=== PATIENT | female | born 1980 | race Caucasian/White ===

== ENCOUNTER → 2017-09-30 | Outpatient (CLI) | payer BC, OTHER, MEDICAID ==
[2017-09-30 13:12] LABS: BASO % 0.3 % (0.0-1.0); EOS # 0.2 10^3/uL (0.0-0.50); EOS % 2.2 % (0.0-3.0); HEMATOCRIT 43.7 % (36.0-47.0); HEMOGLOBIN 14.2 g/dl (12.0-15.5); IMMATURE GRANULOCYTE % 0.4 % (0-3.0); LYMPH # 2.5 10^3/uL (1.5-4.5); LYMPH % 23.9 % (24.0-44.0); MEAN CORPUSCULAR HGB CONC 32.5 g/dl (32.0-36.5); MEAN CORPUSCULAR VOLUME 98.4 fl (80.0-96.0); MONO # 0.7 10^3/uL (0.0-0.8); MONO % 6.6 % (0.0-5.0); NEUTROPHILS # 6.9 10^3/uL (1.8-7.7); NEUTROPHILS % 66.6 % (36.0-66.0); PLATELET COUNT, AUTOMATED 238 10^3/uL (150-450); RED BLOOD COUNT 4.44 10^6/uL (4.00-5.40); WHITE BLOOD COUNT 10.4 10^3/uL (4.0-10.0)
[2017-09-30 13:30] LABS: ALBUMIN 3.6 GM/DL (3.2-5.2); ALBUMIN/GLOBULIN RATIO 1.06 (1.00-1.93); ALKALINE PHOSPHATASE 60 U/L (45-117); ALT/SGPT 26 U/L (12-78); ANION GAP 6 MEQ/L (8-16); AST/SGOT 14 U/L (7-37); BILIRUBIN,TOTAL 0.4 MG/DL (0.2-1.0); BLOOD UREA NITROGEN 11 MG/DL (7-18); CALCIUM LEVEL 8.6 MG/DL (8.5-10.1); CARBON DIOXIDE LEVEL 30 MEQ/L (21-32); CHLORIDE LEVEL 105 MEQ/L (98-107); FREE T4 0.74 NG/DL (0.76-1.46); GLOMERULAR FILTRATION RATE > 60.0 (>60); GLUCOSE, FASTING 97 MG/DL (70-100); POTASSIUM SERUM 4.8 MEQ/L (3.5-5.1); SODIUM LEVEL 141 MEQ/L (136-145)
[2017-09-30 13:44] LABS: ESTIMATED AVERAGE GLUCOSE 114 MG/DL (60-110); HEMOGLOBIN A1c 5.6 %
== END ==
LOC: M WUC 09:00
DX: R55 Syncope and collapse (principal); R73.03 Prediabetes
CPT/HCPCS: 84443

== ENCOUNTER 2017-12-31 15:28 | Emergency (ER) | payer OTHER, MEDICAID ==
[2017-12-31 15:43] LABS: BEDSIDE GLUCOSE 102 MG/DL (70-105)
[2017-12-31 15:59] LABS: BASO % 0.2 % (0.0-1.0); EOS % 0.1 % (0.0-3.0); HEMATOCRIT 43.6 % (36.0-47.0); HEMOGLOBIN 14.7 g/dl (12.0-15.5); IMMATURE GRANULOCYTE % 1.1 % (0-3.0); LYMPH # 2.5 10^3/uL (1.5-4.5); LYMPH % 14.7 % (24.0-44.0); MEAN CORPUSCULAR HEMOGLOBIN 32.3 pg (27.0-33.0); MEAN CORPUSCULAR HGB CONC 33.7 g/dl (32.0-36.5); MEAN CORPUSCULAR VOLUME 95.8 fl (80.0-96.0); MONO # 0.7 10^3/uL (0.0-0.8); NEUTROPHILS # 13.3 10^3/uL (1.8-7.7); NEUTROPHILS % 79.9 % (36.0-66.0); PLATELET COUNT, AUTOMATED 285 10^3/uL (150-450); RED BLOOD COUNT 4.55 10^6/uL (4.00-5.40); RED CELL DISTRIBUTION WIDTH 13.2 % (11.5-14.5); WHITE BLOOD COUNT 16.7 10^3/uL (4.0-10.0)
[2017-12-31] MEDS: NS 1,000 ML IV ×2 (16:01)
[2017-12-31 16:05] LABS: CONTROL LINE HCG INT CTR LINE PRESENT; HCG, SERUM QUALITATIVE NEGATIVE (NEGATIVE)
[2017-12-31 16:06] LABS: INR 0.91; PROTHROMBIN TIME 12.4 SECONDS (12.1-14.4)
[2017-12-31 16:15] LABS: ALBUMIN 3.6 GM/DL (3.2-5.2); ALBUMIN/GLOBULIN RATIO 0.86 (1.00-1.93); ALKALINE PHOSPHATASE 68 U/L (45-117); ALT/SGPT 28 U/L (12-78); ANION GAP 14 MEQ/L (8-16); AST/SGOT 17 U/L (7-37); BILIRUBIN,DIRECT < 0.1 MG/DL (0.0-0.2); BILIRUBIN,TOTAL 0.3 MG/DL (0.2-1.0); BLOOD UREA NITROGEN 10 MG/DL (7-18); C REACTIVE PROTEIN QUANTITATIV 1.25 MG/DL (0.00-0.30); CARBON DIOXIDE LEVEL 19 MEQ/L (21-32); CHLORIDE LEVEL 105 MEQ/L (98-107); CPK CREATINE PHOSPHOKINASE 129 U/L (26-192); CREATININE FOR GFR 1.08 MG/DL (0.55-1.30); GLOMERULAR FILTRATION RATE > 60.0 (>60); GLUCOSE, FASTING 103 MG/DL (70-100); SODIUM LEVEL 138 MEQ/L (136-145); TOTAL PROTEIN 7.8 GM/DL (6.4-8.2); TROPONIN I < 0.02 NG/ML (< 0.10)
[2017-12-31 16:22] LABS: CK-MB VALUE MASS 1.9 NG/ML (<3.6); MB/CK RELATIVE INDEX 1.47 (< OR =4)
[2017-12-31 16:36] LABS: KETONE, URINE AUTO RFX TRACE mg/dL (NEGATIVE); LEUKOCYTE ESTERASE UR AUTO RFX NEGATIVE (NEGATIVE); MUCUS, URINE RFX SMALL (NEGATIVE); NITRITE, URINE AUTO RFX NEGATIVE (NEGATIVE); RBC, URINE AUTO RFX 1 /HPF (0-3); SPECIFIC GRAVITY UR AUTO RFX 1.014 (1.002-1.035); SQUAM EPITHELIAL CELL UR AURFX 0 /HPF (0-6); WBC, URINE AUTO RFX 1 /HPF (0-3)
[2017-12-31 17:01] LABS: AMPHETAMINES LEVEL URINE NEGATIVE (NEGATIVE); BARBITURATES URINE NEGATIVE (NEGATIVE); BENZODIAZEPINES URINE NEGATIVE (NEGATIVE); CANNABINOIDS URINE POSITIVE (NEGATIVE); COCAINE METABOLITE URINE NEGATIVE (NEGATIVE); METHADONE URINE NEGATIVE (NEGATIVE); OPIATES URINE NEGATIVE (NEGATIVE); PHENCYCLIDINE URINE NEGATIVE (NEGATIVE)
[2017-12-31] MEDS: TOPIRAMATE (TopAMAX) 25 MG TAB PO ×2 (18:05)
[2017-12-31] MEDS: KETOROLAC 30 MG/ML VIAL (J1885) IV ×2 (18:05)
== END 2017-12-31 19:39 | disposition home or self-care (01) ==
LOC: M ED 15:28
DX: R56.9 Unspecified convulsions (principal); Z88.0 Allergy status to penicillin
CPT/HCPCS: J1885

== ENCOUNTER → 2018-12-29 | Outpatient (CLI) | payer OTHER ==
[~2018-12-29] MED LIST: CLEO300C; CLIN300C; HYDROCODONE; IBUP400T; IBUP80TA PO; KEPP10002 PO; NORT25CA2 PO; PROV90AE; TOPA1TAB PO; XULA1DIS TD
[2018-12-29 09:56] LABS: BASO % 0.4 % (0.0-1.0); EOS # 0.2 10^3/uL (0.0-0.50); HEMATOCRIT 44.6 % (36.0-47.0); HEMOGLOBIN 14.6 g/dl (12.0-15.5); LYMPH # 2.6 10^3/uL (1.5-4.5); LYMPH % 22.6 % (24.0-44.0); MEAN CORPUSCULAR HEMOGLOBIN 32.9 pg (27.0-33.0); MEAN CORPUSCULAR HGB CONC 32.7 g/dl (32.0-36.5); MEAN CORPUSCULAR VOLUME 100.5 fl (80.0-96.0); MONO # 0.8 10^3/uL (0.0-0.8); MONO % 6.7 % (0.0-5.0); NEUTROPHILS # 7.7 10^3/uL (1.8-7.7); NEUTROPHILS % 67.6 % (36.0-66.0); PLATELET COUNT, AUTOMATED 226 10^3/uL (150-450); RED BLOOD COUNT 4.44 10^6/uL (4.00-5.40); WHITE BLOOD COUNT 11.3 10^3/uL (4.0-10.0)
[2018-12-29 10:28] LABS: ALBUMIN 3.7 GM/DL (3.2-5.2); ALT/SGPT 32 U/L (12-78); BILIRUBIN,TOTAL 0.4 MG/DL (0.2-1.0); BLOOD UREA NITROGEN 10 MG/DL (7-18); CARBON DIOXIDE LEVEL 28 MEQ/L (21-32); CHLORIDE LEVEL 107 MEQ/L (98-107); CREATININE FOR GFR 0.85 MG/DL (0.55-1.30); GLOMERULAR FILTRATION RATE > 60.0 (>60); GLUCOSE, FASTING 94 MG/DL (70-100); POTASSIUM SERUM 4.8 MEQ/L (3.5-5.1); SODIUM LEVEL 139 MEQ/L (136-145)
== END ==
LOC: M LAB 08:54
PROVIDERS: ATTEND Nurse Practitioner Family
DX: G40.89 Other seizures (principal)

== ENCOUNTER 2019-09-20 13:09 | Emergency (ER) | payer MEDICAID, OTHER ==
[~2019-09-20] VITALS: Ht 160 cm; Wt 92.1 kg
[2019-09-20] MEDS ORDERED: TRAZ-252 PO (13:37)
[2019-09-20] MEDS ORDERED: VENL75CA47 PO (13:37)
[2019-09-20] MEDS ORDERED: predniSONE 20 MG TAB PO ONE (14:00)
[2019-09-20 14:02] LABS: BASO # 0.1 10^3/uL (0.0-0.2); BASO % 0.4 % (0.0-1.0); EOS # 0.2 10^3/uL (0.0-0.5); EOS % 1.7 % (0.0-3.0); HEMATOCRIT 42.9 % (36.0-47.0); HEMOGLOBIN 14.3 g/dl (12.0-15.5); LYMPH # 2.7 10^3/uL (1.5-5.0); MEAN CORPUSCULAR HEMOGLOBIN 32.9 pg (27.0-33.0); MEAN CORPUSCULAR HGB CONC 33.3 g/dl (32.0-36.5); MEAN CORPUSCULAR VOLUME 98.6 fl (80.0-96.0); MONO # 0.8 10^3/uL (0.0-0.8); NEUTROPHILS % 71.5 % (36.0-66.0); PLATELET COUNT, AUTOMATED 241 10^3/uL (150-450); RED BLOOD COUNT 4.35 10^6/uL (4.00-5.40); WHITE BLOOD COUNT 13.9 10^3/uL (4.0-10.0)
[2019-09-20] MEDS: ALBUTEROL 90 MCG/ACT 8GM HFA INHALER INH SCH ×2 (14:20→14:28)
[2019-09-20 14:35] LABS: ALBUMIN 3.7 GM/DL (3.2-5.2); ALT/SGPT 32 U/L (12-78); BILIRUBIN,DIRECT < 0.1 MG/DL (0.0-0.2); BILIRUBIN,TOTAL 0.2 MG/DL (0.2-1.0); BLOOD UREA NITROGEN 11 MG/DL (7-18); CALCIUM LEVEL 9.1 MG/DL (8.5-10.1); CARBON DIOXIDE LEVEL 25 MEQ/L (21-32); CHLORIDE LEVEL 105 MEQ/L (98-107); CK-MB VALUE MASS < 1.0 NG/ML (<3.6); CPK CREATINE PHOSPHOKINASE 138 U/L (26-192); CREATININE FOR GFR 0.82 MG/DL (0.55-1.30); FREE T4 0.84 NG/DL (0.76-1.46); GLOMERULAR FILTRATION RATE > 60.0 (>60); GLUCOSE, FASTING 87 MG/DL (70-100); LIPASE 66 U/L (73-393); MB/CK RELATIVE INDEX 0.72 (< OR =4); POTASSIUM SERUM 4.3 MEQ/L (3.5-5.1); SODIUM LEVEL 138 MEQ/L (136-145); TOTAL PROTEIN 7.3 GM/DL (6.4-8.2); TROPONIN I < 0.02 NG/ML (< 0.10)
--- NOTE | 2019-09-20 14:50 | REP ---
REASON FOR EXAM: Chest pain. COMPARISON: 12/31/2017 FINDINGS: The technique utilized in obtaining the radiograph has magnified the cardiac silhouette and accentuated the interstitial markings. The superior mediastinal structures are midline. The cardiac silhouette is unremarkable in size, shape, and position. The diaphragmatic surfaces of the lungs are regular, and the costophrenic angles are clear. The pulmonary miranda are clear. The imaged osseous structures are intact. IMPRESSION: There is no acute cardiopulmonary disease. Electronically Signed by Pranav Orozco DO 09/20/2019 04:11 P
[2019-09-20] MEDS ORDERED: PRED20TA PO (15:03)
[2019-09-20 15:26] VITALS: BP 143/101
--- NOTE | 2019-09-20 22:53 | ECGEPIP ---
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
== END 2019-09-20 15:28 | disposition home or self-care (01) ==
LOC: M ED 13:09
DX: J45.901 Unspecified asthma with (acute) exacerbation (principal); R05 Cough; F17.218 Nicotine dependence, cigarettes, with other nicotine-induced disorders; Z88.0 Allergy status to penicillin; Z88.1 Allergy status to other antibiotic agents; Z11.59 Encounter for screening for other viral diseases
CPT/HCPCS: 71045; 80048; 80076; 82550; 82553; 83690; 84439; 84443; 85025; 85379; 87486; 87581; 87633; 87798; 93005; 93041; 94640; 94760; 99284; U0002

== ENCOUNTER → 2019-11-04 | Outpatient (CLI) | payer OTHER ==
[~2019-11-04] MED LIST changes: +PRED20TA PO; +TRAZ-252 PO; +VENL75CA47 PO
[2019-11-04 13:19] LABS: BASO # 0.1 10^3/uL (0.0-0.2); BASO % 0.3 % (0.0-1.0); EOS # 0.1 10^3/uL (0.0-0.5); EOS % 0.7 % (0.0-3.0); HEMATOCRIT 42.1 % (36.0-47.0); HEMOGLOBIN 13.5 g/dl (12.0-15.5); LYMPH # 3.9 10^3/uL (1.5-5.0); LYMPH % 23.7 % (24.0-44.0); MEAN CORPUSCULAR HEMOGLOBIN 32.1 pg (27.0-33.0); MEAN CORPUSCULAR HGB CONC 32.1 g/dl (32.0-36.5); MONO # 0.9 10^3/uL (0.0-0.8); MONO % 5.6 % (0.0-5.0); NEUTROPHILS # 11.3 10^3/uL (1.5-8.5); NEUTROPHILS % 67.9 % (36.0-66.0); PLATELET COUNT, AUTOMATED 217 10^3/uL (150-450); RED BLOOD COUNT 4.21 10^6/uL (4.00-5.40); WHITE BLOOD COUNT 16.6 10^3/uL (4.0-10.0)
[2019-11-04 14:18] LABS: ALBUMIN 3.5 GM/DL (3.2-5.2); ALT/SGPT 49 U/L (12-78); BILIRUBIN,TOTAL 0.3 MG/DL (0.2-1.0); BLOOD UREA NITROGEN 11 MG/DL (7-18); CALCIUM LEVEL 8.7 MG/DL (8.5-10.1); CARBON DIOXIDE LEVEL 29 MEQ/L (21-32); CHLORIDE LEVEL 102 MEQ/L (98-107); CHOLESTEROL LEVEL 190 MG/DL (<200); CHOLESTEROL RISK RATIO 5.428 (<5); CREATININE FOR GFR 0.93 MG/DL (0.55-1.30); GLOMERULAR FILTRATION RATE > 60.0 (>60); GLUCOSE, FASTING 114 MG/DL (70-100); HDL CHOLESTEROL 35 MG/DL (>40); LDL CHOLESTEROL 76 MG/DL (<100); NON-HDL-C 155 MG/DL; SODIUM LEVEL 138 MEQ/L (136-145); TOTAL PROTEIN 6.7 GM/DL (6.4-8.2); TRIGLYCERIDES LEVEL 395 MG/DL (<150)
[2019-11-04 16:08] LABS: HEMOGLOBIN A1c 6.5 %
== END ==
LOC: M LAB 12:21
PROVIDERS: ATTEND Family Medicine
DX: R73.03 Prediabetes (principal); R53.83 Other fatigue

== ENCOUNTER → 2020-01-16 | Outpatient (CLI) | payer OTHER ==
[2020-01-16 11:37] LABS: BASO # 0.1 10^3/uL (0.0-0.2); BASO % 0.5 % (0.0-1.0); EOS # 0.2 10^3/uL (0.0-0.5); EOS % 1.6 % (0.0-3.0); HEMOGLOBIN 15.4 g/dl (12.0-15.5); LYMPH # 3.3 10^3/uL (1.5-5.0); LYMPH % 22.2 % (24.0-44.0); MEAN CORPUSCULAR HEMOGLOBIN 33.7 pg (27.0-33.0); MEAN CORPUSCULAR HGB CONC 33.5 g/dl (32.0-36.5); MEAN CORPUSCULAR VOLUME 100.7 fl (80.0-96.0); MONO # 0.9 10^3/uL (0.0-0.8); MONO % 6.2 % (0.0-5.0); NEUTROPHILS # 10.1 10^3/uL (1.5-8.5); NEUTROPHILS % 68.7 % (36.0-66.0); PLATELET COUNT, AUTOMATED 277 10^3/uL (150-450); RED BLOOD COUNT 4.57 10^6/uL (4.00-5.40); WHITE BLOOD COUNT 14.8 10^3/uL (4.0-10.0)
[2020-01-16 12:08] LABS: HEMOGLOBIN A1c 6.4 %
[2020-01-16 12:18] LABS: ALBUMIN 4.1 GM/DL (3.2-5.2); ALT/SGPT 60 U/L (12-78); BILIRUBIN,TOTAL 0.3 MG/DL (0.2-1.0); BLOOD UREA NITROGEN 6 MG/DL (7-18); CALCIUM LEVEL 9.7 MG/DL (8.5-10.1); CARBON DIOXIDE LEVEL 27 MEQ/L (21-32); CHLORIDE LEVEL 106 MEQ/L (98-107); CREATININE FOR GFR 0.91 MG/DL (0.55-1.30); FREE T4 0.79 NG/DL (0.76-1.46); GLOMERULAR FILTRATION RATE > 60.0 (>60); GLUCOSE, FASTING 100 MG/DL (70-100); HCG, SERUM QUANTITATIVE < 1.0 MIU/ML; SODIUM LEVEL 141 MEQ/L (136-145); TOTAL PROTEIN 8.1 GM/DL (6.4-8.2)
[2020-01-16 12:45] LABS: H PYLORI QUALITATIVE IgG NEGATIVE (NEGATIVE)
== END ==
LOC: M LAB 10:55
PROVIDERS: ATTEND Physician Assistant Medical
DX: R11.10 Vomiting, unspecified (principal)

== ENCOUNTER → 2020-02-06 | Outpatient (CLI) | payer OTHER ==
[2020-02-06 11:33] LABS: BASO # 0.1 10^3/uL (0.0-0.2); BASO % 0.5 % (0.0-1.0); EOS # 0.3 10^3/uL (0.0-0.5); EOS % 2.6 % (0.0-3.0); HEMATOCRIT 43.5 % (36.0-47.0); HEMOGLOBIN 14.3 g/dl (12.0-15.5); MEAN CORPUSCULAR HEMOGLOBIN 32.6 pg (27.0-33.0); MEAN CORPUSCULAR HGB CONC 32.9 g/dl (32.0-36.5); MEAN CORPUSCULAR VOLUME 99.3 fl (80.0-96.0); MONO # 0.9 10^3/uL (0.0-0.8); MONO % 6.8 % (0.0-5.0); NEUTROPHILS # 8.5 10^3/uL (1.5-8.5); NEUTROPHILS % 65.7 % (36.0-66.0); PLATELET COUNT, AUTOMATED 266 10^3/uL (150-450); RED BLOOD COUNT 4.38 10^6/uL (4.00-5.40); WHITE BLOOD COUNT 12.9 10^3/uL (4.0-10.0)
[2020-02-06 12:20] LABS: ALBUMIN 3.9 GM/DL (3.2-5.2); ALT/SGPT 77 U/L (12-78); BILIRUBIN,TOTAL 0.4 MG/DL (0.2-1.0); BLOOD UREA NITROGEN 11 MG/DL (7-18); CALCIUM LEVEL 8.9 MG/DL (8.5-10.1); CARBON DIOXIDE LEVEL 27 MEQ/L (21-32); CHLORIDE LEVEL 106 MEQ/L (98-107); GLOMERULAR FILTRATION RATE > 60.0 (>60); GLUCOSE, FASTING 92 MG/DL (70-100); LIPASE 78 U/L (73-393); POTASSIUM SERUM 4.2 MEQ/L (3.5-5.1); SODIUM LEVEL 139 MEQ/L (136-145); TOTAL PROTEIN 7.4 GM/DL (6.4-8.2)
[2020-02-06 16:06] LABS: HEPATITIS B SURFACE ANTIBODY POSITIVE (POSITIVE)
[2020-02-06 16:17] LABS: HEPATITIS B SURFACE ANTIGEN NEGATIVE (NEGATIVE)
[2020-02-06 16:45] LABS: HEPATITIS C VIRUS ABY INDEX 0.1 INDEX (<0.8)
[2020-02-07 21:07] LABS: ANTINUCLEAR ANTIBODIES DIRECT Negative (Negative); HBVCOREDIFF1 Negative (Negative); HBVCOREDIFF2 Negative (Negative); TISSUE TRANSGLUTAMINASE IgA <2 U/mL (0-3)
== END ==
LOC: M LAB 10:26
PROVIDERS: ATTEND Nurse Practitioner Family
DX: K59.00 Constipation, unspecified (principal); R74.0 Nonspecific elevation of levels of transaminase and lactic acid dehydrogenase [LDH]

== ENCOUNTER 2020-05-30 08:53 | Inpatient (IN) | payer OTHER ==
[~2020-05-30] VITALS: Ht 162.6 cm; Wt 101.2 kg
[2020-05-30] MEDS ORDERED: NS 1,000 ML IV ONE ×3 (09:00→12:45)
[2020-05-30] MEDS ORDERED: LIDOCAINE 2% 5ML JELLY UROJET TOP ONE (09:00)
--- NOTE | 2020-05-30 09:26 | REP ---
INDICATION: Altered Mental Status COMPARISON: 12/31/2017 TECHNIQUE: Axial noncontrast images from the skull base to the vertex with coronal reformations. This CT examination was performed using the following dose reduction techniques: Automated exposure control, adjustment of mA and/or kv according to the patient's size, and use of iterative reconstruction technique. FINDINGS: The ventricles, sulci, and cisterns are normal in position and appearance. Morris-white differentiation is maintained. No acute intracranial hemorrhage, mass/mass effect, pathology or trauma/injury. No evidence for acute infarction. No extra-axial fluid collection. Calvarium is intact. Paranasal sinuses and mastoid air cells are clear. IMPRESSION: Normal noncontrast head CT. No evidence for acute intracranial pathology or trauma/injury. <Electronically signed by Bruno Cooper > 05/30/20 [id number]
[2020-05-30] MEDS ORDERED: HumaLOG INSULIN (NovoLOG) PER UNIT SC STA (09:35)
--- NOTE | 2020-05-30 09:46 | REP ---
INDICATION: Altered Mental Status COMPARISON: 09/20/2019 TECHNIQUE: Portable AP view of the chest FINDINGS: The mediastinum and cardiac silhouette are stable and within normal limits for portable technique. The lung miranda are clear without acute consolidation, effusion, or pneumothorax. Skeletal structures are intact. IMPRESSION: No acute cardiopulmonary process appreciated. <Electronically signed by Bruno Cooper > 05/30/20 [id number]
[2020-05-30 09:49] LABS: BASO # 0.1 10^3/uL (0.0-0.2); BASO % 0.5 % (0.0-1.0); EOS % 0.1 % (0.0-3.0); HEMATOCRIT 62.5 % (36.0-47.0); HEMOGLOBIN 18.6 g/dl (12.0-15.5); LYMPH % 10.4 % (24.0-44.0); MEAN CORPUSCULAR HEMOGLOBIN 32.9 pg (27.0-33.0); MEAN CORPUSCULAR HGB CONC 29.8 g/dl (32.0-36.5); MEAN CORPUSCULAR VOLUME 110.4 fl (80.0-96.0); MONO # 1.5 10^3/uL (0.0-0.8); MONO % 7.7 % (0.0-5.0); NEUTROPHILS # 15.6 10^3/uL (1.5-8.5); NEUTROPHILS % 79.9 % (36.0-66.0); PLATELET COUNT, AUTOMATED 294 10^3/uL (150-450); RED BLOOD COUNT 5.66 10^6/uL (4.00-5.40); WHITE BLOOD COUNT 19.5 10^3/uL (4.0-10.0)
[2020-05-30 09:53] LABS: ABG BASE EXCESS -2.2 (-2.0-2.0); ABG HCO3 22.8 MEQ/L (22.0-26.0); ABG O2 SATURATION 94.1 % (95.0-99.0); ABG PARTIAL PRESSURE CO2 40.4 mmHg (35.0-45.0); ABG PARTIAL PRESSURE O2 74.1 mmHg (75.0-100.0); ABG STANDARD HCO3 22.6 MEQ/L (22.0-26.0); ABG TOTAL CO2 24.1 MEQ/L (22.0-29.0)
[2020-05-30] MEDS ORDERED: LevoFLOXacin IV 750 MG in IV 1 EA IV ONE (10:15)
[2020-05-30 10:36] LABS: AMPHETAMINES LEVEL URINE NEGATIVE (NEGATIVE); BARBITURATES URINE NEGATIVE (NEGATIVE); BENZODIAZEPINES URINE NEGATIVE (NEGATIVE); CANNABINOIDS URINE POSITIVE (NEGATIVE); COCAINE METABOLITE URINE NEGATIVE (NEGATIVE); METHADONE URINE NEGATIVE (NEGATIVE); OPIATES URINE NEGATIVE (NEGATIVE); PHENCYCLIDINE URINE NEGATIVE (NEGATIVE)
[2020-05-30] MEDS ORDERED: NS 1,000 ML IV SCH (10:36)
[2020-05-30] MEDS ORDERED: INSULIN REGULAR IN 0.9 % NACL 100 UNIT in IV 1 EA IV SCH ×2 (10:36)
[2020-05-30 10:38] LABS: ACETAMINOPHEN LEVEL < 2.0 UG/ML (10.0-30.0); ALBUMIN 4.3 GM/DL (3.2-5.2); ALT/SGPT 115 U/L (12-78); BILIRUBIN,DIRECT 0.3 MG/DL (0.0-0.2); BILIRUBIN,TOTAL 0.8 MG/DL (0.2-1.0); BLOOD UREA NITROGEN 50 MG/DL (7-18); CALCIUM LEVEL 13.3 MG/DL (8.5-10.1); CARBON DIOXIDE LEVEL 25 MEQ/L (21-32); CHLORIDE LEVEL 106 MEQ/L (98-107); CK-MB VALUE MASS 2.3 NG/ML (<3.6); CPK CREATINE PHOSPHOKINASE 486 U/L (26-192); CREATININE FOR GFR 3.01 MG/DL (0.55-1.30); ETHYL ALCOHOL (ETHANOL) 0.003 % (0.000-0.010); GLOMERULAR FILTRATION RATE 18.4 (>60); MB/CK RELATIVE INDEX 0.47 (< OR =4); POTASSIUM SERUM 4.4 MEQ/L (3.5-5.1); SALICYLATE LEVEL 1.8 MG/DL (5.0-30.0); SODIUM LEVEL 145 MEQ/L (136-145); TOTAL PROTEIN 9.1 GM/DL (6.4-8.2); TROPONIN I < 0.02 NG/ML (< 0.10)
[2020-05-30 11:16] LABS: GLUCOSE, FASTING 1355 MG/DL (70-100); LIPASE 18582 U/L (73-393)
[2020-05-30] MEDS ORDERED: PROAAER10 INH (11:44)
[2020-05-30] MEDS ORDERED: DEBL1TAB PO (11:44)
[2020-05-30] MEDS ORDERED: PEGPOW PO (11:44)
[2020-05-30] MEDS ORDERED: PT COMMENT (11:46)
[2020-05-30] MEDS ORDERED: HumuLIN R (REGULAR) INSULIN (NovoLIN R) **100U/ML** PER UNIT IV ONE (13:00)
[2020-05-30] MEDS ORDERED: KCL 20MEQ in NS 1000ML 1,000 ML IV SCH (13:30)
[2020-05-30 13:58] LABS: CREATININE,RANDOM URINE 33.2 MG/DL; SODIUM,RANDOM URINE < 10 MEQ/L
[2020-05-30 15:00] LABS: BASO # 0.1 10^3/uL (0.0-0.2); BASO % 0.3 % (0.0-1.0); HEMATOCRIT 53.8 % (36.0-47.0); LYMPH # 2.6 10^3/uL (1.5-5.0); LYMPH % 13.8 % (24.0-44.0); MEAN CORPUSCULAR HGB CONC 31.6 g/dl (32.0-36.5); MEAN CORPUSCULAR VOLUME 101.1 fl (80.0-96.0); MONO # 1.4 10^3/uL (0.0-0.8); MONO % 7.2 % (0.0-5.0); NEUTROPHILS # 14.6 10^3/uL (1.5-8.5); NEUTROPHILS % 76.9 % (36.0-66.0); PLATELET COUNT, AUTOMATED 264 10^3/uL (150-450); RED BLOOD COUNT 5.32 10^6/uL (4.00-5.40)
[2020-05-30] MEDS ORDERED: INSULIN IV RATE CHANGE DOCUMENTATION ML/HR XX SCH (15:00)
[2020-05-30 15:16] LABS: ALBUMIN 3.4 GM/DL (3.2-5.2); BILIRUBIN,TOTAL 0.5 MG/DL (0.2-1.0); CALCIUM LEVEL 10.4 MG/DL (8.5-10.1); CREATININE FOR GFR 2.53 MG/DL (0.55-1.30); GLOMERULAR FILTRATION RATE 22.5 (>60); POTASSIUM SERUM 3.3 MEQ/L (3.5-5.1); TOTAL PROTEIN 7.4 GM/DL (6.4-8.2)
--- NOTE | 2020-05-30 15:30 | REP ---
INDICATION: Elevated lipase COMPARISON: 02/18/2011 TECHNIQUE: Axial noncontrast images from the lung bases to the pubic symphysis with coronal and sagittal reformations. This CT examination was performed using the following dose reduction techniques: Automated exposure control, adjustment of mA and/or kv according to the patient's size, and use of iterative reconstruction technique. FINDINGS: Moderate peripancreatic inflammatory stranding and small amounts of mesenteric edema and minimal ascites extending into the left pericolic gutter consistent with acute pancreatitis. No definite drainable collection/abscess. Hepatomegaly and diffuse significant hepatosteatosis noted along with suggestions for cholelithiasis without evidence for acute cholecystitis. Spleen, bilateral adrenal glands and kidneys are normal. There is no evidence for bowel obstruction or acute enteric process. Pelvis demonstrates Karimi catheter in normal bladder and age-appropriate uterus/adnexa. No significant pelvic fluid or ascites. No free air. No adenopathy. Abdominal aorta without aneurysm. Musculoskeletal structures are intact. IMPRESSION: 1. Acute pancreatitis. No obvious drainable collection or abscess. 2. Hepatomegaly and marked hepatosteatosis. 3. Suggestions for cholelithiasis without acute cholecystitis. <Electronically signed by Bruno Cooper > 05/30/20 [id number]
[2020-05-30] MEDS ORDERED: ALBUTEROL 90 MCG/ACT 8GM HFA INHALER INH PRN (15:45)
[2020-05-30] MEDS ORDERED: KCL 20MEQ IN 0.45NS 1000ML 1,000 ML IV SCH (16:00)
[2020-05-30] MEDS: INSULIN REGULAR IN 0.9 % NACL 100 UNIT in IV 1 EA IV SCH ×8 (16:21→21:16)
[2020-05-30] MEDS ORDERED: POTASSIUM CHLORIDE 10 MEQ SR TABLET PO ONE (17:00)
[2020-05-30] MEDS: INSULIN IV RATE CHANGE DOCUMENTATION ML/HR XX SCH ×2 (17:11→22:50)
[2020-05-30 17:41] LABS: BASO # 0.1 10^3/uL (0.0-0.2); BASO % 0.5 % (0.0-1.0); HEMATOCRIT 58.6 % (36.0-47.0); HEMOGLOBIN 17.8 g/dl (12.0-15.5); LYMPH # 3.1 10^3/uL (1.5-5.0); LYMPH % 15.3 % (24.0-44.0); MEAN CORPUSCULAR HEMOGLOBIN 31.4 pg (27.0-33.0); MEAN CORPUSCULAR HGB CONC 30.4 g/dl (32.0-36.5); MEAN CORPUSCULAR VOLUME 103.4 fl (80.0-96.0); MONO # 1.7 10^3/uL (0.0-0.8); MONO % 8.5 % (0.0-5.0); NEUTROPHILS # 15.1 10^3/uL (1.5-8.5); PLATELET COUNT, AUTOMATED 238 10^3/uL (150-450); RED BLOOD COUNT 5.67 10^6/uL (4.00-5.40); WHITE BLOOD COUNT 20.4 10^3/uL (4.0-10.0)
[2020-05-30] MEDS: NS 0.45% 1,000 ML IV SCH ×2 (17:47→21:30)
[2020-05-30] MEDS ORDERED: KCL 10MEQ/100ML SWI (KRUN) 10 MEQ in IV 1 EA IV SCH (18:00)
--- NOTE | 2020-05-30 18:01 | ECGEPIP ---
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
--- NOTE | 2020-05-30 18:14 | ECGEPIP ---
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
[2020-05-30 18:26] LABS: CALCIUM LEVEL 10.7 MG/DL (8.5-10.1); CREATININE FOR GFR 2.26 MG/DL (0.55-1.30); GLOMERULAR FILTRATION RATE 25.6 (>60); POTASSIUM SERUM 5.8 MEQ/L (3.5-5.1)
[2020-05-30] MEDS ORDERED: LORazepam 2 MG/ML VIAL IV STA (18:48)
[2020-05-30] MEDS ORDERED: METOPROLOL 5 MG/5 ML VIAL IV STA ×3 (20:01→20:30)
--- NOTE | 2020-05-30 20:32 | REP ---
INDICATION: internal jug line COMPARISON: 09/20/2019 TECHNIQUE: Portable AP view of the chest FINDINGS: Right IJ line with tip in the SVC. The mediastinum and cardiac silhouette are stable and within normal limits for portable technique. The lung miranda are clear without acute consolidation, effusion, or pneumothorax. Skeletal structures are intact. IMPRESSION: No acute cardiopulmonary process appreciated. <Electronically signed by Bruno Cooper > 05/30/202028
[2020-05-30] MEDS: PANTOPRAZOLE 40MG VIAL (C9113 PER 1) IV SCH (20:42)
--- NOTE | 2020-05-30 20:43 | ROOPDOC ---
[facility] Report Of Operation Report of Operation DATE OF OPERATION: 05/30/2020 INDICATION: Vascular access PREPROCEDURE DIAGNOSIS: DKA/HHS with loss of vascular access POSTPROCEDURE DIAGNOSIS: DKA/HHS PROCEDURE: Right Internal Jugular central line placement PROCEDURE END FINDER TWISTING DEPARTMENT: Dr. Jose Francisco Barrera, Resident Physician ATTENDING PHYSICIAN: Dr. Magaña, attending Physician in attendance and assisted with huertas portions of the procedure CONSENT: Mom at bedside gave consent due to patient being AAOx0 DESCRIPTION OF PROCEDURE: My hands were washed immediately prior to the procedure. Full sterile technique was maintained throughout the procedure, including surgical cap, mask, protective eyewear, full gown, and sterile gloves, and N95 mask. A time-out was performed. 2mg of IV ativan was administered as patient was very agitated and moving her neck from side to side. The patient was then placed in Trendelenburg position. The right neck region was prepped using chlorhexidine scrub and draped in sterile fashion using a fenestrated drape and a sterile probe cover employed. The right internal jugular vein was identified using ultrasound. Anesthesia was achieved over the vein using 1% Lidocaine. Using real-time [id number] guidance, the introducer needle was inserted into the internal jugular vein under direct ultrasound visualization. Venous blood was withdrawn. The syringe was removed and a guidewire was advanced into the introducer needle. The introducer needle was removed over the guidewire. A small incision was made at the skin surface with a scalpel, and a dilator was exchanged over the guidewire. After appropriate dilation was obtained, the dilator was exchanged over the wire for a triple lumen central venous catheter. The wire was removed and a catheter was sutured in place at 15 cm. A sterile chlorhexidine-impregnated dressing was placed over the catheter at the insertion site. The patient tolerated the procedure without any hemodynamic compromise. At the time of procedure complet ion, all ports were aspirated and flushed properly. Postprocedure chest x-ray is pending. Estimated blood loss was less than 3 mL. Attending Attestation: I was present and supervised Dr. Barrera during the entire duration of this procedure. I agree with the documentation above. GME ATTESTATION GME ATTESTATION My faculty preceptor for this patient encounter was physically present during the encounter and was fully available. All aspects of the patient interview, examination, medical decision making process, and medical care plan development were reviewed and approved by the faculty preceptor. The faculty preceptor is aware and concurs with the plan as stated in the body of this note and will attest to such by his/her cosignature. Jose Francisco Barrera DO May 30, 2020 20:39 LO MAGAÑA MD Jun 24, 2020 22:09
[2020-05-30] MEDS ORDERED: LEVEMIR (INSULIN DETEMIR) 1 UNITS/0.01ML SC SCH (21:00)
[2020-05-30] MEDS ORDERED: METOPROLOL SUCC (TopROL XL) 50MG **XL** TAB PO ONE (21:00)
[2020-05-30] MEDS ORDERED: traZODone 50 MG TAB PO SCH (21:00)
--- NOTE | 2020-05-30 21:12 | HPEPDOC ---
General Date of Admission Date of Service: May 30, 2020 Attending Physician: LO MAGAÑA MD Chief Complaint The patient is a 40-year-old female admitted with a reason for visit of Unresponsive. History of Present Illness SUBJECTIVE: This is a 40 y/o obese female with PMHx significant for Asthma, allergic rhinitis, who presents to [facility] ER with cc of altered mental status. Pt is AAOx0 but patient's mother is at beside and this history of present illness is mostly provided by her mother. She states that the patient has had about 6 months hx of polyuria and increased thirst to the point where she drinks about a gallon of milk/day. She had an appt setup with a doctor in [place] to get her sugars checked and worked up for diabetes today. However, when she went to get her daughter, she was acting very confused and speaking incoherently. Of note, she stated that when she called her daugther yesterday, she reported headaches. In the ER, pt's blood sugar is 1355 and her Na+ corrected for hyperglycemia is 165. She also has lactic acidosis and lipase of 18,582 and meets sepsis criteria. Her initial ABG did not show acidosis and PH 7.37. She's on telemetry and is tachycardic and EKG is ordered in the ER. She was given 2 L Ns 0.9% fluid boluses in the ER and started on insulin gtt. ROS: All 10 points uable to be reviewed 2/2 to altered mentation PAST MEDICAL HX: Asthma Allergic rhinitis Ureteral stone Obesity ALLERGIES: see below PAST SURGICAL Hx: laparascopy in 1999 tooth abcess removal c/s PAST FAMILY HX: Siblings alive Mom and father in their 50s - both healthy OBJECTIVE: PHYSICAL EXAM: VS: see below General: AAOx0, responsive to her name being called, mildly agitated HEENT: PERRLA, EOMI, sclerae clear Neck: supple, normal ROM, no JVD Respiratory: No wheezing, rales, ronchi appreciated Cardiovascular: tachycardic in 150s, normal S1, S2, no m/g/r Abdomen: obese, soft, no masses, no hepatosplenomegaly, BS+, no rebound tenderness Extremities: Trace lower extr edema bilaterally, pulses 2+ MSK: no joint deformities, normal ROM, no calf pain or tenderness Neuro: unable to obtain 2/2 to altered mentation LABS: REVIEWED. SEE BELOW IMAGING: REVIEWED. SEE BELOW ASSESSMENT AND PLAN: This is a 40 y/o obese female with PMHx significant for Asthma, allergic rhinitis, who presents to [facility] ER with cc of altered mental status. Pt is AAOx0 but patient's mother is at beside and this history of present illness is mostly provided by her mother. She states that the patient has had about 6 months hx of polyuria and increased thirst to the point where she drinks about a gallon of milk/day. She had an appt setup with a doctor in [place] to get her sugars checked and worked up for diabetes today. However, when she went to get her daughter, she was acting very confused and speaking incoherently. Of note, she stated that when she called her daugther yesterday, shereported headaches. In the ER, pt's blood sugar is 1355 and with Na+ corrected for hyperglycemia is 165. She also has lactic acidosis and lipase of 18,582. Her AST and ALT and alkp phosp were also elevated. Her initial ABG did not show acidosis and PH 7.37. She's on telemetry and is tachycardic and EKG is ordered in the ER. She was given 2 L Ns 0.9% fluid boluses in the ER and started on insulin gtt. I have called nephrology for consultation (Dr. Bass) and spoken with him about the patient. We will start patient on 1/2 NS @250cc/h and give patient kruns to replete K+. We will continue to monitor electrolytes closely q4h. With her significantly elevated lipase, we will order for a CT abd/pelvis w/o ctx. With sugars at 1355 without significant acidosis, we suspect she's in HHS and will continue with insulin gtt with protocols to titrate. #DKA/Hyperosmolar hyperglycemic state - likely a complication 2/2 to undiagnosed diabetes - Bs on admission 1355; no significant acidosis on ABG - Sodium corrected 165 - Will order 1/2 NS @250cc/h - Will give 7 K runs and closely monitor lytes q4h - Given 10 units of regular insulin bolus - Q1h blood sugar checks - Will c/w with insulin gtt with protocols to titrate #HyperNa+ - Hyperglycemia corrected sodium is 165 - Will order for urine osml, urine sodium, urine cr, urine osml and calculate FENA - patient has a free water deficit of 10.7L - We will order for 1/2 NS @250cc/h - Nephrology consulted (Dr. Russell) -greatly appreciate further recommendations #Acute pancreatitis - Elevated 18,000 - CT abd/pelvis ordered - c/w fluid for hydration - will order empiric abx for her cipro flagyl - NPO #Severe Sepsis - Blood cx and urine cx pending - Continue fluids 250cc/h - Will cover with empiric abx - CVP monitor with goal CVP >8 - Hold antihypertensives - Pending repeat EKG #Type A lactic acidosis - likely 2/2 to dehydration - c/w fluid resuscitation - will continue to monitor #reported hx of seizure of unknown type - c/w home med Keppra #Altered mental status - likely 2/2 to [facility] - AAOx0 #Tachycardia - Repeat EKG shows SVT; HR in 160s - Bedside rec from Dr. Banda Cardiology - give 3 total doses of IV 5mg metoprol 5 mins apart - give 50mg PO metoprolol succinate - Will let night team know to call him back for bp and HR report #MERRICK - Likely prerenal - pending urine sodium - Patient is severely fluid depleted 10.7L free water deficit - Will continue fluids #Anemia - Will order for B12, folate levels #Transaminitis - Pt's mom denies hx of ETOH use - Urine tox -neg for ETOH - WIll order hep panel DVT ppx: TEDs/SCDs GI ppx: none Fluids: 1/2 NS @250cc/h Diet: NPO Code status: Full Disposition: Patient will be admitted to ICU and continue insulin gtt with protocol with sugar checks q1h and bmp q4h. Nephrology consulted- appreciate recs. Home Medications Scheduled Blood Sugar Diagnostic (Advanced Glucose Test Strips) 1 Each Strip, 1 STRIP XX ASDIRECTED Desmopressin (Nonrefrigerated) (Desmopressin 10 Mcg/0.1 ml Spr) 10 Mcg/0.1 Ml [place].pump, 1 SPRAY NA DAILY Insulin Detemir (Levemir) 100 Unit/1 Ml Vial, 15 UNITS SC BID Levetiracetam (Keppra) 1,000 Mg Tab, 1,000 MG PO BID, (Reported) Norethindrone (Deblitane) 0.35 Mg Tablet, 0.35 MG PO DAILY, (Reported) Trazodone HCl (Trazodone HCl) 50 Mg Tablet, 50 MG PO QHS, (Reported) Scheduled PRN Albuterol Sulfate (Proair Hfa) 8.5 Gm Hfa.aer.ad, 2 PUFF INH Q4H PRN for SHORTNESS OF BREATH, (Reported) Miscellaneous Medications Polyethylene Glycol 3350 (Polyethylene Glycol 3350) 510 Gm Powder, 1 SCOOP PO, (Reported) Allergies Coded Allergies: amoxicillin (Verified Allergy, Intermediate, rash, 09/20/19) cephalexin (Verified Allergy, Intermediate, rash, 09/20/19) erythromycin base (Verified Allergy, Intermediate, rash, 09/20/19) A-FIB/CHADSVASC A-FIB History Current/History of A-Fib/PAF?: No Current PO Anticoag Therapy: Yes Vital Signs Vital Signs Date Time Temp Pulse Resp B/P (MAP) Pulse Ox O2 Delivery O2 Flow Rate FiO2 05/30/20 11:30 164 24 165/108 (127) 92 Room Air 05/30/20 09:02 97.3 Laboratory Data Labs 24H Laboratory Tests 2 05/30/20 09:34: POC Glucose (Misc Panel) > 700*H, POC Sodium (Misc Panel) 151H, POC Potassium (Misc Panel) 4.5, POC Chloride (Misc Panel) 113H, POC Total CO2 (Misc Panel) 27.0, POC Blood Urea Nitrogen (Misc Panel 50H, POC Ionized Calcium (Misc Panel) 6.2H, POC Creatinine (Misc Panel) 2.3H, POC Hematocrit (Misc Panel) 58.0H 05/30/20 09:37: Osmolality 425H, B-Hydroxybutyrate 17.91H 05/30/20 09:40: Immature Granulocyte % (Auto) 1.4, Neutrophils (%) (Auto) 79.9H, Lymphocytes (%) (Auto) 10.4L, Monocytes (%) (Auto) 7.7H, Eosinophils (%) (Auto) 0.1, Basophils (%) (Auto) 0.5, Neutrophils # (Auto) 15.6H, Lymphocytes # (Auto) 2.0, Monocytes # (Auto) 1.5H, Eosinophils # (Auto) 0.0, Basophils # (Auto) 0.1, Nucleated Red Blood Cells % (auto) 0.0, Blood Gas Bicarbonate Standard 22.6, Arterial Blood pH 7.370, Arterial Blood Partial Pressure CO2 40.4, Arterial Blood Partial Pressure O2 74.1L, Arterial Blood Total CO2 24.1, Arterial Blood HCO3 22.8, Arterial Blood Base Excess -2.2L, Arterial Blood Oxygen Saturation 94.1L, Anion Gap 14, Glomerular Filtration Rate 18.4L, Calcium Level 13.3H, Total Bilirubin 0.8, Direct Bilirubin 0.3H, Aspartate Amino Transf (AST/SGOT) 79H, Alanine Aminotransferase (ALT/SGPT) 115H, Alkaline Phosphatase 272H, Total Creatine Kinase 486H, Creatine Kinase MB 2.3, Creatine Kinase MB Relative Index 0.47, Troponin I < 0.02, Total Protein 9.1H, Albumin 4.3, Albumin/Globulin Ratio 0.9L, Lipase 38565H, Thyroid Stimulating Hormone (TSH) 1.410, Salicylates Level 1.8L, Acetaminophen Level < 2.0L, Ethyl Alcohol Level 0.003, Coronavirus (COVID- 19)(PCR) NEGATIVE 05/30/20 09:41: Urine Color YELLOW, Urine Appearance CLOUDYH, Urine pH 6.0, Urine Specific [place] 1.024, Urine Protein 2+H, Urine Glucose (UA) 3+H, Urine Ketones TRACEH, Urine Blood 2+H, Urine Nitrite NEGATIVE, Urine Bilirubin NEGATIVE, Urine Urobilinogen 0.2, Urine Leukocyte Esterase 3+H, Urine WBC (Auto) 99H, Urine RBC (Auto) 165H, Urine Hyaline Casts (Auto) 0, Urine Bacteria (Auto) 2+H, Urine Squamous Epithelial Cells 7, Urine Yeast-Like Cells (Auto) SMALLH, Urine Sperm (Auto) , Lactic Acid Level 4.4*H, Ammonia 63H, Urine Opiates Screen NEGATIVE, Urine Methadone Screen NEGATIVE, Urine Barbiturates Screen NEGATIVE, Urine Ph encyclidine Screen NEGATIVE, Urine Amphetamines Screen NEGATIVE, Urine Benzodiazepines Screen NEGATIVE, Urine Cocaine Metabolite Screen NEGATIVE, Urine Cannabinoids Screen POSITIVEH CBC/BMP Laboratory Tests 05/30/20 09:40 Microbiology Microbiology 05/30/20 Blood Culture, Received Pending 05/30/20 Urine Culture, Received Pending 05/30/20 Blood Culture, Received Pending Plan / VTE VTE Prophylaxis Ordered?: Yes GME ATTESTATION GME ATTESTATION My faculty preceptor for this patient encounter was physically present during the encounter and was fully available. All aspects of the patient interview, examination, medical decision making process, and medical care plan development were reviewed and approved by the faculty preceptor. The faculty preceptor is aware and concurs with the plan as stated in the body of this note and will attest to such by his/her cosignature. ATTENDING NOTE I saw and evaluated the patient. I discussed the management of this patient in detail with the resident and agree with the plan of care as documented in the residents note. Jose Francisco Barrera DO May 30, 2020 11:54 LO MAGAÑA MD Jun 24, 2020 22:09
[2020-05-30] MEDS: metroNIDAZOLE 500 MG in IV 1 EA IV SCH (21:15)
[2020-05-30] MEDS ORDERED: levETIRAcetam INJection 1,000 MG in D5W 100 ML IV ONE (21:45)
[2020-05-30] MEDS: SODIUM CHLORIDE 23.4% INJ 40.8 MEQ in STERILE WATER LITER BAG 1,050 ML IV SCH (22:14)
[2020-05-30] MEDS: levETIRAcetam INJection 500 MG in D5W MINI-BAG PLUS 100 ML IV SCH (22:25)
[2020-05-30] MEDS ORDERED: METOPROLOL 5 MG/5 ML VIAL IV PRN (23:45)
[2020-05-30 23:53] LABS: CALCIUM LEVEL 9.7 MG/DL (8.5-10.1); CREATININE FOR GFR 2.58 MG/DL (0.55-1.30); POTASSIUM SERUM 3.9 MEQ/L (3.5-5.1)
[2020-05-31] VITALS (53 sets, daily range): BP systolic 87–156; BP diastolic 42–94; PULSE 134
[2020-05-31] MEDS ORDERED: METOPROLOL TART 50 MG TAB PO SCH
[2020-05-31] MEDS: INSULIN REGULAR IN 0.9 % NACL 100 UNIT in IV 1 EA IV SCH ×4 (00:34→16:13)
[2020-05-31] MEDS: SODIUM CHLORIDE 23.4% INJ 40.8 MEQ in STERILE WATER LITER BAG 1,050 ML IV SCH ×3 (02:22→10:58)
[2020-05-31] MEDS: metroNIDAZOLE 500 MG in IV 1 EA IV SCH ×3 (06:01→15:46)
[2020-05-31 06:19] LABS: ABG BASE EXCESS -6.5 (-2.0-2.0); ABG HCO3 16.6 MEQ/L (22.0-26.0); ABG O2 SATURATION 96.9 % (95.0-99.0); ABG PARTIAL PRESSURE CO2 28.2 mmHg (35.0-45.0); ABG STANDARD HCO3 19.3 MEQ/L (22.0-26.0); ABG TOTAL CO2 17.5 MEQ/L (22.0-29.0); ABG pH (ARTERIAL) 7.388 UNITS (7.350-7.450)
[2020-05-31 07:31] LABS: MAGNESIUM LEVEL 2.4 MG/DL (1.8-2.4); PHOSPHORUS LEVEL 3.7 MG/DL (2.5-4.9)
[2020-05-31 08:01] LABS: CALCIUM LEVEL 9.1 MG/DL (8.5-10.1); CREATININE FOR GFR 2.61 MG/DL (0.55-1.30); GLOMERULAR FILTRATION RATE 21.7 (>60); POTASSIUM SERUM 4.3 MEQ/L (3.5-5.1)
--- NOTE | 2020-05-31 08:54 | CR ---
CONSULTATION DATE: 05/30/2020 REQUESTING PHYSICIAN: Juan King MD CONSULTING PHYSICIAN: Christen Bass MD REASON FOR CONSULTATION: Management of metabolic acidosis, hypernatremia and acute renal failure. CHIEF COMPLAINT: The patient was brought to the emergency room via emergency medical service (EMS) and they were called by family members because of the patient's altered mental status and drowsiness. HISTORY OF PRESENT ILLNESS: Note, history was obtained from the patient's mother at the bedside and from the medical team. The patient herself is unable to provide a reliable history. Grace Murry is a 40-year-old female with past medical history seizure disorder. She has not recently seen a physician in the last few months and the patient's mother reported that she was having a lot of thirst and high urine output and she suspected that the patient was developing diabetes. However, her sugar has not been checked recently. She actually had an appointment to see a doctor and get her sugar level checked tomorrow morning. However, today, the patient was found unconscious at her home. She was not responding to painful stimuli, so emergency medical service (EMS) was called and she was brought to the emergency room. In the emergency room, the patient was taken to the Operating Room as found to be hyperglycemic with blood glucose levels more than 1300. She was in acute renal failure. She had high anion gap metabolic acidosis including lactic acidosis and ketoacidosis. The patient has elevated lipase levels and a CAT scan was done, which showed acute pancreatitis. The patient was started on IV insulin drip; and after initiation of insulin drip and IV fluids, the patient developed hypernatremia. Nephrology service was called to further help in the management of this patient. The patient needed my immediate attention. I saw and evaluated the patient in the emergency room. Her mother was present at the bedside. The patient wakes up to loud commands. She is unable to provide any history. PAST MEDICAL HISTORY: Past medical history of seizure disorder. No known history of diabetes mellitus type 2 in the past. The patient's mother is not aware if she has any baseline chronic kidney disease, history of obesity. PAST SURGICAL HISTORY: No known past surgical history. At this point, the patient is unable to provide any history. ALLERGIES: There is a history of allergy to AMOXICILLIN, CEPHALEXIN AND ERYTHROMYCIN base. FAMILY HISTORY: No significant family history of end-stage renal disease requiring hemodialysis. SOCIAL HISTORY: The patient lives at home with her . Mother is not aware if she uses alcohol. Urine toxicology was positive for marijuana. REVIEW OF SYSTEMS: The patient was unable to provide any review of systems. She was very obtunded and drowsy at this time. PHYSICAL EXAMINATION: General: The patient is lying in bed. Eyes are closed. Opens eyes to loud commands. Does not communicate. She follows very few commands. Head and neck examination: Pupils are equally around and reactive to light. Mucous membranes are very dry. She had a dry cracked tongue. Neck is supple. No jugular venous distention (JVD). Cardiovascular: S1, S2, tachycardia. Vital signs: Temperature is 99.8 degrees Fahrenheit. Blood pressure was 138/98, pulse was 158, respiratory rate of 52, saturating 96% on nasal canula at 2 liters. Respiratory: Chest is clear to auscultation bilaterally. She is tachypneic. No active rales or rhonchi were noted. Abdomen is obese, soft, tender to deep palpation in the epigastrium. I could not appreciate any organomegaly. Genitourinary (): She has an indwelling Karimi catheter, very dark colored urine was found in the bag. Musculoskeletal: No clubbing or cyanosis. No edema of the bilateral lower extremities. Skin is very dry. There is poor skin turgor. OVERCOILER: The patient is very obtunded and drowsy. Follows very few commands. Lymph nodes: No significant cervical, axillary, inguinal lymphadenopathy. LABORATORY REVIEW: Complete blood count (CBC) showed a WBC of 20.4, hemoglobin 17.8, platelets are 238. Urine showed it was cloudy with 2+ protein, 3+ glucose, 2+ blood, 2+ bacteria. Urine random sodium was less than 10. Arterial blood gas done in the morning showed pH of 7.37, pCO2 of 40, pO2 of 74, O2 saturation was 94%. Basic metabolic panel (BMP) showed sodium 167, potassium 3.3, chloride 137, bicarbonate 19, BUN 45, creatinine is 2.5. Glucose 682. Initially glucose was 13,035. Lactic acid was 4.4. Osmolality on arrival was 425. Calcium was 10.4. AST 88, ALT is 99, alkaline phosphatase is 203. Albumin 3.4. Urine toxicology was positive for cannabinoids, beta hydroxybutyrate on arrival was 17.9 MICROBIOLOGY: Urine and blood cultures are pending. IMAGING DATA: A CAT scan of the abdomen and pelvis was done which showed acute pancreatitis. There was no drainable collectin or abscess. There was hepatomegaly and marked hepatosteatosis. There was cholelithiasis without cholecystitis. CURRENT INPATIENT MEDICATIONS: The patient's medications were all reviewed by myself. She is currently on insulin drip. She was initially getting normal saline with 20 mEq of KCl. However, fluids were changed to 0.5 normal saline at 500 cc an hour. She has been started on Flagyl 500 mg IV q 8 hours. She was given Keppra 500 mg q 8 hours. The patient has been given normal saline boluses almost 4 liters so far. She was given a dose of diltiazem 20 mg IV times one dose. Electrocardiogram (EKG) was done in the emergency room, which showed supraventricular tachycardia. ASSESSMENT AND PLAN: 40-year-old female with acute pancreatitis, acute renal failure, high anion gap metabolic acidosis including lactic acidosis and diabetic ketoacidosis and newly diagnosed diabetes with history of seizure disorder. PLAN: 1. Acute renal failure. It is secondary to dehydration and volume depletion induced by diabetic ketoacidosis and acute pancreatitis. The patient needs aggressive IV fluid hydration. She is clinically very dry. She has been given 4 liters of fluid because of hypernatremia with initiation of treatment of diabetic ketoacidosis. IV fluids were initially changed to half normal saline. I have talked to pharmacy and changed IV fluids as mentioned below. Continue to monitor intake and output. I am hopeful with the improvement of the volume status. Her renal function should start improving. 2. Diabetic ketoacidosis. The patient is a newly diagnosed diabetic. Not sure if she was diabetic before pancreatitis or if she has developed diabetes associated with acute pancreatitis along with ketoacidosis. However, treatment at this time is aggressive IV fluid hydration and continuation of IV insulin drip. Given that her sodium jumped up from 145 go 167 and up to 170 now, despite half normal saline, the rate of half normal saline has been increased to 500 cc an hour. I have talked to the pharmacy and asked them to prepare a quarter normal saline and she will get this at 250 mg an hour. 3. Hypokalemia. It is associated with treatment of diabetic ketoacidosis. The patient actually developed hyperkalemia with potassium repletion. Potassium was 5.8. I would stop further addition of potassium in the IV fluids. Potassium should improve with improvement in the volume status and diabetic ketoacidosis. 4. Lactic acidosis. It is most likely associated with acute pancreatitis and hypotension. Lactic acidosis should improve with improvement in volume status. She is being empirically covered with IV ciprofloxacin and Flagyl. 5. Acute pancreatitis Pain optimization will be up to medical team. Continue fluid management as mentioned above. Although, fluid of choice for acute pancreatitis is normal saline or Ringer's lactate in this special situation because of diabetic ketoacidosis, fluid management is with hypotonic fluids. 6. Seizure disorder. The patient is currently on Keppra. I strongly believe that the seizures were likely associated with electrolyte abnormalities, severe metabolic acidosis and hyperglycemia. 7. Severe sepsis. The patient has leukocytosis, lactic acidosis and tachycardia. She meets sepsis criteria. Empirically, she is being covered with IV antibiotics. Management of acute pancreatitis as mentioned above. 8. Supraventricular tachycardia. The patient's blood pressure is acceptable. She has been started IV as needed metoprolol and Cardizem. Management is as per the medical team. Thank you for involving me in the care of this patient. I shall be happy to follow the patient along with you tomorrow morning. Plan of care was discussed with the hospitalist team and with the medical laboratory assistant environmental science program director. Total critical care time spent in the management of this patient in the evening in the emergency room, excluding all the procedures, was 1 hour and 40 minutes.
[2020-05-31] MEDS: levETIRAcetam INJection 500 MG in D5W MINI-BAG PLUS 100 ML IV SCH ×2 (08:59→20:36)
[2020-05-31] MEDS ORDERED: CIPROFLOXACIN 400 MG in IV 1 EA IV SCH (09:00)
[2020-05-31] MEDS: levETIRAcetam 250MG TABLET (KEPPRA) PO SCH ×2 (09:00→16:06)
[2020-05-31] MEDS: PANTOPRAZOLE 40MG VIAL (C9113 PER 1) IV SCH (09:21)
--- NOTE | 2020-05-31 09:37 | REP ---
INDICATION: cough COMPARISON: 05/30/2020 TECHNIQUE: Portable AP view of the chest FINDINGS: Right IJ line with tip in the SVC. The mediastinum and cardiac silhouette are stable and within normal limits for portable technique. The lung miranda are relatively clear although very subtle linear atelectasis in the left base cannot be excluded. No focal consolidation, effusion, or pneumothorax. Skeletal structures are intact. IMPRESSION: Right IJ line in satisfactory stable position. No pneumothorax. Cannot exclude very minimal linear atelectasis at the left base. <Electronically signed by Bruno Cooper > 05/31/20 [id number]
--- NOTE | 2020-05-31 09:49 | IPNPDOC ---
Date Seen The patient was seen on 05/31/20. Progress Note SUBJECTIVE: Patient remains confused but is more awake and responsive today, able to tell me that she is in [place]. PHYSICAL EXAMINATION: VITAL SIGNS: Please see below. GENERAL: Agitated HEENT: , Dry mucous membranes NECK: Central line in place CARDIOVASCULAR EXAMINATION: Tachycardic RESPIRATORY EXAMINATION: Tachypneic, diminished in the bases, no wheezing ABDOMINAL EXAMINATION: Soft, nontender, nondistended, positive bowel sounds EXTREMITIES: Range of motion intact SKIN: , Dry NEUROLOGICAL EXAMINATION: Disoriented, unable to follow commands LABORATORY DATA, IMAGING STUDIES, MICROBIOLOGY: Please see below. ASSESSMENT AND PLAN: 40-year-old female with no significant past medical history is admitted for newly diagnosed diabetes mellitus with hyperosmolar hyperglycemic state, acute kidney injury, hypernatremia and severe dehydration. PROBLEMS: 1. Hyperosmolar hyperglycemic state No prior history of diabetes mellitus, possibly exacerbated by acute pancreatitis, improving with medical therapies listed below. Remains on insulin drip, aggressive IV hydration with quarter normal saline, electrolyte supplementation. Levemir 30 units now, we'll continue insulin drip for another 2 hours, after which we will start sliding scale insulin coverage. 2. Acute kidney injury: Likely prerenal secondary to severe dehydration from polyuria, improving with IV resuscitation. Hypernatremia secondary to severe water loss from glycosuria, slowly improving with quarter normal saline. Nephrology following 3. SVT: Likely related to ongoing problems listed above with significant electrolyte abnormalities, case discussed with cardiology (Dr. Banda), recommended IV metoprolol and IV fluids. TTE pending 4. Acute pancreatitis. Etiology unclear, CT scan showing gallstones but no obvious signs of choledocholithiasis, no alcohol use as per patient's mother. Aggressive IV hydration, nothing by mouth, will trend labs. 5. Seizure disorder. Continue Keppra, his mentation does not improve with improvement in glucose and electrolyte abnormalities, then we'll consider additional neurological workup. The most likely etiology for current mentation or the ongoing metabolic issues. DVT prophylaxis: Heparin subcutaneous GI prophylaxis: Protonix VS, I&O, 24H, Fishbone Vital Signs/I&O Vital Signs Date Time Temp Pulse Resp B/P (MAP) Pulse Ox O2 Delivery O2 Flow Rate FiO2 05/31/20 02:38 132 40 94 Nasal Cannula 2.0 05/31/20 02:35 119/83 (95) 05/30/20 15:40 99.8 I&O- Last 24 Hours up to 6 AM 05/31/20 06:00 Intake Total 6463.2 ml Output Total 925 ml Balance 5538.2 ml Laboratory Data 24H LABS Laboratory Tests 2 05/30/20 09:41: Urine Color YELLOW, Urine Appearance CLOUDYH, Urine pH 6.0, Urine Specific [place] 1.024, Urine Protein 2+H, Urine Glucose (UA) 3+H, Urine Ketones TRACEH, Urine Blood 2+H, Urine Nitrite NEGATIVE, Urine Bilirubin NEGATIVE, Urine Urobilinogen 0.2, Urine Leukocyte Esterase 3+H, Urine WBC (Auto) 99H, Urine RBC (Auto) 165H, Urine Hyaline Casts (Auto) 0, Urine Bacteria (Auto) 2+H, Urine Squamous Epithelial Cells 7, Urine Yeast-Like Cells (Auto) SMALLH, Urine Sperm (Auto) , Lactic Acid Level 4.4*H, Ammonia 63H, Urine Opiates Screen NEGATIVE, Urine Methadone Screen NEGATIVE, Urine Barbiturates Screen NEGATIVE, Urine Phencyclidine Screen NEGATIVE, Urine Amphetamines Screen NEGATIVE, Urine Benzodiazepines Screen NEGATIVE, Urine Cocaine Metabolite Screen NEGATIVE, Urine Cannabinoids Screen POSITIVEH 05/30/20 14:33: Bedside Glucose (Misc Panel) 570*H 05/30/20 14:41: Immature Granulocyte % (Auto) 1.8, Neutrophils (%) (Auto) 76.9H, Lymphocytes (%) (Auto) 13.8L, Monocytes (%) (Auto) 7.2H, Eosinophils (%) (Auto) 0.0, Basophils ( %) (Auto) 0.3, Neutrophils # (Auto) 14.6H, Lymphocytes # (Auto) 2.6, Monocytes # (Auto) 1.4H, Eosinophils # (Auto) 0.0, Basophils # (Auto) 0.1, Nucleated Red Blood Cells % (auto) 0.0, Anion Gap 11, Glomerular Filtration Rate 22.5L, Calcium Level 10.4#H, Total Bilirubin 0.5, Aspartate Amino Transf (AST/SGOT) 88H, Alanine Aminotransferase (ALT/SGPT) 99H, Alkaline Phosphatase 203H, Total Protein 7.4, Albumin 3.4#, Albumin/Globulin Ratio 0.9L 05/30/20 14:51: Lactic Acid Followup at 4 Hours 4.6*H 05/30/20 15:35: Bedside Glucose (Misc Panel) 519*H 05/30/20 17:06: Bedside Glucose (Misc Panel) 381H 05/30/20 17:31: Immature Granulocyte % (Auto) 1.7, Neutrophils (%) (Auto) 74.0H, Lymphocytes (%) (Auto) 15.3L, Monocytes (%) (Auto) 8.5H, Eosinophils (%) (Auto) 0.0, Basophils (%) (Auto) 0.5, Neutrophils # (Auto) 15.1H, Lymphocytes # (Auto) 3.1, Monocytes # (Auto) 1.7H, Eosinophils # (Auto) 0.0, Basophils # (Auto) 0.1, Nucleated Red Blood Cells % (auto) 0.0, Anion Gap 7L, Glomerular Filtration Rate 25.6L, Calcium Level 10.7H 05/30/20 17:58: Bedside Glucose (Misc Panel) 375H 05/30/20 20:56: Bedside Glucose (Misc Panel) 453H 05/30/20 21:59: Bedside Glucose (Misc Panel) 400H 05/30/20 22:49: Bedside Glucose (Misc Panel) 355H 05/30/20 23:13: Anion Gap 8, Glomerular Filtration Rate 22.0L, Calcium Level 9.7 05/31/20 00:06: Bedside Glucose (Misc Panel) 301H 05/31/20 00:47: Bedside Glucose (Misc Panel) 253H 05/31/20 03:36: Bedside Glucose (Misc Panel) 200H 05/31/20 05:18: Bedside Glucose (Misc Panel) 280H 05/31/20 06:03: Blood Gas Bicarbonate Standard 19.3L, Arterial Blood pH 7.388, Arterial Blood Partial Pressure CO2 28.2L, Arterial Blood Partial Pressure O2 87.0, Arterial Blood Total CO2 17.5L, Arterial Blood HCO3 16.6L, Arterial Blood Base Excess - 6.5L, Arterial Blood Oxygen Saturation 96.9, Anion Gap 12, Glomerular Filtration Rate 21.7L, Calcium Level 9.1 05/31/20 06:26: Bedside Glucose (Misc Panel) 329H 05/31/20 06:53: Osmolality 382H, Phosphorus Level 3.7, Magnesium Level 2.4 05/31/20 07:34: Bedside Glucose (Misc Panel) 353H 05/31/20 08:52: Bedside Glucose (Misc Panel) 348H CBC/BMP Laboratory Tests 05/30/20 14:41 05/30/20 17:31 05/30/20 23:13 05/31/20 06:03 Microbiology Microbiology 05/30/20 Blood Culture, Received Pending 05/30/20 Urine Culture, Received Pending 05/30/20 Blood Culture, Received Pending LO MAGAÑA MD May 31, 2020 09:49
[2020-05-31] MEDS ORDERED: LEVEMIR (INSULIN DETEMIR) 1 UNITS/0.01ML SC ONE (10:00)
[2020-05-31 10:28] LABS: HEMATOCRIT 49.4 % (36.0-47.0); MEAN CORPUSCULAR HGB CONC 30.4 g/dl (32.0-36.5); MEAN CORPUSCULAR VOLUME 105.3 fl (80.0-96.0); PLATELET COUNT, AUTOMATED 139 10^3/uL (150-450); RED BLOOD COUNT 4.69 10^6/uL (4.00-5.40); WHITE BLOOD COUNT 14.6 10^3/uL (4.0-10.0)
[2020-05-31 11:22] LABS: ACETONE/KETONE 18.17 MG/DL (<2.81); ALBUMIN 2.6 GM/DL (3.2-5.2); BILIRUBIN,DIRECT 0.2 MG/DL (0.0-0.2); BILIRUBIN,TOTAL 0.5 MG/DL (0.2-1.0); CALCIUM LEVEL 8.3 MG/DL (8.5-10.1); CREATININE FOR GFR 2.68 MG/DL (0.55-1.30); GLOMERULAR FILTRATION RATE 21.1 (>60); MAGNESIUM LEVEL 1.9 MG/DL (1.8-2.4); PHOSPHORUS LEVEL 2.7 MG/DL (2.5-4.9); POTASSIUM SERUM 3.5 MEQ/L (3.5-5.1); TOTAL PROTEIN 5.9 GM/DL (6.4-8.2)
[2020-05-31] MEDS ORDERED: MEROPENEM INJ 500 MG in IV 1 EA IV SCH (13:00)
[2020-05-31] MEDS: INSULIN IV RATE CHANGE DOCUMENTATION ML/HR XX SCH ×3 (13:00→16:13)
[2020-05-31] MEDS ORDERED: LORazepam 2 MG/ML VIAL As Ordered ONE (13:05)
[2020-05-31 13:09] LABS: CALCIUM LEVEL 8.7 MG/DL (8.5-10.1); CREATININE FOR GFR 2.84 MG/DL (0.55-1.30); GLOMERULAR FILTRATION RATE 19.7 (>60)
[2020-05-31] MEDS ORDERED: PROPOFOL 1,000 MG/100 ML VIAL As Ordered ONE (13:21)
[2020-05-31] MEDS ORDERED: MIDAZOLAM INJ 2MG/2ML VIAL (J2250 PER 1MG) As Ordered ONE ×4 (13:22→13:45)
[2020-05-31] MEDS ORDERED: LORazepam 2 MG/ML VIAL IV STA (13:30)
[2020-05-31] MEDS ORDERED: MIDAZOLAM INJ 2MG/2ML VIAL (J2250 PER 1MG) IV ONE (13:50)
[2020-05-31] MEDS ORDERED: propofoL 1,000 MG in IV 1 EA IV SCH (14:00)
--- NOTE | 2020-05-31 14:39 | REP ---
INDICATION: post intubation COMPARISON: 05/31/2020 at 9:11 a.m. TECHNIQUE: Portable AP view of the chest FINDINGS: Endotracheal tube 1.9 cm from the karen. Nasogastric tube courses below left hemidiaphragm. Right IJ line with tip in the SVC. The mediastinum and cardiac silhouette are stable and within normal limits for portable technique. The lung miranda demonstrate linear atelectasis at the left base. No further focal consolidation, effusion, or pneumothorax.. IMPRESSION: Lines and tubes as described above. Minimal stable left basilar atelectasis. <Electronically signed by Bruno Cooper > 05/31/20 [id number]
[2020-05-31 15:11] LABS: ABG BASE EXCESS -4.8 (-2.0-2.0); ABG HCO3 15.1 MEQ/L (22.0-26.0); ABG STANDARD HCO3 20.6 MEQ/L (22.0-26.0); ABG TOTAL CO2 15.7 MEQ/L (22.0-29.0); ABG pH (ARTERIAL) 7.518 UNITS (7.350-7.450)
--- NOTE | 2020-05-31 15:17 | IPNPDOC ---
Date Seen The patient was seen on 05/31/20. Progress Note Temporary dialysis catheter procedure note. INDICATION: CRRT PROCEDURE CERTIFIED NURSING ASSISTANT: Lo Magaña CONSENT: Procedure was done emergently, patient unable to consent and I was unable to get in contact with her mother. PROCEDURE SUMMARY: A time out was performed. My hands were washed immediately prior to the procedure. I wore a surgical cap, mask with protective eyewear, sterile gown and sterile gloves throughout the procedure. The left inguinal region was prepped using chlorhexidine scrub and draped in sterile fashion using a full drape and sterile probe cover employed. The femoral pulse was identified. Anesthesia was achieved using 1% lidocaine. Under ultrasound guidance, the introducer needle was inserted into the femoral vein. The syringe was removed and a guidewire was advanced into the introducer needle. Placement of guidewire into the femoral vein was confirmed via ultrasound. A small incision was made at the skin surface with a scalpel and the introducer needle was exchanged for a dilator over the guidewire. After appropriate dilation was obtained, the dilator was exchanged over the wire for a 15 cm temporary dialysis catheter. The wire was removed and the catheter was sutured in place at 15 cm. A sterile sorbaview shield was placed over the catheter at the insertion site. The patient tolerated the procedure without any hemodynamic compromise. At time of procedure completion, all ports aspirated and flushed properly. Estimated blood loss is <10 ml. VS, I&O, 24H, [facility] Vital Signs/I&O Vital Signs Date Time Temp Pulse Resp B/P (MAP) Pulse Ox O2 Delivery O2 Flow Rate FiO2 05/31/20 12:23 98.8 148 30 92 Nasal Cannula 2.0 05/31/20 12:16 114/36 (62) I&O- Last 24 Hours up to 6 AM 05/31/20 06:00 Intake Total 6463.2 ml Output Total 925 ml Balance 5538.2 ml Laboratory Data 24H LABS Laboratory Tests 2 05/30/20 15:35: Bedside Glucose (Misc Panel) 519*H 05/30/20 17:06: Bedside Glucose (Misc Panel) 381H 05/30/20 17:31: Immature Granulocyte % (Auto) 1.7, Neutrophils (%) (Auto) 74.0H, Lymphocytes (%) (Auto) 15.3L, Monocytes (%) (Auto) 8.5H, Eosinophils (%) (Auto) 0.0, Basophils (%) (Auto) 0.5, Neutrophils # (Auto) 15.1H, Lymphocytes # (Auto) 3.1, Monocytes # (Auto) 1.7H, Eosinophils # (Auto) 0.0, Basophils # (Auto) 0.1, Nucleated Red Blood Cells % (auto) 0.0, Anion Gap 7L, Glomerular Filtration Rate 25.6L, Calcium Level 10.7H 05/30/20 17:58: Bedside Glucose (Misc Panel) 375H 05/30/20 20:56: Bedside Glucose (Misc Panel) 453H 05/30/20 21:59: Bedside Glucose (Misc Panel) 400H 05/30/20 22:49: Bedside Glucose (Misc Panel) 355H 05/30/20 23:13: Anion Gap 8, Glomerular Filtration Rate 22.0L, Calcium Level 9.7 05/31/20 00:06: Bedside Glucose (Misc Panel) 301H 05/31/20 00:47: Bedside Glucose (Misc Panel) 253H 05/31/20 02:00: Bedside Glucose (Misc Panel) 182H 05/31/20 03:36: Bedside Glucose (Misc Panel) 200H 05/31/20 05:18: Bedside Glucose (Misc Panel) 280H 05/31/20 06:03: Blood Gas Bicarbonate Standard 19.3L, Arterial Blood pH 7.388, Arterial Blood Partial Pressure CO2 28.2L, Arterial Blood Partial Pressure O2 87.0, Arterial Blood Total CO2 17.5L, Arterial Blood HCO3 16.6L, Arterial Blood Base Excess - 6.5L, Arterial Blood Oxygen Saturation 96.9, Anion Gap 12, Glomerular Filtration Rate 21.7L, Calcium Level 9.1 05/31/20 06:26: Bedside Glucose (Misc Panel) 329H 05/31/20 06:53: Osmolality 382H, Phosphorus Level 3.7, Magnesium Level 2.4 05/31/20 07:34: Bedside Glucose (Misc Panel) 353H 05/31/20 08:52: Bedside Glucose (Misc Panel) 348H 05/31/20 09:53: Bedside Glucose (Misc Panel) 362H 05/31/20 10:02: Nucleated Red Blood Cells % (auto) 0.1H, Anion Gap 11, Glomerular Filtration Rate 21.1L, Calcium Level 8.3L, Phosphorus Level 2.7#, Magnesium Level 1.9, Total Bilirubin 0.5, Direct Bilirubin 0.2, Aspartate Amino Transf (AST/SGOT) 430H, Alanine Aminotransferase (ALT/SGPT) 147H, Alkaline Phosphatase 135H, Total Protein 5.9#L, Albumin 2.6#L, Albumin/Globulin Ratio 0.8L, Amylase Level 678H, Lipase 6333H, B-Hydroxybutyrate 18.17H 05/31/20 10:57: Bedside Glucose (Misc Panel) 316H 05/31/20 11:58: Bedside Glucose (Misc Panel) 277H 05/31/20 12:00: Anion Gap 7L, Glomerular Filtration Rate 19.7L, Lactic Acid Level 3.3*H, Calcium Level 8.7 05/31/20 13:00: Bedside Glucose (Misc Panel) 238H 05/31/20 14:00: Bedside Glucose (Misc Panel) 191H 05/31/20 14:35: CBC/BMP Laboratory Tests 05/30/20 17:31 05/30/20 23:13 05/31/20 06:03 05/31/20 10:02 05/31/20 12:00 Microbiology Microbiology 05/30/20 Blood Culture - Preliminary, Resulted No growth after 24 hours . All specim... 05/30/20 Urine Culture - Preliminary, Resulted Strep Agalactiae Group B 05/30/20 Blood Culture - Preliminary, Resulted No growth after 24 hours . All specim... LO MAGAÑA MD May 31, 2020 15:17
[2020-05-31] MEDS ORDERED: SODIUM CHLORIDE 0.9% INJ 10 ML SYR IV PRN (15:45)
[2020-05-31] MEDS: HEPARIN SOD (PORCINE) 5000UNITS/ML 1ML VIAL/SYRINGE SQ SCH ×2 (16:07→22:28)
[2020-05-31] MEDS: IPRATROPIUM 0.5MG/ALBUTEROL 2.5MG INH SOL UD 3ML (DUONEB) NEB SCH ×2 (16:36→19:53)
[2020-05-31] MEDS: propofoL 1,000 MG in IV 1 EA IV SCH ×2 (17:43→22:28)
[2020-05-31 18:13] LABS: HEMATOCRIT 48.9 % (36.0-47.0); HEMOGLOBIN 15.1 g/dl (12.0-15.5); MEAN CORPUSCULAR HGB CONC 30.9 g/dl (32.0-36.5); MEAN CORPUSCULAR VOLUME 103.6 fl (80.0-96.0); PLATELET COUNT, AUTOMATED 141 10^3/uL (150-450); RED BLOOD COUNT 4.72 10^6/uL (4.00-5.40); WHITE BLOOD COUNT 15.1 10^3/uL (4.0-10.0)
[2020-05-31 18:37] LABS: CALCIUM LEVEL 8.6 MG/DL (8.5-10.1); CREATININE FOR GFR 3.25 MG/DL (0.55-1.30); GLOMERULAR FILTRATION RATE 16.9 (>60); INR 1.52; MAGNESIUM LEVEL 1.7 MG/DL (1.8-2.4); PHOSPHORUS LEVEL 2.1 MG/DL (2.5-4.9); POTASSIUM SERUM 3.8 MEQ/L (3.5-5.1); PROTHROMBIN TIME 18.7 SECONDS (12.5-14.3)
[2020-05-31 18:40] LABS: PARTIAL THROMBOPLASTIN TIME 112.9 SECONDS (24.2-38.5)
[2020-05-31] MEDS ORDERED: GLUCAGON INJ 1MG VIAL SC PRN (19:30)
[2020-05-31] MEDS ORDERED: DEXTROSE 50% 50 ML SYRINGE IV PRN (19:30)
[2020-05-31] MEDS ORDERED: GLUCOSE 4GM CHEW TABLET PO PRN (19:30)
[2020-05-31] MEDS: D5W 1,000 ML IV SCH (19:43)
[2020-05-31] MEDS: HumaLOG INSULIN (NovoLOG) PER UNIT SC SCH (19:45)
[2020-05-31] MEDS: CHLORHEXIDINE GLUCONATE 0.12 % 15ML UDC (PERIDEX ORAL RINSE) MT SCH (20:36)
[2020-05-31] MEDS ORDERED: MAG SULF 1GM/100ML (MAG RUN) 1 GM in IV 1 EA IV ONE (21:00)
[2020-05-31 22:24] LABS: CALCIUM LEVEL 8.5 MG/DL (8.5-10.1); CREATININE FOR GFR 3.27 MG/DL (0.55-1.30); GLOMERULAR FILTRATION RATE 16.7 (>60); MAGNESIUM LEVEL 2.1 MG/DL (1.8-2.4); PHOSPHORUS LEVEL 4.1 MG/DL (2.5-4.9); POTASSIUM SERUM 4.7 MEQ/L (3.5-5.1)
[2020-05-31] MEDS: CALCIUM GLUCONATE 1,000 MG, VIAL MATE ADAPTER 1 EACH in NS 100 ML IV SCH (23:04)
--- NOTE | 2020-05-31 23:18 | ECGEPIP ---
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
--- NOTE | 2020-05-31 23:53 | IPN ---
NEPHROLOGY PROGRESS NOTE DATE: 05/31/2020 SUBJECTIVE: Patient was seen and examined at the bedside today morning in the Emergency Room, she is awaiting a bed in the ICU. She continues to be on I.V. quarter normal saline and I.V. insulin drip. Patient was very tachypneic and restless when I saw her in the morning. I was told by the nursing staff that she has become oliguric today morning. She still has metabolic acidosis including diabetic ketoacidosis and lactic acidosis. Patient is still hypernatremic, but sodium is slowly trending down with quarter normal saline fluids. REVIEW OF SYSTEMS: She is unable to provide any review of systems. She was very restless and tossing and turning in the bed. OBJECTIVE: VITAL SIGNS: Temperature 98.8 degrees Fahrenheit, blood pressure 114/36, pulse 148, respiratory rate 30, saturating 92% on nasal cannula at 2 liters. INTAKE AND OUTPUT: Urine output recorded as only 800 mL since overnight. She became oliguric early in the morning and there was only 35 cc of urine in the bag. PHYSICAL EXAMINATION: GENERAL: Patient is awake, oriented x1 only, tossing and turning, restless. HEAD/NECK: Pupils equally round and reactive to light. Mucous membranes are still dry. Neck is supple. There is no JVD. CARDIOVASCULAR: S1, S2, tachycardia, irregular rate. No edema of the bilateral lower extremities. RESPIRATORY: Chest is clear to auscultation bilaterally. Bilateral equal air entry. No rales or rhonchi. ABDOMEN: Soft, tender to deep palpation especially in the epigastric region. GENITOURINARY: She has an indwelling Karimi catheter. Urine is found in the bag. MUSCULOSKELETAL: No clubbing or cyanosis. No edema of the bilateral lower extremities. [employer]: Patient is restless and agitated. Follows few commands, but otherwise she is moving in the bed. LABORATORY REVIEW: CBC showed WBC 14.6, hemoglobin 15, platelets 139,000. BMP showed sodium 162, potassium 4, chloride 130, bicarb 25, BUN 54, creatinine 2.8, sugar 318. Lactic acid 3.3, calcium 8.7. Beta hydroxybutyrate 18.1. IMAGING STUDIES: A chest x-ray was done today morning, it showed a right IJ line. No pneumothorax. Very minimal atelectasis. CURRENT INPATIENT MEDICATIONS: Patient's medications were all reviewed by myself. She was getting D5 quarter normal saline at 250 cc an hour; rate was decreased by myself to 150 cc an hour. She is on Cipro and Flagyl. I have stopped Cipro and Flagyl, and started the patient on Meropenem. She continues to be on insulin drip. No other significant change in the medications today as compared with yesterday. ASSESSMENT AND PLAN: 1. Diabetic ketoacidosis: Patient continues to be on insulin drip. Glucose levels are slowly coming down, however, patient is severely hypernatremic. She continues to be on quarter normal saline. Once her glucose levels are less than 250, I would change the fluid to D5W. 2. Acute oliguric renal failure: It is multifactorial and might be associated with DKA, acute pancreatitis or maybe associated with the antibiotics that were given to her. At this point because of diabetic ketoacidosis and lactic acidosis with respiratory alkalosis, I am going to start the patient CVVHDF. 3. Hypernatremia: Patient is currently on quarter normal saline. Fluid will be changed to D5W once the glucose levels get better. Dialysis would also help improve the sodium levels. 4. Lactic acidosis: It is secondary to volume depletion associated with acute pancreatitis and diabetic ketoacidosis. Follow-up the lactate levels. Continue aggressive I.V. fluid hydration. CVP will be checked once patient gets to the ICU. 5. Acute pancreatitis: Pain optimization with opioids as needed. Continue fluid hydration as mentioned above. Continue empiric antibiotics, however, antibiotic is being changed because of acute renal failure and I am starting her on Meropenem. Once she is started on CVVHDF, then Meropenem dose will be increased. 6. Seizure disorder: Continue the Keppra dose at this time. 7. Severe sepsis: Leukocytosis is getting better. Continue the antibiotics and fluids. Lactic acid level is slowly improving. 8. Supraventricular tachycardia: Cardiology is on board, she is getting I.V. Metoprolol. Total critical care time spent in the management of this patient today morning in the Emergency Room excluding all the procedures was 45 minutes. MTDD
[2020-06-01] VITALS (83 sets, daily range): BP systolic 73–174; BP diastolic 50–106
[2020-06-01] MEDS: CALCIUM GLUCONATE 1,000 MG, VIAL MATE ADAPTER 1 EACH in NS 100 ML IV SCH ×3 (00:27→10:01)
[2020-06-01] MEDS: HumaLOG INSULIN (NovoLOG) PER UNIT SC SCH ×4 (00:28→17:55)
[2020-06-01] MEDS: MEROPENEM INJ 500 MG in IV 1 EA IV SCH ×4 (00:31→23:57)
[2020-06-01] MEDS: D5W 1,000 ML IV SCH (02:01)
[2020-06-01 02:49] LABS: CALCIUM LEVEL 8.6 MG/DL (8.5-10.1); CREATININE FOR GFR 3.48 MG/DL (0.55-1.30); GLOMERULAR FILTRATION RATE 15.6 (>60); MAGNESIUM LEVEL 2.2 MG/DL (1.8-2.4); PHOSPHORUS LEVEL 5.1 MG/DL (2.5-4.9); POTASSIUM SERUM 4.6 MEQ/L (3.5-5.1)
[2020-06-01] MEDS ORDERED: NS 0.45% 1,000 ML IV SCH (03:00)
[2020-06-01] MEDS ORDERED: HumuLIN R (REGULAR) INSULIN (NovoLIN R) **100U/ML** PER UNIT IV STA (03:00)
[2020-06-01] MEDS ORDERED: CALCIUM GLUCONATE 1,000 MG, VIAL MATE ADAPTER 1 EACH in NS 100 ML IV ONE (03:00)
[2020-06-01] MEDS: SODIUM CHLORIDE 23.4% INJ 40.8 MEQ in STERILE WATER LITER BAG 1,050 ML IV SCH ×2 (03:54→10:26)
[2020-06-01] MEDS: propofoL 1,000 MG in IV 1 EA IV SCH ×5 (04:08→18:57)
[2020-06-01] MEDS ORDERED: LR 1,000 ML IV ONE (04:15)
[2020-06-01] MEDS: HEPARIN SOD (PORCINE) 5000UNITS/ML 1ML VIAL/SYRINGE SQ SCH ×3 (05:59→21:13)
[2020-06-01 06:04] LABS: BASO # 0.1 10^3/uL (0.0-0.2); BASO % 0.4 % (0.0-1.0); EOS # 0.1 10^3/uL (0.0-0.5); EOS % 0.5 % (0.0-3.0); HEMATOCRIT 52.6 % (36.0-47.0); HEMOGLOBIN 15.8 g/dl (12.0-15.5); LYMPH # 3.2 10^3/uL (1.5-5.0); LYMPH % 21.2 % (24.0-44.0); MEAN CORPUSCULAR HEMOGLOBIN 31.9 pg (27.0-33.0); MEAN CORPUSCULAR VOLUME 106.3 fl (80.0-96.0); MONO # 1.3 10^3/uL (0.0-0.8); MONO % 8.5 % (0.0-5.0); NEUTROPHILS # 10.4 10^3/uL (1.5-8.5); NEUTROPHILS % 68.2 % (36.0-66.0); RED BLOOD COUNT 4.95 10^6/uL (4.00-5.40); WHITE BLOOD COUNT 15.3 10^3/uL (4.0-10.0)
[2020-06-01 06:15] LABS: ABG BASE EXCESS -10.1 (-2.0-2.0); ABG HCO3 10.9 MEQ/L (22.0-26.0); ABG O2 SATURATION 99.1 % (95.0-99.0); ABG PARTIAL PRESSURE O2 143.9 mmHg (75.0-100.0); ABG STANDARD HCO3 16.7 MEQ/L (22.0-26.0); ABG TOTAL CO2 11.5 MEQ/L (22.0-29.0); ABG pH (ARTERIAL) 7.421 UNITS (7.350-7.450)
[2020-06-01 06:19] LABS: ABG PARTIAL PRESSURE CO2 17.2 mmHg (35.0-45.0)
[2020-06-01 06:35] LABS: PLATELET COUNT, AUTOMATED 98 10^3/uL (150-450)
[2020-06-01 06:41] LABS: INR 1.42; PROTHROMBIN TIME 17.7 SECONDS (12.5-14.3)
[2020-06-01 06:42] LABS: PARTIAL THROMBOPLASTIN TIME 33.9 SECONDS (24.2-38.5)
[2020-06-01] MEDS ORDERED: PHENYLEPHRINE HCL INJ 50 MG in D5W 495 ML IV SCH (07:00)
[2020-06-01] MEDS: IPRATROPIUM 0.5MG/ALBUTEROL 2.5MG INH SOL UD 3ML (DUONEB) NEB SCH ×4 (07:23→20:10)
--- NOTE | 2020-06-01 07:54 | REP ---
INDICATION: ETT COMPARISON: 05/31/2020 TECHNIQUE: Portable AP view of the chest FINDINGS: Endotracheal tube 4 cm above the karen. Nasogastric tube courses below left hemidiaphragm. Previous right IJ line has been removed. Mediastinum and cardiac silhouette are normal. Trace left basilar atelectasis again noted. No further consolidation, effusion, or pneumothorax. Skeletal structures intact. IMPRESSION: Endotracheal tube and nasogastric tube in satisfactory position. Minimal left basilar atelectasis similar to prior examination. <Electronically signed by Bruno Cooper > 06/01/20 [id number]
[2020-06-01 08:11] LABS: CREATININE FOR GFR 3.45 MG/DL (0.55-1.30); GLOMERULAR FILTRATION RATE 15.7 (>60); POTASSIUM SERUM 5.4 MEQ/L (3.5-5.1)
[2020-06-01] MEDS: CHLORHEXIDINE GLUCONATE 0.12 % 15ML UDC (PERIDEX ORAL RINSE) MT SCH ×2 (08:11→20:30)
[2020-06-01] MEDS: PANTOPRAZOLE 40MG VIAL (C9113 PER 1) IV SCH (08:11)
[2020-06-01 08:12] LABS: ALBUMIN 2.9 GM/DL (3.2-5.2); BILIRUBIN,TOTAL 1.5 MG/DL (0.2-1.0); CALCIUM LEVEL 8.3 MG/DL (8.5-10.1); MAGNESIUM LEVEL 2.2 MG/DL (1.8-2.4); PHOSPHORUS LEVEL 5.6 MG/DL (2.5-4.9); TOTAL PROTEIN 6.5 GM/DL (6.4-8.2)
--- NOTE | 2020-06-01 08:28 | RO ---
OPERATIVE NOTE DATE OF OPERATION: 05/31/2020 PREOPERATIVE DIAGNOSIS: Unstable airway, hypoxemia. POSTOPERATIVE DIAGNOSIS: Unstable airway, hypoxemia, copious dry secretions in the pharynx. PROCEDURE: Direct laryngoscopy and endotracheal tube intubation. SURGEON: Deshawn Marx DO, [facility] PROCEDURE NOTE: The patient was seen in the intensive care unit unstable with stridorous respirations and ineffective respiratory efforts with unstable airway. IV benzodiazepines were administered and direct laryngoscopy performed. There were copious very dry secretions nearly covering the glottis. Aggressive suctioning was performed and the glottic opening was barely able to be visualized. #8 endotracheal tube was placed through the vocal cords to distance of 24 cm, the balloon was inflated and good bilateral breath sounds were appreciated. CO2 was noted on the monitor. Postprocedure chest x-ray confirmed adequate placement. There were no complications.
[2020-06-01] MEDS: levETIRAcetam INJection 500 MG in D5W MINI-BAG PLUS 100 ML IV SCH ×2 (08:55→20:30)
--- NOTE | 2020-06-01 09:15 | CCN ---
CRITICAL CARE NOTE DATE: 05/31/2020 SUBJECTIVE: I was called to the intensive care unit to evaluate this 40-year-old female for worsening altered level of consciousness. On review of her record, she has a history of seizure disorder. Family had reported polyuria and altered level of consciousness at home. She was brought to the emergency department and found to have a marked elevation in glucose, metabolic acidosis, and pancreatitis on CT abdomen imaging. In the emergency department, she was started on fluid therapy insulin and transferred to the ICU. OBJECTIVE: GENERAL APPEARANCE: On my arrival, the patient is in severe distress, tachypneic, combative, not following commands. VITAL SIGNS: Temperature 98.8, pulse rate 156, respirations 40, blood pressure 114/36. HEENT: Her pupils are 5 mm and react to light. Mucosa is very dry. There is a question of stridor as respiratory efforts. HEART: Sounds are regular, rapid. LUNGS: Breath sounds coarse, diminished. Air exchange is appreciated bilaterally. There is accessory muscle engagement. ABDOMEN: Soft and obese. EXTREMITIES: Show dryness of the skin. DIAGNOSTIC STUDIES: Her white cell count is 14.6, hemoglobin 15, hematocrit 49.4, platelet count 139,000. The electrolytes are sodium 162, potassium 4, chloride 130, CO2 of 25, BUN 54, creatinine 2.8, glucose 318. Lactic acid level is 3.3. Calcium is 8.7. An arterial blood gas done early this morning showed a pH of 7.3, pCO2 of 28, pO2 of 87. Chest imaging shows a right internal jugular catheter in place. Lungs miranda are essentially clear. ASSESSMENT AND PLAN: The primary problem requiring critical attention is acute respiratory failure secondary to unstable airway. The patient will require emergent endotracheal intubation and we will initiate mechanical ventilatory support. Pancreatitis An orogastric tube will be placed and the patient is already receiving intravenous (IV) hydration. Acute kidney injury with oliguria The patient has been assessed by nephrology and there are plans for emergent dialysis. Seizure disorder by history Though the patient is encephalopathic, she is not displaying focal seizure activity and IV Keppra has been initiated. Deep vein thrombosis (DVT) prophylaxis is being addressed with heparin 5000 units subcutaneously q. 8. Ulcer prophylaxis will be addressed with Protonix. The patient's condition is critical. Prognosis is guarded. CRITICAL CARE TIME: 97 minutes was spent in the provision of bedside critical care and coordination with other providers and the ICU team, exclusive of any procedure times.
[2020-06-01] MEDS: VANCOMYCIN HCL 1,000 MG, VIAL MATE ADAPTER 1 EACH in D5W 250 ML IV SCH (10:02)
[2020-06-01] MEDS ORDERED: VANCOMYCIN HCL 750 MG, VIAL MATE ADAPTER 1 EACH in D5W 250 ML IV ONE (11:00)
[2020-06-01] MEDS ORDERED: SODIUM CHLORIDE 0.9% 1000ML IV ONE (11:00)
[2020-06-01] MEDS ORDERED: SODIUM CHLORIDE 0.9% INJ 10 ML SYR IV PRN (11:15)
--- NOTE | 2020-06-01 11:19 | IPN ---
PROGRESS NOTE DATE: 06/01/2020 Grace is stable from yesterday. She is very ill, complicated case with acute renal failure, acute pancreatitis, hyperosmolar hyperglycemic state, and severe hypernatremia, had a high sodium level as seen in clinical history. She is on renal replacement therapy for nonoliguric renal failure, is intubated, has weaned off pressors today with blood pressure hanging around 100 systolic. She is unresponsive. PHYSICAL EXAMINATION: Blood pressure 117/79, pulse 100, respiratory rate 18, 99% oxygen saturation on ventilator. General appearance: She is non-responsive. Lungs: Decreased breath sounds. Heart: Regular rhythm. Abdomen: Soft, nontender. No peripheral edema. LABORATORY DATA: White count 15.3, hemoglobin 15.8, platelets 98, sodium 144, potassium 5.4, BUN 50, creatinine 3.5, glucose 300. IMPRESSION: 1. Diabetic ketoacidosis. On insulin drip. Blood sugars are improving with the basal insulin with sliding scale. 2. Acute oliguric renal failure. On hemodialysis with nephrology managing. 3. Severe hypernatremia. This is being corrected on a gradual basis with fluids by nephrology. 4. Acute pancreatitis. She seems adequately controlled. She is on empiric antibiotics with meropenem. 5. Severe sepsis. Following white count which is stable on antibiotics. 6. Supraventricular tachycardia. No recurrence of this has been reported to me. Current antibiotics are vancomycin and meropenem.
[2020-06-01 12:25] LABS: CALCIUM LEVEL 7.8 MG/DL (8.5-10.1); CREATININE FOR GFR 3.2 MG/DL (0.55-1.30); GLOMERULAR FILTRATION RATE 17.2 (>60); POTASSIUM SERUM 4.8 MEQ/L (3.5-5.1)
[2020-06-01] MEDS: CALCIUM GLUCONATE 1,000 MG in NS 100 ML IV SCH ×2 (12:48→14:15)
[2020-06-01] MEDS: MIDAZOLAM INJ 2MG/2ML VIAL (J2250 PER 1MG) IV PRN ×4 (12:52→13:49)
[2020-06-01] MEDS: NS 0.45% 1,000 ML IV SCH ×2 (12:56→19:27)
[2020-06-01 13:39] LABS: MAGNESIUM LEVEL 2.1 MG/DL (1.8-2.4)
[2020-06-01 13:52] LABS: ESTIMATED AVERAGE GLUCOSE 355 MG/DL (60-110)
--- NOTE | 2020-06-01 14:13 | REP ---
INDICATION: TLC PLACEMENT. COMPARISON: 06/01/2020 as well as other prior exams. TECHNIQUE: Single frontal portable view of the chest is performed. FINDINGS: Endotracheal tube appears unchanged in position. Nasogastric tube traverses into the stomach. Right central venous catheter has been placed. The tip is at the junction of the superior vena cava and right atrium. There is no pneumothorax. The heart is normal in size. The mediastinal silhouette is unchanged. Mild parenchymal opacity left base is unchanged. IMPRESSION: Placement of right subclavian central venous catheter with the tip at the junction of the superior vena cava and right atrium. No pneumothorax. <Electronically signed by Tavares Morris > 06/01/20 [id number]
--- NOTE | 2020-06-01 15:10 | CCN ---
CRITICAL CARE NOTE DATE: 06/01/2020 SUBJECTIVE: Ms. Murry was seen and examined this morning. She does remain critically ill. She is currently intubated with mechanical ventilation. There have been reports she had developed some hypotension last night. She was given a bolus of lactated ringers and she was also started on phenylephrine. The patient's blood pressure has remained stable since. She is currently being followed by nephrology who is managing her fluids. The patient had also lost her right internal jugular vein central venous catheter and is in need of vascular access. Otherwise, there have been no further adverse events reported. OBJECTIVE: VITAL SIGNS: Temperature 98.3, pulse 100, respiratory rate 20, blood pressure 109/62, pulse oximetry 100% on mechanical ventilation with pressure control with respiratory rate of 20, FiO2 of 40, PEEP of 5. GENERAL: The patient is currently sedated with propofol. She does respond to pain and she does interact on sedation vacation. She does remain critically ill. HEENT/NECK: Atraumatic, normocephalic. Her eyes are nonicteric. Trachea is midline. There is an endotracheal tube in place, as well as an OG tube. Additionally, the patient has an area of ecchymosis on the right neck where she had pulled out her right internal jugular venous catheter. There was a right-sided subclavian central venous catheter placed today. CARDIOVASCULAR: The patient has normal S1, S2. There is a slightly tachycardic rate, but otherwise regular rhythm. No clicks, rubs, or murmurs auscultated. RESPIRATORY: The patient has clear vesicular breath sounds bilaterally somewhat decreased, although obscured by the ventilator. There are no wheezes, rhonchi, or rales auscultated. ABDOMEN: The patient's abdomen is soft, it is nondistended. She is morbidly obese. There is no bruising or masses present. EXTREMITIES: The patient has trace bilateral lower extremity edema. There are full and equal pulses bilateral upper and lower extremities. VASCULAR ACCESS: The patient has a left-sided femoral dialysis catheter in place. She has a right-sided subclavian central venous catheter in place as well. LABORATORY STUDIES: Hematology: White blood cell 15.3, hemoglobin 15.8, hematocrit 52.6, platelet count 98,000. Chemistries: Sodium 140, potassium 4.8, chloride 107, CO2 of 14, BUN 47, creatinine 3.2, fasting glucose 402. Calcium 7.8, phosphorus 5.0, magnesium 2.1. Beta-hydroxybutyrate 45. Arterial blood gases (ABGs) pH 7.4, pCO2 of 17.2, pO2 of 143. IMAGING STUDIES: Chest x-ray demonstrated endotracheal and nasogastric tubes in satisfactory position. There was a right subclavian line placed in satisfactory position as well. INPATIENT MEDICATIONS: - Levemir insulin 10 units q. h.s. - calcium gluconate 1000 mg every one hour IV - sodium chloride 120 mL/hour - vancomycin 1 gram every 24 hours - meropenem 500 mg every eight hours - Propofol drip - Versed 2 mg every 15 minutes p.r.n. - Metoprolol tartrate 5 mg every six hours p.r.n. for heart rate greater than 120 - Lamictal 500 mg every 12 hours - Albuterol two puffs every four hours p.r.n. - Protonix 40 mg daily IV ASSESSMENT AND PLAN: Ms. Murry is a 40-year-old female with a history of seizure disorder and questionable diagnosis of diabetes, who presented to [facility] Emergency Department with an altered mental status. She was found to be profoundly hyperglycemic and suspected to be in hyperosmolar hyperglycemic state (HHS). Labs demonstrated diabetic ketoacidosis with elevated beta-hydroxybutyrate and additionally, the patient's lipase was significantly elevated with imaging findings consistent with pancreatitis. The patient was admitted to the ICU for further management. During the course of her hospitalization, she developed acute hypoxic respiratory failure due to inability to protect her airway and was subsequently intubated and placed on mechanical ventilation. At this point in time, she developed some transient hypotension. She has received IV fluids. She has developed acute oliguric renal failure and has been started on CRRT 1. Acute respiratory failure The patient developed acute respiratory failure due to inability to protect her airway. She was subsequently intubated and placed on mechanical ventilation. Currently, her arterial blood gases (ABGs) demonstrate a pH of 7.4, pCO2 of 17.2, and a pO2 of 143. Her respiratory alkalosis is intentional due to her severe profound lactic acidosis and diabetic ketoacidosis. Plan to keep the patient with hyperventilation to offset her metabolic derangement. 2. Diabetic ketoacidosis - The patient presented with elevated anion gap only slightly elevated at 14, but with elevated beta-hydroxybutyrate. Additionally, her blood sugar on presentation to [facility] was 1355, suspected hyperosmolar hyperglycemic state (HHS); however, with beta-hydroxybutyrate the patient has ketosis. She is currently receiving fluids and continued on IV insulin drip for management, which will continue. The patient is being followed by nephrology as well who is helping manage fluids. She does have acute pancreatitis. Her DKA may be secondary to a pancreatogenic diabetes from severe pancreatitis. 3. Acute pancreatitis As stated previously, the patient has developed acute pancreatitis. Lipase on presentation was 18,582. She had imaging findings consistent with this as well. Lipase on 05/31/2020, had decreased to 6333. The patient is still without nutrition. The etiology of her pancreatitis is unclear at this moment. She did have some imaging, which did demonstrate gallstones, although there is no dilation of the hepatobiliary tree to suggest gallstone pancreatitis. 4. Lactic acidosis The patient also has a concomitant lactic acidosis currently receiving IV fluids and likely secondary to her diabetic ketoacidosis and sepsis from acute pancreatitis. Patient is on continuous renal replacement therapy which should help with her lactic acidosis. 5. Hypernatremia The patient on presentation was profoundly hypernatremic with a sodium of 167. She had received fluids. She is currently on 0.25 normal saline. The patient is receiving continuous renal replacement therapy per nephrology, which will help her hypernatremia, as well as her lactic acidosis. 6. Transaminitis On presentation, the patient had elevated transaminases. They are continuing to elevate likely secondary to her sepsis and we will continue to trend. 7. Acute oliguric renal failure The patient has developed acute oliguric renal failure. This is likely multifactorial. She is in diabetic ketoacidosis (DKA) and profoundly dehydrated, as well as she has developed pancreatitis and has received several antibiotics since that time. Likely, it is possible that her acute oliguric renal failure is prerenal; although, it could also be a component of acute tubular necrosis (ATN). Either way, the patient is on continuous renal replacement therapy and being followed by nephrology. 8. Unspecified seizure disorder The patient reportedly has a history of seizures and was started on Keppra as an outpatient and we will continue as inpatient. 9. Supraventricular tachycardia The patient was noted to have developed supraventricular tachycardia while in the ER. She was stable. The case was discussed with per the primary team with Dr. Banda of cardiology with recommendations to start metoprolol. Metoprolol tartrate 5 mg is being continued on currently. The patient currently remains in sinus rhythm. She is slightly tachycardic with a rate of 100, however, normal sinus. 10. Deep vein thrombosis (DVT) prophylaxis The patient is on heparin 5000 units q. eight hours. 11. Gastrointestinal (GI) prophylaxis - Protonix 40 mg daily IV. 12. Nutrition The patient is currently n.p.o. She is not receiving any tube feedings or total parenteral nutrition (TPN). Depending on the patient's clinical improvement, we will need to address nutrition in the subsequent days. DISPOSITION: The patient has a guarded prognosis. She does remain critically ill. Her most pressing concern right now is her metabolic acidosis and acute pancreatitis with DKA; but overall, the patient's prognosis is very poor. Dictated by Renzo Ramírez, DO in conjunction with Deshawn Marx M.D. Dr. Marx: I participated in the evaluation and care of the patient as outlined above. She remains very critically ill. I appreciate nephrologies continued participation in her care. Eighty seven minutes was spent in the provision of critical care and care coordination exclusive of any procedure time. CYNDI
[2020-06-01 15:12] LABS: HEPATITIS A ANTIBODY IGM NEGATIVE (NEGATIVE); HEPATITIS B CORE ANTIBODY IGM NEGATIVE (NEGATIVE); HEPATITIS B SURFACE ANTIGEN NEGATIVE (NEGATIVE); HEPATITIS C VIRUS ABY INDEX < 0.0 INDEX (<0.8)
[2020-06-01 15:12] LABS: FOLATE 14.5 NG/ML (>5.4); HEPATITIS A ANTIBODY IGM NEGATIVE (NEGATIVE); HEPATITIS B CORE ANTIBODY IGM NEGATIVE (NEGATIVE); HEPATITIS B SURFACE ANTIGEN NEGATIVE (NEGATIVE); HEPATITIS C VIRUS ABY INDEX < 0.0 INDEX (<0.8); VITAMIN B12 LEVEL > 2000 PG/ML (247-911)
--- NOTE | 2020-06-01 15:44 | RO ---
OPERATIVE NOTE DATE OF OPERATION: 06/01/2020 PREOPERATIVE DIAGNOSIS: Hypotension. POSTOPERATIVE DIAGNOSIS: Hypotension. PROCEDURE PERFORMED: Right subclavian central venous pressure placement. SURGEON: Deshawn Marx MD TANDEM MILL ROLLER: FABI AVALOS DO PROCEDURE NOTE: The patient was seen and the procedure was explained to the patient, hypotensive in intensive care unit. The procedure was felt to be emergent. The skin overlying the right subclavian vein was prepped with ChloraPrep and draped in a sterile fashion. A 25-gauge needle was used to raise a skin wheal with 1% Lidocaine. Thereafter, a 17-gauge introducer needle was placed in through the skin and in to the right subclavian vein. Free return of venous blood was obtained. A vascular tipped guidewire was advanced. A small incision was made adjacent to the guidewire and a triple-lumen catheter placed over the guidewire to a distance of 18 cm. The catheter was sewn in place. A sterile dressing was applied. Postprocedural chest x-ray confirmed adequate placement of the catheter. There were no complications.
[2020-06-01 17:56] LABS: MEAN CORPUSCULAR HEMOGLOBIN 31.5 pg (27.0-33.0); MEAN CORPUSCULAR HGB CONC 30.9 g/dl (32.0-36.5); MEAN CORPUSCULAR VOLUME 101.9 fl (80.0-96.0); RED BLOOD COUNT 4.32 10^6/uL (4.00-5.40); WHITE BLOOD COUNT 15.3 10^3/uL (4.0-10.0)
[2020-06-01 17:58] LABS: HEMOGLOBIN 13.6 g/dl (12.0-15.5); PLATELET COUNT, AUTOMATED 71 10^3/uL (150-450)
[2020-06-01 18:21] LABS: CALCIUM LEVEL 8.8 MG/DL (8.5-10.1); CREATININE FOR GFR 2.67 MG/DL (0.55-1.30); GLOMERULAR FILTRATION RATE 21.2 (>60); MAGNESIUM LEVEL 2.1 MG/DL (1.8-2.4); PHOSPHORUS LEVEL 5.9 MG/DL (2.5-4.9); POTASSIUM SERUM 4.7 MEQ/L (3.5-5.1)
[2020-06-01] MEDS ORDERED: CALCIUM GLUCONATE 1,000 MG in NS 100 ML IV ONE (19:00)
[2020-06-01 20:05] LABS: HEMOGLOBIN A1c > 14.0 %
[2020-06-01] MEDS ORDERED: LEVEMIR (INSULIN DETEMIR) 1 UNITS/0.01ML SC SCH (21:00)
[2020-06-01] MEDS: INSULIN REGULAR IN 0.9 % NACL 100 UNIT in IV 1 EA IV SCH ×2 (22:10)
[2020-06-01] MEDS: INSULIN IV RATE CHANGE DOCUMENTATION ML/HR XX SCH (23:02)
--- NOTE | 2020-06-01 23:17 | IPN ---
NEPHROLOGY PROGRESS NOTE DATE: 06/01/2020 SUBJECTIVE: Patient was seen and examined at the bedside today morning in the ICU. Patient continues to be intubated, sedated. Last 24 hour events were noted. Patient was on CVVHDF. We were having issues with the machine. Blood flow rate had to be decreased to 150. After that, CVVHDF started running well, however when we tried to remove fluid, patient's blood pressure dropped. She had to get bolus of Ringer's Lactate overnight. Fluid removal was stopped. She continues to be on I.V. fluid hydration. She still is oliguric. After remaining dependent on Phenylephrine peripherally, it was slowly weaned off today morning. When I saw her in the morning, she was not on any pressors. Patient remains acidotic despite being on CVVHDF. Glucose levels are still high in more than 300's. Repeat acetone and ketone level was pending. Lab was trying to draw blood, but because of patient's body habitus, they were not able to draw any blood. OBJECTIVE: VITAL SIGNS: Temperature 98.9 degrees Fahrenheit, blood pressure 125/67, pulse 100, respiratory rate 20, saturating 98% on the vent with 35% FIO2. INTAKE AND OUTPUT: Urine output recorded yesterday as 927 mL. Urine output recorded so far today since overnight is 155 mL. Gastric drainage is 359 mL. CRRT ultrafiltration so far since last night at midnight is 3 liters. Weight in the bed scale is 102.6 kg. PHYSICAL EXAMINATION: GENERAL: Patient is intubated, sedated. Eyes are closed. HEAD/NECK: Pupils equally round and reactive to light. She has an endotracheal tube and orogastric tube. Neck is supple. There is no central line at this time. I could not appreciate any JVD. CARDIOVASCULAR: S1, S2, tachycardia. No edema of the bilateral lower extremities. RESPIRATORY: Chest is clear to auscultation bilaterally. No active rales or rhonchi. ABDOMEN: Soft, diminished bowel sounds. I could not appreciate any tenderness because patient is sedated. GENITOURINARY: She has an indwelling Karimi catheter; very dark urine was seen in the bag. MUSCULOSKELETAL: No clubbing or cyanosis. SCREWDOWN OPERATOR: Patient is intubated and sedated. She moves on painful stimuli. SKIN: No rashes or ulcers. LABORATORY REVIEW: CBC showed WBC 15.3, hemoglobin 13.6, platelets 71,000. INR done today morning 1.42. ABG: pH done today morning 7.42, pCO2 17, pO2 143, bicarb 10.9, O2 sat 99%. BMP showed sodium 135, potassium 4.7, chloride 105, bicarb 17, BUN 47, creatinine 2.6, sugar 360. Phosphorus 5.9, magnesium 2.1. Beta-hydroxybutyrate 45.7 today morning. MICROBIOLOGY: Blood cultures are negative. Urine culture is growing 100,000 colonies of Strep Agalactiae Group B. IMAGING STUDIES: A chest x-ray was done today morning, which showed placement of right subclavian central venous catheter. No pneumothorax. CURRENT INPATIENT MEDICATIONS: Patient's medications were all reviewed by myself. She is getting I.V. Meropenem. She has been started on Vancomycin as well. Her I.V. fluid at this time is half normal saline at 150 cc an hour, which was decreased to 125 mL per hour in the afternoon. She is getting electrolyte replacements according to CVVHDF protocol. She continues to be on Metoprolol p.r.n. and she is on Versed p.r.n. for agitation. ASSESSMENT AND PLAN: 1. Acute oliguric renal failure: Patient continues to be dependent on CVVHDF. Minimal fluid removal because she became hypotensive overnight. Renal failure is multifactorial, secondary to DKA, acute pancreatitis, volume depletion and severe sepsis. 2. Severe sepsis: Patient required Phenylephrine for a few hours overnight. She is off the pressors at this time. Continue broad spectrum antibiotic including Vancomycin and Meropenem. Continue aggressive fluid hydration. 3. Diabetic ketoacidosis: Patient was getting insulin sliding scale only. Her sugars are running in 300's. Beta-hydroxybutyrate is very high. I am stopping the insulin sliding scale coverage and starting the patient back on insulin drip. 4. Hypernatremia: It has improved with administration of hypotonic fluids and initiation of hemodialysis. 5. Lactic acidosis: It is persistent, associated with acute pancreatitis, volume depletion and sepsis. Continue the fluid hydration, minimal fluid removal to maintain the patient for MAP above 80 only. 6. Acute pancreatitis: Patient is sedated, pain optimization with opioids as needed. Continue empiric antibiotics. She has OGT attached to suctioning at this time. 7. Supraventricular tachycardia: Patient is getting I.V. Metoprolol p.r.n. Her tachycardia is getting better with improvement in the volume status and administration of I.V. fluids. 8. Strep Agalactiae Group B urinary tract infection: Patient is already on vancomycin and Meropenem, which should adequately cover the infection. 9. Hyperphosphatemia: It is secondary to renal failure, phosphorus level should improve with improvement in the renal function and with dialysis. Total critical care time spent in the management of this patient today morning in the ICU excluding all the procedures was 45 minutes. MTDD
[2020-06-02] VITALS (48 sets, daily range): BP systolic 98–140; BP diastolic 55–82
[2020-06-02] MEDS: MIDAZOLAM INJ 2MG/2ML VIAL (J2250 PER 1MG) IV PRN ×3 (00:20→18:33)
[2020-06-02] MEDS: propofoL 1,000 MG in IV 1 EA IV SCH ×5 (01:04→23:17)
[2020-06-02] MEDS: INSULIN IV RATE CHANGE DOCUMENTATION ML/HR XX SCH ×9 (01:06→17:53)
[2020-06-02 01:30] LABS: CALCIUM LEVEL 8.4 MG/DL (8.5-10.1); CREATININE FOR GFR 2.4 MG/DL (0.55-1.30); GLOMERULAR FILTRATION RATE 23.9 (>60); MAGNESIUM LEVEL 2.3 MG/DL (1.8-2.4); PHOSPHORUS LEVEL 5.4 MG/DL (2.5-4.9); POTASSIUM SERUM 4.9 MEQ/L (3.5-5.1)
[2020-06-02] MEDS: NS 0.45% 1,000 ML IV SCH (03:10)
[2020-06-02 03:24] LABS: ABG BASE EXCESS -8.2 (-2.0-2.0); ABG HCO3 13.4 MEQ/L (22.0-26.0); ABG O2 SATURATION 98.5 % (95.0-99.0); ABG PARTIAL PRESSURE O2 108.8 mmHg (75.0-100.0); ABG pH (ARTERIAL) 7.445 UNITS (7.350-7.450)
[2020-06-02] MEDS: HEPARIN SOD (PORCINE) 5000UNITS/ML 1ML VIAL/SYRINGE SQ SCH (06:15)
[2020-06-02 06:24] LABS: BASO % 0.3 % (0.0-1.0); EOS # 0.1 10^3/uL (0.0-0.5); EOS % 0.6 % (0.0-3.0); HEMATOCRIT 39.4 % (36.0-47.0); HEMOGLOBIN 12.7 g/dl (12.0-15.5); LYMPH # 1.3 10^3/uL (1.5-5.0); LYMPH % 8.4 % (24.0-44.0); MEAN CORPUSCULAR HEMOGLOBIN 31.9 pg (27.0-33.0); MEAN CORPUSCULAR HGB CONC 32.2 g/dl (32.0-36.5); MONO % 6.5 % (0.0-5.0); NEUTROPHILS # 12.7 10^3/uL (1.5-8.5); NEUTROPHILS % 82.3 % (36.0-66.0); PLATELET COUNT, AUTOMATED 66 10^3/uL (150-450); RED BLOOD COUNT 3.98 10^6/uL (4.00-5.40); WHITE BLOOD COUNT 15.4 10^3/uL (4.0-10.0)
[2020-06-02 06:33] LABS: INR 1.15
[2020-06-02 06:34] LABS: PARTIAL THROMBOPLASTIN TIME 29.4 SECONDS (24.2-38.5)
[2020-06-02] MEDS: IPRATROPIUM 0.5MG/ALBUTEROL 2.5MG INH SOL UD 3ML (DUONEB) NEB SCH ×4 (07:16→19:28)
[2020-06-02] MEDS: MEROPENEM INJ 500 MG in IV 1 EA IV SCH (07:34)
[2020-06-02] MEDS: D5W/0.9% SODIUM CHLORIDE 1,000 ML IV SCH ×3 (07:34→23:17)
[2020-06-02 07:35] LABS: ALBUMIN 2.7 GM/DL (3.2-5.2); CALCIUM LEVEL 8.3 MG/DL (8.5-10.1); CREATININE FOR GFR 2.35 MG/DL (0.55-1.30); GLOMERULAR FILTRATION RATE 24.5 (>60); MAGNESIUM LEVEL 2.3 MG/DL (1.8-2.4); PHOSPHORUS LEVEL 4.4 MG/DL (2.5-4.9); POTASSIUM SERUM 4.2 MEQ/L (3.5-5.1); TOTAL PROTEIN 5.5 GM/DL (6.4-8.2)
--- NOTE | 2020-06-02 07:43 | REP ---
INDICATION: ETT COMPARISON: 06/01/2020 TECHNIQUE: Portable AP view of the chest FINDINGS: Examination is limited by underpenetration and poor inspiratory effort. Endotracheal tube 4 cm above the karen. Nasogastric tube courses below left hemidiaphragm. Right subclavian catheter with tip in the SVC. Mediastinum and cardiac silhouette normal. Left basilar opacity suggesting elements of consolidation and possible small effusion similar to prior examination when allowing for variation in technique. IMPRESSION: Left basilar opacity similar to prior examination. <Electronically signed by Bruno Cooper > 06/02/20 0739
[2020-06-02] MEDS ORDERED: CALCIUM GLUCONATE 1,000 MG, VIAL MATE ADAPTER 1 EACH in NS 100 ML IV ONE ×2 (07:45→12:30)
[2020-06-02] MEDS: levETIRAcetam INJection 500 MG in D5W MINI-BAG PLUS 100 ML IV SCH ×2 (08:13→21:00)
[2020-06-02] MEDS: CHLORHEXIDINE GLUCONATE 0.12 % 15ML UDC (PERIDEX ORAL RINSE) MT SCH ×2 (08:13→20:59)
[2020-06-02] MEDS: PANTOPRAZOLE 40MG VIAL (C9113 PER 1) IV SCH (08:13)
[2020-06-02] MEDS: INSULIN REGULAR IN 0.9 % NACL 100 UNIT in IV 1 EA IV SCH ×8 (08:29→22:47)
[2020-06-02] MEDS: VANCOMYCIN HCL 1,000 MG, VIAL MATE ADAPTER 1 EACH in D5W 250 ML IV SCH (09:31)
[2020-06-02] MEDS ORDERED: MORPHINE 2 MG/ML 1ML VIAL (J2270) IV PRN (11:45)
[2020-06-02 14:12] LABS: CALCIUM LEVEL 8.8 MG/DL (8.5-10.1); CREATININE FOR GFR 2.51 MG/DL (0.55-1.30); GLOMERULAR FILTRATION RATE 22.7 (>60); MAGNESIUM LEVEL 2.3 MG/DL (1.8-2.4); PHOSPHORUS LEVEL 4.4 MG/DL (2.5-4.9); POTASSIUM SERUM 3.9 MEQ/L (3.5-5.1)
[2020-06-02] MEDS ORDERED: KCL 20MEQ IN 100ML SWI (KRUN) 20 MEQ in IV 1 EA IV ONE ×2 (14:30)
--- NOTE | 2020-06-02 14:50 | CCN ---
CRITICAL CARE NOTE DATE: 06/02/2020 SUBJECTIVE: Ms. Murry was seen and examined this morning. She is remaining critically ill. She does remain intubated with mechanical ventilation, and additionally she does remain on CVVHD. The patient has not had any further episodes of hypotension last night and has not required any pressor support. However, she does continue to have DKA and was restarted on insulin drip yesterday. She is being followed by Nephrology who is helping with management of her fluids. Otherwise the patient has had no further adverse events reported. OBJECTIVE: Vital signs: Temperature 99, pulse 109, respiratory rate 25, blood pressure 134/63, pulse oximetry 97% on the ventilator with a FiO2 of 35. Ventilator settings of pressure control with respiratory rate of 18, FiO2 of 40, PEEP of 5. HEENT: Atraumatic, normocephalic. Eyes anicteric. Trachea is midline. Endotracheal tube is in place as well as OG tube. She has a right-sided subclavian central venous catheter in place. General: The patient is sedated. She appears critically ill. She does respond to pain. Cardiovascular: Normal S1 and S2. There is a tachycardic rate with a regular rhythm. No clicks, rubs, or murmurs are auscultated. Pulmonary: There are clear vesicular breath sounds bilaterally, somewhat diminished at the bases. There are no wheezes, rhonchi, or rales. Abdominal: Soft. It is nondistended. There are somewhat hypoactive bowel sounds. No masses or organomegaly. There is no abdominal bruising. Extremities: Patient's extremities are void of any edema. There are full and equal pulses bilaterally. Neurologic: There are no focal neurological deficits. LABORATORY DATA: Hematology: White blood cell 15.4, hemoglobin 12.7, hematocrit 39.4, platelet count 66. Chemistries: Sodium 135, potassium 4.2, chloride 102, carbon dioxide 18, BUN 44, creatinine 2.35, fasting glucose 203, calcium 8.3, phosphorus 4.4, magnesium 2.3, total bilirubin 1.0, AST 233, ALT 138, alkaline phosphatase 137, LDH 960, total CK 8,481, total protein 5.5, albumin 2.7, amylase 163. Fibrinogen 652. Beta-hydroxybutyrate 28.36. INPATIENT MEDICATIONS: 1. Morphine 2 mg every six hours p.r.n. 2. D5/normal running at 125 mL per hour. 3. Insulin drip. 4. Propofol. 5. DuoNebs q.i.d. 6. Versed 10 mg every 15 minutes p.r.n. 7. Lopressor 5 mg every six hours p.r.n. for heart rate greater than 120. 8. Keppra every 12 hours. 9. Albuterol two puffs every four hours. 10. Protonix 40 mg IV daily. ASSESSMENT AND PLAN: Ms. Murry is a 40-year-old female with a history of seizure disorder and questionable diagnosis of diabetes who presented to [facility] Emergency Department with altered mental status. On presentation, the patient was found to be profoundly hyperglycemic and said to be in hyperosmolar and hyperglycemic state. However, her labs demonstrated ketosis and likely diabetic ketoacidosis with elevated beta-hydroxybutyrate. Additionally, the patient's lipase was significantly elevated with imaging findings consistent with pancreatitis. She had been admitted to the ICU for further management. She had severe hyponatremia. During her hospitalization, she developed acute hypoxic respiratory failure, due to the inability to protect her airway, she was subsequently intubated and placed on mechanical ventilation. Additionally, the patient had developed acute oliguric renal failure with a severe metabolic acidosis and required continuous renal replacement therapy. 1. Acute respiratory failure: The patient had developed acute respiratory failure. Due to inability to protect her airway, she is currently intubated and placed on mechanical ventilation. Her ABG today demonstrates a pH of 7.45, a pCO2 of 20, and PaO2 of 108.8. Her current ventilator settings are pressure control with a respiratory rate of 18, FiO2 of 40, and a PEEP of 5. The patient is currently breathing over the vent, likely hyperventilating to set of her metabolic acidosis. At this time, the patient will remain on the ventilator. Once her metabolic acidosis is corrected, we will consider extubation. However, currently the patient still remains critically ill at this time. 2. Diabetic ketoacidosis: Patient presented with elevated anion gap and elevated beta-hydroxybutyrate. Her blood sugar at presentation was 1,355 with suspected hyperosmolar and hyperglycemic state. Additionally, the patient was severely dehydrated likely secondary to this. Currently the patient is receiving IV fluids and remains on an IV insulin drip at this time. She is being followed by Nephrology, and their recommendations are appreciated. Nephrology is managing the patient's fluid balance as well. She remains on CVVHD secondary to her metabolic acidosis and acute oliguric renal failure. The etiology of her diabetic ketoacidosis is unclear. However, she did present with severe pancreatitis, and that could be the etiology of it. Additionally, her diabetes may be pancreatogenic in origin due to her pancreatitis. At this current time, we will continue her IV insulin drip and continue IV fluids. Will continue to hold off on nutrition until her DKA resolves. 3. Acute pancreatitis: As stated previously, the patient has developed acute pancreatitis. Her lipase on presentation was elevated at 18,582, and she had imaging consistent with this as well. Her lipase had decreased to 6,333 on the . The patient is still without nutrition which is appropriate due to her DKA. At this current time, we will repeat her lipase tomorrow, and if her DKA resolves, we will address either TPN versus tube feedings. Have additionally added on morphine for pain. Nursing staff had reported the patient became somewhat agitated and seemed to respond to morphine likely due to her abdominal pain from pancreatitis. Would recommend using sparingly, however. 4. Lactic acidosis: Patient had lactic acidosis likely secondary to DKA and acute pancreatitis. She is on continuous renal replacement therapy which should help correct her lactic acidosis. 5. Hypernatremia: On presentation patient was profoundly hypernatremic likely secondary to severe dehydration. She has received fluids, and her last CVP was 9. She is being followed by Nephrology, their recommendations appreciated. Additionally, the patient is on CVVHD which should help improve her hypernatremia. 6. Transaminitis: Patient had elevated transaminases on presentation. They appear to be trending down, and we will continue to monitor. 7. Acute oliguric renal failure: Patient had developed acute oliguric renal failure as previously stated. It is likely multifactorial. She is in DKA and profoundly dehydrated as well. She has severe pancreatitis, either of which can cause acute oliguric renal failure. Currently the patient is being followed by Nephrology. She is on continuous renal replacement therapy. Will continue to follow and monitor. The patient has made some more urine today, however. 8. Unspecified seizure disorder: Patient has a history of seizures and was started on Keppra as an outpatient. Will continue inpatient. 9. Thrombocytopenia: Patient was noted to develop thrombocytopenia. Today platelet count is 66, a significant drop from previously. She is receiving heparin. At this point, we will stop the heparin. I will order heparin-induced antibodies to rule out HIT syndrome. Additionally, we will order fibrinogen to rule out possible DIC, although this is unlikely. Will add on EDTA free platelets tomorrow to make sure that it is not just from clumping. If heparin antibodies return negative, can restart heparin. If not, we will have to place a different form of pharmacologic prophylaxis. In the meantime, the patient will be placed on TEDS and sequentials for DVT prophylaxis. 10. Urinary tract infection: On presentation patient's urine appeared dirty. It was with Strep B. She was started on cefepime and vancomycin. The etiology of her current condition appears to be her pancreatitis. Imaging on presentation did not demonstrate necrotizing pancreatitis or any signs of abscess. Will discontinue her antibiotics today. She does not have an elevated white count. No fevers. If she does develop a white count, we will restart antibiotics. 11. Supraventricular tachycardia: Patient had developed supraventricular tachycardia in the emergency room. She was stable throughout. However, Cardiology had been contacted by the primary team with recommendations for metoprolol 5 mg for a heart rate greater than 120. The patient has remained in sinus rhythm since that time. She does become intermittently tachycardic. However, this is a sinus tachycardia. Will continue to monitor. 12. DVT prophylaxis: As stated previously, heparin has been discontinued due to suspicion of HIT syndrome. Will order TEDS and sequentials. 13. GI prophylaxis: Protonix 40 mg daily. 14. Nutrition: Patient continues to remain n.p.o. She is currently in DKA as well as acute pancreatitis. If patient's DKA resolves, we can consider starting TPN tomorrow. If her lipase is trending down and the patient does not appear to be in pain, we can also potentially start tube feedings, although patient has somewhat hypoactive bowel sounds today so we will lean towards starting TPN tomorrow if the patient is not in DKA. DISPOSITION: Patient overall has a very guarded prognosis. She remains critically ill. She is currently intubated with mechanical ventilation and on renal replacement therapy. Her most pressing concern right now is her metabolic acidosis with acute pancreatitis and DKA. Eighty eight minutes was spent in critical care and coordination exclusive of procedure time.Overall very poor prognosis. Dr. Marx; I participated in the above documented provision of critical care and have coordinated with the nursing team and Nephrology. If she responds to fluids and reestablishes urine output with a reasonable blood pressure we may be able to wean mechanical ventilation tomorrow. CYNDI
[2020-06-02 18:02] LABS: HEMATOCRIT 33.9 % (36.0-47.0); HEMOGLOBIN 11.1 g/dl (12.0-15.5); MEAN CORPUSCULAR HEMOGLOBIN 31.9 pg (27.0-33.0); MEAN CORPUSCULAR HGB CONC 32.7 g/dl (32.0-36.5); MEAN CORPUSCULAR VOLUME 97.4 fl (80.0-96.0); RED BLOOD COUNT 3.48 10^6/uL (4.00-5.40); WHITE BLOOD COUNT 12.8 10^3/uL (4.0-10.0)
[2020-06-02 18:03] LABS: PLATELET COUNT, AUTOMATED 50 10^3/uL (150-450)
[2020-06-02 18:21] LABS: CALCIUM LEVEL 8.5 MG/DL (8.5-10.1); CREATININE FOR GFR 2.69 MG/DL (0.55-1.30); MAGNESIUM LEVEL 2.4 MG/DL (1.8-2.4); PHOSPHORUS LEVEL 3.4 MG/DL (2.5-4.9); POTASSIUM SERUM 4.1 MEQ/L (3.5-5.1)
[2020-06-03] VITALS (83 sets, daily range): BP systolic 74–129; BP diastolic 41–95
[2020-06-03] MEDS ORDERED: CALCIUM GLUCONATE 1,000 MG in NS 100 ML IV ONE ×2
[2020-06-03 00:05] LABS: CALCIUM LEVEL 8.3 MG/DL (8.5-10.1); CREATININE FOR GFR 2.43 MG/DL (0.55-1.30); GLOMERULAR FILTRATION RATE 23.6 (>60); POTASSIUM SERUM 3.8 MEQ/L (3.5-5.1)
[2020-06-03 00:07] LABS: MAGNESIUM LEVEL 2.3 MG/DL (1.8-2.4); PHOSPHORUS LEVEL 2.5 MG/DL (2.5-4.9)
[2020-06-03] MEDS ORDERED: KCL 20MEQ IN 100ML SWI (KRUN) 20 MEQ in IV 1 EA IV ONE ×2 (00:30)
[2020-06-03] MEDS: INSULIN REGULAR IN 0.9 % NACL 100 UNIT in IV 1 EA IV SCH ×4 (03:10→10:01)
[2020-06-03] MEDS: propofoL 1,000 MG in IV 1 EA IV SCH ×2 (03:11→08:13)
[2020-06-03] MEDS: MIDAZOLAM INJ 2MG/2ML VIAL (J2250 PER 1MG) IV PRN ×7 (05:23→21:41)
[2020-06-03 05:49] LABS: ABG HCO3 18.7 MEQ/L (22.0-26.0); ABG O2 SATURATION 97.2 % (95.0-99.0); ABG PARTIAL PRESSURE CO2 24.8 mmHg (35.0-45.0); ABG PARTIAL PRESSURE O2 86.4 mmHg (75.0-100.0); ABG STANDARD HCO3 21.9 MEQ/L (22.0-26.0); ABG TOTAL CO2 19.5 MEQ/L (22.0-29.0); ABG pH (ARTERIAL) 7.496 UNITS (7.350-7.450)
[2020-06-03 06:04] LABS: BASO % 0.2 % (0.0-1.0); EOS # 0.2 10^3/uL (0.0-0.5); EOS % 1.1 % (0.0-3.0); HEMATOCRIT 34.6 % (36.0-47.0); HEMOGLOBIN 11.2 g/dl (12.0-15.5); LYMPH % 7.2 % (24.0-44.0); MEAN CORPUSCULAR HEMOGLOBIN 31.9 pg (27.0-33.0); MEAN CORPUSCULAR HGB CONC 32.4 g/dl (32.0-36.5); MEAN CORPUSCULAR VOLUME 98.6 fl (80.0-96.0); MONO # 1.2 10^3/uL (0.0-0.8); MONO % 8.8 % (0.0-5.0); NEUTROPHILS # 11.3 10^3/uL (1.5-8.5); NEUTROPHILS % 80.4 % (36.0-66.0); RED BLOOD COUNT 3.51 10^6/uL (4.00-5.40); WHITE BLOOD COUNT 14.1 10^3/uL (4.0-10.0)
[2020-06-03 06:11] LABS: PLATELET COUNT, AUTOMATED 46 10^3/uL (150-450)
[2020-06-03 06:17] LABS: PARTIAL THROMBOPLASTIN TIME 25.7 SECONDS (24.2-38.5)
[2020-06-03 06:20] LABS: INR 0.98; PROTHROMBIN TIME 13.2 SECONDS (12.5-14.3)
[2020-06-03 06:44] LABS: ACETONE/KETONE 2.19 MG/DL (<2.81); ALBUMIN 2.2 GM/DL (3.2-5.2); BILIRUBIN,TOTAL 0.8 MG/DL (0.2-1.0); CALCIUM LEVEL 8.2 MG/DL (8.5-10.1); CREATININE FOR GFR 2.33 MG/DL (0.55-1.30); GLOMERULAR FILTRATION RATE 24.8 (>60); MAGNESIUM LEVEL 2.3 MG/DL (1.8-2.4); PHOSPHORUS LEVEL 2.5 MG/DL (2.5-4.9); TOTAL PROTEIN 5.2 GM/DL (6.4-8.2)
[2020-06-03] MEDS: IPRATROPIUM 0.5MG/ALBUTEROL 2.5MG INH SOL UD 3ML (DUONEB) NEB SCH ×4 (07:21→20:02)
--- NOTE | 2020-06-03 07:53 | REP ---
INDICATION: ETT COMPARISON: 06/02/2020 TECHNIQUE: Portable AP view of the chest FINDINGS: Endotracheal tube 3.5 cm above the karen. Nasogastric tube courses below left hemidiaphragm. Right subclavian catheter with tip in the SVC/right atrium. Mediastinum and cardiac silhouette are normal. Lung miranda demonstrate improved aeration with decreased left basilar opacity. No new consolidation, effusion, or pneumothorax. IMPRESSION: Findings suggest improved aeration to the left lower lobe. <Electronically signed by Bruno Cooper > 06/03/20 0749
[2020-06-03] MEDS: INSULIN IV RATE CHANGE DOCUMENTATION ML/HR XX SCH ×3 (08:10→12:58)
[2020-06-03] MEDS: D5W/0.9% SODIUM CHLORIDE 1,000 ML IV SCH (08:13)
[2020-06-03 08:25] LABS: PLTBLUE- EDTA FREE CALC 46 K/mm3 (172-450)
--- NOTE | 2020-06-03 09:01 | IPN ---
PROGRESS NOTE DATE: 06/02/2020 SUBJECTIVE: Patient was seen and examined at the bedside today morning. She remains intubated, sedated, she is dependent on continuous venovenous hemodiafiltration (CVVADF). Patient is anuric. She continues to be in diabetic ketoacidosis (DKA). She was started on IV insulin drip yesterday. IV fluids have been changed to dextrose 5% (D5) normal saline. FiO2 requirement on the vent is 35%. No problem with oxygenation at this time. OBJECTIVE: Vital signs: Temperature is 99 degrees Fahrenheit, blood pressure 134/63, pulse is 109, respiratory rate of 25, saturating 97% on the vent with 35% FiO2. Intake and output: Urine output recorded is 165 mL since overnight. Fluid removal with continuous renal replacement therapy (CRRT) is 1.6 liters so far. Weight in the bed scale is 106.6 kg. PHYSICAL EXAMINATION: General: Patient is intubated, sedated, eyes are closed but pupils are equally round and reactive to light. Mucous membranes are moist. She has an endotracheal tube and orogastric tube. Orogastric tube (OGT) is attached to suctioning at this time. Neck is supple, there is no jugular venous distension (JVD). Cardiovascular: S1, S2, slight tachycardia. No edema of the bilateral lower extremities. She has a right subclavian triple-lumen catheter now. Abdomen: Soft, very diminished bowel sounds, I could not appreciate any tenderness because patient is sedated. Genitourinary: She has an indwelling Karimi catheter, very small amount of dark urine was noted. Musculoskeletal: No clubbing or cyanosis. Pulses are 2+. Central nervous system (DATA SERVICES DEVELOPER): Patient is intubated, sedated, moves extremities to painful stimuli. LABORATORY REVIEW: CBC showed WBC of 12.8, hemoglobin is 11.1, platelets are 50. ABG done today morning showed a pH of 7.44, pCO2 of 20, pO2 of 108, bicarbonate is 13.4, oxygen saturation is 98%. BMP showed sodium 133, potassium 3.9, chloride 103, bicarbonate 21, BUN 43, creatinine is 2.5, glucose is 235. Beta hydroxybutyrate today morning was 28.3. Microbiology: Urine culture is growing two organisms, Strep agalactiae group B and Lactobacillus species. IMAGING: A chest x-ray was done today morning which showed left basilar opacity. CURRENT INPATIENT MEDICATIONS: Patient's medications were all reviewed by myself. She continues to be on IV vancomycin and meropenem. She is not requiring any pressors at this time. She continues to be on insulin drip. IV fluid D5 normal saline is running at 125 mL/hour. No other significant change in the medication. ASSESSMENT AND PLAN: 1. Acute oliguric renal failure. Continue continuous venovenous hemodiafiltration (CVVADF) at this time given that patient has severe acute pancreatitis, acute renal failure, combined lactic acidosis and diabetic ketoacidosis. New orders were written. I would only try to maintain the fluid balance for a mean arterial pressure (MAP) above 80. Continue to monitor for renal recovery. 2. Diabetic ketoacidosis. Patient is still in diabetic ketoacidosis (DKA). Beta-hydroxybutyrate is still high. Continue the insulin drip. Continue dextrose 5% (D5) normal saline IV fluids at this time. 3. Vent dependent respiratory failure. Patient still has metabolic acidosis with respiratory alkalosis. Vent management and sedation is as per pulmonary team. 4. Severe sepsis. Patient is empirically on vancomycin and meropenem. Blood cultures are negative. Urine culture is growing two organisms. 5. Nutrition. Patient is recovering from acute pancreatitis and orogastric tube (OGT) is attached to suctioning and she is in diabetic ketoacidosis (DKA) at this time so we cannot give total parenteral nutrition (TPN) or tube feeds at this time. 6. Supraventricular tachycardia. Patient is getting as needed metoprolol. Tachycardia resolved after improvement of the volume status. 7. Strep agalactiae group B and Lactobacillus urinary tract infection. Patient was getting IV vancomycin and meropenem. That should adequately cover this infection. Total critical care time spent in the management of this patient today morning in the intensive care unit (ICU) excluding all the procedures was 40 minutes.
[2020-06-03 09:12] LABS: PLTBLUE- EDTA FREE MACHINE 42 10^3/uL (172-450)
[2020-06-03] MEDS: levETIRAcetam INJection 500 MG in D5W MINI-BAG PLUS 100 ML IV SCH ×2 (09:22→21:14)
[2020-06-03] MEDS: CHLORHEXIDINE GLUCONATE 0.12 % 15ML UDC (PERIDEX ORAL RINSE) MT SCH ×2 (09:23→21:15)
[2020-06-03] MEDS: PANTOPRAZOLE 40MG VIAL (C9113 PER 1) IV SCH (09:23)
[2020-06-03] MEDS ORDERED: REFRIGERATOR IV KEYS XX PRN (09:30)
[2020-06-03 10:08] LABS: HEPATITIS C QUANTITATION HCV Not Detected IU/mL (.)
[2020-06-03] MEDS: MIDAZOLAM HCL 100 MG in D5W 80 ML IV SCH (11:02)
[2020-06-03] MEDS ORDERED: LIDOCAINE 1% MDV 20ML VIAL As Ordered ONE (12:15)
[2020-06-03] MEDS ORDERED: SODIUM CHLORIDE 0.9% 1000ML IV ONE ×3 (13:00→16:15)
[2020-06-03] MEDS ORDERED: LIDOCAINE 1% MDV 20ML VIAL SC ONE (13:15)
--- NOTE | 2020-06-03 16:39 | CCN ---
CRITICAL CARE NOTE DATE: 06/03/2020 SUBJECTIVE: Ms. Murry was seen and examined this morning. It appears overnight the patient had lost her left femoral dialysis catheter access due to clotting. She has been off CVVHDT since last night. She remains stable although there have been some reports of hypotension transiently. Additionally the patient has been somewhat more agitated and required more Propofol for sedation. She has been out of diabetic ketoacidosis. Currently she is continued on insulin drip. Her lipase has normalized today. She does still remain thrombocytopenic. Otherwise there have been no further adverse events reported. OBJECTIVE: VITAL SIGNS: Temperature 96.9, pulse 108, respiratory rate 18, blood pressure 129/79, pulse oximetry 99% on the ventilator with pressure control with a respiratory rate of 18 and a PEEP of 5 and FiO2 of 40%. GENERAL: The patient is currently sedated. She appears critically ill. She does respond to pain. HEENT: Atraumatic, normocephalic. There is an endotracheal tube in place. There is also a nasogastric tube in place as well. The patient has a right-sided subclavian intravenous catheter currently in place. CARDIOVASCULAR: The patient has a normal S1, S2. She has a tachycardic rate with a regular rhythm. There are no clicks, rubs, or murmurs auscultated. PULMONARY: She has somewhat bronchial breath sounds anteriorly. She is over-breathing the ventilator with a rate of around 20. There are no wheezes or rales auscultated. ABDOMEN: Soft, nondistended, and nontender. No rebound tenderness. There are somewhat hypoactive bowel sounds. No abdominal bruising. EXTREMITIES: The patient's extremities are void of edema. She has PATRICIA sequentials in place. There are full and equal pulses bilateral upper and lower extremities. NEUROLOGIC: There are no focal neurological deficits. VASCULAR ACCESS: The patient has a right-sided subclavian central venous catheter in place. She also has a now right-sided femoral dialysis catheter in place. Her left femoral dialysis catheter has been pulled due to line clotting. LABORATORY DATA: Hematology: White blood cell 14.1, hemoglobin 11.2, hematocrit 34.6, platelet count 46. Chemistries: Sodium 137, potassium 4.0, chloride 106, BUN 30, creatinine 2.33. Fasting glucose 141. Calcium 8.2. Phosphorus 2.5. Magnesium 2.3. Total bilirubin 0.8, AST 182, ALT 109. Alkaline phosphatase 140. LDH 742. Total CK 3,118. Total protein 5.2, albumin 2.2. triglycerides 758, cholesterol 165. Vitamin B12 197. Beta-hydroxybutyric 2.19. INPATIENT MEDICATIONS: - TPN - Versed drip - Morphine 2 mg every 6 hours as needed - Insulin drip - DuoNeb 3 mL four times daily - Versed 2 mg every 15 minutes as needed for agitation - Lopressor 5 mg every 6 hours as needed for heart rate greater than 120 - Keppra 500 mg every 12 hours - Albuterol 2 puffs every four hours as needed - Protonix 40 mg daily IV ASSESSMENT AND PLAN: Ms. Murry is a 40-year-old female with a history of seizure disorder, questionable diagnosis of diabetes who presented to [facility] Emergency Department originally with an altered mental status. On presentation the patient was profoundly hyperglycemic and said to be in hyperosmolar and hyperglycemic state. However, she also had ketosis and likely diabetic ketoacidosis with elevated beta-hydroxybutyrate. Additionally the patient's lipase was significantly elevated with imaging consistent with pancreatitis. The patient was admitted to the ICU for further management. She had severe hyponatremia. She has been followed by Nephrology and placed on CVVHD. During her hospitalization, she did develop acute hypoxic respiratory failure. Due to the inability to protect her airway she was subsequently intubated and placed on mechanical ventilation. Additionally, the patient continues to be in acute oliguric renal failure with severe metabolic acidosis and has continued to require renal replacement therapy. Today the patient seems to be improved as she is no longer in DKA. She is off CVVHD as her dialysis catheter had clotted. 1. Acute respiratory failure: The patient developed acute respiratory failure. Due to inability to protect her airway, she is currently intubated and placed on mechanical ventilation. Her arterial blood gas today demonstrates a pH of 7.49, a pCO2 of 24.8 and PaO2 of 86.4. She is continued on pressure control with a rate of 18, FiO2 of 40, and a PEEP of 5. The patient was also noted to have significant mucus plugging during intubation. A bedside bronchoscopy was performed today with suctioning of her airways. Additionally a laryngoscope was placed to remove further areas of mucus. The patient currently is doing well. We will consider possibly a weaning trial tomorrow. 2. Diabetic ketoacidosis: Patient had presented with elevated anion gap and elevated beta-hydroxybutyrate, elevated blood glucose of 1,355. The patient was originally suspected to a hyperosmolar and hyperglycemic state. However, she had elevated beta-hydroxybutyrate suggesting diabetic ketoacidosis. She was also severely dehydrated. She has received IV fluids. She was placed on an IV insulin drip. She has been in and out of DKA. Currently, the patient's DKA has resolved. She is being followed by Nephrology, and their recommendations are appreciated. Her IV insulin drip continues. She is being started on TPN today. She will be transitioned off her IV insulin drip likely today as well. The patient had been receiving CVVHD in the setting of acute oliguric renal failure which could be secondary to her diabetic ketoacidosis as well as her severe pancreatitis and dehydration. Currently, last night her femoral dialysis catheter had clotted and she was taken off CVVHD. A right-sided femoral dialysis catheter was placed. However, currently the patient is off CVVHD as she did make some urine. 3. Acute pancreatitis: The patient has developed acute pancreatitis. Lipase on presentation was elevated at 18,582. It has normalized today. The patient is without nutrition. However the plan is to start the patient on TPN. This is going to be managed through Nephrology. Their assistance is appreciated. We will off on tube feedings for now as the patient does have hypoactive bowel sounds in the setting of her acute pancreatitis. She does have Morphine as needed for pain. However, we will use sparingly. 4. Lactic acidosis: Patient had lactic acidosis likely secondary to DKA and acute pancreatitis. She is on continuous renal replacement therapy which should help correct her lactic acidosis. 5. Acute oliguric renal failure: Patient had developed acute oliguric renal failure likely multifactorial in the setting of both DKA with profound dehydration as well as severe pancreatitis. She has been on CVVHD. She is being followed by Nephrology with their recommendations appreciated. The patient has made some more urine today. We will continue to monitor. Optimistically, if her urine output increases then we will likely be able to discontinue her CVVHD. 6. Thrombocytopenia: The patient has developed thrombocytopenia. Platelet counts are 46 today which is a significant drop. She was previously on Heparin. This has been discontinued and heparin-induced antibodies to rule out HIT syndrome have been ordered. A fibrinogen was elevated which does rule out DIC making it unlikely. Her EDTA free platelets as well had demonstrated a low platelet count. If her heparin antibodies return negative, we will restart heparin. However in the meantime, the patient remains off pharmacologic prophylaxis. She is currently on TEDS and sequentials for DVT prophylaxis. 7. Lactic acidosis: The patient presented with lactic acidosis likely in the setting of DKA and acute pancreatitis. She has received fluid replacement. Her lactic acidosis has improved. 8. Hypernatremia: On presentation patient was profoundly hypernatremic likely secondary to severe dehydration. Her last CVP this morning was 9. She is being followed by Nephrology, their recommendations are appreciated. She has received CVVHD which did help correct her hyponatremia. 9. Transaminitis: Patient had elevated transaminases on presentation. They appear to be trending down, and we will continue to monitor. 10. Unspecified seizure disorder: Patient has a history of a seizure disorder, unclear of the exact history. However, she is continued on Keppra currently. 11. Supraventricular tachycardia: Patient had developed supraventricular tachycardia in the emergency room. She has been stable throughout. Cardiology has been contacted by the primary team with recommendations for 5 mg of metoprolol for heart rates greater than 120. Currently she does remain in sinus rhythm. She has not been in supraventricular tachycardia since her presentation to the ER. Additionally the patient was noted to be somewhat hypotensive today and her metoprolol was held. Her hypotension was likely secondary to propofol. 12. Hypotension: The patient developed an episode of hypotension. MAP approximately 56. It seems to be secondary to propofol as her propofol was increased due to agitation. At this point in time we will discontinue her propofol and switch her over to a Versed drip. We will continue to monitor. 13. DVT prophylaxis: As stated previously, the patient is currently only on TEDS and sequentials. Pharmacologic prophylaxis is discontinued. We will hold Heparin until her HIT antibodies are resolved. 14. GI prophylaxis: We will continue Protonix 40 mg IV daily. 15. Nutrition: The patient does remain nothing by mouth due to her recent DKA and pancreatitis. Her DKA has resolved. Her lipase has normalized. We will not use tube feedings as she has somewhat hypoactive bowel sounds. We will plan to start TPN today. Nephrology is going to manage the patient's TPN. Their assistance is appreciated. DISPOSITION: Patient overall has a guarded prognosis and remains critically ill although she has made some significant clinical improvements. Currently, we are planning for a possible weaning trial and possible extubation tomorrow if her urine output improves and she can be off CVVHD. Currently the patient is pending clinical improvement if her urine output increases and she is able to be transitioned off her CVVHD. Dr. Marx; I participated in the above outlined provision of critical care and coordination prasanna occupied ninty seven minutes exclusive of procedure time. She remains very critically ill with multisystem disease as is outlined. We will continue maximal supportive care and close monitoring. MTDD
[2020-06-03] MEDS: HumaLOG INSULIN (NovoLOG) PER UNIT SC SCH (17:19)
[2020-06-03] MEDS ORDERED: [UNRECOGNIZED DRUG - MIXTURE] IV SCH ×4 (18:00)
[2020-06-03] MEDS ORDERED: FAT EMULSION IV 20% 500 ML IV SCH (18:00)
[2020-06-03] MEDS ORDERED: SODIUM CHLORIDE 23.4% INJ 16.2 MEQ, SODIUM ACETATE INJ 16.2 MEQ, SODIUM PHOSPHATE INJ 2... IV SCH ×10 (18:00)
[2020-06-03 18:09] LABS: CALCIUM LEVEL 7.9 MG/DL (8.5-10.1); CREATININE FOR GFR 3.36 MG/DL (0.55-1.30); GLOMERULAR FILTRATION RATE 16.2 (>60); PHOSPHORUS LEVEL 1.5 MG/DL (2.5-4.9); POTASSIUM SERUM 3.9 MEQ/L (3.5-5.1)
[2020-06-03] MEDS ORDERED: NS 500 ML IV ONE (22:15)
[2020-06-04] VITALS (68 sets, daily range): BP systolic 71–136; BP diastolic 26–72; O2SAT 100
[2020-06-04] MEDS: HumaLOG INSULIN (NovoLOG) PER UNIT SC SCH ×3 (00:07→12:00)
[2020-06-04] MEDS: MIDAZOLAM INJ 2MG/2ML VIAL (J2250 PER 1MG) IV PRN ×3 (00:16→21:08)
[2020-06-04] MEDS ORDERED: MORPHINE 4 MG/ML 1ML VIAL/SYRINGE (J2270) As Ordered ONE (02:00)
[2020-06-04] MEDS ORDERED: NOREPINEPHRINE 4 MG/4 ML AMP As Ordered ONE (02:13)
[2020-06-04] MEDS ORDERED: MORPHINE 4 MG/ML 1ML VIAL/SYRINGE (J2270) IV ONE (02:15)
[2020-06-04] MEDS: NOREPINEPHRINE BITARTRATE 8 MG in D5W 492 ML IV SCH ×2 (02:34→14:30)
[2020-06-04] MEDS: ACETAMINOPHEN 650 MG SUPP PR PRN (03:56)
[2020-06-04] MEDS: INSULIN REGULAR IN 0.9 % NACL 100 UNIT in IV 1 EA IV SCH ×6 (04:08→20:28)
[2020-06-04] MEDS: INSULIN IV RATE CHANGE DOCUMENTATION ML/HR XX SCH ×8 (05:08→22:29)
[2020-06-04 06:11] LABS: BASO # 0.1 10^3/uL (0.0-0.2); BASO % 0.4 % (0.0-1.0); EOS # 0.2 10^3/uL (0.0-0.5); EOS % 1.1 % (0.0-3.0); HEMATOCRIT 29.9 % (36.0-47.0); HEMOGLOBIN 9.5 g/dl (12.0-15.5); LYMPH # 1.7 10^3/uL (1.5-5.0); LYMPH % 7.9 % (24.0-44.0); MEAN CORPUSCULAR HEMOGLOBIN 32.9 pg (27.0-33.0); MEAN CORPUSCULAR HGB CONC 31.8 g/dl (32.0-36.5); MEAN CORPUSCULAR VOLUME 103.5 fl (80.0-96.0); MONO % 9.3 % (0.0-5.0); NEUTROPHILS # 16.5 10^3/uL (1.5-8.5); NEUTROPHILS % 76.4 % (36.0-66.0); RED BLOOD COUNT 2.89 10^6/uL (4.00-5.40); WHITE BLOOD COUNT 21.6 10^3/uL (4.0-10.0)
[2020-06-04 06:12] LABS: ABG BASE EXCESS -8.2 (-2.0-2.0); ABG HCO3 15.3 MEQ/L (22.0-26.0); ABG O2 SATURATION 96.4 % (95.0-99.0); ABG PARTIAL PRESSURE CO2 25.5 mmHg (35.0-45.0); ABG PARTIAL PRESSURE O2 84.4 mmHg (75.0-100.0); ABG STANDARD HCO3 17.8 MEQ/L (22.0-26.0); ABG TOTAL CO2 16.1 MEQ/L (22.0-29.0); ABG pH (ARTERIAL) 7.397 UNITS (7.350-7.450)
[2020-06-04 06:19] LABS: PLATELET COUNT, AUTOMATED 71 10^3/uL (150-450)
[2020-06-04 06:26] LABS: INR 1.08; PROTHROMBIN TIME 14.2 SECONDS (12.5-14.3)
[2020-06-04 06:27] LABS: PARTIAL THROMBOPLASTIN TIME 27.4 SECONDS (24.2-38.5)
[2020-06-04 06:59] LABS: BILIRUBIN,TOTAL 0.6 MG/DL (0.2-1.0); CALCIUM LEVEL 7.2 MG/DL (8.5-10.1); CREATININE FOR GFR 4.73 MG/DL (0.55-1.30); GLOMERULAR FILTRATION RATE 10.9 (>60); PHOSPHORUS LEVEL 1.5 MG/DL (2.5-4.9); POTASSIUM SERUM 4.3 MEQ/L (3.5-5.1); TOTAL PROTEIN 4.9 GM/DL (6.4-8.2)
[2020-06-04] MEDS: IPRATROPIUM 0.5MG/ALBUTEROL 2.5MG INH SOL UD 3ML (DUONEB) NEB SCH ×4 (07:12→20:47)
[2020-06-04] MEDS ORDERED: VANCOMYCIN HCL 1,000 MG in IV FLUID PLACE HOLDER 1 EA IV SCH (08:15)
[2020-06-04] MEDS: MEROPENEM INJ 500 MG in IV 1 EA IV SCH ×2 (09:00→17:21)
[2020-06-04 09:39] LABS: MAGNESIUM LEVEL 2.7 MG/DL (1.8-2.4); VANCOMYCIN RANDOM 9.1 UG/ML
[2020-06-04] MEDS ORDERED: VANCOMYCIN INTERMITTENT/PULSE DOSING BY CLINICAL PHARMACIST PER DOSING PROTOCOL XX SCH (09:45)
[2020-06-04] MEDS: levETIRAcetam INJection 500 MG in D5W MINI-BAG PLUS 100 ML IV SCH ×2 (09:48→19:55)
[2020-06-04] MEDS: PANTOPRAZOLE 40MG VIAL (C9113 PER 1) IV SCH (09:48)
[2020-06-04] MEDS: CHLORHEXIDINE GLUCONATE 0.12 % 15ML UDC (PERIDEX ORAL RINSE) MT SCH ×2 (09:49→19:54)
[2020-06-04] MEDS: MORPHINE 2 MG/ML 1ML VIAL (J2270) IV PRN ×4 (09:55→21:40)
[2020-06-04] MEDS ORDERED: VANCOMYCIN HCL 1,000 MG, VIAL MATE ADAPTER 1 EACH in D5W 250 ML IV ONE (10:00)
--- NOTE | 2020-06-04 10:13 | REP ---
INDICATION: ETT. COMPARISON: 06/03/2020. TECHNIQUE: SINGLE PORTABLE AP VIEW OF THE CHEST WAS PERFORMED. FINDINGS: Endotracheal tube, nasogastric tube and right central venous catheter are not definitely changed. Heart mediastinum are unchanged. There are low lung volumes. There is mild patchy parenchymal opacity in the left lung base which is stable. There are no new lung findings. IMPRESSION: Stable exam. <Electronically signed by Tavares Morris > 06/04/20 1005
[2020-06-04] MEDS ORDERED: NS 1,000 ML IV SCH (13:00)
--- NOTE | 2020-06-04 14:42 | IPN ---
NEPHROLOGY PROGRESS NOTE DATE: 06/03/2020 SUBJECTIVE: The patient was seen and examined at the bedside today morning in the ICU. She remains intubated and sedated. She is still oliguric. 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 The patient's DKA has resolved, however she was still on IV insulin drip when I saw her. FiO2 requirement on the vent at this time is 25%. REVIEW OF SYSTEMS: The patient is unable to provide any review of systems. She is intubated and sedated. OBJECTIVE: VITAL SIGNS: Temperature is 98.5 degrees Fahrenheit, blood pressure is 107/52, pulse is 129, respiratory rate of 19, saturating 96% on the vent with 25% FiO2. INTAKE AND OUTPUT: Urine output recorded as 231 mL yesterday and so far today since overnight her urine output is 280 mL. CRRT ultrafiltration overnight was 470 mL. Weight in the bed scale is not available. PHYSICAL EXAMINATION: GENERAL APPEARANCE: The patient is intubated, sedated. HEAD AND NECK: Pupils are equally round and reactive to light. Mucous membranes are moist. She has an endotracheal tube and orogastric tube. Neck is supple. She has a right subclavian triple lumen catheter. I could not appreciate any jugular venous distention. CARDIOVASCULAR: S1, S2, tachycardia. EXTREMITIES: Trace edema of the bilateral lower extremities. RESPIRATORY: Mildly decreased breath sounds at the bases. Otherwise no active rales or rhonchi. ABDOMEN: Obese, distended, decreased bowel sounds. OGT is attached to intermittent suctioning. GENITOURINARY: She has an indwelling Karimi catheter. A small amount of dark colored urine is seen in the bag. MUSCULOSKELETAL: No clubbing, no cyanosis. Pulses are 2+. MONITORING MANAGER: The patient moves extremities to painful stimuli. LAB REVIEW: CBC showed a WBC of 14.1, hemoglobin is 11.2, platelet count 46. INR today morning was 0.98. ABG done today morning showed a pH of 7.49, pco2 of 24, pO2 of 86, bicarbonate is 18.7, O2 sat is 97.2%. BMP done today showed sodium of 137, potassium is 4, chloride 106, bicarbonate is 24, BUN 30, creatinine is 2.3, calcium 8.2. AST is 182, ALT is 109, alkaline phosphatase is 140. Albumin is 2.2. Betide oxybutyrate is 2.19 now. IMAGING: A chest x-ray was done today morning which showed improved aeration in the left lower lobe. CURRENT INPATIENT MEDICATIONS: The patient's medications were all reviewed by myself. She is not requiring any pressors. Her Propofol was stopped. Sedation has been changed to Versed. Antibiotics are also stopped now. She continues to be on Keppra. She was given a normal saline 500 mL IV bolus today morning. ASSESSMENT AND PLAN: 1. Acute oliguric renal failure the patient's CVVHDF was stopped. Left groin catheter is not working. I placed a new right femoral double lumen catheter for dialysis access today. However I would given the fluid boluses and monitor the patient for improvement of the renal function and if needed, we can either restart CVVHDF or do intermittent hemodialysis at bedside, if her blood pressures stay stable. Electrolytes and acid base status at this point is within the acceptable range. 2. Diabetic ketoacidosis it has resolved. Beta hydroxybutyrate is within the normal range. Insulin drip will be stopped once the sugar levels stabilize and the patient will be started on IV TPN. 3. Nutrition total parenteral nutrition with low potassium has been ordered now. I have also added IV insulin in the total parenteral nutrition because the patient recently had diabetic ketoacidosis. 4. Vent dependent respiratory failure - The patient is clinically stable. She is only requiring 25% FiO2. Pulmonary Team is planning to wean the patient off the vent slowly. 5. Supraventricular tachycardia - The patient is getting Metoprolol p.r.n. Volume status is optimal. Normal saline bolus will be given for CVVP less than 9. 6. Acute pancreatitis The patient is sedated with Versed. P.r.n. Morphine is given for pain. NG tube is attached to suctioning. Antibiotics were stopped since the patient is afebrile. All the cultures are negative so far. 7. Acute hepatitis liver enzymes are slowly improving. She is currently not on any hepatotoxic medications. Total critical care time spent in the management of this patient today morning in the ICU excluding all the procedures was 50 minutes.
--- NOTE | 2020-06-04 14:43 | RO ---
OPERATIVE NOTE DATE OF OPERATION: 06/03/2020 PREOPERATIVE DIAGNOSIS: Mucous plugging. POSTOPERATIVE DIAGNOSIS: Mucous plugging. PROCEDURE: Fiberoptic bronchoscopy with transbronchoscopic washing and removal of foreign body plugs. DESCRIPTION OF PROCEDURE: The patient was seen and the procedure explained to the patient's mother and next of kin. The risks and complications were reviewed including, but not limited to bleeding, infection, medication reaction, and lung collapse. An informed consent was obtained. A bronchoscope was prepared and placed in through the endotracheal tube to the level of the karen. The karen was sharp. There were large mucous plugs appreciated at the distal portion of the endotracheal tube and at the level of the karen. These were suctioned free. Saline was used to lavage the airways and the right and left lung were examined in the subsegmental fashion for any evidence of tumor, ulcer, necrosis, vessel engorgement, or mucosal irregularity. There was mild hyperemia of the mucosa and scattered mucous plugs. These were suctioned free after sufficient lavage had loosened the plugs and removed most of the large plugs available for suctioning. The airways were once again visualized and noted to be fairly normal with hyperemic mucosa. The bronchoscope was then retracted out through the endotracheal tube. The patient tolerated the procedure well and suffered no apparent complications and respiratory status improved as a result of the procedure.
--- NOTE | 2020-06-04 14:43 | RO ---
OPERATIVE NOTE DATE OF OPERATION: 06/03/2020 INDICATION FOR PROCEDURE: Loss of dialysis access in the setting of acute renal failure. PREOPERATIVE DIAGNOSES: Acute oliguric renal failure, diabetic ketoacidosis, and acute pancreatitis. POST-PROCEDURE DIAGNOSIS: Acute oliguric renal failure. PROCEDURE: Right common femoral vein double lumen dialysis catheter placement. ORTHOPHOTOGRAPHY TECHNICIAN: Christen Bass MD CONSENT: The patient was unable to provide any consent. She is intubated and sedated because of the emergent nature of renal failure and failure of the left femoral dialysis catheter. Right-sided procedure was planned. DESCRIPTION OF THE PROCEDURE: A time-out was performed confirming the patient and location of the procedure. The patient was prepped and draped in the usual sterile fashion. Right common femoral vein was identified. Using the ultrasound, a 14-Lithuanian double lumen catheter was placed in the right common femoral vein via Seldinger technique. Venous blood was aspirated from each port and the line was flushed initially with saline and locked with Heparin according to the port volumes. The patient tolerated the procedure well and catheter was sutured in place. COMPLICATIONS: None. ESTIMATED BLOOD LOSS: Less than 5 mL. DISPOSITION: The patient tolerated the procedure well. Hemodialysis versus CVVHDF will be done through the catheter depending upon the patient's blood pressure.
--- NOTE | 2020-06-04 14:43 | CCN ---
CRITICAL CARE NOTE DATE: 06/04/2020 TIME: 0246 a.m. SUBJECTIVE: I was called back to the hospital to reevaluate this patient regarding increasing respiratory rate, despite escalating doses of Versed, and dyssynchrony with mechanical ventilation. Over the past several hours, the patient's urine output has been responding to volume loading as has blood pressure. However, her respiratory rate has climbed precipitously over the last 30 minutes. OBJECTIVE: VITAL SIGNS: On my arrival, her temperature is 101, pulse rate 130, respirations 50, blood pressure 117/54. Her Versed rate currently is 10 mg/hour. HEENT: Skin is flushed. Endotracheal tube is in good position. NG tube is in good position. NECK: Supple. HEART: Sounds are regular, rapid. LUNGS: Breath sounds are now coarse with scattered rales. ABDOMEN: Soft, but more boggy than earlier. I am unable to appreciate bowel sounds. EXTREMITIES: Show edema. We administered a stat dose of morphine under the assumption she was experiencing pain from pancreatitis. Her respiratory rate did respond to this. Blood pressure, however, fell. Synchrony with mechanical ventilation also improved. Levophed was instituted to maintain an arterial blood pressure at 65 and fingerstick blood sugar was repeated and found to be 500 plus. ASSESSMENT AND PLAN: The primary problem requiring critical attention is acute respiratory failure. The tachypneic may well be related to pain. I will change her morphine dose and frequency to address this with a lesser dose of morphine. Hypotension; the patient's blood pressure had been being supported with volume resuscitation; however, after narcotics, her blood pressure is low. We will bridge her with Levophed and asked the central venous pressure (CVP) be updated to guide fluid volume resuscitation. Fever; the patient is already on broad-spectrum antibiotics, but we will check two sets of blood cultures. Elevated blood sugar. It is possible the patient may be becoming ketotic once again, which could also be driving her respiratory rate. Her blood sugar is quite high. I will restart an insulin drip to target sugars in the 150 to 80 range. The patient's condition remains critical. Prognosis is guarded. CRITICAL CARE TIME: 79 minutes was spent in the provision of bedside critical care and coordination exclusive of procedure time. [facility]
--- NOTE | 2020-06-04 14:45 | CCN ---
CRITICAL CARE NOTE DATE: 06/02/2020 SUBJECTIVE: Mrs. Murry was seen and examined this morning. It appears overnight the patient had become hypotensive as well as tachypneic. She was noted to have respirations upwards in the 50s. She did have a fever of 101.3. Additionally, due to her hypertension, she was started on Levophed. Per nursing staff when they were rolling her, there was noted to be an abscess that had popped around her gluteal region and had some purulent drainage. Since last night, the patient has been stable, although requiring Levophed, currently on 2 mcg. OBJECTIVE: Vital signs: Temperature 99.7, pulse 112, respiratory rate 27, blood pressure 135/71, pulse oximetry 97% on the ventilator with settings of pressure control with a respiratory rate of 16, FiO2 28, and a PEEP of 5. General: Patient currently appears critically ill. She is lying in bed. She is sedated with a Versed drip. HEENT: Atraumatic, normocephalic. Her eyes are nonicteric. Her trachea is midline. She has endotracheal tube in place. There is a right-sided subclavian central venous catheter in place. Cardiovascular: Patient has a normal S1 and S2. She is once again in a tachycardic rate but with a regular rhythm. There are no clicks, rubs, or murmurs auscultated. Pulmonary: Patient has continued bronchial breath sounds anteriorly although appears more clear than yesterday. She continues to be somewhat tachypneic on the ventilator with breathing at a rate of approximately 20-24. There are no wheezes or rales auscultated. Abdominal: Patient's abdomen is soft. It is nondistended. She is obese. She continues to have hypoactive bowel sounds. There is no abdominal bruising or masses noted. Extremities: Patient's upper extremities are somewhat edematous today. Her lower extremities have trace bilateral edema. She does have TEDS and sequentials in place currently. There are full and equal pulses bilateral upper and lower extremities. Neurologic: Patient has no focal neurological deficits. Vascular access: Patient has continued right-sided subclavian central venous catheter in place. She has a right-sided femoral dialysis catheter in place as well. LABORATORY DATA: Hematology: White blood cells 21.6, hemoglobin 9.5, hematocrit 29.9, platelet count 71. Chemistries: Sodium 132, potassium 4.3, chloride 104, CO2 16, BUN 54, creatinine 4.73, fasting glucose 714, calcium 7.2, phosphorus 1.5, magnesium 2.7, AST 101, ALT 84, alkaline phosphatase 147, lactate dehydrogenase 581, total CK 1,657, total protein 4.9, albumin 2.0, triglycerides 610, cholesterol 153, whole blood ionized calcium 4.4, beta hydroxybutyrate today 4.22. MRSA screen negative. Arterial blood gas: pH 7.397, pCO2 25.5, and a pO2 of 84.4. CURRENT INPATIENT MEDICATIONS: 1. Sodium chloride running at 75 ml/hr. 2. Insulin drip. 3. Morphine 2 mg every 30 minutes p.r.n. 4. Norepinephrine running at 2 mcg. 5. Acetaminophen 650 mg every six hours p.r.n. 6. TPN. 7. Versed drip. 8. DuoNebs 3 mL required every hour. 9. Versed 2 mg q.15 minutes p.r.n. for agitation. 10. Keppra 500 mg every 12 hours. 11. Proventil two puffs every four hours p.r.n. 12. Protonix 40 mg IV daily. IMAGING: Chest x-ray demonstrated some patchy opacities in the left lung base, although no new or changes from previous x-ray. Her endotracheal tube is in position appropriately. ASSESSMENT/PLAN: Ms. Murry is a 40-year-old female with a history of seizure disorder and questionable diagnosis of diabetes who presented to [facility] Emergency Department originally with an altered mental status. On presentation, the patient was profoundly hyperglycemic and was felt to be in hyperosmolar state. However, she had ketosis with elevated beta-hydroxybutyrate and was soon to be in diabetic ketoacidosis. Additionally, patient's lipase was significantly elevated with imaging consistent with pancreatitis. She was admitted to the ICU for further management. She also had severe hypernatremia and was seen by Nephrology and placed on CVVHD. During her hospitalization, she had developed hypoxic respiratory failure. Due to inability to protect her airway, she was subsequently intubated and placed on mechanical ventilation. She then had developed acute oliguric renal failure with severe metabolic acidosis and was continued on renal replacement therapy. Today, the patient seems to be back in DKA. She had been off CVVHD yesterday. However, will be resumed today. 1. Acute respiratory failure: The patient had developed acute respiratory failure. Due to inability to protect her airway, she is currently intubated and placed on mechanical ventilation with pressure control, FiO2 of 28 and a respiratory rate of 16 and a PEEP of 5. Her arterial blood gas from today demonstrated a pH of 7.39, pCO2 25.5, and a pO2 of 84.4. Yesterday the patient had done well, and there were plans for a weaning trial today. However, the patient had developed a fever and then subsequently tachypnea. At this time, the patient will remain intubated. Will reassess tomorrow for improvement. 2. Diabetic ketoacidosis: As stated previously, patient had presented with elevated anion gap metabolic acidosis, elevated beta-hydroxybutyrate, and a blood glucose level of 1,355. She has received aggressive fluid hydration. The patient was previously on CVVHD. This was stopped yesterday as she had clotted her left femoral dialysis catheter. A right side was placed. However, she was making some urine. Last night she was started on TPN, and she was bridged off her insulin drip. However, her blood sugar this morning has approached 714, and she has ketones elevated with a beta-hydroxybutyrate of 4.22. Her insulin drip has been resumed at this time. Will continue. The cause of her hyperglycemia is likely secondary to the amount of dextrose she is receiving as this is in multiple medications. The etiology of her diabetes may be pancreatogenic in origin due to her severe pancreatitis. 3. Sepsis/septic shock: Patient had developed a fever yesterday, elevated white count this morning, and hypotension. She is currently on Levophed. The etiology of this is unclear. She did have severe pancreatitis. She may have developed necrotizing pancreatitis and possible abscess formation. Additionally, nursing was turning the patient, and they noted that an abscess may have popped around her gluteal region which was purulent drainage. Have added on cultures of the gluteal abscess. Additionally, will start empiric vancomycin and meropenem. Will obtain a MRSA screen as well. If negative, we can deescalate vancomycin. Additionally, blood cultures have been drawn. Patient has remained afebrile since last night. Will continue to trend her temperatures. Additionally, will consider obtaining CT imaging of the abdomen and pelvis to look for possible necrotizing pancreatitis or walled off abscesses. 4. Acute pancreatitis: Patient had presented with acute pancreatitis. Lipase on presentation was 18,582. Her lipase has normalized. Patient was started on TPN yesterday. However, she developed DKA subsequently. Her TPN is being managed by Nephrology. Their assistance is appreciated. At this point, we will attempt tube feeds. Will start Nepro at a very slow rate of 15 ccs/hr and hold residuals for greater than 200. She does have hypoactive bowel sounds. If she tolerates tube feedings, we will increase rate. Additionally, we will continue morphine for pain, however, use sparingly. 5. Acute oliguric renal failure: Patient had developed acute oliguric renal failure. This is likely multifactorial in the setting of both DKA with profound dehydration and severe pancreatitis. She has been on CVVHD. She has been followed by Nephrology, and their recommendations are appreciated. Yesterday the patient was noted to make increasing urine. However, this has dropped off likely due to her sepsis that she has developed. At this point in time, the patient has been started back on CVVHD per Nephrology. Will continue to monitor urine output. 6. Lactic acidosis: Patient had presented with a lactic acidosis likely secondary to DKA and pancreatitis. This has all resolved. Additionally, CVVHD will help keep this corrected. 7. Thrombocytopenia: Patient has a thrombocytopenia. Platelet counts today have actually improved to 71 from 46. She was on heparin. This had been discontinued, and heparin-induced antibodies have been ordered. They are currently pending. At this point in time, she remains on TEDS and sequentials. She is not on any pharmacological prophylaxis. If her heparin-induced antibiotics are negative, we will restart heparin. 8. Anemia: Patient's hemoglobin this morning was 9.5. She has been trending down from 18.6 at presentation. Her initial hemoglobin on presentation was likely due to severe dehydration. I believe that her anemia now at 9.5 is likely secondary to dilution. She has received large amount of fluids since her admission. Will continue to trend her hemoglobin. If it continues to drop, will discuss with Nephrology about considering possible transfusions. 9. Hypernatremia: On presentation, the patient was severely hypernatremic with sodiums as high as 170. This has corrected. She is being followed by Nephrology. Recommendations are appreciated. She is on CVVHD which would correct any further hypernatremia. Patient's CVP this morning was 12. 10. Transaminitis: Patient had transaminitis on presentation. They are currently trending down, and we will continue to monitor. 11. Unspecified seizure disorder: Patient has a history of seizure disorder, although it is unclear the exact history. She is continued on Keppra currently. 12. Supraventricular tachycardia: Patient had developed supraventricular tachycardia in the emergency room. She has been stable throughout. Cardiology was consulted by the primary team, and they have recommended 5 mg of metoprolol for heart rates greater than 120. She has remained in sinus rhythm since her presentation to the ICU. At this point in time, we will discontinue the Lopressor as she appears to be more in sepsis, and likely her heart rate is compensatory to this. 13. Hypotension: As stated previously, patient had developed hypotension in the setting of a fever and sepsis. She has had blood cultures drawn and started on empiric antibiotics. Will continue to monitor. She does remain on Levophed currently. 14. DVT prophylaxis: Patient is currently on TEDS and sequentials. Her pharmacologic prophylaxis was discontinued due to thrombocytopenia. 15. GI prophylaxis: Patient is to continue on Protonix 40 mg IV. 16. Nutrition: Patient had been started on TPN yesterday. She became hyperglycemia and entered DKA again. She is on insulin drip. Will attempt to start tube feedings at a very slow rate of 15 ccs/hr with Nepro. DISPOSITION: Patient overall remains to have a guarded prognosis. She remains critically ill. There were some clinical improvements previously. However, the patient has had a significant setback with developing hypotension, fever, and elevated white count. She is currently requiring Levophed for blood pressure support. Additionally, the patient's urine output has once again dropped off, and she was started back on CVVHD. Overall poor prognosis. Dr. Marx; I have actively participated in the critical care and coordination outlined in the above note. The patient had made progress last evening but turned for the worse in the night. She is very complex with many active medical issues as outlined. Continued aggressive therapy and monitoring will be provided. Ninety seven minutes was spent in the provision of critical care and coordination exclusive of procedure time. CYNDI
[2020-06-04] MEDS ORDERED: ALTEPLASE 2MG/2ML VIAL XX ONE (17:00)
[2020-06-04] MEDS: MIDAZOLAM HCL 100 MG in D5W 80 ML IV SCH (17:50)
[2020-06-04 18:48] LABS: HEMATOCRIT 27.9 % (36.0-47.0); HEMOGLOBIN 8.8 g/dl (12.0-15.5); MEAN CORPUSCULAR HEMOGLOBIN 32.1 pg (27.0-33.0); MEAN CORPUSCULAR HGB CONC 31.5 g/dl (32.0-36.5); MEAN CORPUSCULAR VOLUME 101.8 fl (80.0-96.0); RED BLOOD COUNT 2.74 10^6/uL (4.00-5.40); WHITE BLOOD COUNT 19.5 10^3/uL (4.0-10.0)
[2020-06-04 18:53] LABS: PLATELET COUNT, AUTOMATED 71 10^3/uL (150-450)
[2020-06-04 19:34] LABS: CALCIUM LEVEL 7.7 MG/DL (8.5-10.1); CREATININE FOR GFR 4.58 MG/DL (0.55-1.30); GLOMERULAR FILTRATION RATE 11.4 (>60); MAGNESIUM LEVEL 2.8 MG/DL (1.8-2.4); PHOSPHORUS LEVEL 2.8 MG/DL (2.5-4.9); POTASSIUM SERUM 3.7 MEQ/L (3.5-5.1)
[2020-06-04] MEDS: CALCIUM GLUCONATE 1,000 MG in NS 100 ML IV SCH ×2 (20:30→21:40)
[2020-06-04] MEDS: D5W/0.9% SODIUM CHLORIDE 1,000 ML IV SCH (21:50)
--- NOTE | 2020-06-04 22:26 | IPN ---
NEPHROLOGY PROGRESS NOTE DATE: 06/04/2020 SUBJECTIVE: The patient was seen and examined at the bedside today morning in the ICU. Last 24 hour events were noted. The patient got the right femoral double lumen catheter placed yesterday, however CVVHDF was held because the patient was making urine. She was given IV normal saline boluses. With that her urine output slightly improved. However later on at nighttime her blood pressures dropped. She had to be started on Levophed infusions. She had to be restarted on IV antibiotics. Blood cultures were sent. She was started on TPN yesterday, however because of that she is very hyperglycemic today. Blood sugars were more than 700. Betide oxybutyrate is slightly higher today. TPN had to be stopped because of hyperglycemia. The patient had to be restarted on CVVDDF via the right femoral double lumen catheter. The patient is still intubated and sedated at this time. OBJECTIVE: VITAL SIGNS: Temperature is 98.4 degrees Fahrenheit, blood pressure 118/64, pulse is 101, respiratory rate of 26, saturating 100% on the vent with 30% FiO2. INTAKE AND OUTPUT: Urine output recorded since midnight is around 1.4 liters now which is improving. Gastric drainage is 150 mL. Weight is 109.5 kg which is higher than yesterday. PHYSICAL EXAMINATION: GENERAL APPEARANCE: The patient is intubated, sedated, laying in bed. HEAD AND NECK: Pupils are equally round and reactive to light. Mucous membranes are moist. She has an endotracheal tube and orogastric tube. Orogastric tube is attached to intermittent suctioning. Neck is supple. I could not appreciate any jugular venous distention. CARDIOVASCULAR: S1, S2, tachycardia. EXTREMITIES: No edema of the bilateral lower extremities. RESPIRATORY: Chest is clear to auscultation bilaterally. Decreased breath sounds at the bases. She is vent dependent. FiO2 requirement at this time is 30%. ABDOMEN: Soft, obese, decreased bowel sounds, and tenderness to deep palpation in the epigastric region. GENITOURINARY: She has an indwelling Karimi catheter. MUSCULOSKELETAL: No clubbing, no cyanosis. Pulses are 2+. PRINT BU[employer]ER: She is intubated and sedated, moves extremities on painful stimuli. LAB REVIEW: CBC showed a WBC of 21.6, hemoglobin 9.5, platelet count 71. INR is 1.08. ABG done today morning showed a pH of 7.39, pco2 of 25, pO2 84, bicarbonate of 15, O2 sat 96.4%. BMP done today morning showed sodium of 132, potassium 4.3, chloride 104, bicarbonate 16, BUN 54, creatinine of 4.7, glucose was 714. Betide oxybutyrate was 4.22. Microbiology: Repeat cultures were drawn yesterday and they are still pending. IMAGING: A CAT scan of the abdomen and pelvis was done in the afternoon. Official report is still pending. A chest x-ray was done in the morning which showed a stable exam. CURRENT INPATIENT MEDICATIONS: The patient's medications were all reviewed by myself. She has been restarted on Vancomycin and Meropenem at this time. She was on 2 mcg of Levophed when I saw her. She has been started on normal saline at 75 mL an hour. No other significant in the medications today as compared with yesterday. ASSESSMENT AND PLAN: 1. Acute renal failure - The patient is non-oliguric since yesterday, however because of septic shock requiring Levophed overnight, and a worsening metabolic acidosis and rising creatinine despite improving urine output, she has been restarted on CVVHDF. She will only be maintained for intake and output for a MAP above 90. For a MAP below 90, no fluid will be removed. 2. Septic shock - The patient became hypotensive again yesterday despite multiple fluid boluses. She required Levophed overnight which is being weaned off now. Antibiotics have been restarted. Coleman cultures were drawn. I have ordered a CAT scan of the abdomen and pelvis to rule out any abscesses. Official report is pending at this time. 3. Diabetic ketoacidosis - The patient's glucose level bumped up again with IV TPN. TPN has been stopped now. Insulin drip has been restarted. Glucose level is getting better. 4. Nutrition Tube feed is not possible at this time because of sluggish bowel sounds and acute pancreatitis and TPN has been stopped as mentioned above because of DKA. Currently she is on normal saline only. 5. Vent dependent respiratory failure FiO2 requirement is only 30%. Vent management is as per Pulmonary Team. 6. Acute pancreatitis - continue empiric antibiotics. Rule out pancreatic abscess with a CAT scan today. Continue NG tube with suctioning. Morphine p.r.n. for pain. 7. Thrombocytopenia platelet levels are stable. Heparin induced antibody is pending. 8. History of seizure disorder - continue current dose of Keppra. No breakthrough seizures were noted since the time she was admitted. Total critical care time spent in the management of this patient today morning in the ICU excluding all the procedures was 35 minutes.
[2020-06-04] MEDS ORDERED: KCL 20MEQ IN 100ML SWI (KRUN) 20 MEQ in IV 1 EA IV ONE ×2 (23:00)
[2020-06-05] VITALS (51 sets, daily range): BP systolic 84–111; BP diastolic 47–69
[2020-06-05 00:29] LABS: CALCIUM LEVEL 8.1 MG/DL (8.5-10.1); CREATININE FOR GFR 3.66 MG/DL (0.55-1.30); GLOMERULAR FILTRATION RATE 14.7 (>60); MAGNESIUM LEVEL 2.7 MG/DL (1.8-2.4); PHOSPHORUS LEVEL 2.9 MG/DL (2.5-4.9); POTASSIUM SERUM 3.7 MEQ/L (3.5-5.1)
[2020-06-05] MEDS: MORPHINE 2 MG/ML 1ML VIAL (J2270) IV PRN ×4 (00:48→04:18)
[2020-06-05] MEDS: MIDAZOLAM INJ 2MG/2ML VIAL (J2250 PER 1MG) IV PRN ×5 (00:49→13:41)
[2020-06-05] MEDS: NOREPINEPHRINE BITARTRATE 8 MG in D5W 492 ML IV SCH ×3 (00:49→23:30)
[2020-06-05] MEDS ORDERED: KCL 20MEQ IN 100ML SWI (KRUN) 20 MEQ in IV 1 EA IV ONE ×2 (01:15)
[2020-06-05] MEDS: INSULIN REGULAR IN 0.9 % NACL 100 UNIT in IV 1 EA IV SCH ×2 (01:28)
[2020-06-05] MEDS: INSULIN IV RATE CHANGE DOCUMENTATION ML/HR XX SCH ×3 (01:41→03:32)
[2020-06-05] MEDS ORDERED: CALCIUM GLUCONATE 1,000 MG in NS 100 ML IV ONE (02:00)
[2020-06-05 06:03] LABS: ABG BASE EXCESS -4.1 (-2.0-2.0); ABG HCO3 19.5 MEQ/L (22.0-26.0); ABG O2 SATURATION 98.8 % (95.0-99.0); ABG PARTIAL PRESSURE CO2 30.4 mmHg (35.0-45.0); ABG PARTIAL PRESSURE O2 123.9 mmHg (75.0-100.0); ABG STANDARD HCO3 21.1 MEQ/L (22.0-26.0); ABG TOTAL CO2 20.4 MEQ/L (22.0-29.0); ABG pH (ARTERIAL) 7.425 UNITS (7.350-7.450)
--- NOTE | 2020-06-05 06:03 | REP ---
INDICATION: Septic shock, acute pancreatitis, rectal Abscess/Fistula? COMPARISON: 02/18/2011 TECHNIQUE: Axial noncontrast images from the lung bases to the pubic symphysis with coronal and sagittal reformations. This CT examination was performed using the following dose reduction techniques: Automated exposure control, adjustment of mA and/or kv according to the patient's size, and use of iterative reconstruction technique. FINDINGS: Lung bases demonstrate left lower lobe consolidation with air bronchograms along with bibasilar atelectasis. Peripancreatic inflammatory stranding consistent with pancreatitis. No obvious drainable collection or pseudocyst identified. Hepatomegaly and diffuse hepatosteatosis noted. The gallbladder is distended but without obvious acute cholecystitis by CT. Spleen, bilateral adrenal glands and kidneys are relatively normal for noncontrast evaluation. The enteric system is without obstruction or acute inflammatory process. Pelvis demonstrates Karimi catheter in collapsed bladder and age-appropriate uterus/adnexa. No ascites. No free air. No adenopathy. Abdominal aorta without aneurysm. Musculoskeletal structures demonstrate age-related changes without acute osseous abnormality. IMPRESSION: 1. Peripancreatic inflammatory stranding consistent with acute pancreatitis. No drainable collection or pseudocyst/abscess. 2. Hepatomegaly and hepatosteatosis. 3. Suspected cholelithiasis without acute cholecystitis by CT. 4. No ascites. 5. Left lower lobe consolidation and bibasilar atelectasis <Electronically signed by Bruno Cooper > 06/05/20 [id number]
[2020-06-05 06:36] LABS: HEMATOCRIT 27.7 % (36.0-47.0); HEMOGLOBIN 8.7 g/dl (12.0-15.5); MEAN CORPUSCULAR HEMOGLOBIN 31.8 pg (27.0-33.0); MEAN CORPUSCULAR HGB CONC 31.4 g/dl (32.0-36.5); MEAN CORPUSCULAR VOLUME 101.1 fl (80.0-96.0); RED BLOOD COUNT 2.74 10^6/uL (4.00-5.40); WHITE BLOOD COUNT 16.6 10^3/uL (4.0-10.0)
[2020-06-05 06:37] LABS: PLATELET COUNT, AUTOMATED 74 10^3/uL (150-450)
[2020-06-05 06:45] LABS: INR 1.09; PROTHROMBIN TIME 14.3 SECONDS (12.5-14.3)
[2020-06-05 06:46] LABS: PARTIAL THROMBOPLASTIN TIME 31.3 SECONDS (24.2-38.5)
[2020-06-05 07:04] LABS: EOSINOPHILS 2 % (0-3); LYMPHOCYTES 13 % (16-44); METAMYELOCYTES 2 % (0-0); MONOCYTES 3 % (0-5); NEUTROPHILS 77 % (28-66); PLATELET ESTIMATE DECREASED (NORMAL)
[2020-06-05 07:17] LABS: ALBUMIN 1.9 GM/DL (3.2-5.2); BILIRUBIN,TOTAL 0.6 MG/DL (0.2-1.0); CALCIUM LEVEL 7.6 MG/DL (8.5-10.1); CREATININE FOR GFR 3.33 MG/DL (0.55-1.30); GLOMERULAR FILTRATION RATE 16.4 (>60); MAGNESIUM LEVEL 2.6 MG/DL (1.8-2.4); PHOSPHORUS LEVEL 2.5 MG/DL (2.5-4.9); TOTAL PROTEIN 5.1 GM/DL (6.4-8.2); VANCOMYCIN RANDOM 12.7 UG/ML
[2020-06-05] MEDS: IPRATROPIUM 0.5MG/ALBUTEROL 2.5MG INH SOL UD 3ML (DUONEB) NEB SCH ×4 (07:44→20:23)
[2020-06-05] MEDS ORDERED: CALCIUM GLUCONATE 1,000 MG in D5W MINI-BAG PLUS 100 ML IV ONE (08:00)
--- NOTE | 2020-06-05 08:31 | REP ---
INDICATION: ETT COMPARISON: 06/04/2020 TECHNIQUE: Portable AP view of the chest FINDINGS: Endotracheal tube 2.7 cm above the karen. Nasogastric tube courses below left hemidiaphragm. Right subclavian catheter with tip in the right atrium. The mediastinum and cardiac silhouette are stable and within normal limits for portable technique. The lung miranda demonstrate left lower lobe/retrocardiac consolidation. No effusion. No pneumothorax. IMPRESSION: 1. Endotracheal tube and nasogastric tube in satisfactory position. 2. Left lower lobe/retrocardiac consolidation. <Electronically signed by Bruno Cooper > 06/05/20 0801
[2020-06-05] MEDS: CHLORHEXIDINE GLUCONATE 0.12 % 15ML UDC (PERIDEX ORAL RINSE) MT SCH ×2 (08:58→21:12)
[2020-06-05] MEDS: PANTOPRAZOLE 40MG VIAL (C9113 PER 1) IV SCH (08:58)
[2020-06-05] MEDS: ANEXSIA, NORCO 7.5MG/325MG TABLET(HYDROCODONE/APAP) PO SCH ×3 (09:16→21:13)
[2020-06-05] MEDS: levETIRAcetam INJection 500 MG in D5W MINI-BAG PLUS 100 ML IV SCH ×2 (09:17→21:12)
[2020-06-05] MEDS ORDERED: LEVEMIR (INSULIN DETEMIR) 1 UNITS/0.01ML SC ONE (09:45)
[2020-06-05] MEDS: MEROPENEM INJ 500 MG in IV 1 EA IV SCH ×4 (09:48→17:03)
[2020-06-05] MEDS: METOCLOPRAMIDE 5 MG TAB NG SCH ×2 (09:49→16:00)
[2020-06-05] MEDS ORDERED: VANCOMYCIN HCL 1,000 MG, VIAL MATE ADAPTER 1 EACH in D5W 250 ML IV SCH (10:00)
[2020-06-05] MEDS: MIDAZOLAM HCL 100 MG in D5W 80 ML IV SCH (10:46)
[2020-06-05] MEDS ORDERED: SODIUM CHLORIDE 0.9% INJ 10 ML SYR IV PRN (11:15)
--- NOTE | 2020-06-05 11:56 | CCN ---
CRITICAL CARE NOTE DATE: 06/05/2020 SUBJECTIVE: Mrs. Murry was seen and examined this morning. There have been no adverse events reported overnight. She does remain hypotensive. She was started on tube feeding yesterday. She remains on CVVHD. Additionally, she has remained on Levophed. OBJECTIVE: Vital signs: Temperature 98.6 with a T-max 100.4, pulse 112, respiratory rate 21, blood pressure 107/61, pulse oximetry 95% on the ventilator with pressure control, respiratory rate of 16, PEEP of 5, and an FiO2 of 21. General: Patient is currently sedated. She does appear critically ill. She is intubated with mechanical ventilation. HEENT: Atraumatic, normocephalic. Eyes not icteric. Her trachea is midline. Mucous membranes are pink and moist. She has a nasogastric tube in place. She has a right-sided subclavian central venous catheter in place as well. Cardiovascular: Patient has normal S1 and S2. She is tachycardic with a regular rhythm. There are no clicks, rubs, or murmurs. Pulmonary: Patient has somewhat improved aeration from previous examination. She does have some scattered rhonchi although improvement. There are no wheezes or rales noted. Abdominal: Patient's abdomen is soft, nondistended. She is obese. She has somewhat hypoactive bowel sounds. There are no abdominal bruises or masses. Extremities: The patient's extremities are edematous, particularly the upper extremities. Lower extremities: There is some trace bilateral edema. She has TEDS and sequentials in place, and there are full and equal pulses bilateral upper and lower extremities. Neurologic: There is no focal neurological deficits. Vascular access: Patient has a right-sided subclavian central venous catheter in place. She has a right-sided femoral dialysis catheter in place as well. LABORATORY DATA: Hematology: White blood cells 16.6, hemoglobin 8.7, hematocrit 27.7, platelet count 74. Chemistries: Sodium 142, potassium 4.0, chloride 111, CO2 23, BUN 34, creatinine 3.33, fasting glucose 93, calcium 7.6, phosphorus 2.5, magnesium 2.6, total bilirubin 0.6, AST 83, ALT 69, alkaline phosphatase 144, LDH 598, total CK 1,369, total protein 5.1, albumin 1.9. Arterial blood gas: pH 7.425, pCO2 30, pO2 123.9. Microbiology: Pulmonary blood culture positive for gram-positive cocci x1. IMAGING: Abdominal and pelvis imaging from yesterday demonstrating acute pancreatitis with no pseudocyst or abscess. Chest x-ray demonstrating endotracheal tube and nasogastric tube in appropriate position. She has some cardiomegaly as well as improvement in her left lower lobe consolidation. INPATIENT MEDICATIONS: 1. Vancomycin 1 gram every 24 hours. 2. Hydrocodone two tabs every eight hours p.o. 3. D5 half 75 ml/hr. 4. Meropenem 100 mg IV every eight hours. 5. Morphine 2 mg every 30 minutes p.r.n. for pain. 6. Levophed. 7. Tylenol 650 mg every six hours p.r.n. 8. Versed drip. 9. DuoNebs required q.i.d. 10. Versed 2 mg every 15 minutes p.r.n. 11. Keppra 500 mg every 12 hours. 12. Protonix 40 mg daily. ASSESSMENT AND PLAN: Ms. Murry is a 40-year-old female with a history of seizure disorder and questionable diagnosis of diabetes who presented to [facility] originally with altered mental status. She was profoundly hyperglycemic and found to be in diabetic ketoacidosis with elevated beta-hydroxybutyrate. Additionally, patient was found to have acute pancreatitis. She had been admitted to the ICU. She had severe hypernatremia at the time secondary to her dehydration. She did develop acute oliguric renal failure and was started on CVVHD. Additionally, the patient developed hypoxic respiratory failure and had been intubated with mechanical ventilation. Patient did show improvement. However, once again developed DKA and spiked a fever. She was noted to have a draining abscess in her gluteal fold. She has been started on antibiotics. She has been restarted on CVVHD as of yesterday. 1. Acute respiratory failure: Patient has developed acute respiratory failure. Due to her inability to protect her airway, she is currently intubated and placed on mechanical ventilation with pressure control with FiO2 of 21, respiratory rate of 16, and PEEP of 5. Her arterial blood gas today demonstrated a pH of 7.425, pCO2 of 30, pO2 of 123.9. Currently she remains intubated, and she remains critically ill at this time. 2. Diabetic ketoacidosis: Patient had presented with diabetic ketoacidosis, elevated anion gap, elevated beta-hydroxybutyrate, and hyperglycemia. She has received aggressive fluid hydration. She is continued on CVVHD. At this time, she appears to be out of DKA. Will transition her off the insulin drip and onto sliding scale insulin with long acting coverage. Additionally, the patient has been started on tube feedings as of yesterday. I will continue this. Will monitor glucose every six hours. If she goes back into DKA, we will reinitiate insulin drip. 3. Sepsis/septic shock: Patient developed a fever previously with elevated white count and hypotension. She remains on Levophed currently. The etiology of her infection remains unclear. She did have severe pancreatitis. Re-imaging did not demonstrate any necrotizing pancreatitis or abscess formation. However, she was noted to have an abscess in her gluteal region with purulent drainage. Cultures are currently pending for this. She has been started empirically on vancomycin and meropenem. One of her blood cultures is demonstrating gram-positive cocci. The other one has demonstrated no growth. Will likely have to repeat cultures. We are currently waiting on the wound culture from her gluteal abscess. 4. Acute pancreatitis: Patient had presented with acute pancreatitis. Lipase was significantly elevated on presentation with imaging findings consistent with this. Re-imaging as of yesterday did not demonstrate any pseudocyst or necrotizing pancreatitis. At this time, her lipase level had normalized. Will attempt to continue tube feedings. She is currently on Nepro at 15 ccs/hr. Will add on free water flushes. 5. Acute oliguric renal failure: Patient has acute oliguric renal failure. She is being followed by Nephrology. She is currently on CVVHD. Nephrology is currently managing her fluids. She is making some urine, although none in appreciable amount. 6. Lactic acidosis: Patient had presented with lactic acidosis. This has resolved. Additionally, she is continued on CVVHD. 7. Thrombocytopenia: Patient's platelet counts look like they have stabilized around 70. Currently waiting on heparin-induced antibodies to return. She remains on TEDS and sequentials for pharmacological prophylaxis. 8. Anemia: Patient's hemoglobin is currently trending down at 8.7 today. She has received a large amount of fluids, possible dilutional. Will continue to trend. 9. Hypernatremia: Patient's hypernatremia has resolved. She has continued on CVVHD. Will continue to monitor. 10. Transaminitis: Patient's transaminitis is normalizing. Will continue to monitor. 11. Unspecified seizure disorder: Patient is to continue on Keppra. 12. Supraventricular tachycardia: Patient currently in sinus rhythm. She is tachycardic. However, this appears to be compensatory to her current sepsis. Will continue to monitor. 13. Hypotension: Likely secondary to her critical illness. Will continue the patient on Levophed. 14. DVT prophylaxis: TEDS and sequentials. 15. GI prophylaxis: Protonix 40 mg IV. 16. Nutrition: Patient was previously on TPN. This has been discontinued. Tube feeds started yesterday. Will continue. Have added on Reglan due to high residuals. DISPOSITION: Patient overall remains with a very guarded prognosis. She remains critically ill. There has been minimal clinical improvements. CRITICAL CARE TIME: Forty-five minutes. I was physically present for the entire encounter described above. I agree with the above assessment and plan. CYNDI
[2020-06-05] MEDS: HumaLOG INSULIN (NovoLOG) PER UNIT SC SCH ×2 (12:11→18:15)
[2020-06-05] MEDS: D5W/0.9% SODIUM CHLORIDE 1,000 ML IV SCH (12:11)
[2020-06-05 12:48] LABS: CALCIUM LEVEL 7.3 MG/DL (8.5-10.1); CREATININE FOR GFR 3.01 MG/DL (0.55-1.30); GLOMERULAR FILTRATION RATE 18.4 (>60); MAGNESIUM LEVEL 2.5 MG/DL (1.8-2.4); PHOSPHORUS LEVEL 2.5 MG/DL (2.5-4.9); POTASSIUM SERUM 4.2 MEQ/L (3.5-5.1)
[2020-06-05] MEDS: CALCIUM GLUCONATE 1,000 MG in D5W MINI-BAG PLUS 100 ML IV SCH ×2 (12:59→13:55)
[2020-06-05] MEDS: METOCLOPRAMIDE HCL LIQUID 10 MG/10 ML UDC NG SCH ×2 (16:19→21:12)
[2020-06-05 18:09] LABS: HEMATOCRIT 26.6 % (36.0-47.0); HEMOGLOBIN 8.3 g/dl (12.0-15.5); MEAN CORPUSCULAR HEMOGLOBIN 32.2 pg (27.0-33.0); MEAN CORPUSCULAR HGB CONC 31.2 g/dl (32.0-36.5); MEAN CORPUSCULAR VOLUME 103.1 fl (80.0-96.0); RED BLOOD COUNT 2.58 10^6/uL (4.00-5.40); WHITE BLOOD COUNT 7.9 10^3/uL (4.0-10.0)
[2020-06-05 18:14] LABS: PLATELET COUNT, AUTOMATED 63 10^3/uL (150-450)
[2020-06-05 18:31] LABS: CALCIUM LEVEL 7.9 MG/DL (8.5-10.1); CREATININE FOR GFR 2.98 MG/DL (0.55-1.30); GLOMERULAR FILTRATION RATE 18.6 (>60); MAGNESIUM LEVEL 2.5 MG/DL (1.8-2.4); POTASSIUM SERUM 4.1 MEQ/L (3.5-5.1)
[2020-06-05] MEDS ORDERED: CALCIUM GLUCONATE 1,000 MG in D5W MINI-BAG PLUS 100 ML IV SCH (20:00)
[2020-06-05] MEDS: LEVEMIR (INSULIN DETEMIR) 1 UNITS/0.01ML SC SCH (21:12)
--- NOTE | 2020-06-05 23:03 | IPN ---
NEPHROLOGY PROGRESS NOTE DATE: 06/05/2020 SUBJECTIVE: The patient was seen and examined at the bedside today morning. Last 24 hour events were noted. She has been started on trickle tube feeds at 15 mL an hour. She continues to be on IV d5w. Insulin drip has been stopped. She is currently on insulin sliding scale coverage. She is requiring Levophed at 5 mcg. Dialysis catheter in the right groin is very positional, however she is tolerating the CVVHDF with a blood flow rate of 150 mL. Urine output is around 20-30 mL an hour now. She got a CAT scan of the abdomen and pelvis done which showed left lower lobe consolidation. Otherwise there was no abscess formation. The patient remains intubated and sedated. OBJECTIVE: VITAL SIGNS: Temperature is 97.9 degrees Fahrenheit, blood pressure 99/57, pulse is 121, respiratory rate of 23, saturating 96% on the vent at 21% FiO2. INTAKE AND OUTPUT: Urine output recorded is 1,720 mL yesterday, 648 mL so far today since overnight. Weight in the bed scale is 101.2 kg. PHYSICAL EXAMINATION: GENERAL APPEARANCE: The patient is intubated, sedated, but opens eyes. HEAD AND NECK: Pupils are equally round and reactive to light. Mucous membranes are moist. She has an endotracheal tube and orogastric tube. Neck is supple. There is no jugular venous distention. CARDIOVASCULAR: S1, S2, tachycardia. EXTREMITIES: Trace to 1+ edema of the bilateral lower extremities, and 1+ edema of the bilateral upper extremities. RESPIRATORY: Chest is clear to auscultation bilaterally in the upper lung zones. Decreased breath sounds at the bases. ABDOMEN: Soft, obese, decreased bowel sounds. Mildly tender to deep palpation in the epigastrium. GENITOURINARY: She has an indwelling Karimi catheter. MUSCULOSKELETAL: No clubbing or cyanosis. 1+ edema of the lower extremities. She has a right groin dialysis catheter being used for CVVHDF. 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 Moves extremities to painful stimuli. LAB REVIEW: CBC showed a WBC of 7.9, hemoglobin 8.3, platelet count 63. BMP showed sodium 136, potassium 4.1, chloride 104, bicarbonate 26, BUN 31, creatinine is 2.9. Calcium is 7.9. Phosphorous is 3, magnesium 2.5. IMAGING: A chest x-ray was done which showed endotracheal tube and nasogastric tube in satisfactory position. Left lower lobe retrocardiac consolidation. A CAT scan of the abdomen and pelvis was done yesterday which showed peripancreatic inflammatory stranding, consistent with acute pancreatitis. No collection or pseudocyst. Hepatomegaly and hepatosteatosis. Suspected cholelithiasis without acute cholecystitis. No ascites. Left lower lobe consolidation. CURRENT INPATIENT MEDICATIONS: The patient continues to be on IV Meropenem and Vancomycin. She is requiring Levophed at 5 mcg. She continues to be on D5 normal saline at 75 mL an hour. She has been started on Insulin Levemir 10 units subcutaneously twice daily and insulin Lispro sliding scale. No other significant change in the medications. ASSESSMENT AND PLAN: 1. Acute renal failure - The patient is non-oliguric at this time. However for management of fluid status, acid base, she continues to be on CVVHDF. There is no significant improvement in the renal function. Her creatinine bumps up when CVVHDF is stopped. Continue the CVVHDF at this point since she is requiring pressors as well. If we are able to wean her off the pressors, I would try to stop CVVHD and start doing regular bedside hemodialysis. 2. Acute pancreatitis - The patient continues to be on IV fluid hydration. Pulmonary Team has slowly started the patient on tube feeds now. If she is able to tolerate the tube feeds, then IV fluids will be stopped. There is no pseudocyst on the repeat CAT scan. 3. Diabetic ketoacidosis - The patient had elevated beta hydroxybutyrate up until yesterday. Glucose levels are within the acceptable range now. Continue insulin Levemir and sliding scale. Insulin drip has been stopped. 4. Left lower lobe pneumonia the patient continues to be on Vancomycin and Meropenem. Leukocytosis is getting better. FiO2 requirement on the vent is 21% only. 5. Vent dependent respiratory failure vent management is as per the Pulmonary Team. ABG done today morning showed a pH of 7.42 which is within the acceptable range. 6. Nutrition she was unable to tolerate TPN. She went into DKA after starting TPN. Continue the nepro tube feeds for now. 7. Seizure disorder - continue Keppra at this time. Total critical care time spent in the management of this patient today morning in the ICU excluding all the procedures was 35 minutes. MTDD
[2020-06-06] VITALS (110 sets, daily range): BP systolic 84–116; BP diastolic 45–61
[2020-06-06] MEDS: HumaLOG INSULIN (NovoLOG) PER UNIT SC SCH ×4 (00:51→17:40)
[2020-06-06] MEDS: D5W/0.9% SODIUM CHLORIDE 1,000 ML IV SCH (00:52)
[2020-06-06] MEDS: NOREPINEPHRINE BITARTRATE 8 MG in D5W 492 ML IV SCH ×2 (00:52→15:35)
[2020-06-06] MEDS: MEROPENEM INJ 500 MG in IV 1 EA IV SCH ×3 (00:54→17:41)
[2020-06-06 01:32] LABS: CALCIUM LEVEL 7.3 MG/DL (8.5-10.1); CREATININE FOR GFR 2.67 MG/DL (0.55-1.30); GLOMERULAR FILTRATION RATE 21.2 (>60); MAGNESIUM LEVEL 2.4 MG/DL (1.8-2.4); PHOSPHORUS LEVEL 3.1 MG/DL (2.5-4.9); POTASSIUM SERUM 4.9 MEQ/L (3.5-5.1)
[2020-06-06] MEDS: CALCIUM GLUCONATE 1,000 MG in NS 100 ML IV SCH ×4 (02:20→14:29)
[2020-06-06] MEDS: MIDAZOLAM HCL 100 MG in D5W 80 ML IV SCH ×2 (02:21→19:13)
[2020-06-06] MEDS: MIDAZOLAM INJ 2MG/2ML VIAL (J2250 PER 1MG) IV PRN ×2 (04:33→18:03)
[2020-06-06] MEDS: MORPHINE 2 MG/ML 1ML VIAL (J2270) IV PRN ×4 (04:34→18:38)
[2020-06-06 05:59] LABS: ABG BASE EXCESS -1.9 (-2.0-2.0); ABG HCO3 22.4 MEQ/L (22.0-26.0); ABG O2 SATURATION 89.8 % (95.0-99.0); ABG PARTIAL PRESSURE CO2 35.5 mmHg (35.0-45.0); ABG STANDARD HCO3 22.8 MEQ/L (22.0-26.0); ABG TOTAL CO2 23.4 MEQ/L (22.0-29.0); ABG pH (ARTERIAL) 7.417 UNITS (7.350-7.450)
[2020-06-06] MEDS: ANEXSIA, NORCO 7.5MG/325MG TABLET(HYDROCODONE/APAP) PO SCH ×3 (06:07→21:05)
[2020-06-06 06:38] LABS: HEMATOCRIT 23.6 % (36.0-47.0); HEMOGLOBIN 7.1 g/dl (12.0-15.5); MEAN CORPUSCULAR HEMOGLOBIN 31.4 pg (27.0-33.0); MEAN CORPUSCULAR HGB CONC 30.1 g/dl (32.0-36.5); MEAN CORPUSCULAR VOLUME 104.4 fl (80.0-96.0); RED BLOOD COUNT 2.26 10^6/uL (4.00-5.40); WHITE BLOOD COUNT 9.2 10^3/uL (4.0-10.0)
[2020-06-06 06:39] LABS: PLATELET COUNT, AUTOMATED 81 10^3/uL (150-450)
[2020-06-06 07:03] LABS: CALCIUM LEVEL 7.4 MG/DL (8.5-10.1); CREATININE FOR GFR 2.62 MG/DL (0.55-1.30); GLOMERULAR FILTRATION RATE 21.6 (>60); MAGNESIUM LEVEL 2.4 MG/DL (1.8-2.4); PHOSPHORUS LEVEL 3.1 MG/DL (2.5-4.9); POTASSIUM SERUM 4.7 MEQ/L (3.5-5.1)
[2020-06-06] MEDS: IPRATROPIUM 0.5MG/ALBUTEROL 2.5MG INH SOL UD 3ML (DUONEB) NEB SCH ×4 (07:22→20:36)
[2020-06-06] MEDS ORDERED: CALCIUM GLUCONATE 1,000 MG in NS 100 ML IV ONE ×2 (08:00→19:00)
[2020-06-06] MEDS: METOCLOPRAMIDE HCL LIQUID 10 MG/10 ML UDC NG SCH ×2 (08:15→17:40)
[2020-06-06] MEDS: CHLORHEXIDINE GLUCONATE 0.12 % 15ML UDC (PERIDEX ORAL RINSE) MT SCH ×2 (08:15→21:04)
[2020-06-06] MEDS: levETIRAcetam INJection 500 MG in D5W MINI-BAG PLUS 100 ML IV SCH ×2 (08:15→21:04)
[2020-06-06] MEDS: LEVEMIR (INSULIN DETEMIR) 1 UNITS/0.01ML SC SCH ×2 (08:16→21:04)
[2020-06-06] MEDS: PANTOPRAZOLE 40MG VIAL (C9113 PER 1) IV SCH (08:16)
--- NOTE | 2020-06-06 09:27 | REP ---
INDICATION: ETT. COMPARISON: 06/05/2020. TECHNIQUE: SINGLE PORTABLE AP VIEW OF THE CHEST WAS PERFORMED. FINDINGS: Endotracheal tube appears unchanged in position. Nasogastric tube traverses into the stomach. Right central venous catheter is seen with the tip in the right atrium. Heart mediastinum are unchanged. There are low lung volumes. Left retrocardiac opacity is unchanged. IMPRESSION: Stable exam. <Electronically signed by Tavares Morris > 06/06/20 0923
[2020-06-06] MEDS: NS 1,000 ML IV SCH ×2 (10:27→22:06)
[2020-06-06] MEDS ORDERED: METOCLOPRAMIDE HCL LIQUID 10 MG/10 ML UDC NG ONE (11:00)
[2020-06-06] MEDS: VANCOMYCIN HCL 750 MG, VIAL MATE ADAPTER 1 EACH in D5W 250 ML IV SCH ×2 (12:11→22:05)
[2020-06-06 12:15] LABS: CALCIUM LEVEL 7.9 MG/DL (8.5-10.1); CREATININE FOR GFR 2.55 MG/DL (0.55-1.30); GLOMERULAR FILTRATION RATE 22.3 (>60); MAGNESIUM LEVEL 2.5 MG/DL (1.8-2.4); PHOSPHORUS LEVEL 3.2 MG/DL (2.5-4.9); POTASSIUM SERUM 4.3 MEQ/L (3.5-5.1)
--- NOTE | 2020-06-06 12:58 | CCN ---
CRITICAL CARE NOTE DATE: 06/06/2020 START TIME: 0950 STOP TIME: 1036 I again attended Grace Murry here in the intensive care unit. Patient has been examined, chart reviewed. I spoke at length with the nurse at the bedside. Maximum temperature overnight 99.4, heart rate generally 100-130 with a sinus mechanism, blood pressure 80s to 108, and she is on varying doses of Levophed. Respiratory rate remains generally in the 20s without obvious accessory muscle use. She remains on continuous renal replacement therapy (CRRT) but is starting to make some urine. Total intake and output from midnight to midnight 2527 mL in with 1070 mL out (includes CRRT fluid removal). She is beginning to make better urine. She has had some difficulties with clotting of her CRRT access with the inability to return blood to her. She is getting transfused this morning because of it. Most recent laboratories show a white blood cell count of 9.2, hemoglobin 7.1, and platelet count of 81,000. Sodium 137, potassium 4.7, chloride 106, CO2 of 24, BUN 26, creatinine 2.62. Amylase and lipase are pending. Blood gas done this morning on a pressure control mode: Pressure of 10, PEEP of 5, FiO2 of 21%. A pH of 7.417, pCO2 of 35.5, paO2 of 60, saturation 89.8%. Chest x-ray shows lines and tubes in good position with no acute abnormalities. She has had very high nasogastric (NG) residuals for tube feeds, and these were placed on hold On exam, she is sedate, agitated when her sedation is lightened. Pupils react. Sclerae clear. Trachea is in the midline. Chest shows diminished by symmetric expansion. Lung miranda are fairly clear except for some faint dependent crackles. No other focal adventitious breath sounds are identified. Tachycardic, regular. Peripheral pulses palpable. There is trace edema. Abdomen is distended. Somewhat soft, but bowel sounds are hypoactive. No obvious tenderness or guarding. Extremities without cyanosis or clubbing. Neurologically, she is sedate but does move all extremities when stimulated. Most pressing problem requiring my presence at the bedside: 1. Acute renal failure, multifactorial. 2. Hypoxemic respiratory failure. 3. Pancreatitis. 4. Renal failure/acute kidney injury. 5. Diabetes mellitus. 6. Seizure disorder. 7. Sepsis with shock. 8. Thrombocytopenia. 9. Supraventricular tachycardia. At this point, we will try her on the pressure-regulated volume control (PRVC) mode. I do not believe she is quite ready for weaning just yet. Hopefully she will tolerate a change in ventilator mode, as she does not seem to be significantly "stiff." She remains on CRRT for her electrolyte abnormalities and renal insufficiency. That is being managed by nephrology, and I greatly appreciate their input. She previously was on total parenteral nutrition (TPN). We may need to get back to that, as she has been intolerant of tube feeds, and I will speak with Dr. Bass more in that regard. She is getting transfused for her anemia, and I believe much of it on the basis of inability to return the blood from the CRRT. She remains on her current antimicrobials. She did have an abscess on the buttock that drained. We will keep track of that. Her thrombocytopenia is stable to mildly improved, probably multifactorial, and we will continue to monitor this. Her heparin-induced antibodies are still pending. She is tolerating sedation and quite agitated when it is lightened, and certainly until she is ready to be extubated we will use this as needed. She is on ulcer and deep venous thrombosis (DVT) prophylaxis. Given her difficulties with enteral feeds and gastroparesis, most likely secondary to her diabetes. We will recheck an amylase and lipase, however. At this point, she remains quite critically ill. We will proceed as outlined above. I left the bedside at 1036 hours. Forty-six minutes of critical care time provided at bedside, not including procedures.
[2020-06-06] MEDS: HEPARIN 100 UNIT/ML *20ML* SYRINGE CRRT INFUSION CRRT SCH ×3 (13:54→21:05)
[2020-06-06 17:28] LABS: HEMATOCRIT 23.3 % (36.0-47.0); HEMOGLOBIN 7.3 g/dl (12.0-15.5); MEAN CORPUSCULAR HEMOGLOBIN 31.3 pg (27.0-33.0); MEAN CORPUSCULAR HGB CONC 31.3 g/dl (32.0-36.5); RED BLOOD COUNT 2.33 10^6/uL (4.00-5.40); WHITE BLOOD COUNT 12.8 10^3/uL (4.0-10.0)
[2020-06-06 17:31] LABS: PLATELET COUNT, AUTOMATED 95 10^3/uL (150-450)
[2020-06-06 17:58] LABS: CALCIUM LEVEL 7.8 MG/DL (8.5-10.1); CREATININE FOR GFR 2.42 MG/DL (0.55-1.30); GLOMERULAR FILTRATION RATE 23.7 (>60); MAGNESIUM LEVEL 2.4 MG/DL (1.8-2.4); PHOSPHORUS LEVEL 3.5 MG/DL (2.5-4.9); POTASSIUM SERUM 4.1 MEQ/L (3.5-5.1)
[2020-06-06] MEDS ORDERED: D5W/0.9% SODIUM CHLORIDE 1,000 ML IV SCH (22:15)
--- NOTE | 2020-06-06 23:12 | IPN ---
NEPHROLOGY PROGRESS NOTE DATE: 06/06/2020 SUBJECTIVE: The patient was seen and examined at the bedside today morning in the ICU. She remains intubated, sedated. She is non-oliguric at this time, however she is still on CVVHDF because she is in shock, requiring Levophed and getting daily fluids, and she gets acidotic without dialysis. She is tolerating CVVHDF at this time. I was told by the nursing staff that it is frequently clotting and it has to be changed almost every 6-8 hours and she loses blood because of clotting. OBJECTIVE: VITAL SIGNS: Temperature is 98.2 degrees Fahrenheit, blood pressure is 96/51, pulse is 110, respiratory rate of 24, saturating 98% on the vent with 25% FiO2. INTAKE AND OUTPUT: Urine output recorded as 693 mL yesterday, 1.4 liters so far today since overnight. Weight in the bed scale is 114.2 kg. PHYSICAL EXAMINATION: GENERAL APPEARANCE: The patient is intubated, sedated, opens eyes. HEAD AND NECK: Pupils are equally round and reactive to light. She has an endotracheal tube and orogastric tube. Neck is supple. There is no significant jugular venous distention. CARDIOVASCULAR: S1, S2, tachycardia. EXTREMITIES: About 1+ edema of the bilateral lower extremities. RESPIRATORY: Decreased breath sounds bilaterally at the bases. She is vent dependent. No active rales or rhonchi. ABDOMEN: Soft, obese, very diminished bowel sounds. Mild tenderness to deep palpation in the epigastrium. GENITOURINARY: She has an indwelling Karimi catheter. MUSCULOSKELETAL: About 1+ edema of the bilateral lower extremities and 1+ edema of the upper extremities. She has a double lumen catheter in the right groin which is being used for dialysis. 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 LAB REVIEW: CBC showed WBC of 12.8, hemoglobin 7.3, platelets are 95. BMP showed sodium of 138, potassium 4.1, chloride 107, bicarbonate 26, BUN 24, creatinine is 2.4. Glucose 289, calcium is 7.8, phosphorous 3.5, magnesium is 2.4. Vancomycin trough is 10.7 today. Betide oxybutyrate was 5.56. IMAGING: A chest x-ray was today morning which showed a stable exam. CURRENT INPATIENT MEDICATIONS: The patient's medications were all reviewed by myself. She is currently on IV Levophed which is being weaned down. She continues to be on IV Keppra, IV Vancomycin and Meropenem. D5 normal saline was stopped and she has been started on just normal saline because betide oxybutyrate was high and glucose levels were running in the 300's. Insulin Levemir dose has been increased to 15 units twice daily. No other significant change in the medications today as compared with yesterday. ASSESSMENT AND PLAN: 1. Acute renal failure the is non oliguric but still dependent on pressors and getting daily fluid and gets acidotic without dialysis. Continue the CVVHDF at this time. Once the patient is off the pressors, I will try to wean her off CVVHDF and try doing regular dialysis or use diuretics for volume management. New CVVHDF orders were written. Minimal fluid removal. At this time CVP was around 10:00 to 12:00 in the morning. 2. Acute pancreatitis - The patient is still unable to tolerate any tube feeds. Repeat CAT scan done showed no pancreatic pseudocyst or abscess. Continue empiric antibiotics. 3. Diabetic ketoacidosis - The patient has recurrent diabetic ketoacidosis. Betide oxybutyrate was high again today in the morning. IV fluids have been changed to normal saline. Continue insulin sliding scale. Levemir dose has already been increased. 4. Left lower lobe pneumonia - continue Vancomycin and Meropenem. 5. Anemia secondary to blood loss the patient's gets frequent filter change because of clotting. I have ordered 2 units of PRBC transfusion today. 6. Frequent clotting during CVVHDF the patient has been started on Heparin 500 units per hour in the system in the CVVHDF machine. 7. Nutrition the patient was unable to tolerate TPN because of diabetic ketoacidosis. She is not tolerating the tube feeds. Currently she is given D5 normal saline whenever her sugar levels get better. 8. Seizure disorder - continue current dose of Keppra.
[2020-06-07] VITALS (82 sets, daily range): BP systolic 83–127; BP diastolic 49–70; O2SAT 96
[2020-06-07] MEDS: METOCLOPRAMIDE HCL LIQUID 10 MG/10 ML UDC NG SCH ×5 (00:36→23:57)
[2020-06-07] MEDS: HumaLOG INSULIN (NovoLOG) PER UNIT SC SCH ×5 (00:37→23:57)
[2020-06-07 00:44] LABS: CALCIUM LEVEL 7.5 MG/DL (8.5-10.1); CREATININE FOR GFR 2.28 MG/DL (0.55-1.30); GLOMERULAR FILTRATION RATE 25.4 (>60); MAGNESIUM LEVEL 2.4 MG/DL (1.8-2.4); PHOSPHORUS LEVEL 3.1 MG/DL (2.5-4.9); POTASSIUM SERUM 4.4 MEQ/L (3.5-5.1)
[2020-06-07] MEDS: MEROPENEM INJ 500 MG in IV 1 EA IV SCH ×3 (00:46→16:05)
[2020-06-07] MEDS ORDERED: CALCIUM GLUCONATE 1,000 MG in NS 100 ML IV ONE ×2 (01:15→06:45)
[2020-06-07] MEDS: HEPARIN 100 UNIT/ML *20ML* SYRINGE CRRT INFUSION CRRT SCH ×5 (01:15→16:05)
[2020-06-07] MEDS: MIDAZOLAM INJ 2MG/2ML VIAL (J2250 PER 1MG) IV PRN (01:41)
[2020-06-07] MEDS: MORPHINE 2 MG/ML 1ML VIAL (J2270) IV PRN ×5 (01:45→14:23)
[2020-06-07] MEDS: ANEXSIA, NORCO 7.5MG/325MG TABLET(HYDROCODONE/APAP) PO SCH ×3 (05:04→21:49)
[2020-06-07 05:49] LABS: ABG BASE EXCESS -1.6 (-2.0-2.0); ABG HCO3 23.2 MEQ/L (22.0-26.0); ABG PARTIAL PRESSURE CO2 39.7 mmHg (35.0-45.0); ABG PARTIAL PRESSURE O2 82.9 mmHg (75.0-100.0); ABG STANDARD HCO3 23.1 MEQ/L (22.0-26.0); ABG TOTAL CO2 24.4 MEQ/L (22.0-29.0); ABG pH (ARTERIAL) 7.385 UNITS (7.350-7.450)
[2020-06-07 06:14] LABS: HEMATOCRIT 26.8 % (36.0-47.0); HEMOGLOBIN 8.4 g/dl (12.0-15.5); MEAN CORPUSCULAR HEMOGLOBIN 31.1 pg (27.0-33.0); MEAN CORPUSCULAR HGB CONC 31.3 g/dl (32.0-36.5); MEAN CORPUSCULAR VOLUME 99.3 fl (80.0-96.0); WHITE BLOOD COUNT 15.1 10^3/uL (4.0-10.0)
[2020-06-07 06:24] LABS: PLATELET COUNT, AUTOMATED 88 10^3/uL (150-450)
[2020-06-07 06:36] LABS: ALBUMIN 1.6 GM/DL (3.2-5.2); BILIRUBIN,TOTAL 0.5 MG/DL (0.2-1.0); CALCIUM LEVEL 7.4 MG/DL (8.5-10.1); CREATININE FOR GFR 1.99 MG/DL (0.55-1.30); GLOMERULAR FILTRATION RATE 29.7 (>60); MAGNESIUM LEVEL 2.3 MG/DL (1.8-2.4); PHOSPHORUS LEVEL 2.8 MG/DL (2.5-4.9); POTASSIUM SERUM 4.1 MEQ/L (3.5-5.1); TOTAL PROTEIN 4.7 GM/DL (6.4-8.2)
[2020-06-07] MEDS: CHLORHEXIDINE GLUCONATE 0.12 % 15ML UDC (PERIDEX ORAL RINSE) MT SCH ×2 (08:39→20:35)
[2020-06-07] MEDS: levETIRAcetam INJection 500 MG in D5W MINI-BAG PLUS 100 ML IV SCH ×2 (08:39→20:34)
[2020-06-07] MEDS: LEVEMIR (INSULIN DETEMIR) 1 UNITS/0.01ML SC SCH ×2 (08:39→20:35)
[2020-06-07] MEDS: PANTOPRAZOLE 40MG VIAL (C9113 PER 1) IV SCH (08:39)
[2020-06-07] MEDS: IPRATROPIUM 0.5MG/ALBUTEROL 2.5MG INH SOL UD 3ML (DUONEB) NEB SCH ×4 (09:31→19:53)
--- NOTE | 2020-06-07 09:31 | REP ---
INDICATION: ETT. COMPARISON: 06/06/2020. TECHNIQUE: SINGLE PORTABLE AP VIEW OF THE CHEST WAS PERFORMED. FINDINGS: The endotracheal tube is unchanged in position. The right central venous catheter is unchanged in position. Nasogastric tube traverses into the stomach. Heart mediastinum are unchanged. Lungs are unchanged in appearance with stable left retrocardiac opacity. IMPRESSION: Stable exam. <Electronically signed by Tavares Morris > 06/07/20 0927
[2020-06-07] MEDS: NS 1,000 ML IV SCH (10:00)
[2020-06-07 10:04] LABS: VANCOMYCIN RANDOM 19.9 UG/ML
[2020-06-07] MEDS ORDERED: FLEET ENEMA PR PRN (10:15)
[2020-06-07] MEDS: VANCOMYCIN HCL 750 MG, VIAL MATE ADAPTER 1 EACH in D5W 250 ML IV SCH ×2 (10:32→21:48)
[2020-06-07] MEDS: BISACODYL 10 MG SUPP PR PRN (11:32)
[2020-06-07] MEDS: MIDODRINE 5 MG TAB PO SCH ×2 (11:49→16:05)
[2020-06-07] MEDS: MIDAZOLAM HCL 100 MG in D5W 80 ML IV SCH (11:50)
--- NOTE | 2020-06-07 16:09 | IPN ---
NEPHROLOGY PROGRESS NOTE DATE: 06/07/2020 SUBJECTIVE: The patient was seen and examined this morning at the bedside in the Intensive Care Unit. She remains intubated and sedated with low dose tube feeds running and on continuous CRRT. Nursing staff reports that filter clotted twice in the past 24 hours, though overall there has been significant improvement since Heparin was added to the dialysis orders. They have been able to return her blood prior to the filter clotting off. Her Levophed has also been weaned down to 3 and the patient continues to make urine anywhere from 50 to 120 mL per hour. REVIEW OF SYSTEMS: The patient's review of systems was unable to be obtained secondary to clinical condition. PHYSICAL EXAMINATION: VITAL SIGNS: Temperature 998.6, pulse 117, respiratory rate 24, blood pressure 93/54, saturating 97% on FiO2 25% on the ventilator. INTAKE AND OUTPUT: Review of 24-hour I.'s and O.'s shows that she is positive about 3 liters and has a urine output of 1.7 liters in the past 24 hours and today already has made an additional one liter. GENERAL APPEARANCE: The patient is intubated, sedated but opens eyes to tactile stimulus. HEENT: Pupils are round and reactive to light. She has an endotracheal tube and an orogastric tube. NECK: Supple. CVP is 14. Jugular veins were difficult to assess. CARDIAC: Heart sounds are quite tachycardic. S1, S2, I was unable to appreciate any murmur. There is at least 1+ if not 2+ edema of the lower extremities and also edema of the dependent area. RESPIRATORY: She is tachypneic. She is on the vent. There is bilateral air entry. ABDOMEN: Soft and obese, hypoactive bowel sounds. She is receiving tube feeds. GENITOURINARY: She has an indwelling Karimi catheter. MUSCULOSKELETAL: She is noted to spontaneously move the extremities. There is a dialysis catheter present in the right groin. NEUROLOGICAL: She is intubated and sedated. However she moves extremities to tactile stimulus. LABORATORY STUDIES: White count 15.1, hemoglobin 8.4, platelet count 88. Sodium 139, potassium 4.1, bicarbonate 25, BUN 20, creatinine 1.9. IMAGING: Chest x-ray done today shows left lower lobe consolidation. INPATIENT MEDICATIONS: The patient's Levophed is being weaned presently at 3 mcg. She received several runs of calcium gluconate. She is on a Versed drip. I started her on Midodrine 10 mg p.o. three times daily. I started her on albumin 25% 25 grams q. 8 hourly x3. I decreased her fluid to normal saline at 40 mL an hour. Her remainder medications are unchanged from prior. PROBLEMS: 1. Non oliguric acute renal failure - The patient has promising signs of renal recovery. Her urine output is increasing. She made about 1.7 liters in the past 24 hours and overnight has averaged anywhere from 50-110 mL per hour. The hourly urine output did decrease as her Levophed was being, hence I am starting her on Midodrine and nursing staff will continue to wean off Levophed. Given that she is non oliguric, if we can get her off of the pressor, I will discontinue CRRT and we will assess her daily for intermittent hemodialysis needs. And if she continues to require dialysis, we will discontinue the groin catheter and get a permacath early this week. 2. Sepsis with shock in the setting of pancreatitis blood cultures, urine culture and wound culture along with sputum culture are noted. She has been afebrile the past 24 hours but her white count has up trended. Antimicrobials are as per the Critical Care Team. She is presently on Meropenem and Vancomycin with therapeutic random Vancomycin levels. Her Levophed is being weaned down presently at 3 mcg. To augment hemodynamic support, I am starting her on Midodrine 10 mg three times daily and I am also putting her on albumin 25% 25 grams q. 8 hourly as that will also help with her intravascular volume. 3. Fluid overload we have not been removing fluid with CRRT. The patient has been receiving IV fluid and she is in daily net positive fluid balance and her daily weights are also significantly increasing. I cut the rate of her fluids down to 40 mL an hour and we will start removing fluid either with intermittent hemodialysis or with diuretics, depending on whether or not she recovers renal function. Her oxygen requirements are stable at this point and I would first like to get her off of the IV Levophed before we try to remove fluid. 4. Nutrition - TPN is not being ordered because the patient is already hypervolemic and has had very erratic blood sugars and was easily prone to DKA. She is currently on Nepro tube feeds although at a very low rate of 15 an hour. Her fingersticks are stable. 5. Anemia due to critical illness, renal failure, recurrent frequent clotting of the dialysis filter she is presently on Heparin 500 units with dialysis with much improvement in her overall dialysis treatment. Her hemoglobin levels are stable and she can be transfused as needed for hemoglobin less than 8. I am holding off on initiation of Aranesp for now. 6. Hypoalbuminemia serum albumin is only 1.6. She has significant third spacing of her fluid. She is hypotensive and in order to help her come off of the pressors, she is written for albumin q. 8 hourly x3 doses.
[2020-06-07] MEDS: NOREPINEPHRINE BITARTRATE 8 MG in D5W 492 ML IV SCH (19:31)
[2020-06-08] VITALS (24 sets, daily range): BP systolic 89–143; BP diastolic 44–79; O2SAT 92
[2020-06-08] MEDS: MEROPENEM INJ 500 MG in IV 1 EA IV SCH ×3 (01:06→17:43)
[2020-06-08] MEDS: MIDAZOLAM HCL 100 MG in D5W 80 ML IV SCH ×2 (04:44→19:00)
[2020-06-08] MEDS: METOCLOPRAMIDE HCL LIQUID 10 MG/10 ML UDC NG SCH ×3 (05:29→17:42)
[2020-06-08] MEDS: ANEXSIA, NORCO 7.5MG/325MG TABLET(HYDROCODONE/APAP) PO SCH ×3 (05:30→21:49)
[2020-06-08] MEDS: HumaLOG INSULIN (NovoLOG) PER UNIT SC SCH ×3 (05:30→17:43)
[2020-06-08 05:37] LABS: HEMATOCRIT 22.1 % (36.0-47.0); MEAN CORPUSCULAR HGB CONC 30.3 g/dl (32.0-36.5); MEAN CORPUSCULAR VOLUME 102.3 fl (80.0-96.0); RED BLOOD COUNT 2.16 10^6/uL (4.00-5.40); WHITE BLOOD COUNT 16.3 10^3/uL (4.0-10.0)
[2020-06-08 05:43] LABS: HEMOGLOBIN 6.7 g/dl (12.0-15.5); PLATELET COUNT, AUTOMATED 85 10^3/uL (150-450)
[2020-06-08 06:02] LABS: ABG BASE EXCESS -1.9 (-2.0-2.0); ABG HCO3 22.1 MEQ/L (22.0-26.0); ABG O2 SATURATION 95.5 % (95.0-99.0); ABG PARTIAL PRESSURE O2 80.1 mmHg (75.0-100.0); ABG STANDARD HCO3 22.8 MEQ/L (22.0-26.0); ABG TOTAL CO2 23.2 MEQ/L (22.0-29.0); ABG pH (ARTERIAL) 7.431 UNITS (7.350-7.450)
[2020-06-08 06:06] LABS: ALBUMIN 2.1 GM/DL (3.2-5.2); BILIRUBIN,TOTAL 0.4 MG/DL (0.2-1.0); CALCIUM LEVEL 7.4 MG/DL (8.5-10.1); CREATININE FOR GFR 2.77 MG/DL (0.55-1.30); GLOMERULAR FILTRATION RATE 20.3 (>60); MAGNESIUM LEVEL 2.5 MG/DL (1.8-2.4); PHOSPHORUS LEVEL 3.6 MG/DL (2.5-4.9); POTASSIUM SERUM 4.2 MEQ/L (3.5-5.1); VANCOMYCIN RANDOM 28.7 UG/ML
[2020-06-08] MEDS: IPRATROPIUM 0.5MG/ALBUTEROL 2.5MG INH SOL UD 3ML (DUONEB) NEB SCH ×4 (07:22→22:04)
--- NOTE | 2020-06-08 07:52 | REP ---
INDICATION: ETT COMPARISON: 06/07/2020 TECHNIQUE: Portable AP view of the chest FINDINGS: Endotracheal tube 2 cm above the karen. Nasogastric tube courses below left hemidiaphragm. Right subclavian catheter with tip in the SVC/right atrium. The mediastinum and cardiac silhouette are stable and within normal limits for portable technique. The lung miranda are essentially unchanged with suspected small basilar opacities (left greater than right) and retrocardiac left lower lobe consolidation. IMPRESSION: No significant change from prior examination. <Electronically signed by Bruno Cooper > 06/08/20 0736
--- NOTE | 2020-06-08 09:14 | CCN ---
CRITICAL CARE NOTE DATE: 06/07/2020 START TIME: 929 STOP TIME: 10:06 SUBJECTIVE: I again attended Grace Murry here in the Intensive Care Unit. This patient has been examined, chart reviewed and I had a long phone conversation with her mother. She remains on low dose Levophed at 3 mcg. T-max overnight 98, blood pressure 90 to the low 100s, heart rate 99 to 120 with a sinus mechanism, respiratory rate generally in the teens and low 20s without accessory muscle use. She remains on CRRT. Sodium 139, K 4.1, chloride 108, CO2 25, BUN 20, creatinine down to 1.99. Glucose 217. AST and ALT 59 and 54 respectively. LDH 444. Albumin remains depressed at 1.6. White blood cell count 15.1, hemoglobin 8.4, platelet count 88,000. Her heparin-induced antibodies are negative. Vancomycin trough yesterday 10.7. She remains on Vancomycin and Meropenem for her positive blood and urine cultures. Chest x-ray shows lines and tubes in good position. No new findings. OBJECTIVE: GENERAL: She is sedate but does open her eyes to stimuli. She is a little agitated when sedation vacation is done. Does not routinely follow commands but does open eyes to voice but does not nursing home manager. HEENT: Pupils react. Sclerae are clear. Trachea is in the midline. Endotracheal tube in good position. CHEST: Fairly clear to auscultation and percussion, maybe some mild dependent crackles. CARDIAC EXAM: Distant and irregular. Peripheral pulses are diminished. Edema is unchanged. ABDOMEN: Mildly distended. Borderline soft but no rebound. No obvious organomegaly or masses. EXTREMITIES: Extremities without cyanosis or clubbing. NEUROLOGIC: As outlined above. She has a faint rash on her buttocks but the previous area of abscess is no longer draining. MOST PRESSING PROBLEMS REQUIRING MY PRESENCE AT THE BEDSIDE: 1. Respiratory failure requiring mechanical ventilatory support. 2. Acute renal failure, multifactorial. 3. Pancreatitis. 4. Diabetes mellitus. 5. Seizure disorder. 6. Sepsis with shock. 7. Thrombocytopenia with negative heparin-induced antibodies. 8. Supraventricular tachycardia. PLAN: At this point she has not tolerated enteral feeds. She has also not had a bowel movement and hopefully we can facilitate that, it may help. I spoke yesterday with nephrology regarding TPN. Her sugars were markedly elevated on it but if she is not able to make goal on her feeds, especially with her albumin of 1.6, I believe we have no choice. For now we will continue her current antimicrobials. She continues on CRRT as guided by nephrology, and I appreciate their input. She has had less troubling clotting her lines as her heparin-induced antibodies are negative and we have restarted heparinizing her CRRT access. Ventilator changes have been made as I would like to begin active weaning if at all possible. She did tolerate a change from pressure control to PRVC and this morning appears at least for now to be doing well on an SIMV/pressure support mode. We will see how she does with that. As alluded to above, I had a long discussion with her mother this morning and gave her updates. Short weaning and if we reach the 10-14 day window without any glimmer of hope on the horizon regarding extubation, we may consider tracheostomy at that point. For now we will continue as outlined above. She has had no further seizures. Her amylase and lipase have normalized. However, she remains quite critically ill. I have been unable to wean her Levophed and I suspect that is on the basis of her CRRT. We will proceed as outlined. Prognosis remains guarded at best. I left the bedside at 10:06 hours. Thirty six minutes of critical care time at the bedside not including procedures. CYNDI
[2020-06-08] MEDS: LEVEMIR (INSULIN DETEMIR) 1 UNITS/0.01ML SC SCH ×2 (09:15→20:07)
[2020-06-08] MEDS: PANTOPRAZOLE 40MG VIAL (C9113 PER 1) IV SCH (09:16)
[2020-06-08] MEDS: CHLORHEXIDINE GLUCONATE 0.12 % 15ML UDC (PERIDEX ORAL RINSE) MT SCH ×2 (09:20→20:06)
[2020-06-08] MEDS: MIDODRINE 5 MG TAB PO SCH ×3 (09:20→16:31)
[2020-06-08] MEDS: levETIRAcetam INJection 500 MG in D5W MINI-BAG PLUS 100 ML IV SCH ×2 (09:21→20:06)
[2020-06-08] MEDS: HEPARIN SOD (PORCINE) 5000UNITS/ML 1ML VIAL/SYRINGE SQ SCH ×3 (09:22→21:49)
[2020-06-08] MEDS: BISACODYL 10 MG SUPP PR PRN (09:22)
[2020-06-08] MEDS: NS 1,000 ML IV SCH (09:58)
--- NOTE | 2020-06-08 10:14 | CCN ---
CRITICAL CARE NOTE DATE: 06/08/2020 SUBJECTIVE: Ms. Murry was seen and examined this morning. Currently, the patient has once again spiked a fever of 101.7 this morning. She does remain on vancomycin and meropenem. The patient has been transitioned off of CVVHD as of yesterday. Additionally, the patient is continued on tube feedings although she does continue to have high residuals of 200 mL to 300 mL. Additionally, the patient is noted not to have bowel movement and bowel regimen p.r.n. has been ordered. Otherwise, the patient has remained relatively stable. She has been transitioned to SIMV ventilator mode and appears to be doing well from a respiratory standpoint. OBJECTIVE: VITAL SIGNS: Temperature 101.5 rectally, pulse 119, respiratory rate 26, blood pressure 97/49, pulse oximetry 93% on the ventilator on SIMV mode with pressure support of 15, respiratory rate of 12, tidal volume 430, PEEP of 5 GENERAL: The patient is currently sedated. She is intubated on mechanical ventilation. She does appear critically ill. HEENT: Atraumatic/normocephalic. Eyes nonicteric. Trachea is midline. Mucous membranes are pink and moist. She has a nasogastric tube in place, as well as an endotracheal tube. She has a right-sided subclavian central venous catheter placed as well. CARDIOVASCULAR: Normal S1, S2. Tachycardic with a regular rhythm. No clicks, rubs, or murmurs auscultated. PULMONARY: Improved aeration. There are no wheezes, rhonchi, or rales noted. ABDOMEN: The patient's abdomen is soft and nontender. She is obese. She has continued hypoactive bowel sounds. No abdominal bruises or masses. She has a right femoral dialysis catheter in place. EXTREMITIES: The patient's extremities are with improvement in her edema. Lower extremities are without any edema. She has TEDs sequentials in place. Full and equal pulses bilateral upper and lower extremities. NEUROLOGIC: No focal neurological deficits. VASCULAR ACCESS: The patient has a right-sided subclavian central venous catheter in place (Placed 06/01/20). Previous right sided femoral dialysis catheter has been removed LABORATORY DATA: Hematology: White blood cell 16.3, hemoglobin 6.7, hematocrit 22.1, platelet count 85,000. Chemistries: Sodium 140, potassium 4.2, chloride 109, CO2 of 24, BUN 27, creatinine 2.77, fasting glucose 179, calcium 7.4, phosphorus 3.6, magnesium 2.5, AST 47, ALT 42, alkaline phosphatase 188, LDH 363, total CK 240, total protein 5.0, albumin 2.1. Microbiology: Sputum culture demonstrating yeast-like organisms. Gluteal fold abscess demonstrating yeast-like organism. Blood culture from 06/04, demonstrating Staph epidermidis x1. Blood culture and urine culture currently pending. Arterial blood gases (ABGs): pH 7.43, pCO2 of 34, pO2 of 80.1. IMAGING: Chest x-ray obtained today demonstrating endotracheal tube in good position. Once again, with no significant change from her previous chest x-rays. INPATIENT MEDICATIONS: - micafungin 100 mg every 24 hours - midodrine 10 mg at 0800, 1200 and 1600 p.o. - sodium chloride 40 mL/hour - Levemir 15 units b.i.d. - Reglan 2 mg every six hours - hydrocodone two tabs every eight hours - meropenem 500 mg every hour - morphine 2 mg every 30 minutes p.r.n. - Tylenol 650 mg every six hours p.r.n. - Versed drip - DuoNeb 3 mL required q.i.d. - Keppra 500 mg every 12 hours - Protonix 40 mg daily - Albuterol two puffs every four hours p.r.n. ASSESSMENT AND PLAN: Ms. Murry is a 40-year-old female with a history of seizure disorder and recently diagnosed with diabetes who presented initially with altered mental status and was found to be profoundly hyperglycemic with ketoacidosis. Initially, she was found to have acute pancreatitis, hypernatremia, and acute oliguric renal failure. She was transferred to the intensive care unit (ICU). The patient was started on continuous veno-venous hemodialysis (CVVHD). She subsequently developed hypoxic respiratory failure and was placed on mechanical ventilation. The patient has been discontinued on CVVHD. She had been transitioned off yesterday. She continues to spike fevers and she has been placed on vancomycin and meropenem and recently started on micafungin today. 1. Acute respiratory failure. The patient has developed acute respiratory failure likely secondary to mucous plug and inability to protect her airway. She is currently on SIMV mode with a respiratory rate of 12, tidal volume of 430, PEEP of 5, and pressure support of 15. PH today was 7.43 and a pCO2 of 34. 2. Sepsis with shock. The patient had previously developed a fever with elevated white count, hypotension, and tachycardia. She was previously on Levophed and this is currently on hold. Nephrology had started midodrine for added pressure support. She has had re-imaging of her abdomen and pelvis, which did not demonstrate any necrotizing pancreatitis or abscess formation. Her gluteal abscess has been cultured demonstrating yeast-like organism. Additionally, the patient had a repeat urine culture, which demonstrated once again yeast-like organisms. Today a repeat urine culture is currently pending; however, does appear dirty on urinalysis (UA). Other source of infection could include C. difficile, although the patient is currently not having any diarrhea. At this time, she is on vancomycin and meropenem. Will add micafungin as she has recurrent fevers and appears not to be responding to either vancomycin or meropenem. 3. Diabetic ketoacidosis. The patient originally presented with diabetic ketoacidosis with elevated anion gap, elevated beta-hydroxybutyrate, and hyperglycemia. She was on CVVHD. She is currently taken off this. She is currently back on to sliding scale insulin with long-acting coverage. We will continue to monitor. 4. Acute blood loss anemia. The patient currently has a hemoglobin of 6.7. She was noted to clot off her CVVHD machine, which is likely the source of her anemia. Currently, she is being transfused a unit per nephrology and we will continue to monitor. 5. Acute pancreatitis. The patient had developed acute pancreatitis. Lipase was elevated on presentation. Imaging was consistent with this as well. At this time, it appears that her acute pancreatitis has likely resolved. She has been started on tube feeds with Nepro at 15 mL/hour with three hour flushes. She does continue to have high residuals. We will continue with nutrition. 6. Acute oliguric renal failure. The patient has acute oliguric renal failure followed by nephrology. She was previously on CVVHD and this has been stopped as of yesterday. The patient is currently making urine. We will continue to monitor of her further increase in urine output and return of kidney function. 7. Thrombocytopenia. The patient had a low platelet count stabilized around 70s to 80s. Her heparin-induced antibodies did return negative. She is on PATRICIA sequentials. We will start up heparin 5000 units q. eight hours for her deep vein thrombosis (DVT) prophylaxis. 8. Hypernatremia. The patient's hypernatremia resolved likely secondary to her severe dehydration on presentation. We will continue to monitor. 9. Transaminitis. The patient's transaminases did normalize. We will continue to monitor. 10. Unspecified seizure disorder. The patient is continued on Keppra. 11. Supraventricular tachycardia. The patient is currently in sinus rhythm. She is sinus tachycardic; however, this is sinus tach likely secondary and compensatory to her sepsis. 12. Hypotension. Once again, likely secondary to her critical illness. She was previously on Levophed and she has been started on midodrine per nephrology. We will continue to monitor. 13. Deep vein thrombosis (DVT) prophylaxis. PATRICIA and sequentials, as well as heparin 5000 units q. eight hours started today. 14. Gastrointestinal (GI) prophylaxis 40 mg IV. 15. Nutrition. The patient is currently on tube feedings with Nepro at 15 mL/hour. Have added Reglan due to her residuals as she continues to have some high residuals. 16. Constipation. The patient has not had a bowel movement since presentation. She has a Fleet enema and Dulcolax order p.r.n. that will start today. DISPOSITION: The patient remains critically ill with a very guarded prognosis. There have been some clinical improvements regarding her respiratory status. Additionally, she has shown some improvement in her renal function. The most pressing issue is her sepsis. I was physically present for the entire interview and exam and gree with the above assessment and plan as outlined by Dr. Ramírez CRITICAL CARE TIME: 45 minutes. [facility]
[2020-06-08] MEDS: MICAFUNGIN SODIUM 100 MG in D5W MINI-BAG PLUS 100 ML IV SCH (10:59)
[2020-06-08] MEDS ORDERED: VANCOMYCIN INTERMITTENT/PULSE DOSING BY CLINICAL PHARMACIST PER DOSING PROTOCOL XX SCH (11:00)
[2020-06-08] MEDS: MORPHINE 2 MG/ML 1ML VIAL (J2270) IV PRN ×2 (12:07→16:30)
[2020-06-08 18:56] LABS: HEMATOCRIT 27.5 % (36.0-47.0); HEMOGLOBIN 8.5 g/dl (12.0-15.5)
[2020-06-09] VITALS (24 sets, daily range): BP systolic 90–138; BP diastolic 46–84
[2020-06-09] MEDS: HumaLOG INSULIN (NovoLOG) PER UNIT SC SCH ×4 (00:24→17:30)
[2020-06-09] MEDS: MEROPENEM INJ 500 MG in IV 1 EA IV SCH ×3 (00:24→17:57)
[2020-06-09] MEDS: METOCLOPRAMIDE HCL LIQUID 10 MG/10 ML UDC NG SCH ×5 (00:25→23:48)
[2020-06-09] MEDS: HEPARIN SOD (PORCINE) 5000UNITS/ML 1ML VIAL/SYRINGE SQ SCH ×3 (05:46→21:31)
[2020-06-09] MEDS: ANEXSIA, NORCO 7.5MG/325MG TABLET(HYDROCODONE/APAP) PO SCH (05:47)
[2020-06-09 06:07] LABS: HEMATOCRIT 27.6 % (36.0-47.0); HEMOGLOBIN 8.7 g/dl (12.0-15.5); MEAN CORPUSCULAR HEMOGLOBIN 30.7 pg (27.0-33.0); MEAN CORPUSCULAR HGB CONC 31.5 g/dl (32.0-36.5); MEAN CORPUSCULAR VOLUME 97.5 fl (80.0-96.0); RED BLOOD COUNT 2.83 10^6/uL (4.00-5.40); WHITE BLOOD COUNT 18.7 10^3/uL (4.0-10.0)
[2020-06-09 06:11] LABS: PLATELET COUNT, AUTOMATED 85 10^3/uL (150-450)
[2020-06-09 06:25] LABS: ALBUMIN 1.8 GM/DL (3.2-5.2); BILIRUBIN,TOTAL 0.3 MG/DL (0.2-1.0); CALCIUM LEVEL 7.7 MG/DL (8.5-10.1); CREATININE FOR GFR 3.45 MG/DL (0.55-1.30); GLOMERULAR FILTRATION RATE 15.7 (>60); PHOSPHORUS LEVEL 4.7 MG/DL (2.5-4.9); POTASSIUM SERUM 3.9 MEQ/L (3.5-5.1); TOTAL PROTEIN 5.7 GM/DL (6.4-8.2)
[2020-06-09] MEDS: IPRATROPIUM 0.5MG/ALBUTEROL 2.5MG INH SOL UD 3ML (DUONEB) NEB SCH ×4 (07:28→19:37)
[2020-06-09] MEDS: PANTOPRAZOLE 40MG VIAL (C9113 PER 1) IV SCH (08:45)
[2020-06-09] MEDS: MIDODRINE 5 MG TAB PO SCH ×3 (08:45→17:25)
[2020-06-09] MEDS: levETIRAcetam INJection 500 MG in D5W MINI-BAG PLUS 100 ML IV SCH ×2 (08:45→21:30)
[2020-06-09] MEDS: CHLORHEXIDINE GLUCONATE 0.12 % 15ML UDC (PERIDEX ORAL RINSE) MT SCH ×2 (08:49→21:31)
[2020-06-09] MEDS: LEVEMIR (INSULIN DETEMIR) 1 UNITS/0.01ML SC SCH ×2 (09:41→21:30)
[2020-06-09] MEDS: MICAFUNGIN SODIUM 100 MG in D5W MINI-BAG PLUS 100 ML IV SCH (09:45)
--- NOTE | 2020-06-09 10:14 | CCN ---
CRITICAL CARE NOTE DATE: 06/09/2020 SUBJECTIVE: Ms. Murry was seen and examined this morning. There have been no adverse events reported overnight. She has remained febrile with a T-max of 100.9 last night. The patient is arousable this morning. She has had bowel movements overnight. She still is having issues tolerating her tube feeding. OBJECTIVE: VITAL SIGNS: Temperature 99.2, pulse 104, respiratory rate 24, blood pressure 130/84, pulse oximetry 96% on the ventilator with SIMV mode with pressure support of 15, respiratory rate of 6, tidal volume 430, FiO2 of 28, and a PEEP of 5. GENERAL: The patient is sedated on Versed drip. She appears critically ill. She is in no acute distress. She is lying in bed. HEENT: Atraumatic/normocephalic. Eyes anicteric. Trachea is midline. Mucous membranes are pink and moist. She has an endotracheal tube in place. She has some bruising on the right neck from her previous internal jugular vein catheter. CARDIOVASCULAR: There is normal S1, S2. Tachycardic rate with regular rhythm. No clicks, rubs, or murmurs. PULMONARY: The patient has some bronchial breath sounds and otherwise clear breath sounds bilaterally somewhat decreased at the bases. There is no accessory muscle. There are no wheezes or rales noted. ABDOMEN: Patient's abdomen is soft and nontender. It is slightly distended. She is obese. There are continued hypoactive bowel sounds. No abdominal bruises or masses. EXTREMITIES: The patient's extremities are void of any edema. She has TEDs sequentials in place. Full and equal pulses bilateral upper and lower extremities. NEUROLOGIC: No focal neurological deficits. VASCULAR ACCESS: The patient has a right-sided subclavian central venous catheter that was placed on 06/01/2020. LABORATORY DATA: Hematology: White blood cell count 18.7, hemoglobin 8.7, hematocrit 27.6, platelet count 85,000. Chemistries: Sodium 144, potassium 3.9, chloride 113, CO2 of 23, BUN 37, creatinine 3.45, fasting glucose 203, calcium 7.7, phosphorus 4.7, bilirubin 0.3, AST 41, ALT 36, alkaline phosphatase 242, LDH 385, total CK 368, total protein 5.7, albumin 1.8. Microbiology: Sputum cultures, urine culture, and gluteal abscess culture all positive for yeast-like organism. INPATIENT MEDICATIONS: - micafungin 100 mg every 24 hours - heparin 5000 q. eight hours - midodrine 2 mg 0800, 1200 and 1600 p.o. - insulin Levemir 15 units b.i.d. - Reglan 10 mg every six hours - meropenem 500 mg every eight hours - morphine 2 mg every 30 minutes p.r.n. - Tylenol 650 mg every six hours p.r.n. - Versed drip - DuoNeb 3 mL required q.i.d. - Versed 2 mg every 15 minutes p.r.n. - Keppra 500 mg every 12 hours - Protonix 40 mg daily IV - Proventil two puffs every four hours p.r.n. ASSESSMENT AND PLAN: Ms. Murry is a 40-year-old female with a past medical history of seizure disorder and recently diagnosed diabetes who presented initially with altered mental status found to be profoundly hyperglycemic with ketoacidosis. Initially, she was found to have acute pancreatitis. She was severely hypernatremic and in acute oliguric renal failure. She was transferred to the intensive care unit. The patient was started CVVHD and had developed hypoxic respiratory failure and placed on mechanical ventilation. The patient has been transitioned off of CVVHD. She continues to spike fevers. She is currently on vancomycin, meropenem, and micafungin. 1. Acute respiratory failure. The patient had originally developed acute respiratory failure secondary to mucous plugging and inability to protect her airway. She is currently on SIMV with pressure support of 15, respiratory rate 6, tidal volume 430, FiO2 of 28, and a PEEP of 5. 2. Sepsis with septic shock. The patient had developed sepsis. She has had hypotension, tachycardia, and elevated white blood cell count. She was previously on Levophed. Currently she is on midodrine. She has had re-imaging of her abdomen and pelvis and there are no signs of necrotizing pancreatitis or abscess formation. She has had multiple cultures of both her sputum, her gluteal abscess, and her urine, which all have demonstrated yeast-like organism. Additionally, in the setting of acute severe pancreatitis, candidemia is possible. The patient was empirically started on micafungin yesterday. We will continue micafungin, meropenem, and vancomycin at this current time due to the unidentified source of infection. Additionally if it is fungemia, the patient will need her right-sided subclavian catheter removed. 3. Diabetic ketoacidosis. The patient presented with diabetic ketoacidosis with elevated anion gap and elevated beta-hydroxybutyrate. She has since been transitioned over to sliding scale insulin long-acting coverage. She has been on tube feeds and is not tolerating well. We will have to consider starting TPN. 4. Acute blood loss anemia. The patient previously with anemia yesterday likely secondary to clotting of her dialysis machine. She has been transfused two units and is currently stable. Continue to monitor. 5. Acute pancreatitis. The patient presented with acute pancreatitis. As this has likely resolved, she was started on tube feedings, and she is not tolerating her tube feeds with high residuals. 6. Acute oliguric renal failure. The patient had acute oliguric renal failure likely secondary to her acute pancreatitis and severe diabetic ketoacidosis with dehydration. She was previously on CVVHD. She has been transitioned off. She continues to have good urine output; however, her creatinine continues to bump up. She is being followed by nephrology and their recommendations are appreciated. 7. Thrombocytopenia. The patient's platelet count stabilized. She has been restarted on heparin. We will continue to monitor. 8. Unspecified seizure disorder. The patient is continued on Keppra. 9. Supraventricular tachycardia. The patient has remained in sinus rhythm since admission to the ICU. 10. Deep vein thrombosis prophylaxis. The patient is on TEDs sequentials, as well as heparin 5000 units q. eight hours. 11. Gastrointestinal (GI) prophylaxis with 40 mg Protonix IV. 12. Nutrition. The patient was previously on Nepro at 15 mL/hour for tube feedings; however, she is not tolerating this. She has continued 200 mL residual. Will contact nephrology about resuming TPN and discontinuing her tube feeds. 13. Intertrigo. The patient has a rash in her intertriginous areas. She is currently covered with antimicrobials. 14. Constipation and bowel care. The patient has p.r.n. Fleet enema and Dulcolax ordered. She had two bowel movements yesterday. DISPOSITION: The patient continues to remain critically ill. She has an overall guarded prognosis. There have been some minor improvements. CRITICAL CARE TIME: 45 minutes. I was physically present for the entire interview and exam. I agree with the above assessment and plan as described above. CYNDI
--- NOTE | 2020-06-09 10:43 | CCN ---
CRITICAL CARE NOTE DATE: 06/02/2020 SUBJECTIVE: Ms. Murry was seen and examined this morning. There have been no adverse events reported overnight. She admitted to spiking fevers with a T-max of 100.9. Additionally, she is not tolerating her tube feeds and continues to have about 200 mL residual. She has had two bowel movements yesterday. However, she still has some abdominal distention. OBJECTIVE: Vital signs: Temperature 99.2 with a T-max of 100.9, pulse 104, respiratory rate 24, blood pressure 138/84, pulse oximetry 96% on the ventilator with SIMV with pressure support of 15, respiratory rate of 6, tidal volume 430, FiO2 28, and a PEEP of 5. General: Patient is currently sedated. She does not appear in any acute distress. She is critically ill. HEENT: Atraumatic, normocephalic. Eyes anicteric. Trachea is midline. Mucous membranes are pink and moist. There is an endotracheal tube and orogastric tube in place. Cardiovascular: Normal S1 and S2. Tachycardic rate with a regular rhythm. No clicks, rubs, or murmurs. Pulmonary: Some bronchial breath sounds. No wheezes, rhonchi, or rales. Symmetric chest expansion. Abdominal: Patient's abdomen is soft. It is slightly distended. There are hypoactive bowel sounds. There are no palpable masses or organomegaly. Extremities: There is no edema in the lower extremities. There is slight edema in the upper extremities. There are full and equal pulses bilaterally upper and lower extremities. Neurologic: No focal neurological deficits. Vascular access: Patient has a right-sided subclavian central venous catheter that was placed on 06/01/2020. LABORATORY DATA: Hematology: White blood cells 18.7, hemoglobin 8.7, hematocrit 27.6, platelet count 85. Chemistries: Sodium 144, potassium 3.9, chloride 113, CO2 23, BUN 37, creatinine 3.45, glucose 203, calcium 7.7, phosphorus 4.7, total bilirubin 0.3, AST 41, ALT 36, alkaline phosphatase 242, LDH 385, total CK 368, total protein 5.7, albumin 1.8. Microbiology: Patient had cultures of her sputum, urine, and gluteal abscess all demonstrating a yeast-like organism. INPATIENT MEDICATIONS: 1. Micafungin 100 mg every 24 hours. 2. Heparin 5,000 units q.8h. 3. Midodrine 10 mg 0800, 1200, and 1600. 4. Levemir 15 units b.i.d. 5. Reglan 10 mg q.6h. 6. Meropenem 500 mg q.8h. 7. Morphine 2 mg every 30 minutes p.r.n. 8. Tylenol 650 mg every six hours p.r.n. 9. Versed drip. 10. DuoNebs 3 mL as required q.i.d. 11. Versed 2 mg every 15 minutes p.r.n. 12. Keppra 500 mg every 12 hours. 13. Proventil two puffs every four hours. 14. Protonix 40 mg daily IV. ASSESSMENT AND PLAN: Ms. Murry is a 40-year-old female with a history of seizure disorder and recently diagnosed diabetes who presented initially with altered mental status and felt to be predominantly hyperglycemic ketoacidosis. Additionally, the patient was found to have acute pancreatitis and severe hypernatremia and acute oliguric renal failure. She was transferred to the ICU and placed on CVVHD. She subsequently developed hypoxemic respiratory failure and was placed on mechanical ventilation. The patient has since been taken off of CVVHD as she has been making urine. She continues to spike fevers with a T-max of 100.9. She is continued on vancomycin, meropenem, and micafungin. 1. Acute respiratory failure: Patient had developed acute respiratory failure secondary to mucous plugging. Currently she remains intubated. However, she is on SIMV mode with pressure support of 15, respiratory rate of 6, tidal volume 430, FiO2 of 28, and a PEEP of 5. 2. Sepsis: Patient developed a fever, elevated white count, and at one point hypotension and tachycardia. She was previously on Levophed. It is currently on hold. Nephrology has started the patient on midodrine. Her blood pressure has been stable. She had re-imaging of her abdomen and pelvis previously which did not demonstrate necrotizing pancreatitis or abscess formation. She has had multiple cultures of her sputum as well as her gluteal abscess and her urine which all demonstrated yeast-like organism. In the setting of severe acute pancreatitis, fungemia is a possibility. She was started empirically on micafungin yesterday. Will continue. Currently patient remains on micafungin, vancomycin, and meropenem. 3. Diabetic ketoacidosis/diabetes mellitus type 2: Patient is diabetic. She presented in diabetic ketoacidosis with an elevated anion gap, elevated beta-hydroxybutyrate, and hyperglycemia. She has since been transitioned just to long-acting coverage and sliding scale insulin. 4. Acute blood loss anemia: Patient had a hemoglobin of 6.7 yesterday. Currently her hemoglobin has come up to 8.7. She has received 2 units of transfusion. Her acute blood loss anemia was likely secondary to clotting in the CVVHD machine. Will continue to monitor. 5. Acute pancreatitis: Patient had originally presented with acute pancreatitis, lipase elevated on presentation, and imaging was consistent with this. She had re-imaging which did not demonstrate any necrotizing pancreatitis or abscess formation. Her lipase has normalized. She was previously started on tube feeds with Nepro at 15 mL per hour. However, she has not tolerated this with upwards of 200 mL residuals. Will likely need to begin TPN for nutrition. 6. Acute oliguric renal failure: Patient had acute oliguric renal failure which is likely secondary to severe dehydration from her diabetic ketoacidosis as well as her severe pancreatitis. She was previously on CVVHD, and she is currently making good urine. Creatinine continues to rise. The patient is being followed by Nephrology. Their recommendations are appreciated. 7. Thrombocytopenia: Patient's platelet count has stabilized, currently 85. Heparin antibodies are negative. Patient was restarted on heparin 5,000 units q.8 hours for DVT prophylaxis. 8. Unspecified seizure disorder: Patient is continued on Keppra. 9. Transaminitis: Transaminitis is normalizing. Will continue to monitor. 10. Supraventricular tachycardia: Patient is currently in sinus rhythm. She has sinus tachycardia. She has not been in supraventricular tachycardia since admitted to the ICU. 11. DVT prophylaxis: TEDS, sequentials, and heparin 5,000 units every eight hours. 12. GI prophylaxis: Protonix 40 mg IV. 13. Nutrition: Patient is currently tolerating her tube feeds. Will need to start TPN. Nephrology previously managing this. Will reach out and see if they are willing to rewrite for TPN orders. 14. Constipation: Patient noted to have constipation. She does have some distention. Likely from the morphine she was getting. This has been discontinued. Patient did have two bowel movements. She has p.r.n. bowel regimen and bowel care ordered. DISPOSITION: Patient does remain critically ill with a guarded prognosis. She has made some clinical improvements. However, her renal function is not improving as much as it should. If that is the case, she may need CVVHD and will need line placement through interventional radiology. Additionally, if patient truly does have fungemia, she will need her right subclavian line removed as well. Overall, the patient has a very guarded prognosis. CRITICAL CARE TIME: Forty-five minutes. I WAS PHYSICALLY PRESENT FOR THE ENTIRE INTERVIEW AND EXAM AND AGREE WITH THE ABOVE. CYNDI
--- NOTE | 2020-06-09 13:25 | IPNPDOC ---
Subjective Date Seen I spoke wih Pt's mother Sheron Murry (number on file) and updated her regarding pt's clinical condition and early signs of renal recovery. Discussed need for blood transfusion and consent was verbally obtained by myself. Subjective General: Reports: ROS Unobtainable Assessment /Plan Assessment see today's separate nephrology note Plan/VTE VTE Prophylaxis Ordered?: Yes VS, I&O, 24H, Fishbone Vital Signs/I&O Vital Signs Date Time Temp Pulse Resp B/P (MAP) Pulse Ox O2 Delivery O2 Flow Rate FiO2 06/09/20 07:33 104 24 93 30 06/09/20 06:00 138/84 (102) Ventilator 06/09/20 04:00 99.2 06/03/20 16:00 25.0 I&O- Last 24 Hours up to 6 AM 06/09/20 06:00 Intake Total 1614 ml Output Total 2855 ml Balance -1241 ml Laboratory Data 24H LABS Laboratory Tests 2 06/08/20 17:31: Bedside Glucose (Misc Panel) 211H 06/09/20 00:08: Bedside Glucose (Misc Panel) 205H 06/09/20 05:50: Anion Gap 8, Glomerular Filtration Rate 15.7L, Calcium Level 7.7L, Phosphorus Level 4.7#, Total Bilirubin 0.3, Aspartate Amino Transf (AST/SGOT) 41H, Alanine Aminotransferase (ALT/SGPT) 36, Alkaline Phosphatase 242H, Lactate Dehydrogenase 385H, Total Creatine Kinase 368H, Total Protein 5.7L, Albumin 1.8L, Albumin/Globulin Ratio 0.5L, Triglycerides Level 289H, Cholesterol Level 137, Random Vancomycin Level 20.5 06/09/20 05:51: Nucleated Red Blood Cells % (auto) 2.1H, Immature Platelet Fraction 7.8 06/09/20 09:32: Bedside Glucose (Misc Panel) 222H 06/09/20 12:08: Bedside Glucose (Misc Panel) 188H CBC/BMP Laboratory Tests 06/08/20 18:47 06/09/20 05:50 06/09/20 05:51 Microbiology Microbiology 06/08/20 Stool Occult Blood (MALIK) - Final, Complete 06/08/20 Gram Stain - Final, Resulted 06/08/20 Sputum Culture - Preliminary, Resulted Yeast Like Organism 06/08/20 Blood Culture - Preliminary, Resulted No growth after 24 hours . All specim... 06/08/20 Urine Culture - Final, Complete Yeast Like Organism 06/06/20 Gram Stain - Final, Complete 06/06/20 Sputum Culture - Final, Complete Yeast Like Organism 06/04/20 Gram Stain - Final, Complete 06/04/20 Wound Culture - Final, Complete Yeast Like Organism 06/04/20 Blood Culture - Final, Complete NO GROWTH AFTER 5 DAYS 06/04/20 Blood Culture - Final, Complete Staphylococcus Epidermidis 05/30/20 Blood Culture - Final, Complete NO GROWTH AFTER 5 DAYS 05/30/20 Urine Culture - Final, Complete Strep Agalactiae Group B Lactobacillus Species 05/30/20 Blood Culture - Final, Complete NO GROWTH AFTER 5 DAYS REMA JOHN DO Jun 09, 2020 13:25
[2020-06-09] MEDS: MIDAZOLAM HCL 100 MG in D5W 80 ML IV SCH (14:04)
[2020-06-09] MEDS ORDERED: FAT EMULSION IV 20% 500 ML IV SCH (18:00)
[2020-06-09] MEDS ORDERED: CALCIUM GLUCONATE IV SCH ×4 (18:00)
[2020-06-09] MEDS ORDERED: SODIUM ACETATE IV SCH ×4 (18:00)
[2020-06-09] MEDS ORDERED: [UNRECOGNIZED DRUG - OTHER] IV SCH ×4 (18:00)
[2020-06-09] MEDS: MORPHINE 2 MG/ML 1ML VIAL (J2270) IV PRN ×2 (21:29→23:46)
[2020-06-10] VITALS (36 sets, daily range): BP systolic 89–148; BP diastolic 43–88; O2SAT 94
[2020-06-10] MEDS: HumaLOG INSULIN (NovoLOG) PER UNIT SC SCH ×4 (00:33→17:43)
[2020-06-10] MEDS: MEROPENEM INJ 500 MG in IV 1 EA IV SCH ×3 (01:01→17:39)
[2020-06-10] MEDS: ACETAMINOPHEN 650 MG SUPP PR PRN ×2 (05:27→18:34)
[2020-06-10 05:49] LABS: ABG BASE EXCESS -1.2 (-2.0-2.0); ABG HCO3 22.7 MEQ/L (22.0-26.0); ABG O2 SATURATION 97.3 % (95.0-99.0); ABG PARTIAL PRESSURE CO2 34.2 mmHg (35.0-45.0); ABG PARTIAL PRESSURE O2 97.7 mmHg (75.0-100.0); ABG STANDARD HCO3 23.5 MEQ/L (22.0-26.0); ABG TOTAL CO2 23.7 MEQ/L (22.0-29.0); ABG pH (ARTERIAL) 7.439 UNITS (7.350-7.450)
[2020-06-10 05:59] LABS: HEMATOCRIT 27.3 % (36.0-47.0); HEMOGLOBIN 8.6 g/dl (12.0-15.5); MEAN CORPUSCULAR HEMOGLOBIN 30.9 pg (27.0-33.0); MEAN CORPUSCULAR HGB CONC 31.5 g/dl (32.0-36.5); MEAN CORPUSCULAR VOLUME 98.2 fl (80.0-96.0); RED BLOOD COUNT 2.78 10^6/uL (4.00-5.40); WHITE BLOOD COUNT 16.8 10^3/uL (4.0-10.0)
[2020-06-10 06:00] LABS: PLATELET COUNT, AUTOMATED 99 10^3/uL (150-450)
[2020-06-10 06:13] LABS: ALBUMIN 2.1 GM/DL (3.2-5.2); BILIRUBIN,TOTAL 0.6 MG/DL (0.2-1.0); CALCIUM LEVEL 8.4 MG/DL (8.5-10.1); CREATININE FOR GFR 3.47 MG/DL (0.55-1.30); GLOMERULAR FILTRATION RATE 15.6 (>60); PHOSPHORUS LEVEL 4.2 MG/DL (2.5-4.9); POTASSIUM SERUM 3.4 MEQ/L (3.5-5.1); TOTAL PROTEIN 6.4 GM/DL (6.4-8.2)
[2020-06-10] MEDS: HEPARIN SOD (PORCINE) 5000UNITS/ML 1ML VIAL/SYRINGE SQ SCH ×3 (06:38→21:01)
[2020-06-10] MEDS: METOCLOPRAMIDE HCL LIQUID 10 MG/10 ML UDC NG SCH ×3 (06:38→17:44)
[2020-06-10] MEDS: MIDAZOLAM HCL 100 MG in D5W 80 ML IV SCH (06:55)
[2020-06-10] MEDS: MORPHINE 2 MG/ML 1ML VIAL (J2270) IV PRN ×3 (07:51→15:43)
[2020-06-10] MEDS: MIDODRINE 5 MG TAB PO SCH ×3 (08:21→17:44)
[2020-06-10] MEDS: LEVEMIR (INSULIN DETEMIR) 1 UNITS/0.01ML SC SCH ×2 (08:22→21:01)
[2020-06-10] MEDS: CHLORHEXIDINE GLUCONATE 0.12 % 15ML UDC (PERIDEX ORAL RINSE) MT SCH ×2 (08:22→21:00)
[2020-06-10] MEDS: levETIRAcetam INJection 500 MG in D5W MINI-BAG PLUS 100 ML IV SCH ×2 (08:22→21:00)
[2020-06-10] MEDS: PANTOPRAZOLE 40MG VIAL (C9113 PER 1) IV SCH (08:22)
--- NOTE | 2020-06-10 08:27 | IPN ---
PROGRESS NOTE DATE: 06/09/2020 SUBJECTIVE: Patient is seen and examined this morning at the bedside in the Intensive Care Unit. 24-hour events are reviewed. Patient remains hemodynamically stable and has not required any pressor support since Monday morning, continues on Midodrine and I.V. albumin every 8 hours with stable mean arterial pressures. She continues to have large residuals and tube feeds have not been advanced beyond 15 cc an hour. Her urine output continues to improve and her CVP is down to 10 from 14 over the weekend, but laboratory studies still show raise in serum creatinine. She continues to have low-grade fevers. Her hemoglobin has not down trended since the last transfusions yesterday morning. Patient remains intubated and sedated. I spoke wih Pt's mother Sheron Murry (number on file) and updated her regarding pt's clinical condition and early signs of renal recovery. Discussed need for blood transfusion and consent was verbally obtained by myself. PHYSICAL EXAMINATION: VITAL SIGNS: T-max prior 24 hours 100.9, T current 99.7, pulse 110, respiratory rate 24, blood pressure 95/52, saturating 95% on 30% FiO2. INTAKE AND OUTPUT: Intake yesterday was 2 liters. Urine output was 2.2 liters, net negative 200 cc. Weight in the bed scale today is 117 kg. GENERAL: Patient is seen intubated and sedated. A morbidly obese female. Endotracheal tube in place. HEENT: Pupils are reactive to light. There is a triple lumen catheter in the right subclavian. LUNGS: Show symmetric air entry bilaterally. No crackle or rale. HEART: Heart sounds are tachycardic, S1, S2. I do no appreciate any murmurs. ABDOMEN: Soft, obese and there are hypoactive bowel sounds. GENITOURINARY: Shows indwelling Karimi catheter. EXTREMITIES: Show 1+ pitting edema diffusely in the upper and lower extremities. There is no clubbing or cyanosis. She is noted to spontaneously move the extremities. NEUROLOGIC: She is intubated and sedated, however, she moves extremities to tactile stimulus. She is breathing over the vent. LABORATORY DATA TODAY: White count 18.7, hemoglobin 8.7, platelets 85,000. Sodium 144, potassium 3.9, bicarbonate 23, BUN 37, creatinine 3.4. Phosphorus 4.7. Magnesium 2.5. Albumin 1.8. INPATIENT MEDICATIONS: Medications reviewed by myself. Her insulin was adjusted by the primary team, otherwise there are no medication changes in the past 24 hours. PROBLEMS: 1. Nonoliguric acute renal failure: The patient has promising signs of renal recovery, her urine output is steadily increasing. She is maintaining MAP greater than 75 with combination Midodrine along with albumin infusion every 8 hours. She made 2.2 liters in the past 24 hours, however, her serum creatinine does continue to rise. She may require intermittent hemodialysis treatment for clearance, however, today there is no urgent indication for dialysis and we will reassess her on a daily basis for dialysis needs. She does not have any dialysis catheter and I will hold off on placing one until I see a need for dialysis. 2. Sepsis with shock in the setting of pancreatitis: She continues to have low-grade fevers and her white count is steadily rising. She is on broad spectrum antimicrobials with Meropenem and Vancomycin (Vancomycin random level this morning 20) and she was also recently started on Micafungin in view of yeast from the sputum culture, urine culture and from the buttock wound. Continue with Midodrine. Albumin is less than 2, so continue with albumin every 8 hours as well and new orders are written. 3. Fluid overload: Her CVP this morning is 10 down from 14 over the weekend. Her urine output is increasing. She is significantly hypoalbuminemic and does have third spacing of fluid. She is not tolerating much in the way of tube feeds due to high residuals, so I am starting her on Clinimix, but at a low rate of 50 cc an hour. Her oxygen requirements have been stable with FiO2 of 30%. There is no need for diuretic at this time. 4. Nutrition: Orders for special formula TPN are written with low potassium, phosphorus and sodium. Her formulation will be hypotonic as opposed to isotonic and insulin is included as well in view of her uncontrolled diabetes. Continue low dose tube feeds as tolerated as well. 5. Anemia: Multifactorial due to critical illness, renal failure, recurrent and frequent clotting of the dialysis filter. Hemoglobin has been stable since she was transfused 2 liters yesterday. Her FOBT was negative. She is on Heparin subcutaneously. She can be transfused for hemoglobin less than 8. We will get iron studies prior to starting Aranesp. 6. Type 2 diabetes mellitus with hyperglycemia: A1C of greater than 14%. She is easily prone to DKA. I have ordered insulin with her TPN. Her fingersticks have been fairly well controlled now. 7. Hypoalbuminemia: Three more doses of albumin are ordered, it will help with intravascular volume and renal perfusion. MTDD
[2020-06-10] MEDS: IPRATROPIUM 0.5MG/ALBUTEROL 2.5MG INH SOL UD 3ML (DUONEB) NEB SCH ×4 (09:23→20:10)
[2020-06-10] MEDS ORDERED: VANCOMYCIN HCL 500 MG in D5W MINI-BAG PLUS 100 ML IV ONE (10:00)
--- NOTE | 2020-06-10 10:02 | CCN ---
CRITICAL CARE NOTE DATE: 06/10/2020 SUBJECTIVE: I again attended Grace Murry. We have lightened her sedation considerably. She is much more awake. Intermittently follows some commands, but is still on several milligrams of Versed per hour. OBJECTIVE: VITAL SIGNS: T-max overnight 100.9, heart rate generally in the low 100s with a sinus mechanism, blood pressure 106 to 140s. She is off the Levophed. She remains on midodrine. INTAKE AND OUTPUT: From [id number] 1123 mL in with 4005 out. GENERAL APPEARANCE: She is alert. She does follow movements in the room. Only variable follows commands, but is still on low dose Versed. HEENT: Pupils do react. Sclerae clear. Trachea is in the midline. CHEST: Shows some rhonchi that mostly clear with suctioning. Expansion is symmetric. CARDIAC: Tachycardic, but regular. Peripheral pulses palpable. Trace edema throughout. ABDOMEN: Obese with hypoactive bowel sounds. Not significantly distended this morning. EXTREMITIES: Without cyanosis or clubbing. NEUROLOGIC: As outlined above. LABORATORY DATA: Most recent laboratories show white blood cells 16.8, hemoglobin 8.6, platelet count 99,000. Sodium 147, K 3.4, chloride 116, CO2 of 26, BUN 46, creatinine 3.47, glucose 220. Albumin 2.1. She is on TPN. Sugars overnight varied between 155 to a high of 234. Blood gas this morning on an SIMV of 8, tidal volume of 420, PEEP of 5, pressure support of 15, and FiO2 of 30% has a pH of 7.439, pCO2 of 34.2, and a pO2 of 97.7. IMAGING: No chest x-ray this morning. ASSESSMENT AND PLAN: Most pressing problems requiring my presence at the bedside 1. Respiratory failure requiring mechanical ventilatory support. 2. Sepsis with persistent low-grade fevers; question yeast at this point. 3. Diabetic ketoacidosis (DKA). 4. Acute blood loss anemia. 5. Pancreatitis, resolved. 6. Renal failure, acute kidney injury. 7. Thrombocytopenia, stable. 8. Unspecified seizure disorder. 9. Abnormal liver function tests (LFTs). 10. Deep vein thrombosis (DVT) and ulcer prophylaxis. 11. Nutritional status. 12. Constipation. At this point given her overall improvement in her respiratory status, we will stop the Versed and try extubating her to BiPAP this morning. There was some question of secretion issues in the past, but her last bronchoscopy did not show much in the way of lower airway issues. She remains with low-grade fevers. We will check a procalcitonin. If that is acceptable, then we will discontinue her antimicrobials. She will remain on micafungin in view of the heavy yeast in her sputum, however. From a nutritional standpoint, she is back on total parenteral nutrition (TPN). Her sugars have been acceptable and they will be followed until this will be discontinued until she is able to take p.o. Her anemia is stable at this point and suspected it was difficulties with continuous renal replacement therapy (CRRT). Platelet count has been unchanged. Heparin-induced antibodies were negative. She has had no further seizures. This will continue to be monitored. She will need significant help regarding conditioning and we will assist her with that. Overall, she is still quite critically ill but my hope is that she will tolerate extubation. I left the bedside at 0925 hours. CRITICAL CARE TIME: 40 minutes delivered at the bedside not including procedures.
[2020-06-10] MEDS: MIDAZOLAM INJ 2MG/2ML VIAL (J2250 PER 1MG) IV PRN ×4 (10:06→23:15)
[2020-06-10] MEDS: MICAFUNGIN SODIUM 100 MG in D5W MINI-BAG PLUS 100 ML IV SCH (10:12)
[2020-06-10] MEDS ORDERED: D5W 500 ML IV ONE (10:30)
[2020-06-10] MEDS: KCL 10MEQ/100ML SWI (KRUN) 10 MEQ in IV 1 EA IV SCH ×2 (14:22→15:42)
--- NOTE | 2020-06-10 15:04 | REP ---
INDICATION: Decreased LOC. COMPARISON: None. TECHNIQUE: Helical scanning is acquired. 5 mm axial images were reformatted. Coronal MPR images were generated. FINDINGS: Bone window settings demonstrate an intact bony calvarium. There is no evidence of skull fracture or incidental bony calvarial lesion. There is air and fluid in the sphenoid and ethmoid air cells bilaterally. No intraorbital abnormality is seen. On soft tissue window setting images; the lateral, third, and fourth ventricles are normal in size and position. Omrris-white differentiation pattern is normal above and below the tentorium. There are is no evidence of intracranial hemorrhage. No mass, edema, infarction, or midline shift is seen. No extra-axial fluid collection is appreciated. Digital yarder engineer radiograph demonstrates comfort tracheal and oral esophageal tubes. IMPRESSION: Bilateral sphenoid and ethmoid mucosal thickening and fluid. No acute intracranial abnormality.. <Electronically signed by Jamari Cortés > 06/10/20 1500
[2020-06-10] MEDS ORDERED: MAGNESIUM SULFATE IV SCH ×7 (18:00)
[2020-06-10] MEDS ORDERED: POTASSIUM PHOSPHATE IV SCH ×7 (18:00)
[2020-06-10] MEDS ORDERED: [UNRECOGNIZED DRUG - OTHER] IV SCH ×7 (18:00)
[2020-06-10] MEDS ORDERED: NS 500 ML IV ONE (19:15)
[2020-06-10 20:02] LABS: CALCIUM LEVEL 8.2 MG/DL (8.5-10.1); CREATININE FOR GFR 3.18 MG/DL (0.55-1.30); GLOMERULAR FILTRATION RATE 17.3 (>60); POTASSIUM SERUM 3.5 MEQ/L (3.5-5.1)
[2020-06-10] MEDS ORDERED: POTASSIUM CHLORIDE INJ 20 MEQ in D5W 1,000 ML IV SCH (20:30)
[2020-06-10] MEDS ORDERED: D5W 1,000 ML IV SCH (20:30)
[2020-06-10] MEDS: KCL 20MEQ IN D5W 1000ML 1,000 ML IV SCH (21:00)
--- NOTE | 2020-06-10 23:32 | IPN ---
NEPHROLOGY PROGRESS NOTE DATE: 06/10/2020 SUBJECTIVE: The patient was seen and examined this morning at the bedside in the Intensive Care Unit. She now appears to be in the polyuric phase of renal recovery. Her creatinine has plateaued and is expected to start down trending. She has become hypernatremic secondary to polyuria. She is on special formula TPN which is hypotonic. She remains hemodynamically stable but nursing staff reports she has not yet had any CPAP trials. When her sedation is weaned she does not reliably follow commands. REVIEW OF SYSTEMS: The patient's review of systems was unable to be obtained secondary to clinical condition. PHYSICAL EXAMINATION: VITAL SIGNS: Temperature 99.3, pulse 106, respiratory rate 25, blood pressure 109/58, saturating 95% on 30% FiO2. INTAKE AND OUTPUT: Intake yesterday was 1.1 liter. Urine output was 3.5 liters. GI drainage was 550 mL. Weight in the bed scale today is 114.1 kg. GENERAL APPEARANCE: The patient seen intubated but off sedation, morbidly obese female, is not alert, does not follow commands. HEENT: Pupils are reactive to light. Endotracheal tube is in place. There is a triple lumen catheter in the right subclavian. LUNGS: Symmetric air entry bilaterally. She is coughing persistently. There are no audible crackles or rales. HEART: Mildly tachycardic, S1, S2, I do not appreciate any murmurs. ABDOMEN: Soft, obese and there are hypoactive bowel sounds. GENITOURINARY: Indwelling Karimi catheter. EXTREMITIES: Decreased edema, now mostly prominent in the hands, feet and in the dependent area. There is no clubbing or cyanosis. She is moving all four extremities. NEUROLOGICAL: She is intubated but off sedation. She is moving extremities but she does not reliably follow any commands. LABORATORY STUDIES: Today's labs show sodium corrected is 150, potassium 3.4, BUN 46, creatinine 3.4, calcium 8.4, phosphorous 4.2, hemoglobin 8.6, platelet count 99. INPATIENT MEDICATIONS: I ordered d5w 500 mL bolus. I ordered KCL 10 mEq runs x2. Special order for TPN was written with potassium phosphorous. She received a dose of Vancomycin today (as her Vancomycin random level was low at 13). Her insulin was adjusted by Primary Service. The remainder of medications are unchanged from prior. PROBLEMS: 1. Non oliguric acute renal failure - The patient is now in polyuria phase of renal recovery. Her sodium level is rising briskly due to polyuria. She is written for special order TPN (hypotonic formulation). I have also given bolus of d5w. I will repeat a chemistry in the evening. I expect that her sodium will continue to rise as she is polyuric and I will place her on d5w infusion if need be. I am quite optimistic that she will not have any recurrent dialysis needs as long as her clinical course remains steady. 2. Hypernatremia it is due to polyuria and renal recovery. She is given a d5w bolus and potassium supplementation. We will repeat a chemistry in the evening and we will continue d5w as needed. She is also on hypotonic TPN. 3. Hypokalemia she is written for potassium phosphorous supplementation with TPN and IV potassium runs are ordered as well. 4. Ventilator dependent respiratory failure - The patient is not reliably following commands with the sedation vacation. Ventilator weaning is as per Critical Care Team. Nursing staff reports she has not had any CPAP trials yet. 5. Status post sepsis - The patient has been off of Levophed pressor support since the weekend. I am going to try and wean down her Midodrine dose tomorrow. For the time being, we will leave her on 10 mg three times daily. She continues to have persistent low grade fevers. Her Vancomycin level was subtherapeutic at 13 this morning. Vancomycin was re-dosed. She continues on Micafungin and Meropenem. Multiple cultures including sputum, urine and buttock wound grew yeast. 6. Anemia and thrombocytopenia it is probably due to critical illness, pancreatitis, recurrent CRRT filter clotting, IV antibiotics. It has stabilized over the past 2 days. Her FOBT was negative. She continues on Heparin subcutaneously for DVT prophylaxis. 7. Nutrition orders for TPN were written as mentioned above.
[2020-06-11] VITALS (31 sets, daily range): BP systolic 105–152; BP diastolic 55–89; O2SAT 96
[2020-06-11] MEDS: HumaLOG INSULIN (NovoLOG) PER UNIT SC SCH ×4 (00:01→17:58)
[2020-06-11] MEDS: METOCLOPRAMIDE HCL LIQUID 10 MG/10 ML UDC NG SCH ×2 (00:01→05:37)
[2020-06-11] MEDS: MORPHINE 2 MG/ML 1ML VIAL (J2270) IV PRN ×3 (00:02→23:42)
[2020-06-11] MEDS: MEROPENEM INJ 500 MG in IV 1 EA IV SCH (00:02)
[2020-06-11] MEDS: MIDAZOLAM INJ 2MG/2ML VIAL (J2250 PER 1MG) IV PRN ×3 (01:02→03:03)
[2020-06-11] MEDS: KCL 20MEQ IN D5W 1000ML 1,000 ML IV SCH (03:04)
[2020-06-11] MEDS: HEPARIN SOD (PORCINE) 5000UNITS/ML 1ML VIAL/SYRINGE SQ SCH ×3 (05:38→21:44)
[2020-06-11] MEDS: ACETAMINOPHEN 650 MG SUPP PR PRN (05:39)
[2020-06-11 06:02] LABS: ABG BASE EXCESS -3.6 (-2.0-2.0); ABG HCO3 20.1 MEQ/L (22.0-26.0); ABG O2 SATURATION 95.7 % (95.0-99.0); ABG PARTIAL PRESSURE CO2 30.8 mmHg (35.0-45.0); ABG PARTIAL PRESSURE O2 85.7 mmHg (75.0-100.0); ABG STANDARD HCO3 21.4 MEQ/L (22.0-26.0); ABG pH (ARTERIAL) 7.432 UNITS (7.350-7.450)
[2020-06-11 06:10] LABS: HEMATOCRIT 25.5 % (36.0-47.0); HEMOGLOBIN 7.9 g/dl (12.0-15.5); MEAN CORPUSCULAR HEMOGLOBIN 30.9 pg (27.0-33.0); MEAN CORPUSCULAR VOLUME 99.6 fl (80.0-96.0); RED BLOOD COUNT 2.56 10^6/uL (4.00-5.40); WHITE BLOOD COUNT 11.8 10^3/uL (4.0-10.0)
[2020-06-11 06:11] LABS: PLATELET COUNT, AUTOMATED 90 10^3/uL (150-450)
[2020-06-11 06:32] LABS: ALBUMIN 2.2 GM/DL (3.2-5.2); BILIRUBIN,TOTAL 0.3 MG/DL (0.2-1.0); CALCIUM LEVEL 8.3 MG/DL (8.5-10.1); CREATININE FOR GFR 2.77 MG/DL (0.55-1.30); GLOMERULAR FILTRATION RATE 20.3 (>60); PHOSPHORUS LEVEL 3.5 MG/DL (2.5-4.9); POTASSIUM SERUM 3.6 MEQ/L (3.5-5.1); TOTAL PROTEIN 5.7 GM/DL (6.4-8.2); VANCOMYCIN RANDOM 11.9 UG/ML
[2020-06-11] MEDS ORDERED: D5W 500 ML IV ONE (07:15)
[2020-06-11] MEDS: MIDODRINE 5 MG TAB PO SCH ×3 (07:32→16:00)
[2020-06-11] MEDS ORDERED: VANCOMYCIN HCL 1,000 MG, VIAL MATE ADAPTER 1 EACH in D5W 250 ML IV ONE (08:00)
[2020-06-11] MEDS: IPRATROPIUM 0.5MG/ALBUTEROL 2.5MG INH SOL UD 3ML (DUONEB) NEB SCH ×4 (08:34→19:59)
[2020-06-11] MEDS: TRIAMCINOLONE ACET 0.1% CREAM 80 GM TOP SCH (09:00)
--- NOTE | 2020-06-11 10:15 | CCN ---
CRITICAL CARE NOTE DATE: 06/11/2020 SUBJECTIVE: Ms. Murry was seen and examined this morning. She has been off sedation, only received as needed Versed overnight. The patient is more responsive this morning. She continues to be febrile with a maximum temperature (T-max) of 101.1. Per nursing, they have reported a pustule rash on the patient's back. Additionally, the patient was noted to have an episode of hypotension yesterday and had received a normal saline bolus with appropriate response. Additionally, the patient's urine output has increased. Otherwise, no other events have been reported. OBJECTIVE: Vital signs: Temperature 100.8, pulse 117, respiratory rate 36, blood pressure 140/65, pulse oximetry 98% on bilevel. General: Patient is currently awake and alert, she follows commands appropriately. HEENT: Atraumatic, normocephalic. Eyes nonicteric. Her trachea is midline. Mucous membranes are pink and moist. She currently has bilevel in place. Cardiovascular: Normal S1, S2, tachycardic rate, regular rhythm. No clicks, rubs, or murmurs. Pulmonary: Some good respiratory effort, clear breath sounds somewhat diminished at the bases, no wheezes, rhonchi, or rales. Abdominal: Soft, slightly distended, nontender, morbidly obese. Hypoactive bowel sounds. Extremities: Edema in both the upper and lower extremities. Full and equal pulses bilaterally upper and lower extremities. Neurologic: No focal neurological deficits. LABORATORIES: Hematology: White blood cells 11.8, hemoglobin 7.9, hematocrit 25.5, platelet count 90. Chemistry: Sodium 151, potassium 3.6, chloride 116, CO2 26, BUN 44, creatinine 2.77, fasting glucose 290, calcium 8.3, phosphorous 3.5, total bilirubin 0.3, AST 29, ALT 31, alkaline phosphatase 150, LDH 403, CK 493, total protein 5.7, albumin 2.2. ABG: pH 7.43, pCO2 of 30, pO2 85.7. INPATIENT MEDICATIONS: - triamcinolone acetonide cream - total parenteral nutrition (TPN) - micafungin 100 mg every 24 hours - heparin 5000 every 8 hours - midodrine 10 mg at 0800 hours, 1200 hours, and 1600 hours - Dulcolax 10 mg daily as needed - Levemir insulin 50 units twice a day - morphine 2 mg every 30 minutes as needed - Tylenol 650 every 6 hours as needed - DuoNebs 3 mL if required four times a day - Versed 2 mg every 15 minutes as needed - Keppra 500 mg every 12 hours - Protonix 40 mg daily IV ASSESSMENT AND PLAN: Ms. Murry is a 40-year-old female with a history of questionable seizure disorder, recently diagnosed diabetes who presented originally with altered mental status, found to be profoundly hyperglycemic and in diabetic ketoacidosis. She was found to have acute pancreatitis with elevated lipase and imaging. The patient also had hypernatremia and acute oliguric renal failure. She was transferred to the intensive care unit and subsequently developed hypoxemic respiratory failure. She was placed on mechanical ventilation and had been placed on continuous venovenous hemodialysis (CVVHD). Since admission, the patient has increased urine output. She has been transitioned off of CVVHD, currently making good urine. She continues to spike fevers and has received vancomycin, meropenem, and micafungin. 1. Acute respiratory failure. Patient originally developed acute respiratory failure secondary to mucus plugging. She has been extubated today to bilevel currently with settings of 12/8 with an FiO2 of 30. Will repeat blood gas in an hour. 2. Sepsis thought to do with shock. Patient has had a fever, and she has elevated white count, had developed hypotension. She does remain tachycardic. She has received meropenem and vancomycin for 8 days. She was recently put on micafungin, day #3. Her cultures have all been negative besides the yeast-like organism. Blood cultures have been negative. The cause of her fever may be secondary to her antibiotics. At the current time, will stop meropenem and vancomycin. Her white blood cell count today has trended down. She has had re-imaging previously of her abdomen and pelvis, this did not demonstrate any necrotizing pancreatitis or abscess formation. 3. Pustular rash. Patient has a pustular rash that extends from her back to her buttocks, likely secondary to her antibiotics, probably meropenem given her penicillin allergy in the past. Have ordered triamcinolone acetonide cream to be applied additionally. Patient will be stopped on her meropenem. 4. Hypernatremia. Patient is hypernatremic today with sodium of 150 likely secondary to dehydration from diuresis stage of renal recovery. She has received one liter normal saline bolus. She was additionally hypotensive during that time. She is also being followed by nephrology who has started her on dextrose 5% in water (D5W). Urine output has increased. Will continue to monitor. 5. Diabetes mellitus type 2. Patient is a diabetic. Her presenting A1c was 16. She has been in and out of diabetic ketoacidosis during her stay here. Currently on Levemir insulin and sliding scale, will continue. 6. Acute blood anemia. Patient had acute blood loss anemia likely multifactorial to her renal disease as well as clotting of the continuous venovenous hemodialysis (CVVHD) machine. Currently, remains stable, slightly low today. Will transfuse if her hemoglobin drops below 8. Will continue to monitor. 7. Acute pancreatitis. Patient had presented originally with acute pancreatitis, likely salivated, this seems to have resolved. 8. Acute oliguric renal failure. Patient had acute oliguric renal failure. She was on CVVHD, she has been transitioned off. She is being followed by nephrology whose recommendations are appreciated. Currently, she is making good urine, she has made over three liters of urine since last night. Additionally, her creatinine seems to be trending down. Will continue to monitor. 9. Thrombocytopenia. Patient's platelet count has stabilized. She is continued on heparin 5000 units every 8 hours. 10. Unspecified seizure disorder. Patient on Keppra currently. Her neurologist has been contacted previously with recommendations in the patient's chart. 11. Transaminitis. Patient's transaminases are normalizing. Will continue to monitor. Likely secondary to her critical illness. 12. Supraventricular tachycardia. Patient has remained in sinus rhythm. She was only in supraventricular tachycardia (SVT) during admission to the emergency room (ER), has since been in sinus tachycardia. 13. Deep venous thrombosis (DVT) prophylaxis. Thromboembolic deterrents (TEDs), sequentials, as well as heparin 5000 units every 8 hours. 14. Gastrointestinal (GI) prophylaxis. Protonix 40 mg IV. 15. Nutrition. Patient is currently on total parenteral nutrition (TPN). This is being managed by nephrology. Given her hypernatremia this will likely need to be revised. 16. Constipation. Patient is currently on a bowel regimen. She has continued to have bowel movements although continues to have hypoactive bowel sounds. DISPOSITION: Overall, the patient does remain critically ill with a guarded prognosis. She has been extubated to bilevel today. She seems to be doing well. Will repeat a blood gas in an hour and reassess. Given her fevers, she is continued on micafungin, it may be secondary to antimicrobials. Her vancomycin and meropenem have been discontinued. She will need a peripherally inserted central catheter (PICC) line placement today with interventional radiology and we will remove her right subclavian line. Overall, patient has a guarded prognosis. Critical care time: 45 minutes. My faculty preceptor for this patient encounter was physically present during the encounter and was fully available. All aspects of the patient interview, examination, medical decision making process, and medical care plan development were reviewed and approved by the faculty preceptor. The faculty preceptor is aware and concurs with the plan as stated in the body of this note and will attest to such by his/her co-signature. CYNDI
[2020-06-11 10:42] LABS: ABG BASE EXCESS -3.2 (-2.0-2.0); ABG O2 SATURATION 97.7 % (95.0-99.0); ABG PARTIAL PRESSURE CO2 33.4 mmHg (35.0-45.0); ABG PARTIAL PRESSURE O2 105.6 mmHg (75.0-100.0); ABG STANDARD HCO3 21.8 MEQ/L (22.0-26.0); ABG TOTAL CO2 22.1 MEQ/L (22.0-29.0); ABG pH (ARTERIAL) 7.417 UNITS (7.350-7.450)
[2020-06-11] MEDS: PANTOPRAZOLE 40MG VIAL (C9113 PER 1) IV SCH (10:47)
[2020-06-11] MEDS: LEVEMIR (INSULIN DETEMIR) 1 UNITS/0.01ML SC SCH ×2 (10:47→21:44)
[2020-06-11] MEDS: levETIRAcetam INJection 500 MG in D5W MINI-BAG PLUS 100 ML IV SCH ×2 (10:48→21:44)
[2020-06-11 11:33] LABS: PERCENT SATURATION 25.4 % (13.2-45.0)
[2020-06-11] MEDS: MICAFUNGIN SODIUM 100 MG in D5W MINI-BAG PLUS 100 ML IV SCH (11:34)
[2020-06-11] MEDS: D5W 1,000 ML IV SCH ×2 (12:30→21:44)
[2020-06-11] MEDS ORDERED: LIDOCAINE 1% MDV 20ML VIAL As Ordered ONE (15:37)
--- NOTE | 2020-06-11 17:03 | REP ---
PROCEDURE NAME: PICC LINE INSERTION W/SITERITE CLINICAL INFORMATION: Needs access for TPN. COMPARISON: None. PROCEDURE DESCRIPTION: The procedure was performed by ENMA Chavez, under the direct supervision of Dr. Morris. The risks and benefits of the procedure were explained to the patient's healthcare proxy who was her mother and an informed consent was obtained both verbally over the phone. Directly prior to the start of the procedure a formal time-out was completed in the patient's room, as this was done at bedside. The left basilic vein was localized using ultrasound guidance. The skin was prepped and draped in sterile fashion. One mL of 1% lidocaine 10 mg/mL was used as a local anesthetic. Using ultrasound guidance the left basilic vein was cannulated, and a 0.018 guidewire was inserted and advanced to the level of SVC using portable x-ray guidance. The needle was removed and a 5.5 Greek dilator and peel-away sheath was inserted over the guidewire. A 5.5 Greek dual lumen catheter was cut to a length of 40 cm. The dilator was removed and the catheter was inserted over the guidewire with the tip ending at the level of the SVC. The peel-away sheath was removed and the catheter was flushed with heparinized saline as per hospital protocol. The catheter was affixed to the skin and a sterile dressing was applied. The patient tolerated the procedure well and there were no immediate complications. CONCLUSION: PICC line insertion into the left basilic vein. No fluoroscopy was utilized for this procedure as it was done portably. All imaging was acquired through portable chest radiographs. <Electronically signed by Sujey Brody > 06/11/20 1639 <Electronically signed by Tavares Morris > 06/11/20 1700
[2020-06-11] MEDS: SODIUM CHLORIDE 0.9% INJ 10 ML SYR IV SCH (18:00)
[2020-06-11] MEDS ORDERED: MAGNESIUM SULFATE IV SCH ×5 (18:00)
[2020-06-11] MEDS ORDERED: POTASSIUM PHOSPHATE IV SCH ×5 (18:00)
[2020-06-11] MEDS ORDERED: [UNRECOGNIZED DRUG - OTHER] IV SCH ×5 (18:00)
[2020-06-11 20:26] LABS: CALCIUM LEVEL 8.6 MG/DL (8.5-10.1); CREATININE FOR GFR 2.43 MG/DL (0.55-1.30); GLOMERULAR FILTRATION RATE 23.6 (>60); POTASSIUM SERUM 3.5 MEQ/L (3.5-5.1)
[2020-06-12] VITALS (9 sets, daily range): BP systolic 106–147; BP diastolic 62–84
[2020-06-12] MEDS: HumaLOG INSULIN (NovoLOG) PER UNIT SC SCH ×5 (00:04→20:48)
[2020-06-12] MEDS: SODIUM CHLORIDE 0.9% INJ 10 ML SYR IV SCH ×2 (05:03→18:11)
[2020-06-12] MEDS: HEPARIN SOD (PORCINE) 5000UNITS/ML 1ML VIAL/SYRINGE SQ SCH ×3 (05:12→21:25)
[2020-06-12 05:22] LABS: HEMATOCRIT 29.7 % (36.0-47.0); MEAN CORPUSCULAR HEMOGLOBIN 30.3 pg (27.0-33.0); MEAN CORPUSCULAR HGB CONC 30.3 g/dl (32.0-36.5); RED BLOOD COUNT 2.97 10^6/uL (4.00-5.40); WHITE BLOOD COUNT 10.5 10^3/uL (4.0-10.0)
[2020-06-12 05:24] LABS: ABG BASE EXCESS -2.5 (-2.0-2.0); ABG HCO3 21.3 MEQ/L (22.0-26.0); ABG O2 SATURATION 97.6 % (95.0-99.0); ABG PARTIAL PRESSURE O2 101.6 mmHg (75.0-100.0); ABG STANDARD HCO3 22.4 MEQ/L (22.0-26.0); ABG TOTAL CO2 22.3 MEQ/L (22.0-29.0); ABG pH (ARTERIAL) 7.428 UNITS (7.350-7.450)
[2020-06-12 05:25] LABS: PLATELET COUNT, AUTOMATED 86 10^3/uL (150-450)
[2020-06-12 05:55] LABS: ALBUMIN 2.3 GM/DL (3.2-5.2); BILIRUBIN,TOTAL 0.3 MG/DL (0.2-1.0); CALCIUM LEVEL 8.5 MG/DL (8.5-10.1); CREATININE FOR GFR 2.13 MG/DL (0.55-1.30); GLOMERULAR FILTRATION RATE 27.5 (>60); POTASSIUM SERUM 3.5 MEQ/L (3.5-5.1); TOTAL PROTEIN 5.9 GM/DL (6.4-8.2)
[2020-06-12] MEDS: IPRATROPIUM 0.5MG/ALBUTEROL 2.5MG INH SOL UD 3ML (DUONEB) NEB SCH ×4 (07:18→20:00)
[2020-06-12] MEDS: PANTOPRAZOLE 40MG VIAL (C9113 PER 1) IV SCH (10:00)
[2020-06-12] MEDS: LEVEMIR (INSULIN DETEMIR) 1 UNITS/0.01ML SC SCH ×2 (10:01→20:48)
[2020-06-12] MEDS: MICAFUNGIN SODIUM 100 MG in D5W MINI-BAG PLUS 100 ML IV SCH (10:01)
[2020-06-12] MEDS: levETIRAcetam INJection 500 MG in D5W MINI-BAG PLUS 100 ML IV SCH ×2 (10:01→20:47)
[2020-06-12] MEDS: TRIAMCINOLONE ACET 0.1% CREAM 80 GM TOP SCH (10:02)
[2020-06-12] MEDS: BUDESONIDE 0.25 MG/2 ML INHALATION SUSPENSION INH SCH ×2 (13:13→20:00)
--- NOTE | 2020-06-12 13:32 | IPN ---
INPATIENT PROGRESS NOTE DATE: 06/11/20 SUBJECTIVE: Grace is seen and examined this morning at the bedside in the Intensive Care Unit. She was extubated around 9:00 a.m. this morning initially to BiPAP and then subsequently transition to nasal cannula. She remains polyuric with almost 4 liters of urine in the past 24 hours and persistent hypernatremia and is on D5W infusion and also continues on hypotonic TPN. She is in renal recovery. Her midodrine has been discontinued and blood pressures are excellent with systolic mostly in the 120s and 130s. REVIEW OF SYSTEMS: Unable to obtain secondary to clinical condition. PHYSICAL EXAMINATION: Vital signs: Temperature 97.9, pulse 99, respiratory rate 24, blood pressure 131/89, saturating 98% on 2 liter nasal cannula. Intake yesterday was 3200, urine output was 3900, net negative 600. Weight on the bed scale today is 114.1 kg. General: Patient is seen extubate with BiPAP in place. HEENT: Extraocular muscles are intact. She does not make eye contact. Neck: Supple. There is a central line in the right subclavian. Heart: Sounds are tachycardic S1 and S2. No appreciable murmur. Her peripheral edema upper and lower extremities in dependent areas is about 1+. Respiratory: Symmetric breath sounds without crackle or rale. She is in BiPAP. Abdomen: Obese, soft and she does not grimace to palpation. There are hypoactive bowel sounds. Genitourinary: Indwelling Karimi catheter. Extremities: Negative for clubbing or cyanosis. Her generalized edema has decreased as compared to a few days ago. LABORATORY DATA: Sodium 151, potassium 3.5, bicarbonate 25, BUN 40, creatinine 2.4. Hemoglobin 7.9, platelets 90. INPATIENT MEDICATIONS: 1. Her midodrine is discontinued. 2. She is receiving TPN at 75 mL an hour. 3. She is given 2 liters of D5W running at 150 mL an hour. 4. She continues on I.V. Keppra. 5. Continues on I.V. micafungin. 6. She received a dose of vancomycin today. Her random vancomycin level was low at 11.9. 7. The remainder of her medications are unchanged as compared to yesterday. PROBLEMS/PLAN: 1. Acute renal failure/acute tubular necrosis now in the polyuria phase of renal recovery: Patient made just under 4 liters of urine in the past 24 hours and her polyuria is secondary to recovering acute tubular necrosis. I would expect her to be polyuric for a few days and we will continue her on hypotonic fluids to prevent worsening hypernatremia. She is getting hypotonic TPN along with D5W and we will repeat a chemistry in the evening. 2. Hypernatremia: It is due to polyuria and renal recovery phase of acute kidney injury. She has at least a 5 liter free water deficit and she is getting D5W at 150 mL an hour and she is also on hypotonic TPN. Her polyuria will likely last a few days while her renal function improves. 3. Hypokalemia: She is written for potassium phosphorus supplementation with the TPN. 4. Anemia and thrombocytopenia likely related to critical illness, pancreatitis, recurrent CRRT filter clotting, I.V. antibiotics: Her FOBT was negative. Her hemoglobin is down to 7.9. I will transfuse 1 unit of packed red blood cells. I am not going to give her I.V. iron at this time until infectious issues all resolve. 5. Status post sepsis: The patient is still spiking intermittent fevers. T-max in the past 24 hours was 101.1. Her white count has significantly improved. Her vancomycin level was subtherapeutic. Because of polyuria and renal recovery she is going to need to have her vancomycin dosed more frequently. She is also getting I.V. micafungin because multiple cultures grew yeast including sputum, urine and buttock wound. I have discontinued her off of midodrine.
--- NOTE | 2020-06-12 17:44 | CCN ---
CRITICAL CARE NOTE DATE: 06/12/2020 SUBJECTIVE: Mrs. Murry was seen and examined this morning. She has been extubated as of yesterday. She was placed on bilevel positive airway pressure (BiPAP) overnight. This morning, the patient is responsive. She is talking. She has remained afebrile. Since last night her maximum temperature was 99.1. Additionally, the patient's urine output continues to be adequate. There have been no other adverse events reports. OBJECTIVE: VITAL SIGNS: Temperature 98.5, pulse 107, respiratory rate 20, blood pressure 140/85, pulse ox 96% on room air. GENERAL: Patient is awake, alert, and oriented. She follows commands appropriately. She does not appear in acute distress. HEENT: Atraumatic, normocephalic. Eyes are anicteric. Her trachea is midline. Mucous membranes are pink and moist. Her neck is gonzales. CARDIOVASCULAR: Patient has a normal S1, S2 with a tachycardic rate with a regular rhythm. No clicks, rubs, or murmurs are auscultated. PULMONARY: Patient has good respiratory effort. There are clear breath sounds with some slight wheezes. Slightly diminished in the bases. There are no rhonchi or rales noted. ABDOMEN: Patient's abdomen is soft. It is nontender, nondistended. No rebound tenderness or guarding. There is increase in her bowel sounds today compared to previous examination. There is no abdominal bruising or masses. She is morbidly obese. EXTREMITIES: Patient has improvement in the edema in the upper and lower extremities. There is full and equal pulse, bilateral upper and lower extremities. Patient has an area of eschar and wound on her right antecubital fossa. NEUROLOGIC: No focal neurological deficits. PSYCHIATRIC: Mood and affect appear appropriate. LABORATORY DATA: Hematology: White blood cells 10.5, hemoglobin 9.0, hematocrit 29.7, platelet count 86. Chemistries: Sodium 150, potassium 3.5, chloride 116, carbon dioxide 24, BUN 39, creatinine 2.13, fasting glucose 249, calcium 8.5, phosphorus 4.0, magnesium 1.8. Total bilirubin 0.3, AST 29, ALT 32, alkaline phosphatase 138. LDH 415. Total CK 338, total protein 5.9, albumin 2.3. Arterial blood gas: A pH of 7.42, pCO2 of 33, pO2 of 101.6. INPATIENT MEDICATIONS: - Pulmicort 0.25 mg as required twice a day - total parenteral nutrition (TPN) - triamcinolone acetonide cream - micafungin 100 mg every 24 hours - heparin 5000 units every 8 hours - Levemir insulin 15 units twice a day - morphine 2 mg every 30 minutes as needed - Tylenol 650 mg every 6 hours as needed - DuoNeb 3 mg as required four times a day - Keppra 500 mg every 12 hours - albuterol two puffs every 4 hours as needed - Protonix 40 mg daily intravenous (IV) ASSESSMENT AND PLAN: Ms. Murry is a 40-year-old female with a history of questionable seizure disorder, recently diagnosed diabetes mellitus, who presented originally with altered mental status and found to be profoundly hyperglycemic and in diabetic ketoacidosis. She was found to have acute pancreatitis with elevated lipase and CT imaging suggestive of this. Patient was also hypernatremic with acute oliguric renal failure. She had been transferred to the intensive care unit and has subsequently developed hypoxemic respiratory failure secondary to mucous plugging. Patient was placed on mechanical ventilation and also placed on continuous venovenous hemodialysis (CVVHD). Since admission, the patient has shown increased urine output. She was transitioned off CVVHD and continues to make good urine. Patient was noted to spike fevers, felt to be secondary to antibiotics. These have been discontinued. The patient's fevers have subsided. The patient was extubated yesterday. She was placed on BiPAP overnight. Currently the patient is doing well. 1. Acute respiratory failure. The patient originally had developed acute respiratory failure secondary to mucous plugging. She was extubated yesterday. She was placed on BiPAP overnight. She has done well. Her arterial blood gas (ABG) this morning demonstrated a pH of 7.42, pCO2 of 33, and a pO2 of 101.6. At this time will discontinue her bilevel. She can use nasal cannula as needed for maintaining gross oxygen saturations greater than 90%. We will also add Pulmicort, as patient appeared a little wheezy today. 2. Sepsis. Patient originally had a fever, tachycardia, elevated white count, and hypotension. She was on meropenem and vancomycin for approximately 8 days. She had micafungin added as well. Her cultures have been negative. She only grew yeast-like organisms. The cause of her recurrent fevers was felt to be secondary to her antibiotics, particularly meropenem, as the patient does have a penicillin allergy. Additionally, patient was noted to have a pustular rash that developed on her back, which was likely secondary to some form of pustular, eczematous eruptions, likely secondary to her antibiotics. Her meropenem and vancomycin were discontinued, and she has become afebrile. Additionally, we will continue micafungin, as her urine did appear dirty and did grow yeast-like organism. 3. Pustular rash. Patient had a pustular rash that extended from her back to her buttocks. This was felt to be secondary to her antibiotics, likely some form of pustular, eczematous eruption secondary to meropenem, given her penicillin allergy in the past. She has triamcinolone acetonide cream that is being applied to this. We will continue to monitor. 4. Hypernatremia. Continues to be hypernatremic, likely secondary to dehydration. She appears to be in the renal recovery phase and diuresing from this. She is currently being followed by nephrology. She is on dextrose 5% water. Urine output continues to be good. Continue to monitor. 5. Diabetes mellitus, type 2. Patient is diabetes. Presenting A1c was 16. She is currently not in diabetic ketoacidosis. She is on Levemir and sliding-scale insulin. Will change to every 4 hours due to her profound hyperglycemia with every 4 hours sliding scale. 6. Acute blood loss anemia. Patient had acute blood anemia, likely multifactorial in the setting of acute renal failure as well as her clotting off her CVVHD machine. She was transfused previously. She is continued to be monitoring. Her fecal occult has been negative. At this time, we will transfuse her if hemoglobin drops below 8. 7. Acute pancreatitis. Patient presented originally with acute pancreatitis. This appears to have resolved. 8. Acute oliguric renal failure. Patient had acute oliguric renal failure. She was on CVVHD. She has been transitioned off. She is currently making good urine. She is being followed by nephrology, and their recommendations are appreciated. Her creatinine continues to be trending down. 9. Thrombocytopenia. Patient's platelet count stabilized. Continue on heparin 5000 units every 8 hours. 10. Unspecified seizure disorder. Patient had a history of seizure disorder when she prednisone. The medications that we were told that she was taking was Keppra. She was continued on Keppra 500 mg twice a day; however, it seems the patient's neurologist was contacted, and he states that she actually used to be Depakote 500 mg three times a day. At this time, she is currently continued on Keppra; however, on discharge she should be changed to Depakote. 11. Transaminates. Patient's transaminates has normalized. This is likely secondary to her critical illness. 12. Supraventricular tachycardia. Patient remains in sinus rhythm. She was in supraventricular tachycardia during her admission to the emergency room (ER). This is likely secondary to her metabolic disturbances. She has remained in sinus tachycardia since them. 13. Deep venous thrombosis prophylaxis. Patient is on thromboembolic deterrents and sequentials as well as heparin 5000 units every 8 hours. 14. Gastrointestinal prophylaxis. Patient currently on Protonix 40 mg IV. 15. Nutrition. Patient is currently on TPN; however, she currently is awake. She is not requiring any more bilevel. She could be changed over to oral as tolerated. She is currently on clears. Once tolerating, her TPN can be discontinued. 16. Constipation. Patient is currently on bowel regimen. This seems to be resolving. 17. Right arm wound. Patient has a right arm ulceration with some black eschar over it. This appears likely to be secondary to where her potassium chloride was infusing in the ER. She had potassium chloride infusing into her right decubital fossa. This IV had infiltrated, and she had some potassium chloride placed, and this is likely what caused the ulceration. I have ordered wound care. I see that there is some induration under the area. If continues, may need to consult surgery for incision and drainage. DISPOSITION: Overall the patient has clinically improved significantly. She is currently extubated. She is off of bilevel. She is participating with physical therapy, getting and walker. Her ABG has demonstrated no hypercarbia. She is tolerating room air well. She currently is afebrile. She is getting her micafungin. At this time, we will transition her to the hospitalist service and downgrade her from the ICU. Critical care time: 40 minutes. I, Savita Valero, conducted an independent history and examination of the patient and agree with the above plan as detailed by resident and discussed during rounds. CYNDI
[2020-06-12] MEDS: KCL 20MEQ IN D5W 1000ML 1,000 ML IV SCH (18:10)
--- NOTE | 2020-06-12 18:25 | IPNPDOC ---
Date Seen The patient was seen on 06/12/20. Progress Note SUBJECTIVE: Patient was seen and examined at the bedside chart it's been reviewed. Maximum temperature over the past 24 hours was 110 She denies any shortness of breath, dysuria, urgency, frequency, cough, diarrhea, nausea, vomiting or abdominal pain. No other issues per nursing aside from black eschar in the right antecubital fossa. OBJECTIVE PHYSICAL EXAMINATION: VITAL SIGNS: Please see below. Telemetry shows a sinus tachycardia. . Urine output was 5.8 L yesterday 4.2 L today. admission wt was 118.4 kg current weight is 110.9 kg. GENERAL: Awake, alert, oriented to person, place and time, answering questions appropriately, comfortable, no respiratory distress or use of respiratory accessory muscles HEENT: Neck no carotid bruit. Dry mucous membranes which are extra muscles are i ntact CARDIOVASCULAR: Sinus tachycardia, S1, S2. No murmurs noted RESPIRATORY: Diminished but clear to auscultation ABDOMINAL: Obese, soft, nontender, nondistended, positive bowel EXTREMITIES: 2 cm lack ulcerated lesion on the right antecubital fossa with black eschar, positive edema bilateral lower extremities LABORATORY DATA, IMAGING STUDIES, MICROBIOLOGY: Please see below. ASSESSMENT AND PLAN: 40-year-old female with history of seizure disorder, admitted for diabetic ketoacidosis, acute metabolic encephalopathy, acute pancreatitis complicated by acute hypoxic respiratory failure requiring intubation and mechanical ventilation, hypotension requiring Levophed IV drip, midodrine, and 6 packs 25% albumin transfusion Oliguric renal failure , ATN< requiring CVVHD Acute blood loss anemia secondary to clotting of the CVVHD, status post 5 units of leukocyte reduced RBC and thrombocytopenia and severe sepsis empirically treated with vancomycin and meropenem with subsequent drug-induced Erythematous macular papular rash with on and off drug fever fever, TPN, and hypotonic ivfluids managed by nephrology. Patient was extubated on 06/11/2020 with no acute overnight issues. . She has been off CVVHD and maintaining adequate urine output currently in the polyuric phase with 10 L of urine over the past 48 hours PROBLEMS: Diabetic ketoacidosis, resolved Acute metabolic encephalopathy, resolved Severe sepsis, resolved Yeast in the sputum Oliguric renal failure with acute tubular necrosis, resolved Anemia secondary to blood loss clotting of the CVVHD, status post 5 units RBC t ransfusion Thrombocytopenia secondary to sepsis Acute pancreatitis, resolved Hypernatremia Acute hypoxic respiratory failure requiring intubation, mechanical ventilation, resolved Seizure disorder Metabolic acidosis, resolved Meropenem-induced generalized maculopapular rash Drug fever Intravenous site infiltration. Chest Wound in the right antecubital fossa with black eschar Plan: Patient has been extubated and had been stable for the past 24 hours. She may be transferred to PCU status on telemetry. Nephrology has been consulted and managing patient's fluid balance including TPN and hypotonic fluids for her fluid deficit. Currently on micafungin for yeast in sputum. On topical triamcinolone for the maculopapular rash caused by meropenem. On Keppra for seizure disorder. Currently tolerating oral diet, but still on TPN. Wound care consult for the right antecubital wound with black eschar. DISPOSITION: . VS, I&O, 24H, [facility] Vital Signs/I&O Vital Signs Date Time Temp Pulse Resp B/P (MAP) Pulse Ox O2 Delivery O2 Flow Rate FiO2 06/12/20 17:00 106 98 Room Air 06/12/20 16:00 98.7 20 106/62 (77) 06/12/20 05:00 25 06/11/20 22:00 2.0 I&O- Last 24 Hours up to 6 AM 06/12/20 06:00 Intake Total 5765 ml Output Total 6250 ml Balance -485 ml Laboratory Data 24H LABS Laboratory Tests 2 06/11/20 19:25: Anion Gap 10, Glomerular Filtration Rate 23.6L, Calcium Level 8.6 06/11/20 21:39: Bedside Glucose (Misc Panel) 253H 06/11/20 23:44: Bedside Glucose (Misc Panel) 297H 06/12/20 05:01: Anion Gap 10, Glomerular Filtration Rate 27.5L, Calcium Level 8.5, Nucleated Red Blood Cells % (auto) 1.0H, Blood Gas Bicarbonate Standard 22.4, Arterial Blood pH 7.428, Arterial Blood Partial Pressure CO2 33.0L, Arterial Blood Partial Pressure O2 101.6H, Arterial Blood Total CO2 22.3, Arterial Blood HCO3 21.3L, Arterial Blood Base Excess -2.5L, Arterial Blood Oxygen Saturation 97.6, Phosphorus Level 4.0, Magnesium Level 1.8, Total Bilirubin 0.3, Aspartate Amino Transf (AST/SGOT) 29, Alanine Aminotransferase (ALT/SGPT) 32, Alkaline Phosphatase 138H, Lactate Dehydrogenase 415H, Total Creatine Kinase 338H, Total Protein 5.9L, Albumin 2.3L, Albumin/Globulin Ratio 0.6L, Triglycerides Level 271H, Cholesterol Level 159 06/12/20 05:06: Bedside Glucose (Misc Panel) 151H 06/12/20 10:06: Bedside Glucose (Misc Panel) 319H 06/12/20 12:44: Bedside Glucose (Misc Panel) 354H 06/12/20 13:36: Coronavirus (COVID-19)(PCR) NEGATIVE 06/12/20 16:43: Bedside Glucose (Misc Panel) 304H CBC/BMP Laboratory Tests 06/11/20 19:25 06/12/20 05:01 Microbiology Microbiology 06/08/20 Stool Occult Blood (MALIK) - Final, Complete 06/08/20 Gram Stain - Final, Complete 06/08/20 Sputum Culture - Final, Complete Yeast Like Organism 06/08/20 Blood Culture - Preliminary, Resulted No Growth after 72 hours. All specime... 06/08/20 Urine Culture - Final, Complete Yeast Like Organism 06/06/20 Gram Stain - Final, Complete 06/06/20 Sputum Culture - Final, Complete Yeast Like Organism 06/04/20 Gram Stain - Final, Complete 06/04/20 Wound Culture - Final, Complete Yeast Like Organism 06/04/20 Blood Culture - Final, Complete NO GROWTH AFTER 5 DAYS 06/04/20 Blood Culture - Final, Complete Staphylococcus Epidermidis EVELIN ABARCA MD Jun 12, 2020 18:25
[2020-06-12] MEDS ORDERED: ONDANSETRON 4MG/2ML VIAL IV PRN (21:15)
--- NOTE | 2020-06-12 21:46 | IPN ---
PROGRESS NOTE DATE: 06/12/2020 SUBJECTIVE: Grace was seen and examined this morning at the bedside working with physical therapy and trying to stand at the edge of the bed. She reports she feels weak, otherwise denies any complaints. She continues to be polyuric and is saturating well now on room air and renal function continues to show recovery and hemoglobin has been stable. PHYSICAL EXAMINATION: VITAL SIGNS: Temperature 98.7, pulse 106, respiratory rate 20, blood pressure 106/62, saturating 96 to 98% on room air. INTAKE AND OUTPUT: Intake yesterday was 6.2 liters. Urine output yesterday was 5.8 liters, positive 480 cc. Weight in the bed scale today is 110.9 kg. GENERAL: Patient is seen awake and alert, working with the physical therapist. HEENT: Makes eye contact. Tongue is dry. NECK: Supple. There is a central line in the right subclavian. HEART: Heart sounds are tachycardic, S1, S2. There is much improvement in her peripheral edema; now only trace. LUNGS: Show symmetric air entry. No crackle or rale. She is comfortable on room air. She does get tachypneic with exertion. ABDOMEN: Soft, obese and nontender. GENITOURINARY: Shows indwelling Karimi catheter. MUSCULOSKELETAL: She is weak, but has full range of motion. NEUROLOGIC: She is cooperative with physical exam, conversational and oriented to person, place and situation. LABORATORY STUDIES: White count 10.5, hemoglobin 9.0, platelets 86,000. Sodium 150, potassium 3.5, bicarbonate 24, BUN 39, creatinine 2.1. Phosphorus 4.0, magnesium 1.8, albumin 2.3. INPATIENT MEDICATIONS: She is ordered for D5W with 20 mEq of KCl to run at 100 cc an hour. She is off of TPN. She is started on Pulmicort b.i.d. Her insulin sliding scale was adjusted. Her remaining medications are unchanged as compared to yesterday. PROBLEMS: 1. Nonoliguric acute renal failure: Patient is status post acute tubular necrosis and is now in the renal recovery phase with polyuria. She made almost 6 liters of urine in the past 24 hours and she was receiving hypotonic TPN. Now that she is starting to tolerate some oral intake, TPN is discontinued and we will place her back on D5W to keep up with her free water losses. I expect her to be polyuric for several days and we will continue her on hypotonic fluids to prevent worsening hypernatremia. 2. Hypernatremia: It is due to polyuria and renal recovery phase of acute kidney injury. It is expected to last several days. She has at least a 5 liter free water deficit. She is written for D5W with potassium to run at 100 cc an hour and she can also have oral water intake. Her polyuria will likely last a few days while her renal function continues to improve. 3. Hypokalemia: She is written for potassium with the D5W. 4. Anemia and thrombocytopenia: Likely related to critical illness, pancreatitis, recurrent CRRT filter clotting, I.V. antibiotics. She received one more unit of packed red blood cells yesterday and I would hold off on giving her I.V. iron until all her infectious issues resolve. 5. Status post sepsis: I am pleased to see that she has been afebrile since the past 24 hours with the last recorded fever being at 6:00 a.m. on May. Her white count is also down trending. She is maintaining MAP above 65 and has been off of Midodrine for more than 24 hours as well. She continues on I.V. Micafungin as multiple cultures did grow yeast, notably from the sputum, urine and buttocks wound.
[2020-06-13] VITALS: BP_SYST 112; BP_SYST 113; BP_DIAS 61; BP_DIAS 79
[2020-06-13] MEDS: HumaLOG INSULIN (NovoLOG) PER UNIT SC SCH ×7 (00:23→21:00)
[2020-06-13] MEDS: KCL 20MEQ IN D5W 1000ML 1,000 ML IV SCH ×2 (02:30→15:45)
[2020-06-13 04:00] VITALS: BP 125/66
[2020-06-13 04:49] LABS: ALBUMIN 2.1 GM/DL (3.2-5.2); BILIRUBIN,TOTAL 0.5 MG/DL (0.2-1.0); CALCIUM LEVEL 8.1 MG/DL (8.5-10.1); CREATININE FOR GFR 1.79 MG/DL (0.55-1.30); GLOMERULAR FILTRATION RATE 33.6 (>60); PHOSPHORUS LEVEL 3.9 MG/DL (2.5-4.9); TOTAL PROTEIN 6.1 GM/DL (6.4-8.2)
[2020-06-13] MEDS: HEPARIN SOD (PORCINE) 5000UNITS/ML 1ML VIAL/SYRINGE SQ SCH ×3 (05:23→22:09)
[2020-06-13] MEDS: SODIUM CHLORIDE 0.9% INJ 10 ML SYR IV SCH ×2 (05:24→18:26)
[2020-06-13 07:01] LABS: ALBUMIN 2.3 GM/DL (3.2-5.2); BILIRUBIN,TOTAL 0.3 MG/DL (0.2-1.0); CALCIUM LEVEL 9.1 MG/DL (8.5-10.1); CREATININE FOR GFR 1.82 MG/DL (0.55-1.30); GLOMERULAR FILTRATION RATE 32.9 (>60); POTASSIUM SERUM 3.4 MEQ/L (3.5-5.1); TOTAL PROTEIN 6.5 GM/DL (6.4-8.2)
[2020-06-13] MEDS: BUDESONIDE 0.25 MG/2 ML INHALATION SUSPENSION INH SCH ×2 (07:23→19:54)
[2020-06-13] MEDS: IPRATROPIUM 0.5MG/ALBUTEROL 2.5MG INH SOL UD 3ML (DUONEB) NEB SCH ×4 (07:23→19:54)
[2020-06-13 08:00] VITALS: BP 127/84
[2020-06-13] MEDS ORDERED: POTASSIUM CHLORIDE 10 MEQ SR TABLET PO ONE (09:00)
[2020-06-13] MEDS: levETIRAcetam INJection 500 MG in D5W MINI-BAG PLUS 100 ML IV SCH (09:11)
[2020-06-13] MEDS: LEVEMIR (INSULIN DETEMIR) 1 UNITS/0.01ML SC SCH ×2 (09:12→22:09)
[2020-06-13] MEDS: MICAFUNGIN SODIUM 100 MG in D5W MINI-BAG PLUS 100 ML IV SCH (09:48)
[2020-06-13] MEDS: PANTOPRAZOLE 40MG VIAL (C9113 PER 1) IV SCH (09:50)
[2020-06-13] MEDS: TRIAMCINOLONE ACET 0.1% CREAM 80 GM TOP SCH (09:51)
--- NOTE | 2020-06-13 10:38 | IPNPDOC ---
Date Seen The patient was seen on 06/13/20. Progress Note SUBJECTIVE: despite sodium 153 no mental status changes or recurrent seizures. c/o muscle aches and generalized weakness. no fever or chills still uncomfortable with maculopapular generalized rash despite decreasing erythema. no brbpr. no hematemesis. slight sob with cough nonproductive. OBJECTIVE PHYSICAL EXAMINATION: VITAL SIGNS: Please see below. Telemetry shows a sinus tachycardia. i/o reviewed GENERAL: lying on her left side in bed. no cyanosis or pallor Awake, alert, oriented to person, place and time, answering questions appropriately, comfortable, no respiratory distress or use of respiratory accessory muscles HEENT: Neck no carotid bruit. Dry mucous membranes which are extra muscles are intact CARDIOVASCULAR: Sinus tachycardia, S1, S2. No murmurs noted RESPIRATORY: Diminished ABDOMINAL: Obese, soft, nontender, nondistended, positive bowel EXTREMITIES: 2 cm lack ulcerated lesion on the right antecubital fossa with black eschar, positive edema bilateral lower extremities LABORATORY DATA, IMAGING STUDIES, MICROBIOLOGY: Please see below. ASSESSMENT AND PLAN: 40-year-old female with history of seizure disorder, admitted for diabetic ketoacidosis, acute metabolic encephalopathy, acute pancreatitis complicated by acute hypoxic respiratory failure requiring intubation and mechanical ventilation, hypotension requiring Levophed IV drip, midodrine, and 6 packs 25% albumin transfusion Oliguric renal failure , ATN< requiring CVVHD Acute blood loss anemia secondary to clotting of the CVVHD, status post 5 units of leukocyte reduced RBC and thrombocytopenia and severe sepsis empirically treated with vancomycin and meropenem with subsequent drug-induced Erythematous macular papular rash with on and off drug fever fever, TPN, and hypotonic ivfluids managed by nephrology. Patient was extubated on 06/11/2020 with no acute overnight issues. . She has been off CVVHD and maintaining adequate urine output currently in the polyuric phase with 10 L of urine over the past 48 hours PROBLEMS: Diabetic ketoacidosis, resolved Acute metabolic encephalopathy, resolved Severe sepsis, resolved Yeast in the sputum Oliguric renal failure with acute tubular necrosis, resolved Anemia secondary to blood loss clotting of the CVVHD, status post 5 units RBC transfusion Thrombocytopenia secondary to sepsis Acute pancreatitis, resolved Hypernatremia Acute hypoxic respiratory failure requiring intubation, mechanical ventilation, resolved Seizure disorder Metabolic acidosis, resolved Meropenem-induced generalized maculopapular rash Drug fever Intravenous site infiltration. Chest Wound in the right antecubital fossa with black eschar Plan: fluid management per nephrology. change to po meds and advance diet. doing well, encourage early ambulation. pt/ot. oob for meals. fall precautions. wound care consult for right antecubital fossa. tx to medsurg. VS, I&O, 24H, [facility] Vital Signs/I&O Vital Signs Date Time Temp Pulse Resp B/P (MAP) Pulse Ox O2 Delivery O2 Flow Rate FiO2 06/13/20 04:00 98.0 82 20 125/66 (85) 96 Room Air 06/12/20 05:00 25 06/11/20 22:00 2.0 I&O- Last 24 Hours up to 6 AM 06/13/20 06:00 Intake Total 4370 ml Output Total 8400 ml Balance -4030 ml Laboratory Data 24H LABS Laboratory Tests 2 06/12/20 10:06: Bedside Glucose (Misc Panel) 319H 06/12/20 12:44: Bedside Glucose (Misc Panel) 354H 06/12/20 13:36: Coronavirus (COVID-19)(PCR) NEGATIVE 06/12/20 16:43: Bedside Glucose (Misc Panel) 304H 06/12/20 20:01: Bedside Glucose (Misc Panel) 285H 06/13/20 00:01: Bedside Glucose (Misc Panel) 142H 06/13/20 03:32: Bedside Glucose (Misc Panel) 141H 06/13/20 04:00: Anion Gap 5L, Glomerular Filtration Rate 33.6L, Calcium Level 8.1L, Phosphorus Level 3.9, Total Bilirubin 0.5#, Aspartate Amino Transf (AST/SGOT) 36, Alanine Aminotransferase (ALT/SGPT) 34, Alkaline Phosphatase 121H, Lactate Dehydrogenase 393H, Total Creatine Kinase 175, Total Protein 6.1L, Albumin 2.1L, Albumin/Globulin Ratio 0.5L, Triglycerides Level 211H, Cholesterol Level 145 06/13/20 05:12: Anion Gap 9, Glomerular Filtration Rate 32.9L, Calcium Level 9.1, Phosphorus Level 4.0, Total Bilirubin 0.3, Aspartate Amino Transf (AST/SGOT) 42H, Alanine Aminotransferase (ALT/SGPT) 38, Alkaline Phosphatase 141H, Lactate Dehydrogenase 419H, Total Creatine Kinase 186, Total Protein 6.5, Albumin 2.3L, Albumin/Globulin Ratio 0.5L, Triglycerides Level 213H, Cholesterol Level 155 CBC/BMP Laboratory Tests 06/13/20 04:00 06/13/20 05:12 Microbiology Microbiology 06/08/20 Stool Occult Blood (MALIK) - Final, Complete 06/08/20 Gram Stain - Final, Complete 06/08/20 Sputum Culture - Final, Complete Yeast Like Organism 06/08/20 Blood Culture - Preliminary, Resulted No Growth after 72 hours. All specime... 06/08/20 Urine Culture - Final, Complete Yeast Like Organism 06/06/20 Gram Stain - Final, Complete 06/06/20 Sputum Culture - Final, Complete Yeast Like Organism 06/04/20 Gram Stain - Final, Complete 06/04/20 Wound Culture - Final, Complete Yeast Like Organism 06/04/20 Blood Culture - Final, Complete NO GROWTH AFTER 5 DAYS 06/04/20 Blood Culture - Final, Complete Staphylococcus Epidermidis EVELIN ABARCA MD Jun 13, 2020 07:51
[2020-06-13 16:00] VITALS: BP 141/94
[2020-06-13 19:02] VITALS: BP 132/83
[2020-06-13 22:00] VITALS: BP 130/61
[2020-06-13] MEDS: levETIRAcetam 250MG TABLET (KEPPRA) PO SCH (22:08)
[2020-06-14] MEDS: KCL 20MEQ IN D5W 1000ML 1,000 ML IV SCH ×2 (01:31→07:35)
[2020-06-14] MEDS: HEPARIN SOD (PORCINE) 5000UNITS/ML 1ML VIAL/SYRINGE SQ SCH ×3 (05:03→21:15)
[2020-06-14] MEDS: SODIUM CHLORIDE 0.9% INJ 10 ML SYR IV SCH ×2 (05:04→18:48)
[2020-06-14 06:00] VITALS: BP 142/78
[2020-06-14 06:22] LABS: HEMATOCRIT 30.4 % (36.0-47.0); HEMOGLOBIN 9.7 g/dl (12.0-15.5); MEAN CORPUSCULAR HEMOGLOBIN 30.9 pg (27.0-33.0); MEAN CORPUSCULAR HGB CONC 31.9 g/dl (32.0-36.5); MEAN CORPUSCULAR VOLUME 96.8 fl (80.0-96.0); PLATELET COUNT, AUTOMATED 101 10^3/uL (150-450); RED BLOOD COUNT 3.14 10^6/uL (4.00-5.40); WHITE BLOOD COUNT 10.5 10^3/uL (4.0-10.0)
[2020-06-14 06:46] LABS: CALCIUM LEVEL 8.5 MG/DL (8.5-10.1); CREATININE FOR GFR 1.57 MG/DL (0.55-1.30); POTASSIUM SERUM 3.8 MEQ/L (3.5-5.1)
[2020-06-14] MEDS: BUDESONIDE 0.25 MG/2 ML INHALATION SUSPENSION INH SCH ×2 (07:23→20:00)
[2020-06-14] MEDS: IPRATROPIUM 0.5MG/ALBUTEROL 2.5MG INH SOL UD 3ML (DUONEB) NEB SCH ×4 (07:23→20:00)
[2020-06-14] MEDS: HumaLOG INSULIN (NovoLOG) PER UNIT SC SCH ×4 (07:35→21:00)
[2020-06-14] MEDS: levETIRAcetam 250MG TABLET (KEPPRA) PO SCH ×2 (09:30→21:15)
[2020-06-14] MEDS: LEVEMIR (INSULIN DETEMIR) 1 UNITS/0.01ML SC SCH ×2 (09:30→21:14)
[2020-06-14] MEDS: TRIAMCINOLONE ACET 0.1% CREAM 80 GM TOP SCH (09:31)
[2020-06-14] MEDS: MICAFUNGIN SODIUM 100 MG in D5W MINI-BAG PLUS 100 ML IV SCH (09:31)
--- NOTE | 2020-06-14 10:05 | IPNPDOC ---
Date Seen The patient was seen on 06/14/20. Progress Note SUBJECTIVE: unable to ambulate unassisted. c/o b/l leg weakness and generalized fatigue. c/o thirst on ivfluids managed by nephrology no c/o chest pain cough fever. rash is less pruritic and much more comfortable today. right antecubital fossa wound unchanged w no pain, or drainage w black eschar. no other issues. OBJECTIVE PHYSICAL EXAMINATION: VITAL SIGNS: Please see below. i/o reviewed GENERAL: sitting on chair at the bedside conversant no jvd Awake, alert, oriented to person, place and time, answering questions appropriately, comfortable, no respiratory distress or use of respiratory accessory muscles HEENT: Neck no carotid bruit. Dry mucous membranes which are extra muscles are intact CARDIOVASCULAR: Sinus S1, S2. No murmurs noted RESPIRATORY: Diminished ABDOMINAL: Obese, soft, nontender, nondistended, positive bowel EXTREMITIES: 2 cm lack ulcerated lesion on the right antecubital fossa with black eschar, positive edema bilateral lower extremities LABORATORY DATA, IMAGING STUDIES, MICROBIOLOGY: Please see below. ASSESSMENT AND PLAN: 40-year-old female with history of seizure disorder, admitted for diabetic ketoacidosis, acute metabolic encephalopathy, acute pancreatitis complicated by acute hypoxic respiratory failure requiring intubation and mechanical ventilation, hypotension requiring Levophed IV drip, midodrine, and 6 packs 25% albumin transfusion Oliguric renal failure , ATN< requiring CVVHD Acute blood loss anemia secondary to clotting of the CVVHD, status post 5 units of leukocyte reduced RBC and thrombocytopenia and severe sepsis empirically treated with vancomycin and meropenem with subsequent drug-induced Erythematous macular papular rash with on and off drug fever fever, TPN, and hypotonic ivfluids managed by nephrology. Patient was extubated on 06/11/2020 with no acute overnight issues. . She has been off CVVHD and maintaining adequate urine output currently in the polyuric phase with 10 L of urine over the past 48 hours PROBLEMS: Diabetic ketoacidosis, resolved Acute metabolic encephalopathy, resolved Severe sepsis, resolved Yeast in the sputum Oliguric renal failure with acute tubular necrosis, resolved Anemia secondary to blood loss clotting of the CVVHD, status post 5 units RBC transfusion Thrombocytopenia secondary to sepsis Acute pancreatitis, resolved Hypernatremia Acute hypoxic respiratory failure requiring intubation, mechanical ventilation, resolved Seizure disorder Metabolic acidosis, resolved Meropenem-induced generalized maculopapular rash Drug fever Intravenous site infiltration. Chest Wound in the right antecubital fossa with black eschar Plan: still w grey catheter and c/o weakness needing assistance w ambulation. nephrology consulted for fluid mgt. despite hypernatremia, no changes in me ntation or c/o headache or changes in vision. anxious to go home but c/o fatigue unable to do her adls w/o assistance. no new complaints. iv meds d/dae and changed to po keppra, levels checked but no available yet. tolerating her diet, but poor appetite. VS, I&O, 24H, Fishbone Vital Signs/I&O Vital Signs Date Time Temp Pulse Resp B/P (MAP) Pulse Ox O2 Delivery O2 Flow Rate FiO2 06/14/20 06:00 97.9 74 19 142/78 (99) 97 Room Air 06/12/20 05:00 25 06/11/20 22:00 2.0 I&O- Last 24 Hours up to 6 AM 06/14/20 05:59 Intake Total 7055 ml Output Total 8150 ml Balance -1095 ml Laboratory Data 24H LABS Laboratory Tests 2 06/13/20 12:54: Bedside Glucose (Misc Panel) 216H 06/13/20 16:17: Bedside Glucose (Misc Panel) 139H 06/13/20 20:46: Bedside Glucose (Misc Panel) 176H 06/14/20 06:00: Nucleated Red Blood Cells % (auto) 0.6H, Anion Gap 9, Glomerular Filtration Rate 39.0L, Calcium Level 8.5 CBC/BMP Laboratory Tests 06/14/20 06:00 Microbiology Microbiology 06/08/20 Stool Occult Blood (MALIK) - Final, Complete 06/08/20 Gram Stain - Final, Complete 06/08/20 Sputum Culture - Final, Complete Yeast Like Organism 06/08/20 Blood Culture - Final, Complete NO GROWTH AFTER 5 DAYS 06/08/20 Urine Culture - Final, Complete Yeast Like Organism 06/06/20 Gram Stain - Final, Complete 06/06/20 Sputum Culture - Final, Complete Yeast Like Organism 06/04/20 Gram Stain - Final, Complete 06/04/20 Wound Culture - Final, Complete Yeast Like Organism 06/04/20 Blood Culture - Final, Complete NO GROWTH AFTER 5 DAYS 06/04/20 Blood Culture - Final, Complete Staphylococcus Epidermidis EVELIN ABARCA MD Jun 14, 2020 10:05
--- NOTE | 2020-06-14 10:59 | IPN ---
PROGRESS NOTE DATE: 06/13/2020 Ms. Murry is seen this morning on her bedside. Nursing staff reports that she did not sleep well last night. She reports being tired. Patient also reports increased thirst and has been drinking liquids very well. She denies any nausea or vomiting at present. PHYSICAL EXAMINATION: Temperature 98.4 degrees Fahrenheit, heart rate 82 per minute, respiratory rate 20 per minute, blood pressure 127/84 mmHg, oxygen saturation 97% on room air. INTAKE AND OUTPUT: Records from yesterday show total intake 4185 and output 6050. EARS, NOSE AND THROAT: Unremarkable. NECK: Supple. Jugular venous distention (JVD) is not abnormally elevated. HEART SOUNDS: Regular. LUNGS: Diminished breath sounds. ABDOMEN: Obese and nontender. EXTREMITIES: Have no cyanosis or clubbing. NEUROLOGIC: She is grossly intact. LABORATORY DATA: Today's laboratories show sodium level 151, potassium 3.4, CO2 26, BUN 36, creatinine 1.82, glucose 153, calcium 9.1. WBC 10.5, hemoglobin 9.0, hematocrit 29.7, platelets 86,000. PROBLEMS: 1. Acute kidney injury. Kidney function is without any significant change at this time. Her electrolytes are fluctuating relating to her high sodium and low potassium. She does not have any uremic symptoms. 2. Hypernatremia. Her sodium level is high again. We will continue with intravenous D5W at 100 mL/hour. We will also continue efforts to control her hyperglycemia. 3. Hypokalemia. We have already added potassium chloride 20 mEq in intravenous (IV) fluid. She is also receiving oral supplement of potassium chloride and electrolytes will be checked again tomorrow. 4. Hyperglycemia. Related to steroids and IV fluids in addition to her diabetes. She remains on insulin and hyperglycemia needs to be controlled more aggressively. Today her readings seem to be much better. 5. Anemia. Her anemia did improve following transfusion. There was no CBC done today. Will check her CBC again tomorrow.
[2020-06-14 13:24] LABS: CREATININE FOR GFR 1.59 MG/DL (0.55-1.30); GLOMERULAR FILTRATION RATE 38.5 (>60); POTASSIUM SERUM 3.5 MEQ/L (3.5-5.1)
--- NOTE | 2020-06-14 13:25 | EEG ---
ELECTROENCEPHALOGRAM DATE: 06/14/2020 DIAGNOSIS: Altered mental status EEG# [id number] REFERRING PHYSICIAN: Deshawn Marx M.D. HISTORY: Patient is a 40-year-old woman who was admitted at [facility] due to diabetic ketoacidosis and acute pancreatitis. This EEG was done to rule out epileptic potential. She is currently on Keppra, meropenem, norepinephrine, vancomycin, etc. TECHNICAL DESCRIPTION: This digital EEG was recorded by 21-scalp, ear, and two EKG electrodes and was reviewed in bipolar and referential montages following reformatting in 10-20 international electrode placement system. INTERPRETATION: Patient was noted to be in awake and drowsy states during this EEG. Resting and awake background rhythm consisted of 9 Hz alpha activity measuring 15-40 microvolts in amplitude, which was symmetric and reactive to eye opening. Attenuation of posterior dominant rhythm was seen during transition to drowsiness. Stage 1 and 2 sleep were reviewed and were symmetric bilaterally. Hyperventilation could not be performed. Photic stimulation remained unremarkable. EKG revealed normal sinus rhythm. No focal, lateralizing, or epileptiform abnormalities were seen. No relevant clinical activity was noted. CONCLUSION: This EEG in awake, drowsy states, stage 1 and 2 sleep is within normal limits. [facility]
[2020-06-14 14:00] VITALS: BP 134/91
[2020-06-14] MEDS ORDERED: POTASSIUM CHLORIDE 10 MEQ SR TABLET PO ONE (16:00)
[2020-06-14 16:39] LABS: CALCIUM LEVEL 9.1 MG/DL (8.5-10.1); CREATININE FOR GFR 1.58 MG/DL (0.55-1.30); GLOMERULAR FILTRATION RATE 38.8 (>60); POTASSIUM SERUM 3.9 MEQ/L (3.5-5.1)
--- NOTE | 2020-06-14 17:47 | IPN ---
PROGRESS NOTE DATE: 06/14/2020 Ms. Murry is seen this morning on her bedside. She is sitting in the recliner chair at the time of my visit. She had a urine output of about 11.3 liters yesterday with a negative fluid balance of 3.7 liters. She was given a lot of intravenous (IV) fluid and her oral intake is also significant. She is recovering from acute renal failure; however, I am also concerned about possibility of nephrogenic diabetes insipidus. In the meantime, the patient denies any nausea or vomiting. She has no dyspnea or chest pain. PHYSICAL EXAMINATION: Temperature 97.9 degrees Fahrenheit, heart rate 74 per minute, respiratory rate 18 per minute, blood pressure 142/79 mmHg, oxygen saturation 97% on room air. HEAD: Atraumatic. NECK: Supple and jugular venous distention (JVD) not abnormally elevated sitting upright. LUNGS: Clear to auscultation. HEART SOUNDS: Regular. ABDOMEN: Soft, obese and nontender. Bowel sounds are present. EXTREMITIES: Without any cyanosis or clubbing. NEUROLOGIC: Grossly intact. LABORATORY DATA: Today's laboratories show sodium 150, potassium 3.8, chloride 116, CO2 25, BUN 27, creatinine 1.57, glucose 158, calcium 8.5. WBC 10.5, hemoglobin 9.7, hematocrit 30.4, platelets 101. PROBLEMS: 1. Acute kidney injury due to sepsis. Kidney function is improving. She has no uremic symptoms. She has excessive urine output, probably related to diuretic phase of her acute renal failure. 2. Hypernatremia. Sodium level essentially unchanged over the last 24 hours. I am going to stop her intravenous (IV) fluid and continue with oral intake of fluid. Electrolytes will be repeated in a few hours and again this afternoon. 3. Polyuria. I am concerned about possibility of nephrogenic diabetes insipidus. She is in the recovery phase of acute renal failure, which could be a possible cause of excessive urine output in addition to hyperglycemia. In order to prevent hyperglycemia problem, I am going to stop her D5W intravenously. Patient is being advised to continue with a liberal oral fluid intake. Her electrolytes will be monitored closely. Her BUN and creatinine did improve, which is not consistent with dehydration or volume depletion. She will need to be monitored and her electrolytes will be checked again this afternoon.
[2020-06-14 18:00] VITALS: BP 134/79
[2020-06-14] MEDS ORDERED: DESMOPRESSIN ACETATE 0.1 MG TAB PO SCH (21:00)
[2020-06-14] MEDS: SODIUM CHLORIDE 0.9% INJ 10 ML SYR IV PRN ×2 (21:22)
[2020-06-14 22:00] VITALS: BP 155/87
[2020-06-14 22:11] LABS: CALCIUM LEVEL 8.6 MG/DL (8.5-10.1); CREATININE FOR GFR 1.56 MG/DL (0.55-1.30); GLOMERULAR FILTRATION RATE 39.3 (>60); POTASSIUM SERUM 3.8 MEQ/L (3.5-5.1)
[2020-06-15 02:00] VITALS: BP 121/79
[2020-06-15] MEDS: HEPARIN SOD (PORCINE) 5000UNITS/ML 1ML VIAL/SYRINGE SQ SCH ×3 (05:24→21:02)
[2020-06-15] MEDS: SODIUM CHLORIDE 0.9% INJ 10 ML SYR IV SCH ×2 (05:25→17:46)
[2020-06-15 05:46] LABS: HEMATOCRIT 29.7 % (36.0-47.0); HEMOGLOBIN 9.1 g/dl (12.0-15.5); MEAN CORPUSCULAR HEMOGLOBIN 30.3 pg (27.0-33.0); MEAN CORPUSCULAR HGB CONC 30.6 g/dl (32.0-36.5); PLATELET COUNT, AUTOMATED 107 10^3/uL (150-450); WHITE BLOOD COUNT 10.2 10^3/uL (4.0-10.0)
[2020-06-15 06:00] VITALS: BP 105/59
[2020-06-15 06:11] LABS: CALCIUM LEVEL 8.5 MG/DL (8.5-10.1); CREATININE FOR GFR 1.39 MG/DL (0.55-1.30); GLOMERULAR FILTRATION RATE 44.9 (>60); POTASSIUM SERUM 3.5 MEQ/L (3.5-5.1)
[2020-06-15] MEDS: IPRATROPIUM 0.5MG/ALBUTEROL 2.5MG INH SOL UD 3ML (DUONEB) NEB SCH ×4 (07:12→19:34)
[2020-06-15] MEDS: BUDESONIDE 0.25 MG/2 ML INHALATION SUSPENSION INH SCH ×2 (07:13→19:34)
[2020-06-15] MEDS: HumaLOG INSULIN (NovoLOG) PER UNIT SC SCH ×4 (07:30→21:00)
[2020-06-15] MEDS ORDERED: POTASSIUM CHLORIDE 10 MEQ SR TABLET PO ONE (08:00)
--- NOTE | 2020-06-15 08:28 | IPNPDOC ---
Date Seen The patient was seen on 06/15/20. Progress Note SUBJECTIVE: anxious to go home, but needed assistance getting up to a chair yesterday. c/o blurred vision and has not had an ophtho exam in many years no c/o dizziness, lightheadedness, confusion, headache. drinks 300ml cup of water at bedside. on ddavp managed by nephrology. sodium 150 this am. OBJECTIVE PHYSICAL EXAMINATION: VITAL SIGNS: Please see below. i/o reviewed GENERAL: ssitting in bed w/o distress Awake, alert, oriented to person, place and time, answering questions appropriately, comfortable, no respiratory distress or use of respiratory accessory muscles HEENT: Neck no carotid bruit. Dry mucous membranes chapped lips CARDIOVASCULAR: Sinus S1, S2. No murmurs noted RESPIRATORY: Diminished ABDOMINAL: Obese, soft, nontender, nondistended, positive bowel EXTREMITIES: 2 cm lack ulcerated lesion on the right antecubital fossa with black eschar, positive edema bilateral lower extremities LABORATORY DATA, IMAGING STUDIES, MICROBIOLOGY: Please see below. ASSESSMENT AND PLAN: 40-year-old female with history of seizure disorder, admitted for diabetic ketoacidosis, acute metabolic encephalopathy, acute pancreatitis complicated by acute hypoxic respiratory failure requiring intubation and mechanical ventilation, hypotension requiring Levophed IV drip, midodrine, and 6 packs 25% albumin transfusion Oliguric renal failure , ATN< requiring CVVHD Acute blood loss anemia secondary to clotting of the CVVHD, status post 5 units of leukocyte reduced RBC and thrombocytopenia and severe sepsis empirically treated with vancomycin and meropenem with subsequent drug-induced Erythematous macular papular rash with on and off drug fever fever, TPN, and hypotonic ivfluids managed by nephrology. Patient was extubated on 06/11/2020 with no acute overnight issues. . She has been off CVVHD and maintaining adequate urine output currently in the polyuric phase with 10 L of urine over the past 48 hours PROBLEMS: Diabetic ketoacidosis, resolved -on consistent carbs, fingersticks -needs ophtho referral to r/o retinopathy Acute metabolic encephalopathy, resolved Severe sepsis, resolved Yeast in the sputum -on micafungin Oliguric renal failure with acute tubular necrosis, resolved -no on polyuric phase of renal failure -on ddavp managed by nephrology Hypernatremia -no mental status changes, loaiza or seizures -managed by nephrology Anemia secondary to blood loss clotting of the CVVHD, status post 5 units RBC transfusion -stable hegb now Thrombocytopenia secondary to sepsis -no recurrent bleed Acute pancreatitis, resolved -tolerating diet Acute hypoxic respiratory failure requiring intubation, mechanical ventilation, resolved -due to pancreatititis, sepsis, dka Seizure disorder -therapeutic level of keppra Metabolic acidosis, resolved Meropenem-induced generalized maculopapular rash -no c/o now -on triamcinolone ointment Drug fever -resolved Wound in the right antecubital fossa with black eschar -from ER when iv infiltrated -not cellulitic -wound care consulted ARU screen VS, I&O, 24H, Fishbone Vital Signs/I&O Vital Signs Date Time Temp Pulse Resp B/P (MAP) Pulse Ox O2 Delivery O2 Flow Rate FiO2 06/15/20 06:00 97.7 76 21 105/59 (74) 96 Room Air 06/12/20 05:00 25 06/11/20 22:00 2.0 I&O- Last 24 Hours up to 6 AM 06/15/20 06:00 Intake Total 3850 ml Output Total 10278 ml Balance -6550 ml Laboratory Data 24H LABS Laboratory Tests 2 06/14/20 11:39: Bedside Glucose (Misc Panel) 129H 06/14/20 12:41: Anion Gap 11, Glomerular Filtration Rate 38.5L, Calcium Level 9.0 06/14/20 15:58: Anion Gap 7L, Glomerular Filtration Rate 38.8L, Calcium Level 9.1 06/14/20 16:20: Bedside Glucose (Misc Panel) 128H 06/14/20 20:17: Bedside Glucose (Misc Panel) 187H 06/14/20 21:21: Anion Gap 6L, Glomerular Filtration Rate 39.3L, Calcium Level 8.6 06/15/20 05:28: Anion Gap 10, Glomerular Filtration Rate 44.9L, Calcium Level 8.5, Nucleated Red Blood Cells % (auto) 0.4H CBC/BMP Laboratory Tests 06/14/20 12:41 06/14/20 15:58 06/14/20 21:21 06/15/20 05:28 Microbiology Microbiology 06/08/20 Stool Occult Blood (MALIK) - Final, Complete 06/08/20 Gram Stain - Final, Complete 06/08/20 Sputum Culture - Final, Complete Yeast Like Organism 06/08/20 Blood Culture - Final, Complete NO GROWTH AFTER 5 DAYS 06/08/20 Urine Culture - Final, Complete Yeast Like Organism 06/06/20 Gram Stain - Final, Complete 06/06/20 Sputum Culture - Final, Complete Yeast Like Organism EVELIN ABARCA MD Jun 15, 2020 08:28
[2020-06-15] MEDS: MICAFUNGIN SODIUM 100 MG in D5W MINI-BAG PLUS 100 ML IV SCH (09:42)
[2020-06-15] MEDS: LEVEMIR (INSULIN DETEMIR) 1 UNITS/0.01ML SC SCH ×2 (09:47→21:01)
[2020-06-15] MEDS: TRIAMCINOLONE ACET 0.1% CREAM 80 GM TOP SCH (09:48)
[2020-06-15] MEDS: levETIRAcetam 250MG TABLET (KEPPRA) PO SCH ×2 (09:48→21:02)
[2020-06-15] MEDS: DESMOPRESSIN 0.01% NASAL SOLN 5 ML BTL SCH ×2 (09:48→21:02)
[2020-06-15 10:00] VITALS: BP 154/89
[2020-06-15] MEDS ORDERED: KCL 20MEQ IN D5W 1000ML 1,000 ML IV SCH ×2 (10:00→19:15)
[2020-06-15] MEDS ORDERED: PROHANCE 279.3MG/ML 15ML VIAL As Ordered ONE (12:05)
--- NOTE | 2020-06-15 12:52 | REPVR ---
PROCEDURE INFORMATION: Exam: MR Head Without and With Contrast, Sella Exam date and time: 06/15/2020 10:29 AM Age: 40 years old Clinical indication: Visual disturbance; Additional info: Blurred vision, diabetes insipidus R/O pituitary adenoma TECHNIQUE: Imaging protocol: MR of the head without and with intravenous contrast. Exam focused on the sella. Contrast material: PROHANCE; Contrast volume: 10 ml; Contrast route: INTRAVENOUS (IV); COMPARISON: CT Head without contrast 06/10/2020 2:49 PM FINDINGS: Brain: Unremarkable. No acute infarct. No significant white matter disease. No edema. Ventricles: No hydrocephalus or evidence of increased intracranial pressure. Sinuses: Moderate right sphenoid sinus mucosal thickening. Orbits: No displacement or abnormal enhancement of the optic chiasm. Sella: Partially empty sella turcica with pituitary craniocaudal height approximately 1.8 mm, less than expected for age. Normal glandular enhancement without adenoma/microadenoma/cyst. Normal pituitary infundibular position and enhancement. Bones/joints: Unremarkable. IMPRESSION: 1. Partially empty sella. No pituitary mass. 2. Incidental paranasal sinus disease as above. Electronically signed by: Jose Colvin On 06/15/2020 12:52:35 PM
--- NOTE | 2020-06-15 13:37 | IPN ---
NEPHROLOGY PROGRESS NOTE DATE: 06/08/2020 SUBJECTIVE: The patient was seen and examined at the bedside this morning in the Intensive Care Unit. Twenty-four events were reviewed with the ICU nurse. The patient came off of Levophed yesterday morning at 10:30 a.m. and continue to have an hourly urine output of greater than 50 mL per hour, even without pressor support. Her CRRT was subsequently stopped at around 6:00 p.m. yesterday evening. The patient has been febrile overnight with temperature persistently above 100 and T-max was 101.5. She was started on Micafungin. She had a bowel movement and her stool occult blood was negative. Her hemoglobin has down trended again and she is maintaining MAP with Midodrine and albumin q. 8 hourly. She is also tolerating Nepro tube feeds at 15 mL an hour and residuals have been less than 100. Her FiO2 requirements are stable at 30%, REVIEW OF SYSTEMS: The patient's review of systems was unable to be obtained secondary to clinical condition. PHYSICAL EXAMINATION: VITAL SIGNS: Temperature T-max 101.5, T-current 100.2, pulse 112, respiratory rate 29, blood pressure 115/69, saturating 97% on 30% FiO2. INTAKE AND OUTPUT: Intake yesterday was 3.4 liters. Urine output yesterday was 1.8 liters. Weight in the bed scale today is not recorded. Urine output today already is more than one and a half liters. GENERAL APPEARANCE: The patient is seen in the ICU intubated and sedated, morbidly obese. HEENT: Sclerae anicteric. Endotracheal and nasogastric tube in place. She has a right sided subclavian triple lumen catheter. HEART: Tachycardic and regular. There is 1+ edema diffusely. LUNGS: Symmetric air entry. No wheeze or crackles noted. She is breathing above the vent. ABDOMEN: Soft. There are hypoactive bowel sounds. Tube feeds are running at 15 mL an hour. GENITOURINARY: There is an indwelling Karimi catheter. There is a right femoral dialysis catheter. EXTREMITIES: Peripheral pulses are palpable. Extremities are warm and there is 1+ edema diffusely. NEUROLOGICAL: She is sedated. She is noted to move her extremities to noxious stimuli. SKIN: Pallor and is warm and dry. LABORATORY STUDIES: White count 16.3, hemoglobin 6.7, platelet count 85. Sodium 140, potassium 4.2, bicarbonate 24, BUN 27, creatinine 2.7, magnesium 2.5, albumin 2.1. Microbiology: Her stool occult blood is negative. Her repeat blood and urine culture and sputum culture are pending. The sputum culture from the grew a yeast like organism as did the buttock culture on the . IMAGING: Chest x-ray today small basilar opacities. No significant change as compared to yesterday. INPATIENT MEDICATIONS: The patient continues on Versed drip. She has been off of Levophed since the morning of June 07. She continues on IV Keppra, IV Meropenem. She was started on Micafungin 100 mg IV daily. Her normal saline was discontinued. Her random Vancomycin level was elevated at 28 and Vancomycin was held. She continues on Hydrocodone. She received a Tylenol suppository, Dulcolax suppository. She was started on Heparin 5,000 units subcutaneously q. 8 hourly. She continue on insulin, Reglan 10 mg via nasogastric tube q. 6 hourly, Midodrine 10 mg p.o. three times daily, Protonix 40 mg IV daily. PROBLEMS: 1. Non oliguric acute renal failure - The patient was weaned off of Levophed yesterday morning with combination Midodrine and albumin infusions. She has been maintaining MAP and she continues to have adequate hourly urine output and her CRRT was discontinued yesterday evening. She will be assessed daily for intermittent hemodialysis needs. Given her persistent fevers, her dialysis catheter has been also discontinued from the right femoral. Continue to dose medications for GFR. Her Vancomycin is held due to high random levels. 2. Sepsis with shock in the setting of pancreatitis she has had ongoing fevers the past 24 hours. She continues on Meropenem. Her most recent Vancomycin level was supratherapeutic. IV Micafungin has also been added. There was yeast like organism growing from the sputum culture and the buttock wound. Her white count is rising. Her dialysis catheter was discontinued. She is off of IV Levophed pressor support, but she is continued on Midodrine 10 mg three times daily and we will also give her albumin as needed to help with the intravascular volume and hemodynamic support. 3. Anemia her hemoglobin is down to 6.7 today. Two units of packed red blood cells are ordered. Her platelets down trended at this admission but there are no signs of active bleed. Her stool occult blood did come back negative. She is on Heparin subcutaneously for DVT prophylaxis. We will get a repeat hemoglobin post blood transfusion. 4. Fluid overload - CBC is 11 today from 14 yesterday. She is making adequate urine. She is also on low dose tube feeds Nepro at 15 mL an hour. She is getting 2 units of blood today, so I am going to hold her IV fluids. Her oxygen requirements are stable with FiO2 at 30%. 5. Nutrition - continue Nepro. Her residuals have decreased to less than 100 today, hence I am not going to start her on TPN. 6. Disposition - The patient shows signs of renal recovery. She will be assessed daily for any develops of dialysis needs. Her antimicrobial regimen has been broadened in view of recurrent fever and rise in white count. Panculture is pending. Dialysis catheter is discontinued. Anemia is improved status post 2 units packed red blood cells. She continues to maintain MAP with Midodrine.
[2020-06-15 14:00] VITALS: BP 150/91
[2020-06-15 18:00] VITALS: BP 153/87
[2020-06-15 18:51] LABS: CALCIUM LEVEL 8.9 MG/DL (8.5-10.1); CREATININE FOR GFR 1.47 MG/DL (0.55-1.30); GLOMERULAR FILTRATION RATE 42.1 (>60)
--- NOTE | 2020-06-15 20:53 | IPN ---
NEPHROLOGY PROGRESS NOTE DATE: 06/15/2020 SUBJECTIVE: The patient is seen this morning at her bedside. She is sitting in the chair and reports feeling depressed. She continues to have excessive urine output with a significant negative fluid balance. Her IV fluid was stopped yesterday and she was advised to continue with liberal fluid oral intake, however she fell behind by about 6 liters. Yesterday she was also given DDAVP by mouth, however there seems to be no response to it. The patient currently reports blurred vision but denies any headache. She has no vomiting or diarrhea. PHYSICAL EXAMINATION: VITAL SIGNS: Temperature 99.4 degrees Fahrenheit, heart rate 90 per minute, respiratory rate 16 per minute, blood pressure 154/89 mm of mercury and oxygen saturation is 96% on room air. HEENT: Head is atraumatic. Oral mucosa is moist and without any thrush or ulcers. NECK: Supple and without JVD or thyroid enlargement. HEART: Regular. LUNGS: Clear to auscultation. ABDOMEN: Soft and nontender and bowel sounds are normal. EXTREMITIES: Without any cyanosis or clubbing. She has no peripheral edema. NEUROLOGICAL: Awake and without any focal deficits. INTAKE AND OUTPUT: Yesterday her total intake was recorded as 4,645 and output 10,700 mL. On June 13 her intake was 7,620 and output 11,350. LABORATORY STUDIES: Today's labs show a white blood cell count of 10.2, hemoglobin 9.1 and hematocrit 29.7, platelet count 107. This morning sodium is still 150 which is unchanged for the last 4 days, potassium 3.5, chloride 112, CO2 28, BUN 25 and creatinine 1.39 which is a slight improvement compared to yesterday. Glucose is 103 and calcium 8.5. PROBLEMS: 1. Polyuria I am concerned about the possibility of diabetes insipidus. 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 She has a complaint of blurred vision. I have suggested to Dr. Smith to get an MRI of her pituitary gland. I am going to restart her on d5w intravenously at 100 mL per hour. The patient is also being advised to continue with liberal fluid intake. Oral DDAVP is being stopped, and she is being given intranasal spray, one spray twice daily and we will continue to monitor her intake her output closely along with her electrolytes. A BMP is being ordered for 2:00 p.m. and another one for 6:00 p.m. today. Nursing staff is being advised to monitor and record her urine output and intake accurately. 2. Hypernatremia - sodium level has been essentially unchanged for 4 days. We would like to gradually lower her sodium to normal range. IV fluid, d5w is being started. She is also being given DDAVP. I feel that she has developed diabetes insipidus. Etiology is uncertain at present. She probably has a chronic issue which got worsened during this hospitalization with sepsis and hypertension. MRI of pituitary gland is being ordered. 3. Anemia her anemia has been stable and she has no active bleeding. 4. Diabetes her hyperglycemia has improved and steroids have been stopped. Her blood sugars are now much better controlled.
[2020-06-15 22:00] VITALS: BP 121/61
[2020-06-16] MEDS: SODIUM CHLORIDE 0.9% INJ 10 ML SYR IV PRN ×3 (01:41→20:31)
[2020-06-16 02:27] LABS: CALCIUM LEVEL 8.3 MG/DL (8.5-10.1); CREATININE FOR GFR 1.42 MG/DL (0.55-1.30); GLOMERULAR FILTRATION RATE 43.8 (>60); POTASSIUM SERUM 3.5 MEQ/L (3.5-5.1)
[2020-06-16] MEDS: SODIUM CHLORIDE 0.9% INJ 10 ML SYR IV SCH ×2 (05:52→17:20)
[2020-06-16] MEDS: HEPARIN SOD (PORCINE) 5000UNITS/ML 1ML VIAL/SYRINGE SQ SCH ×3 (05:52→20:31)
[2020-06-16 06:00] VITALS: BP 134/91
[2020-06-16 06:10] LABS: HEMOGLOBIN 9.7 g/dl (12.0-15.5); MEAN CORPUSCULAR HEMOGLOBIN 29.8 pg (27.0-33.0); MEAN CORPUSCULAR HGB CONC 30.3 g/dl (32.0-36.5); MEAN CORPUSCULAR VOLUME 98.5 fl (80.0-96.0); PLATELET COUNT, AUTOMATED 113 10^3/uL (150-450); RED BLOOD COUNT 3.25 10^6/uL (4.00-5.40); WHITE BLOOD COUNT 10.6 10^3/uL (4.0-10.0)
[2020-06-16 06:33] LABS: CALCIUM LEVEL 8.4 MG/DL (8.5-10.1); CREATININE FOR GFR 1.39 MG/DL (0.55-1.30); GLOMERULAR FILTRATION RATE 44.9 (>60); POTASSIUM SERUM 3.5 MEQ/L (3.5-5.1)
[2020-06-16] MEDS: BUDESONIDE 0.25 MG/2 ML INHALATION SUSPENSION INH SCH ×2 (07:28→19:31)
[2020-06-16] MEDS: IPRATROPIUM 0.5MG/ALBUTEROL 2.5MG INH SOL UD 3ML (DUONEB) NEB SCH ×4 (07:28→19:31)
--- NOTE | 2020-06-16 07:40 | IPNPDOC ---
Text Note Date of Service The patient was seen on 06/16/20. NOTE Subjective: She seen and examined this morning at bedside. Patient tells me he is feeling well has no active complaints. Objective: Constitutional: Awake and alert, in no apparent distress, obese ENT: Sclera are clear. Mucosa is moist. Respiratory: Diminished breath sounds bilaterally. No respiratory distress. No use of accessory muscles. Cardiovascular: RRR S1 and S2 are normal, no murmur Gastrointestinal: Abdomen is soft, non distended, non tender, BS present. Musculoskeletal: 1+ bilateral lower extremity edema. Neurologic: No focal neurological deficit. Mental Status: A&O x3, normal affect Skin: ~2 cm ulcerated lesion on the right antecubital fossa with black eschar, Assessment/plan: 40-year-old female with history of seizure disorder, admitted for diabetic ketoacidosis, acute metabolic encephalopathy, acute pancreatitis complicated by acute hypoxic respiratory failure requiring intubation and mechanical ventilation, hypotension requiring Levophed IV drip, midodrine, and 6 packs 25% albumin transfusion Oliguric renal failure , ATN< requiring CVVHD Acute blood loss anemia secondary to clotting of the CVVHD, status post 5 units of leukocyte reduced RBC and thrombocytopenia and severe sepsis empirically treated with vancomycin and meropenem with subsequent drug-induced Erythematous macular papular rash with on and off drug fever fever, TPN, and hypotonic ivfluids managed by nephrology. Patient was extubated on 06/11/2020 with no acute overn ight issues. She did well and was downgraded to med/surg. She was diagnosed with diabetes insipidus which is being managed by nephrology. # Suspected diabetes insipidus: responding to ddavp, now on intranasal ddavp. nephrology recommended r/o central di due to c/o blurred vision. MRI brain negative. #Diabetic ketoacidosis, resolved. on consistent carbs, fingersticks. needs ophtho referral to r/o retinopathy #Acute metabolic encephalopathy, resolved #Severe sepsis, resolved #Yeast in the sputum on micafungin #Oliguric renal failure with acute tubular necrosis, resolved #Hypernatremia: no mental status changes, loaiza or seizures. managed by nephrology #Anemia secondary to blood loss clotting of the CVVHD, status post 5 units RBC transfusion. stable hegb now #Thrombocytopenia secondary to sepsis. no recurrent bleed #Acute pancreatitis, resolved. tolerating diet # Acute hypoxic respiratory failure requiring intubation, mechanical ventilation, resolved. due to pancreatititis, sepsis, dka #Seizure disorder. therapeutic level of keppra #Metabolic acidosis, resolved #Meropenem-induced generalized maculopapular rash. no c/o now. on triamcinolone ointment # Drug fever resolved #Wound in the right antecubital fossa with black eschar: from ER when iv infiltrated. not cellulitic. wound care consulted Dispo: home with services [facility] Tierney FLORES, I+O [facility] I+O Laboratory Tests 06/15/20 18:12 06/16/20 01:50 06/16/20 05:58 Vital Signs Date Time Temp Pulse Resp B/P (MAP) Pulse Ox O2 Delivery O2 Flow Rate FiO2 06/16/20 06:00 97.1 100 18 134/91 (105) 94 Room Air 06/12/20 05:00 25 06/11/20 22:00 2.0 I&O- Last 24 Hours up to 6 AM 06/16/20 06:00 Intake Total 2835 ml Output Total 6400 ml Balance -3565 ml TRAY FLETCHER MD Jun 16, 2020 07:40
[2020-06-16] MEDS ORDERED: POTASSIUM CHLORIDE 10 MEQ SR TABLET PO ONE (08:00)
[2020-06-16] MEDS: levETIRAcetam 250MG TABLET (KEPPRA) PO SCH ×2 (08:14→20:30)
[2020-06-16] MEDS: LEVEMIR (INSULIN DETEMIR) 1 UNITS/0.01ML SC SCH ×2 (08:16→20:17)
[2020-06-16] MEDS: HumaLOG INSULIN (NovoLOG) PER UNIT SC SCH ×4 (08:16→20:08)
[2020-06-16] MEDS: TRIAMCINOLONE ACET 0.1% CREAM 80 GM TOP SCH (08:17)
[2020-06-16] MEDS: DESMOPRESSIN 0.01% NASAL SOLN 5 ML BTL SCH (08:17)
[2020-06-16 14:00] VITALS: BP 133/78
[2020-06-16 15:13] LABS: CREATININE FOR GFR 1.5 MG/DL (0.55-1.30); GLOMERULAR FILTRATION RATE 41.2 (>60); POTASSIUM SERUM 3.7 MEQ/L (3.5-5.1)
[2020-06-16 16:00] VITALS: BP 133/78
[2020-06-16 18:00] VITALS: BP 115/55
--- NOTE | 2020-06-16 20:21 | IPN ---
PROGRESS NOTE DATE: 06/16/2020 Ms. Murry is seen this morning on her bedside. She is feeling better today and denies any nausea, vomiting, dyspnea or chest pain. She still reports very blurred vision, but this has been going on for a while. She had an MRI of her pituitary gland yesterday, which did not show any mass or tumor. Her urine output has slowed down after she received Desmopressin (DDAVP). It is important to know that she had almost 11 liters of urine output for two days consecutively, on June 13 and June 14, 2020. Yesterday, her urine output was 7.75 liters. PHYSICAL EXAMINATION: Temperature 97.1 degrees Fahrenheit, heart rate 100 per minute, respiratory rate 18 per minute, blood pressure 134/90 mmHg, oxygen saturation 94% on room air. HEAD: Atraumatic. NECK: Supple and without jugular venous distention (JVD) or thyroid enlargement. HEART SOUNDS: Tachycardic. LUNGS: Clear to auscultation. ABDOMEN: Soft and nontender. Bowel sounds are normal. EXTREMITIES: Without any cyanosis or clubbing. SKIN: Dry and without any rashes or ulcers. NEUROLOGIC: She is awake, alert and oriented times three. LABORATORY DATA: Today's labs show WBC 10.6, hemoglobin 9.7. hematocrit 32.0, platelets 113. Sodium 144, potassium 3.5, CO2 26, chloride 108, BUN 20, creatinine 1.39, glucose 114, calcium 8.4 PROBLEMS: 1. Polyuria. Suspected diabetes insipidus. She has been given DDAVP with decrease in the urine output. She did have hypernatremia along with polyuria, which raised a very strong suspicion for diabetes insipidus. At this point, her urine output has slowed down and we will adjust the dose of DDAVP. Her intravenous (IV) fluids have already been stopped since yesterday and now she has been advised to continue with normal fluid intake and not push for any excessive fluid intake. 2. Hypokalemia. Calcium level is 3.5 and she will be given one dose of potassium chloride 40 mEq. 3. Acute kidney injury. Kidney function has also improved and leveled off. We will continue to monitor it closely. 4. Anemia. Her anemia has been stable and does not need any intervention at present. 5. Hypernatremia. Her sodium level gradually improved to 144 today from 147 yesterday afternoon and 150 yesterday morning. This is very slow and gradual improvement in her sodium level, which is appropriate. We will continue to monitor her electrolytes every day and make further adjustments as needed. 6. Blurred vision. Patient has been advised to consultation ophthalmology once she gets discharged from the hospital.
[2020-06-16] MEDS: NYSTATIN OINTMENT 15 GM TOP SCH (20:31)
[2020-06-16 21:00] LABS: CALCIUM LEVEL 8.4 MG/DL (8.5-10.1); CREATININE FOR GFR 1.52 MG/DL (0.55-1.30); GLOMERULAR FILTRATION RATE 40.5 (>60); POTASSIUM SERUM 3.7 MEQ/L (3.5-5.1)
[2020-06-16 22:00] VITALS: BP 127/91
[2020-06-17 02:00] VITALS: BP 132/87
[2020-06-17] MEDS: SODIUM CHLORIDE 0.9% INJ 10 ML SYR IV SCH ×2 (05:34→18:02)
[2020-06-17] MEDS: HEPARIN SOD (PORCINE) 5000UNITS/ML 1ML VIAL/SYRINGE SQ SCH ×3 (05:34→21:22)
[2020-06-17 05:51] LABS: HEMATOCRIT 30.9 % (36.0-47.0); HEMOGLOBIN 9.5 g/dl (12.0-15.5); MEAN CORPUSCULAR HEMOGLOBIN 30.3 pg (27.0-33.0); MEAN CORPUSCULAR HGB CONC 30.7 g/dl (32.0-36.5); MEAN CORPUSCULAR VOLUME 98.4 fl (80.0-96.0); PLATELET COUNT, AUTOMATED 116 10^3/uL (150-450); RED BLOOD COUNT 3.14 10^6/uL (4.00-5.40); WHITE BLOOD COUNT 9.5 10^3/uL (4.0-10.0)
[2020-06-17 06:16] LABS: CREATININE FOR GFR 1.51 MG/DL (0.55-1.30); GLOMERULAR FILTRATION RATE 40.8 (>60); POTASSIUM SERUM 3.7 MEQ/L (3.5-5.1)
[2020-06-17] MEDS: HumaLOG INSULIN (NovoLOG) PER UNIT SC SCH ×4 (07:30→21:22)
[2020-06-17] MEDS: IPRATROPIUM 0.5MG/ALBUTEROL 2.5MG INH SOL UD 3ML (DUONEB) NEB SCH ×4 (07:36→19:52)
[2020-06-17] MEDS: BUDESONIDE 0.25 MG/2 ML INHALATION SUSPENSION INH SCH ×2 (07:36→19:52)
[2020-06-17] MEDS: NYSTATIN OINTMENT 15 GM TOP SCH ×2 (08:53→21:23)
[2020-06-17] MEDS: levETIRAcetam 250MG TABLET (KEPPRA) PO SCH ×2 (08:53→21:21)
[2020-06-17] MEDS: DESMOPRESSIN 0.01% NASAL SOLN 5 ML BTL SCH (08:54)
[2020-06-17] MEDS: LEVEMIR (INSULIN DETEMIR) 1 UNITS/0.01ML SC SCH ×3 (08:54→21:35)
[2020-06-17] MEDS: TRIAMCINOLONE ACET 0.1% CREAM 80 GM TOP SCH (08:54)
[2020-06-17] MEDS ORDERED: INFLUENZA QUADRIVALENT PF VACCINE 0.5ML SYRINGE IM ONE (09:00)
[2020-06-17 10:00] VITALS: BP 124/85
--- NOTE | 2020-06-17 12:44 | IPNPDOC ---
Text Note Date of Service The patient was seen on 06/17/20. NOTE Subjective: She seen and examined this morning at bedside. Patient tells me he is feeling well has no active complaints. Has responded well to the DDAVP and urine output has decreased significantly. Objective: Constitutional: Awake and alert, in no apparent distress, obese ENT: Sclera are clear. Mucosa is moist. Respiratory: Diminished breath sounds bilaterally. No respiratory distress. No use of accessory muscles. Cardiovascular: RRR S1 and S2 are normal, no murmur Gastrointestinal: Abdomen is soft, non distended, non tender, BS present. Musculoskeletal: 1+ bilateral lower extremity edema. Neurologic: No focal neurological deficit. Mental Status: A&O x3, normal affect Skin: ~2 cm ulcerated lesion on the right antecubital fossa with black eschar, Assessment/plan: 40-year-old female with history of seizure disorder, admitted for diabetic ketoacidosis, acute metabolic encephalopathy, acute pancreatitis complicated by acute hypoxic respiratory failure requiring intubation and mechanical ventilation, hypotension requiring Levophed IV drip, midodrine, and 6 packs 25% albumin transfusion Oliguric renal failure , ATN< requiring CVVHD Acute blood loss anemia secondary to clotting of the CVVHD, status post 5 units of leukocyte reduced RBC and thrombocytopenia and severe sepsis empirically treated with vancomycin and meropenem with subsequent drug-induced Erythematous macular papular rash with on and off drug fever fever, TPN, and hypotonic ivfluids m anaged by nephrology. Patient was extubated on 06/11/2020 with no acute overnight issues. She did well and was downgraded to med/surg. She was diagnosed with diabetes insipidus which is being managed by nephrology. # Suspected diabetes insipidus: Responded well to DDAVP now on intranasal ddavp once daily. 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 I discussed the case with Dr. Treviño research fellow, If she continues to do well with controlled electrolytes and urine output tomorrow as well she is okay to be discharged home and follow-up with her PCP #Diabetic ketoacidosis, resolved. on consistent carbs, fingersticks. needs ophtho referral to r/o retinopathy #Acute metabolic encephalopathy, resolved #Severe sepsis, resolved #Yeast in the sputum on micafungin #Oliguric renal failure with acute tubular necrosis, resolved #Hypernatremia: no mental status changes, loaiza or seizures. managed by nephrology #Anemia secondary to blood loss clotting of the CVVHD, status post 5 units RBC transfusion. stable hegb now #Thrombocytopenia secondary to sepsis. no recurrent bleed #Acute pancreatitis, resolved. tolerating diet # Acute hypoxic respiratory failure requiring intubation, mechanical ventilation, resolved. due to pancreatititis, sepsis, dka #Seizure disorder. therapeutic level of keppra #Metabolic acidosis, resolved #Meropenem-induced generalized maculopapular rash. no c/o now. on triamcinolone ointment # Drug fever resolved #Wound in the right antecubital fossa with black eschar: from ER when iv infiltrated. not cellulitic. wound care consulted Dispo: Anticipated discharge tomorrow home with services [facility] Tierney FLORES, I+O VS, [facility] I+O Laboratory Tests 06/16/20 14:17 06/16/20 20:25 06/17/20 05:41 Vital Signs Date Time Temp Pulse Resp B/P (MAP) Pulse Ox O2 Delivery O2 Flow Rate FiO2 06/17/20 10:00 98.9 101 18 124/85 (98) 98 Room Air 06/12/20 05:00 25 06/11/20 22:00 2.0 I&O- Last 24 Hours up to 6 AM 06/17/20 06:00 Intake Total 2620 ml Output Total 3175 ml Balance -555 ml TRAY FLETCHER MD Jun 17, 2020 12:44
--- NOTE | 2020-06-17 13:03 | IPN ---
PROGRESS NOTE DATE: 06/17/2020 SUBJECTIVE: Ms. Murry is seen this morning on her bedside. She is sitting on the edge of the bed and feels well. She wants to go home. She denies any nausea, vomiting, dyspnea or chest pain. Her blurred vision is unchanged and denies any headaches. Urine output has slowed down with DDAVP and her electrolytes have been stable. PHYSICAL EXAMINATION: VITAL SIGNS: Temperature 98.9 degrees Fahrenheit, heart rate 100 per minute and respiratory 18 per minute. Blood pressure 124/85 mmHg and oxygen saturation 98% on room air. HEAD AND NECK: Head is atraumatic. Neck is supple and without JVD or thyroid enlargement. There is no oral thrush or ulcers. HEART: Heart sounds are tachycardic. LUNGS: Clear to auscultation. ABDOMEN: Soft, obese and nontender. Bowel sounds are normal. EXTREMITIES: Without any cyanosis or clubbing. NEUROLOGIC: She is grossly intact. Yesterday, her total intake was 2650 and output 2925 ml with a negative fluid balance of only 275 ml. LABORATORY DATA: Today's labs showed a WBC count of 9.5, hemoglobin 9.5 and hematocrit 30.9. Platelets are 116,000. Sodium 142, potassium 3.7, chloride 107, CO2 26, BUN 19 and creatinine 1.51. Glucose 140 and calcium 8.0. PROBLEMS: 1. Acute kidney injury superimposed on chronic kidney disease. Kidney function seems to be leveled off. She could be euvolemic or slightly volume depleted due to her excessive urine output. At this point, she has been advised to continue with normal diet and liberal fluid intake. She is not on any restrictions. 2. Diabetes insipidus. Patient had excessive urine output for several days and has responded very well to DDAVP which is consistent with central diabetes insipidus. She has a long history of polyuria and probably was compensating by excessive drinking. She had persistent hypernatremia with excessive urine output up to 11 liters two days in a row. She has responded very well to DDAVP. At this point we will continue with DDAVP nasal spray once a day which has kept intake almost even with her output. Her sodium level has now been stable for the last 48 hours. 3. Disposition. I have discussed with the patient and explained to her that she is likely to be ready for discharge in the next 24 to 48 hours. She will need close monitoring and follow-up as an outpatient.
[2020-06-17 14:00] VITALS: BP 122/83
[2020-06-17 18:00] VITALS: BP 121/81
[2020-06-17 22:00] VITALS: BP 124/79
[2020-06-18] MEDS: SODIUM CHLORIDE 0.9% INJ 10 ML SYR IV SCH (06:13)
[2020-06-18] MEDS: HEPARIN SOD (PORCINE) 5000UNITS/ML 1ML VIAL/SYRINGE SQ SCH (06:13)
[2020-06-18 06:34] LABS: HEMATOCRIT 31.2 % (36.0-47.0); HEMOGLOBIN 9.7 g/dl (12.0-15.5); MEAN CORPUSCULAR HEMOGLOBIN 30.1 pg (27.0-33.0); MEAN CORPUSCULAR HGB CONC 31.1 g/dl (32.0-36.5); MEAN CORPUSCULAR VOLUME 96.9 fl (80.0-96.0); PLATELET COUNT, AUTOMATED 120 10^3/uL (150-450); RED BLOOD COUNT 3.22 10^6/uL (4.00-5.40)
[2020-06-18] MEDS: BUDESONIDE 0.25 MG/2 ML INHALATION SUSPENSION INH SCH (06:42)
[2020-06-18] MEDS: IPRATROPIUM 0.5MG/ALBUTEROL 2.5MG INH SOL UD 3ML (DUONEB) NEB SCH ×2 (06:42→11:36)
[2020-06-18 06:52] LABS: CALCIUM LEVEL 8.1 MG/DL (8.5-10.1); CREATININE FOR GFR 1.38 MG/DL (0.55-1.30); GLOMERULAR FILTRATION RATE 45.3 (>60); POTASSIUM SERUM 3.6 MEQ/L (3.5-5.1)
[2020-06-18] MEDS ORDERED: POTASSIUM CHLORIDE 10 MEQ SR TABLET PO ONE (07:45)
[2020-06-18] MEDS: LEVEMIR (INSULIN DETEMIR) 1 UNITS/0.01ML SC SCH (08:25)
[2020-06-18] MEDS: levETIRAcetam 250MG TABLET (KEPPRA) PO SCH (08:25)
[2020-06-18] MEDS: HumaLOG INSULIN (NovoLOG) PER UNIT SC SCH ×2 (08:26→12:47)
[2020-06-18] MEDS: DESMOPRESSIN 0.01% NASAL SOLN 5 ML BTL SCH (08:26)
[2020-06-18] MEDS: TRIAMCINOLONE ACET 0.1% CREAM 80 GM TOP SCH (08:26)
[2020-06-18] MEDS: NYSTATIN OINTMENT 15 GM TOP SCH (08:27)
[2020-06-18 10:00] VITALS: BP 136/86
--- NOTE | 2020-06-18 12:27 | IPN ---
PROGRESS NOTE DATE: 06/18/2020 SUBJECTIVE: Ms. Murry is seen this morning on her bedside. She is feeling better today and denies any dyspnea, chest pain, dizziness, nausea, or vomiting. She wants to go home. OBJECTIVE: VITAL SIGNS: Temperature 98.9 degrees Fahrenheit, heart rate 80 per minute, and respiratory rate 18 per minute. Blood pressure 124/79 mmHg and oxygen saturation 97% on room air. INTAKE AND OUTPUT: From yesterday shows total intake 2276 and output 3250 mL. I discussed with her about preadmission fluid intake habits. She reports that she used to drink a 12-can pack of root beer and one gallon of milk every day. Now, her intake is much less as she feels that she is not thirsty anymore. HEAD: Atraumatic. NECK: Supple and without JVD or thyroid enlargement. HEART: Sounds regular. LUNGS: Clear to auscultation. ABDOMEN: Soft and nontender. Bowel sounds are normal. EXTREMITIES: Without any cyanosis or clubbing. NEUROLOGIC: She is awake, alert, and oriented x3. LABORATORY DATA: Today's labs show WBC count 9.0, hemoglobin 9.7, hematocrit 31.2, and platelets 120,000. Sodium is 140, potassium 3.6, BUN 16, creatinine 1.38, glucose 125, and calcium 8.1. PROBLEMS: 1. Acute kidney injury superimposed on chronic kidney disease. Kidney function seems to be slowly improving. She was in a slight negative fluid balance; however, it is possible that here intake is not recorded accurately. 2. Hypernatremia. Most likely this was related to diabetes insipidus and has improved and remained stable for the last five days. 3. Hypokalemia. The patient will be given one dose of potassium chloride 40 mEq today and then follow-up as an outpatient in one week. 4. Diabetes insipidus. 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 She had excessive fluid intake as an outpatient, as she reports of feeling excessive thirst. She is not thirsty anymore and her intake has decreased as her urine output has decreased with the DDAVP. She understands to continue with one spray of DDAVP every day and then, follow-up in the office in one week. 5. Anemia. Her anemia is stable and does not need any intervention at this time. 6. Disposition: From a renal standpoint, the patient can be discharged to home today and follow-up in one week in my clinic.
[2020-06-18] MEDS ORDERED: INSU1MIS20 SC (12:50)
[2020-06-18] MEDS ORDERED: ALCOPAD25 TOP (12:50)
[2020-06-18] MEDS ORDERED: DESM1SPR (12:50)
[2020-06-18] MEDS ORDERED: GLUC1TES2 XX (12:50)
[2020-06-18] MEDS ORDERED: BLOOKIT21 XX (12:50)
[2020-06-18] MEDS ORDERED: LANC30MI XX (12:50)
[2020-06-18] MEDS ORDERED: INSUDET SC (12:50)
[2020-06-18] MEDS ORDERED: PEN1MIS21 SC (12:50)
--- NOTE | 2020-06-18 13:00 | DS.PDOC ---
Discharge Summary General Date of Admission May 30, 2020 at 12:33 Date of Discharge 06/17/2020 Discharge Summary PROCEDURES PERFORMED DURING STAY: [None]. ADMITTING DIAGNOSES: Diabetic ketoacidosis Hypernatremia Acute pancreatitis Severe sepsis Acute encephalopathy Acute kidney injury DISCHARGE DIAGNOSES: Diabetic ketoacidosis Hypernatremia Acute pancreatitis Severe sepsis Acute metabolic encephalopathy Diabetes insipidus Oliguric renal failure with acute tubular necrosis Metabolic acidosis Acute hypoxic respiratory failure COMPLICATIONS/CHIEF COMPLAINT: Panda,Ketosis,Hypernatremia. HISTORY OF PRESENT ILLNESS: From admitting physicians H&P: This is a 40 y/o obese female with PMHx significant for Asthma, allergic rhinitis, who presents to [facility] with cc of altered mental status. Pt is AAOx0 but patient's mother is at beside and this history of present illness is mostly provided by her mother. She states that the patient has had about 6 months hx of polyuria and increased thirst to the point where she drinks about a gallon of milk/day. She had an appt setup with a doctor in [place] to get her sugars checked and worked up for diabetes today. However, when she went to get her daughter, she was acting very confused and speaking incoherently. Of note, she stated that when she called her daugther yesterday, she reported headaches. In the ER, pt's blood sugar is 1355 and her Na+ corrected for hyperglycemia is 165. She also has lactic acidosis and lipase of 18,582 and meets sepsis criteria. Her initial ABG did not show acidosis and PH 7.37. She's on telemetry and is tachycardic and EKG is ordered in the ER. She was given 2 L Ns 0.9% fluid boluses in the ER and started on insulin gtt. HOSPITAL COURSE: 40-year-old female with history of seizure disorder, admitted for diabetic ketoacidosis, acute metabolic encephalopathy, acute pancreatitis complicated by acute hypoxic respiratory failure requiring intubation and mechanical ventilation, hypotension requiring Levophed IV drip, midodrine, and 6 packs 25% albumin transfusion Oliguric renal failure , ATN< requiring CVVHD Acute blood loss anemia secondary to clotting of the CVVHD, status post 5 units of leukocyte reduced RBC and thrombocytopenia and severe sepsis empirically treated with vancomycin and meropenem with subsequent drug-induced Erythematous macular papular rash with on and off drug fever fever, TPN, and hypotonic ivfluids managed by nephrology. Patient was extubated on 06/11/2020 with no acute overnight issues. She did well and was downgraded to med/surg. She was diagnosed with diabetes insipidus which is being managed and responded well to DDAVP. # Suspected diabetes insipidus: Responded well to DDAVP now on intranasal ddavp once daily. 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 I disc ussed the case with Dr. Treviño pallet sorter, she continued to do well with controlled electrolytes and urine output for 2 days she is okay to be discharged home and follow-up with her PCP as well as nephrology in a week. #Diabetic ketoacidosis, resolved. on consistent carbs, fingersticks. needs oph tho referral from PCP to workup retinopathy #Acute metabolic encephalopathy, resolved #Severe sepsis, resolved #Yeast in the sputum on micafungin treated #Oliguric renal failure with acute tubular necrosis, resolved #Hypernatremia: no mental status changes, loaiza or seizures. managed by nephrology - resolved #Anemia secondary to blood loss clotting of the CVVHD, status post 5 units RBC transfusion. stable hegb now #Thrombocytopenia secondary to sepsis. no recurrent bleed #Acute pancreatitis, resolved. tolerating diet #Acute hypoxic respiratory failure requiring intubation, mechanical ventilation, resolved. due to pancreatititis, sepsis, dka -resolved #Seizure disorder. therapeutic level of keppra #Metabolic acidosis, resolved #Meropenem-induced generalized maculopapular rash. no c/o now. on triamcinolone ointment # Drug fever resolved #Wound in the right antecubital fossa with black eschar: from ER when iv infiltrated. not cellulitic. DISCHARGE MEDICATIONS: Please see below. ALLERGIES: Please see below. PHYSICAL EXAMINATION ON DISCHARGE: VITAL SIGNS: Please see below. Constitutional: Awake and alert, in no apparent distress, obese ENT: Sclera are clear. Mucosa is moist. Respiratory: Diminished breath sounds bilaterally. No respiratory distress. No use of accessory muscles. Cardiovascular: RRR S1 and S2 are normal, no murmur Gastrointestinal: Abdomen is soft, non distended, non tender, BS present. Musculoskeletal: 1+ bilateral lower extremity edema. Neurologic: No focal neurological deficit. Mental Status: A&O x3, normal affect Skin: ~2 cm ulcerated lesion on the right antecubital fossa with black eschar LABORATORY DATA: Please see below. IMAGING: See chart PROGNOSIS: Fair ACTIVITY: [As tolerated]. DIET: Consistent carbohydrate diet DISPOSITION: Home with home health DISCHARGE INSTRUCTIONS: Please follow up with your primary care physician within 1 week from discharge. If you do not have one, please follow up with us to schedule an appointment. Please keep all of your follow up appointments. Please call central to book your appointments with hospital specialists. Please take all your medications as prescribed. Please call/come to Clinic or go to the Emergency Department if - Temp >101, intractable Nausea/Vomiting, Diarrhea, Mouth sores, Headaches, Altered mental status, Seizures, sudden onset of swelling, bleeding, shortness of breath or ch est pain. ITEMS TO FOLLOWUP ON ON OUTPATIENT: 1. Follow-up with PCP within 3-5 days of discharge 2. Follow-up with nephrology next week DISCHARGE CONDITION: [Stable]. TIME SPENT ON DISCHARGE: 50 minutes. Vital Signs/I&Os Vital Signs Date Time Temp Pulse Resp B/P (MAP) Pulse Ox O2 Delivery O2 Flow Rate FiO2 06/18/20 10:00 98.8 110 20 136/86 (103) 97 Room Air 06/12/20 05:00 25 I&O- Last 24 Hours up to 6 AM 06/18/20 06:00 Intake Total 1956 ml Output Total 3100 ml Balance -1144 ml Laboratory Data Labs 24H Laboratory Tests 2 06/17/20 17:19: Bedside Glucose (Misc Panel) 107H 06/17/20 20:25: Bedside Glucose (Misc Panel) 156H 06/18/20 06:21: Nucleated Red Blood Cells % (auto) 0.2H, Anion Gap 11, Glomerular Filtration Rate 45.3L, Calcium Level 8.1L 06/18/20 11:41: Bedside Glucose (Misc Panel) 116H CBC/BMP Laboratory Tests 06/18/20 06:21 FSBS Laboratory Tests Test 06/17/20 17:19 06/17/20 20:25 06/18/20 11:41 Range/Units Bedside Glucose (Misc Panel) 107 156 116 70-105 MG/DL Microbiology Microbiology 06/08/20 Stool Occult Blood (MALIK) - Final, Complete 06/08/20 Gram Stain - Final, Complete 06/08/20 Sputum Culture - Final, Complete Yeast Like Organism 06/08/20 Blood Culture - Final, Complete NO GROWTH AFTER 5 DAYS 06/08/20 Urine Culture - Final, Complete Yeast Like Organism Discharge Medications Scheduled Levetiracetam (Keppra) 1,000 Mg Tab, 1,000 MG PO BID, (Reported) Norethindrone (Deblitane) 0.35 Mg Tablet, 0.35 MG PO DAILY, (Reported) Trazodone HCl (Trazodone HCl) 50 Mg Tablet, 50 MG PO QHS, (Reported) Scheduled PRN Albuterol Sulfate (Proair Hfa) 8.5 Gm Hfa.aer.ad, 2 PUFF INH Q4H PRN for SH ORTNESS OF BREATH, (Reported) Miscellaneous Medications Polyethylene Glycol 3350 (Polyethylene Glycol 3350) 510 Gm Powder, 1 SCOOP PO, (Reported) [Pt Comment] , (Reported) MED LIST OBTAINED FROM [facility] Allergies Coded Allergies: amoxicillin (Verified Allergy, Intermediate, rash, 09/20/19) cephalexin (Verified Allergy, Intermediate, rash, 09/20/19) erythromycin base (Verified Allergy, Intermediate, rash, 09/20/19) TRAY FLETCHER MD Jun 18, 2020 13:00
== END 2020-06-18 17:43 | disposition home health service (06) | DRG 710 ==
LOC: M ED 08:53 → EDBD 08:53 → M ED INP 12:33 → M PCU 05-31 12:54 → UNDODISIN 05-31 13:30 → M MSPAV 06-13 18:12
PROVIDERS: ADMIT Internal Medicine; ATTEND Family Medicine
PROC: 02HV33Z Insertion of Infusion Device into Superior Vena Cava, Percutaneous Approach (ICD-10-PCS; principal; 2020-05-30)
PROC: 06HN33Z Insertion of Infusion Device into Left Femoral Vein, Percutaneous Approach (ICD-10-PCS; 2020-05-31)
PROC: 0BH17EZ Insertion of Endotracheal Airway into Trachea, Via Natural or Artificial Opening (ICD-10-PCS; 2020-05-31)
PROC: 5A1D90Z Performance of Urinary Filtration, Continuous, Greater than 18 hours Per Day (ICD-10-PCS; 2020-05-31)
PROC: 5A1955Z Respiratory Ventilation, Greater than 96 Consecutive Hours (ICD-10-PCS; 2020-05-31)
PROC: 02H633Z Insertion of Infusion Device into Right Atrium, Percutaneous Approach (ICD-10-PCS; 2020-06-01)
PROC: 06HM33Z Insertion of Infusion Device into Right Femoral Vein, Percutaneous Approach (ICD-10-PCS; 2020-06-03)
PROC: 0BCM8ZZ Extirpation of Matter from Bilateral Lungs, Via Natural or Artificial Opening Endoscopic (ICD-10-PCS; 2020-06-03)
PROC: 30233N1 Transfusion of Nonautologous Red Blood Cells into Peripheral Vein, Percutaneous Approach (ICD-10-PCS; 2020-06-06)
PROC: 30233J1 Transfusion of Nonautologous Serum Albumin into Peripheral Vein, Percutaneous Approach (ICD-10-PCS; 2020-06-07)
PROC: 3E0436Z Introduction of Nutritional Substance into Central Vein, Percutaneous Approach (ICD-10-PCS; 2020-06-09)
PROC: 02HV33Z Insertion of Infusion Device into Superior Vena Cava, Percutaneous Approach (ICD-10-PCS; 2020-06-11)
DX: A41.9 Sepsis, unspecified organism (principal); J96.01 Acute respiratory failure with hypoxia; R65.21 Severe sepsis with septic shock; N17.0 Acute kidney failure with tubular necrosis; E11.00 Type 2 diabetes mellitus with hyperosmolarity without nonketotic hyperglycemic-hyperosmolar coma (NKHHC); G93.41 Metabolic encephalopathy; E11.10 Type 2 diabetes mellitus with ketoacidosis without coma; E87.2 Acidosis; J18.9 Pneumonia, unspecified organism; K85.90 Acute pancreatitis without necrosis or infection, unspecified; E23.2 Diabetes insipidus; D69.6 Thrombocytopenia, unspecified; E87.0 Hyperosmolality and hypernatremia; E87.5 Hyperkalemia; I47.1 Supraventricular tachycardia; E83.39 Other disorders of phosphorus metabolism; D62 Acute posthemorrhagic anemia; E87.70 Fluid overload, unspecified; J45.909 Unspecified asthma, uncomplicated; E66.9 Obesity, unspecified; R41.82 Altered mental status, unspecified; R74.01 Elevation of levels of liver transaminase levels; Z79.899 Other long term (current) drug therapy; Z88.0 Allergy status to penicillin; Z88.1 Allergy status to other antibiotic agents; Z20.822 Contact with and (suspected) exposure to COVID-19; G40.909 Epilepsy, unspecified, not intractable, without status epilepticus; N39.0 Urinary tract infection, site not specified; L02.31 Cutaneous abscess of buttock; K59.00 Constipation, unspecified; L30.4 Erythema intertrigo; L27.0 Generalized skin eruption due to drugs and medicaments taken internally; T36.8X5A Adverse effect of other systemic antibiotics, initial encounter; R50.2 Drug induced fever; H53.8 Other visual disturbances; Y83.8 Other surgical procedures as the cause of abnormal reaction of the patient, or of later complication, without mention of misadventure at the time of the procedure; B95.1 Streptococcus, group B, as the cause of diseases classified elsewhere; T82.868A Thrombosis due to vascular prosthetic devices, implants and grafts, initial encounter

== ENCOUNTER → 2020-06-30 | Outpatient (REF) | payer OTHER, MEDICAID ==
[~2020-06-30] MED LIST changes: +ALCOPAD25 TOP; +BLOOKIT21 XX; +DEBL1TAB PO; +DESM1SPR; +GLUC1TES2 XX; +INSU1MIS20 SC; +INSUDET SC; +LANC30MI XX; +PEGPOW PO; +PEN1MIS21 SC; +PROAAER10 INH; +PT COMMENT
== END ==
LOC: M LAB REF 16:58
PROVIDERS: ATTEND Internal Medicine Nephrology
DX: E23.2 Diabetes insipidus (principal)

== ENCOUNTER → 2020-07-23 | Outpatient (REF) | payer OTHER, MEDICAID ==
[~2020-07-23] MED LIST changes: -PEGPOW PO; +POLY510P14 PO
== END ==
LOC: M LAB REF 17:18
PROVIDERS: ATTEND Internal Medicine Nephrology
DX: E23.2 Diabetes insipidus (principal)

== ENCOUNTER → 2020-09-24 | Outpatient (CLI) | payer OTHER ==
[2020-09-24 10:59] LABS: AMYLASE 61 U/L (25-115); BLOOD UREA NITROGEN 10 MG/DL (7-18); CALCIUM LEVEL 10.2 MG/DL (8.5-10.1); CARBON DIOXIDE LEVEL 29 MEQ/L (21-32); CHLORIDE LEVEL 106 MEQ/L (98-107); CREATININE FOR GFR 0.86 MG/DL (0.55-1.30); GLOMERULAR FILTRATION RATE > 60.0 (>60); GLUCOSE, FASTING 82 MG/DL (70-100); LIPASE 31 U/L (73-393); POTASSIUM SERUM 4.7 MEQ/L (3.5-5.1); SODIUM LEVEL 140 MEQ/L (136-145)
== END ==
LOC: M LAB 09:09
PROVIDERS: ATTEND Internal Medicine Endocrinology, Diabetes & Metabolism
DX: E11.65 Type 2 diabetes mellitus with hyperglycemia (principal)

== ENCOUNTER → 2020-12-22 | Outpatient (CLI) | payer OTHER ==
[2020-12-22 18:53] LABS: BLOOD UREA NITROGEN 10 MG/DL (7-18); CALCIUM LEVEL 9.2 MG/DL (8.5-10.1); CARBON DIOXIDE LEVEL 31 MEQ/L (21-32); CHLORIDE LEVEL 102 MEQ/L (98-107); CREATININE FOR GFR 0.87 MG/DL (0.55-1.30); GLOMERULAR FILTRATION RATE > 60.0 (>60); GLUCOSE, FASTING 68 MG/DL (70-100); SODIUM LEVEL 140 MEQ/L (136-145)
== END ==
LOC: M LAB 16:22
PROVIDERS: ATTEND Nurse Practitioner Family
DX: E11.65 Type 2 diabetes mellitus with hyperglycemia (principal)

== ENCOUNTER → 2020-12-22 | Outpatient (CLI) | payer OTHER ==
[2020-12-22 18:52] LABS: HEMOGLOBIN A1c 5.8 %
[2020-12-22 18:56] LABS: ALBUMIN 4.1 GM/DL (3.2-5.2); ALT/SGPT 31 U/L (12-78); BILIRUBIN,TOTAL 0.4 MG/DL (0.2-1.0); BLOOD UREA NITROGEN 11 MG/DL (7-18); CALCIUM LEVEL 9.6 MG/DL (8.5-10.1); CARBON DIOXIDE LEVEL 30 MEQ/L (21-32); CHLORIDE LEVEL 104 MEQ/L (98-107); CHOLESTEROL LEVEL 176 MG/DL (<200); CREATININE FOR GFR 0.88 MG/DL (0.55-1.30); GLOMERULAR FILTRATION RATE > 60.0 (>60); GLUCOSE, FASTING 66 MG/DL (70-100); HDL CHOLESTEROL 42 MG/DL (>40); LDL CHOLESTEROL 106 MG/DL (<100); NON-HDL-C 134 MG/DL; SODIUM LEVEL 142 MEQ/L (136-145); TOTAL PROTEIN 7.7 GM/DL (6.4-8.2); TRIGLYCERIDES LEVEL 141 MG/DL (<150)
== END ==
LOC: M LAB 16:24
PROVIDERS: ATTEND Nurse Practitioner Family
DX: Z00.00 Encounter for general adult medical examination without abnormal findings (principal); E11.69 Type 2 diabetes mellitus with other specified complication

== ENCOUNTER → 2021-03-11 | Outpatient (CLI) | payer OTHER ==
--- NOTE | 2021-03-11 09:58 | REP ---
INDICATION: VOMITTING W/OUT NAUSEA. COMPARISON: None. TECHNIQUE/RADIOTRACER AND DOSE: Following the intravenous administration of 1.07 mCi technetium 99 M sulfur colloid in 2 scrambled eggs and 6 oz of water, multiple images of the upper abdomen are performed in the anterior and posterior projections for 90 minutes. FINDINGS: The gastric activity is measured. At the end of 90 minutes 4% of the ingested activity has emptied from the stomach. The T1/2 is 1141 minutes which significantly increased. IMPRESSION: There are findings suggesting gastro paresis. <Electronically signed by Tavares Morris > 03/11/21 [id number]
== END ==
LOC: M RAD 07:35
PROVIDERS: ATTEND Nurse Practitioner Family
DX: R11.11 Vomiting without nausea (principal)
CPT/HCPCS: 78264; A9541

== ENCOUNTER → 2021-06-08 | Outpatient (CLI) | payer OTHER ==
[2021-06-08 13:27] LABS: ALBUMIN 3.9 GM/DL (3.2-5.2); ALT/SGPT 37 U/L (12-78); BILIRUBIN,TOTAL 0.3 MG/DL (0.2-1.0); BLOOD UREA NITROGEN 10 MG/DL (7-18); CALCIUM LEVEL 9.2 MG/DL (8.5-10.1); CARBON DIOXIDE LEVEL 30 MEQ/L (21-32); CHLORIDE LEVEL 108 MEQ/L (98-107); CREATININE FOR GFR 1.03 MG/DL (0.55-1.30); GLOMERULAR FILTRATION RATE > 60.0 (>58); GLUCOSE, FASTING 103 MG/DL (70-100); POTASSIUM SERUM 4.5 MEQ/L (3.5-5.1); SODIUM LEVEL 141 MEQ/L (136-145); TOTAL PROTEIN 7.2 GM/DL (6.4-8.2)
== END ==
LOC: M LAB 09:35
PROVIDERS: ATTEND Nurse Practitioner Family
DX: E11.69 Type 2 diabetes mellitus with other specified complication (principal)

== ENCOUNTER → 2021-06-08 | Outpatient (CLI) | payer OTHER ==
[2021-06-08 10:08] LABS: BASO % 0.3 % (0.0-1.0); EOS # 0.3 10^3/uL (0.0-0.5); EOS % 2.8 % (0.0-3.0); HEMOGLOBIN 14.5 g/dl (12.0-15.5); LYMPH % 25.4 % (24.0-44.0); MEAN CORPUSCULAR HEMOGLOBIN 30.5 pg (27.0-33.0); MEAN CORPUSCULAR HGB CONC 31.5 g/dl (32.0-36.5); MEAN CORPUSCULAR VOLUME 96.8 fl (80.0-96.0); MONO # 0.6 10^3/uL (0.0-0.8); MONO % 5.4 % (2.0-8.0); NEUTROPHILS # 7.6 10^3/uL (1.5-8.5); NEUTROPHILS % 65.4 % (36.0-66.0); PLATELET COUNT, AUTOMATED 252 10^3/uL (150-450); RED BLOOD COUNT 4.75 10^6/uL (4.00-5.40); WHITE BLOOD COUNT 11.6 10^3/uL (4.0-10.0)
[2021-06-08 13:23] LABS: ALBUMIN 3.9 GM/DL (3.2-5.2); ALT/SGPT 36 U/L (12-78); BILIRUBIN,TOTAL 0.2 MG/DL (0.2-1.0); BLOOD UREA NITROGEN 10 MG/DL (7-18); CALCIUM LEVEL 9.3 MG/DL (8.5-10.1); CARBON DIOXIDE LEVEL 27 MEQ/L (21-32); CHLORIDE LEVEL 106 MEQ/L (98-107); CREATININE FOR GFR 1.01 MG/DL (0.55-1.30); GLOMERULAR FILTRATION RATE > 60.0 (>58); GLUCOSE, FASTING 100 MG/DL (70-100); POTASSIUM SERUM 4.4 MEQ/L (3.5-5.1); SODIUM LEVEL 141 MEQ/L (136-145); TOTAL PROTEIN 7.1 GM/DL (6.4-8.2)
== END ==
LOC: M LAB 09:38
PROVIDERS: ATTEND Nurse Practitioner
DX: G43.009 Migraine without aura, not intractable, without status migrainosus (principal); G40.89 Other seizures; R40.4 Transient alteration of awareness; G47.09 Other insomnia

== ENCOUNTER → 2021-08-24 | Outpatient (CLI) | payer OTHER ==
[2021-08-24 09:24] LABS: BASO # 0.1 10^3/uL (0.0-0.2); BASO % 0.7 % (0.0-1.0); EOS # 0.3 10^3/uL (0.0-0.5); EOS % 3.2 % (0.0-3.0); HEMATOCRIT 47.9 % (36.0-47.0); HEMOGLOBIN 15.6 g/dl (12.0-15.5); LYMPH # 2.7 10^3/uL (1.5-5.0); LYMPH % 25.7 % (24.0-44.0); MEAN CORPUSCULAR HGB CONC 32.6 g/dl (32.0-36.5); MEAN CORPUSCULAR VOLUME 98.2 fl (80.0-96.0); MONO # 0.7 10^3/uL (0.0-0.8); NEUTROPHILS # 6.6 10^3/uL (1.5-8.5); NEUTROPHILS % 62.5 % (36.0-66.0); PLATELET COUNT, AUTOMATED 231 10^3/uL (150-450); RED BLOOD COUNT 4.88 10^6/uL (4.00-5.40); WHITE BLOOD COUNT 10.5 10^3/uL (4.0-10.0)
[2021-08-24 09:44] LABS: ALBUMIN 3.9 GM/DL (3.2-5.2); ALT/SGPT 34 U/L (12-78); BILIRUBIN,TOTAL 0.3 MG/DL (0.2-1.0); BLOOD UREA NITROGEN 11 MG/DL (7-18); CALCIUM LEVEL 9.5 MG/DL (8.5-10.1); CARBON DIOXIDE LEVEL 31 MEQ/L (21-32); CHLORIDE LEVEL 104 MEQ/L (98-107); CREATININE FOR GFR 1.06 MG/DL (0.55-1.30); GLOMERULAR FILTRATION RATE > 60.0 (>58); GLUCOSE, FASTING 112 MG/DL (70-100); LIPASE 39 U/L (73-393); POTASSIUM SERUM 4.5 MEQ/L (3.5-5.1); SODIUM LEVEL 140 MEQ/L (136-145); TOTAL PROTEIN 7.3 GM/DL (6.4-8.2)
== END ==
LOC: M LAB 08:21
PROVIDERS: ATTEND Nurse Practitioner Family
DX: K31.84 Gastroparesis (principal)

== ENCOUNTER → 2022-02-03 | Outpatient (CLI) | payer OTHER ==
[2022-02-03 10:43] LABS: HEMOGLOBIN A1c 6.3 %
[2022-02-03 11:01] LABS: ALBUMIN 4.1 GM/DL (3.2-5.2); ALT/SGPT 42 U/L (12-78); BILIRUBIN,TOTAL 0.3 MG/DL (0.2-1.0); BLOOD UREA NITROGEN 12 MG/DL (7-18); CALCIUM LEVEL 9.9 MG/DL (8.5-10.1); CARBON DIOXIDE LEVEL 32 MEQ/L (21-32); CHLORIDE LEVEL 102 MEQ/L (98-107); CHOLESTEROL LEVEL 226 MG/DL (<200); CHOLESTEROL RISK RATIO 5.947 (<5); CREATININE FOR GFR 0.97 MG/DL (0.55-1.30); GLOMERULAR FILTRATION RATE > 60.0 (>58); GLUCOSE, FASTING 102 MG/DL (70-100); HDL CHOLESTEROL 38 MG/DL (>40); LDL CHOLESTEROL 129 MG/DL (<100); NON-HDL-C 188 MG/DL; POTASSIUM SERUM 4.8 MEQ/L (3.5-5.1); SODIUM LEVEL 136 MEQ/L (136-145); TOTAL PROTEIN 7.6 GM/DL (6.4-8.2); TRIGLYCERIDES LEVEL 297 MG/DL (<150)
[2022-02-03 11:04] LABS: CREATININE, URINE 13.6 MG/DL; MALB URINE SIEMENS < 5.0 MG/L; MAU/CREAT RATIO 36.7 MCG/MG (0.0-30.0)
== END ==
LOC: M RAD 09:07
PROVIDERS: ATTEND Nurse Practitioner Family
DX: J45.40 Moderate persistent asthma, uncomplicated (principal); E11.69 Type 2 diabetes mellitus with other specified complication

== ENCOUNTER 2022-11-17 11:03 | Emergency (ER) | payer OTHER ==
[~2022-11-17] VITALS: Ht 157.5 cm; Wt 103.2 kg
[2022-11-17 11:05] VITALS: TEMP 98.6
[2022-11-17 12:07] LABS: BASO # 0.1 10^3/uL (0.0-0.2); BASO % 0.5 % (0.0-1.0); EOS # 0.2 10^3/uL (0.0-0.5); EOS % 1.1 % (0.0-3.0); HEMOGLOBIN 15.6 g/dl (12.0-15.5); LYMPH # 3.3 10^3/uL (1.5-5.0); MEAN CORPUSCULAR HEMOGLOBIN 31.1 pg (27.0-33.0); MEAN CORPUSCULAR HGB CONC 31.8 g/dl (32.0-36.5); MEAN CORPUSCULAR VOLUME 97.6 fl (80.0-96.0); MONO # 1.1 10^3/uL (0.0-0.8); NEUTROPHILS # 10.2 10^3/uL (1.5-8.5); NEUTROPHILS % 68.4 % (36.0-66.0); PLATELET COUNT, AUTOMATED 248 10^3/uL (150-450); RED BLOOD COUNT 5.02 10^6/uL (4.00-5.40)
[2022-11-17 12:13] LABS: LIPASE 28 U/L (12-53)
[2022-11-17 12:15] LABS: ALBUMIN 3.7 G/DL (3.2-5.2); ALKALINE PHOSPHATASE 111 U/L (46-116); ALT/SGPT 43 U/L (7.0-40); AST/SGOT 13 U/L (<34); BILIRUBIN,DIRECT < 0.1 MG/DL (<0.4); BILIRUBIN,TOTAL 0.3 MG/DL (0.3-1.2); BLOOD UREA NITROGEN 16 MG/DL (9-23); CALCIUM LEVEL 10.1 MG/DL (8.5-10.1); CARBON DIOXIDE LEVEL 30 MMOL/L (20-31); CHLORIDE LEVEL 102 MMOL/L (98-107); CREATININE FOR GFR 0.78 MG/DL (0.55-1.30); GLOMERULAR FILTRATION RATE > 60.0 (>58); GLUCOSE, FASTING 196 MG/DL (60-100); POTASSIUM SERUM 4.2 MMOL/L (3.5-5.1); SODIUM LEVEL 134 MMOL/L (136-145); TOTAL PROTEIN 7.2 G/DL (5.7-8.2)
[2022-11-17 12:42] LABS: HCG, SERUM QUALITATIVE NEGATIVE (NEGATIVE)
[2022-11-17] MEDS ORDERED: ONDANSETRON 4MG 2ML VIAL IV ONE (15:20)
[2022-11-17] MEDS ORDERED: NS 1,000 ML IV ONE (15:20)
[2022-11-17] MEDS ORDERED: ISOVUE-370 76% 100ML VIAL As Ordered ONE (15:56)
[2022-11-17] MEDS ORDERED: PROM50TA4 PO (17:00)
[2022-11-17 17:17] VITALS: BP 130/80; O2SAT 97
== END 2022-11-17 17:20 | disposition home or self-care (01) ==
LOC: M ED 11:03
DX: R10.11 Right upper quadrant pain (principal); G40.909 Epilepsy, unspecified, not intractable, without status epilepticus; E11.9 Type 2 diabetes mellitus without complications; K31.84 Gastroparesis; F17.200 Nicotine dependence, unspecified, uncomplicated; Z88.1 Allergy status to other antibiotic agents; Z79.899 Other long term (current) drug therapy; Z79.4 Long term (current) use of insulin; Z79.51 Long term (current) use of inhaled steroids
CPT/HCPCS: 74177; 76705; 80048; 80076; 81001; 83690; 84703; 85025; 96374; 99283; J2405; Q9967

== ENCOUNTER 2023-03-28 16:52 | Observation (INO) | payer OTHER ==
[~2023-03-28] VITALS: Ht 170.2 cm; Wt 98.6 kg
[~2023-03-28 16:52] MED LIST changes: +PEN-308 SC; -PEN1MIS21 SC; +PROM50TA4 PO
[2023-03-28 18:09] LABS: BASO # 0.1 10^3/uL (0.0-0.2); BASO % 0.3 % (0.0-1.0); EOS % 0.1 % (0.0-3.0); HEMATOCRIT 51.1 % (36.0-47.0); HEMOGLOBIN 16.9 g/dl (12.0-15.5); LYMPH # 1.7 10^3/uL (1.5-5.0); LYMPH % 6.4 % (24.0-44.0); MEAN CORPUSCULAR HGB CONC 33.1 g/dl (32.0-36.5); MEAN CORPUSCULAR VOLUME 93.8 fl (80.0-96.0); MONO % 6.8 % (2.0-8.0); NEUTROPHILS % 85.3 % (36.0-66.0); PLATELET COUNT, AUTOMATED 289 10^3/uL (150-450); RED BLOOD COUNT 5.45 10^6/uL (4.00-5.40)
[2023-03-28 18:16] LABS: ALBUMIN 3.7 G/DL (3.2-5.2); ALKALINE PHOSPHATASE 110 U/L (46-116); ALT/SGPT 30 U/L (7.0-40); AST/SGOT 26 U/L (<34); BILIRUBIN,DIRECT 0.2 MG/DL (<0.4); BILIRUBIN,TOTAL 0.6 MG/DL (0.3-1.2); BLOOD UREA NITROGEN 18 MG/DL (9-23); CALCIUM LEVEL 9.5 MG/DL (8.5-10.1); CARBON DIOXIDE LEVEL 23 MMOL/L (20-31); CHLORIDE LEVEL 102 MMOL/L (98-107); CREATININE FOR GFR 0.82 MG/DL (0.55-1.30); GLOMERULAR FILTRATION RATE > 60.0 (>58); GLUCOSE, FASTING 198 MG/DL (60-100); MAGNESIUM LEVEL 2.4 MG/DL (1.8-2.4); PHOSPHORUS LEVEL 2.7 MG/DL (2.5-4.9); POTASSIUM SERUM 4.2 MMOL/L (3.5-5.1); SODIUM LEVEL 140 MMOL/L (136-145); TOTAL PROTEIN 7.4 G/DL (5.7-8.2)
[2023-03-28 18:26] LABS: MONO # 1.8 10^3/uL (0.0-0.8)
[2023-03-28] MEDS ORDERED: NS 1,000 ML IV ONE (19:40)
[2023-03-28] MEDS ORDERED: ONDANSETRON 4MG 2ML VIAL IV ONE (20:20)
[2023-03-28] MEDS ORDERED: INSULIN LISPRO (NovoLOG) PER UNIT SC SCH (21:00)
[2023-03-28 22:06] LABS: AMPHETAMINES LEVEL URINE NEGATIVE (NEGATIVE); BARBITURATES URINE NEGATIVE (NEGATIVE); BENZODIAZEPINES URINE NEGATIVE (NEGATIVE); COCAINE METABOLITE URINE NEGATIVE (NEGATIVE); METHADONE URINE NEGATIVE (NEGATIVE); OPIATES URINE NEGATIVE (NEGATIVE); PHENCYCLIDINE URINE NEGATIVE (NEGATIVE)
[2023-03-28 22:08] LABS: CANNABINOIDS URINE POSITIVE (NEGATIVE)
[2023-03-28 22:12] LABS: BASO # 0.1 10^3/uL (0.0-0.2); BASO % 0.2 % (0.0-1.0); HEMATOCRIT 50.2 % (36.0-47.0); HEMOGLOBIN 16.2 g/dl (12.0-15.5); LYMPH # 2.5 10^3/uL (1.5-5.0); LYMPH % 10.2 % (24.0-44.0); MEAN CORPUSCULAR HEMOGLOBIN 30.7 pg (27.0-33.0); MEAN CORPUSCULAR HGB CONC 32.3 g/dl (32.0-36.5); MEAN CORPUSCULAR VOLUME 95.3 fl (80.0-96.0); MONO % 7.2 % (2.0-8.0); NEUTROPHILS # 19.6 10^3/uL (1.5-8.5); NEUTROPHILS % 81.4 % (36.0-66.0); PLATELET COUNT, AUTOMATED 269 10^3/uL (150-450); RED BLOOD COUNT 5.27 10^6/uL (4.00-5.40); WHITE BLOOD COUNT 24.1 10^3/uL (4.0-10.0)
[2023-03-28] MEDS ORDERED: levETIRAcetam INJection 1,000 MG in D5W 100 ML IV ONE (22:15)
[2023-03-28 22:44] LABS: PROCALCITONIN 0.04 ng/ml
[2023-03-28 22:44] LABS: MONO # 1.7 10^3/uL (0.0-0.8)
[2023-03-28] MEDS ORDERED: GLUCAGON INJ 1MG VIAL SC PRN (23:30)
[2023-03-28] MEDS ORDERED: GLUCOSE 4GM CHEW TABLET PO PRN (23:30)
[2023-03-28] MEDS ORDERED: ONDANSETRON 4MG 2ML VIAL IV PRN (23:30)
[2023-03-28] MEDS ORDERED: DEXTROSE 50% 50ML SYRINGE IV PRN (23:30)
[2023-03-28] MEDS ORDERED: ALBUTEROL SULFATE 2.5MG/0.5ML INH NEB SOLN NEB PRN (23:30)
[2023-03-29] MEDS ORDERED: NS 1,000 ML IV ONE (00:10)
[2023-03-29] MEDS ORDERED: NS 1,000 ML IV SCH (00:55)
[2023-03-29] MEDS: INSULIN LISPRO (NovoLOG) PER UNIT SC SCH ×5 (02:42→23:34)
[2023-03-29] MEDS ORDERED: JARD1TAB PO (04:28)
[2023-03-29] MEDS ORDERED: ONDA4TAB6 PO (04:28)
[2023-03-29] MEDS ORDERED: PANT40TA29 PO (04:28)
[2023-03-29] MEDS ORDERED: INSUDET SC (04:28)
[2023-03-29] MEDS ORDERED: INSUHUMDS SC (04:28)
[2023-03-29] MEDS ORDERED: METO10TA2 PO (04:28)
[2023-03-29] MEDS ORDERED: ALBU8.5H INH (04:28)
[2023-03-29] MEDS ORDERED: HOME MED LIST COMPLETE! XX SCH (04:30)
[2023-03-29] MEDS: HEPARIN SOD (PORCINE) 5000UNITS/ML 1ML VIAL/SYRINGE SQ SCH ×3 (06:00→21:04)
[2023-03-29 06:54] LABS: BLOOD UREA NITROGEN 10 MG/DL (9-23); CARBON DIOXIDE LEVEL 25 MMOL/L (20-31); CHLORIDE LEVEL 111 MMOL/L (98-107); CREATININE FOR GFR 0.66 MG/DL (0.55-1.30); GLOMERULAR FILTRATION RATE > 60.0 (>58); GLUCOSE, FASTING 119 MG/DL (60-100); MAGNESIUM LEVEL 2.3 MG/DL (1.8-2.4); POTASSIUM SERUM 3.9 MMOL/L (3.5-5.1); SODIUM LEVEL 146 MMOL/L (136-145)
[2023-03-29] MEDS ORDERED: INSULIN LISPRO (NovoLOG) PER UNIT SC SCH (07:30)
[2023-03-29] MEDS ORDERED: LORazepam 2 MG/ML 1ML VIAL IV PRN (09:05)
[2023-03-29] MEDS: levETIRAcetam 250MG TABLET (KEPPRA) PO SCH ×2 (09:30→21:04)
[2023-03-29] MEDS ORDERED: PROHANCE 279.3MG/ML 15ML VIAL As Ordered ONE (10:37)
[2023-03-29] MEDS ORDERED: PROHANCE 279.3MG/ML 5ML VIAL As Ordered ONE (10:37)
[2023-03-29 13:23] VITALS: BP 112/66; TEMP 97.2; O2SAT 95
[2023-03-29 21:08] VITALS: BP 120/74; TEMP 97.5; O2SAT 99
[2023-03-30 05:10] VITALS: BP 111/69; TEMP 98.4; O2SAT 97
[2023-03-30 05:54] LABS: BASO # 0.1 10^3/uL (0.0-0.2); BASO % 0.3 % (0.0-1.0); EOS # 0.1 10^3/uL (0.0-0.5); EOS % 0.7 % (0.0-3.0); HEMATOCRIT 49.8 % (36.0-47.0); HEMOGLOBIN 15.5 g/dl (12.0-15.5); LYMPH # 3.1 10^3/uL (1.5-5.0); LYMPH % 17.2 % (24.0-44.0); MEAN CORPUSCULAR HEMOGLOBIN 30.6 pg (27.0-33.0); MEAN CORPUSCULAR HGB CONC 31.1 g/dl (32.0-36.5); MEAN CORPUSCULAR VOLUME 98.2 fl (80.0-96.0); MONO # 1.1 10^3/uL (0.0-0.8); MONO % 6.2 % (2.0-8.0); NEUTROPHILS # 13.5 10^3/uL (1.5-8.5); NEUTROPHILS % 74.9 % (36.0-66.0); PLATELET COUNT, AUTOMATED 242 10^3/uL (150-450); RED BLOOD COUNT 5.07 10^6/uL (4.00-5.40)
[2023-03-30] MEDS: INSULIN LISPRO (NovoLOG) PER UNIT SC SCH ×2 (05:54→12:00)
[2023-03-30] MEDS: HEPARIN SOD (PORCINE) 5000UNITS/ML 1ML VIAL/SYRINGE SQ SCH (05:54)
[2023-03-30 06:19] LABS: BLOOD UREA NITROGEN 9 MG/DL (9-23); CALCIUM LEVEL 8.5 MG/DL (8.5-10.1); CARBON DIOXIDE LEVEL 24 MMOL/L (20-31); CHLORIDE LEVEL 111 MMOL/L (98-107); CPK CREATINE PHOSPHOKINASE 297 U/L (34-145); CREATININE FOR GFR 0.66 MG/DL (0.55-1.30); GLOMERULAR FILTRATION RATE > 60.0 (>58); GLUCOSE, FASTING 131 MG/DL (60-100); MAGNESIUM LEVEL 2.1 MG/DL (1.8-2.4); POTASSIUM SERUM 4.1 MMOL/L (3.5-5.1); SODIUM LEVEL 145 MMOL/L (136-145)
[2023-03-30 08:00] VITALS: BP 124/88; TEMP 97.9; O2SAT 99
[2023-03-30] MEDS ORDERED: KEPP10002 PO (08:31)
[2023-03-30] MEDS: levETIRAcetam 250MG TABLET (KEPPRA) PO SCH (10:20)
== END 2023-03-30 13:18 | disposition home or self-care (01) ==
LOC: M ED 16:52 → EDBD 16:52 → M ED INP 16:53 → ENRESERV 03-29 12:54 → M MSPAV 03-29 13:12
PROVIDERS: ADMIT Internal Medicine; ATTEND Family Medicine
DX: R56.9 Unspecified convulsions (principal); R41.82 Altered mental status, unspecified; E87.20 Acidosis, unspecified; E11.9 Type 2 diabetes mellitus without complications; G43.909 Migraine, unspecified, not intractable, without status migrainosus; K31.84 Gastroparesis; G47.00 Insomnia, unspecified; F17.200 Nicotine dependence, unspecified, uncomplicated; Z88.0 Allergy status to penicillin; Z88.1 Allergy status to other antibiotic agents; Z79.899 Other long term (current) drug therapy; Z86.69 Personal history of other diseases of the nervous system and sense organs
CPT/HCPCS: 36415; 70450; 70546; 71045; 72125; 80047; 80048; 80076; 80307; 81001; 82077; 82550; 83605; 83735; 84100; 84145; 84702; 85025; 87486; 87581; 87633; 87798; 92526; 92610; 93005; 93041; 94760; 96361; 96365; 96372; 96375; 99285; A9576; J1815; J1953; J2405

== ENCOUNTER 2023-05-09 11:39 | Emergency (ER) | payer OTHER ==
[~2023-05-09] VITALS: Ht 154.9 cm; Wt 85.5 kg
[~2023-05-09 11:39] MED LIST changes: +ALBU8.5H INH; +INSUHUMDS SC; +JARD1TAB PO; +METO10TA2 PO; +ONDA4TAB6 PO; +PANT40TA29 PO
[2023-05-09 12:47] LABS: BASO % 0.3 % (0.0-1.0); EOS % 0.1 % (0.0-3.0); HEMOGLOBIN 18.1 g/dl (12.0-15.5); LYMPH % 13.5 % (24.0-44.0); MEAN CORPUSCULAR HEMOGLOBIN 30.9 pg (27.0-33.0); MEAN CORPUSCULAR HGB CONC 33.5 g/dl (32.0-36.5); MEAN CORPUSCULAR VOLUME 92.3 fl (80.0-96.0); MONO # 1.1 10^3/uL (0.0-0.8); MONO % 7.2 % (2.0-8.0); NEUTROPHILS # 11.6 10^3/uL (1.5-8.5); NEUTROPHILS % 78.4 % (36.0-66.0); PLATELET COUNT, AUTOMATED 288 10^3/uL (150-450); RED BLOOD COUNT 5.85 10^6/uL (4.00-5.40); WHITE BLOOD COUNT 14.7 10^3/uL (4.0-10.0)
[2023-05-09 13:12] LABS: LIPASE 19 U/L (12-53)
[2023-05-09 13:14] LABS: ALBUMIN 4.3 G/DL (3.2-5.2); ALKALINE PHOSPHATASE 108 U/L (46-116); ALT/SGPT 24 U/L (7.0-40); AST/SGOT 19 U/L (<34); BILIRUBIN,DIRECT 0.4 MG/DL (<0.4); BILIRUBIN,TOTAL 1.1 MG/DL (0.3-1.2); BLOOD UREA NITROGEN 10 MG/DL (9-23); CARBON DIOXIDE LEVEL 26 MMOL/L (20-31); CHLORIDE LEVEL 96 MMOL/L (98-107); CREATININE FOR GFR 0.75 MG/DL (0.55-1.30); GLOMERULAR FILTRATION RATE > 60.0 (>58); GLUCOSE, FASTING 121 MG/DL (60-100); HCG, SERUM QUALITATIVE NEGATIVE (NEGATIVE); POTASSIUM SERUM 3.5 MMOL/L (3.5-5.1); SODIUM LEVEL 136 MMOL/L (136-145); TOTAL PROTEIN 7.7 G/DL (5.7-8.2)
[2023-05-09] MEDS ORDERED: ISOVUE-370 76% 100ML VIAL As Ordered ONE (16:20)
[2023-05-09] MEDS ORDERED: NS 1,000 ML IV ONE (16:20)
[2023-05-09 16:34] LABS: VENOUS HCO3 30.4 MMOL/L (23.0-27.0); VENOUS O2 SATURATION 88.4 % (60.0-80.0); VENOUS PARTIAL PRESSURE CO2 29.8 mmHg (38.0-50.0); VENOUS PARTIAL PRESSURE O2 45.5 mmHg (30.0-50.0); VENOUS PH 7.627 UNITS (7.330-7.430); VENOUS STANDARD HCO3 33.4 MMOL/L; VENOUS TOTAL CO2 31.3 MMOL/L (24.0-28.0)
[2023-05-09] MEDS ORDERED: ATOR1TAB21 PO (16:54)
[2023-05-09] MEDS ORDERED: FLUO20CA22 PO (16:54)
[2023-05-09 17:12] LABS: CK-MB VALUE MASS < 1.0 NG/ML (<3.6)
[2023-05-09 17:13] LABS: ETHYL ALCOHOL (ETHANOL) < 0.003 % (0.000-0.010); MAGNESIUM LEVEL 1.9 MG/DL (1.8-2.4)
[2023-05-09 17:14] LABS: CPK CREATINE PHOSPHOKINASE 84 U/L (34-145); MB/CK RELATIVE INDEX 1.19 (< OR =4)
[2023-05-09 17:15] LABS: PTH INTACT 55.4 PG/ML (18.5-88.0); SALICYLATE LEVEL < 3.0 MG/DL (<30)
[2023-05-09 17:17] LABS: FREE T4 1.21 NG/DL (0.89-1.76); THYROID STIMULATING HORMONE 0.925 uIU/ML (0.55-4.78)
[2023-05-09 17:18] LABS: RSV AMPLIFICATION NEGATIVE (NEGATIVE)
[2023-05-09 17:48] LABS: OSMOLALITY SERUM 287 MOSM/KG (275-295)
[2023-05-09 17:57] LABS: INR 1.16; PROTHROMBIN TIME 14.5 SECONDS (12.5-14.5)
[2023-05-09 17:58] LABS: PARTIAL THROMBOPLASTIN TIME 30.1 SECONDS (24.8-34.2)
[2023-05-09 18:02] LABS: AMPHETAMINES LEVEL URINE NEGATIVE (NEGATIVE)
[2023-05-09 18:03] LABS: BARBITURATES URINE NEGATIVE (NEGATIVE); BENZODIAZEPINES URINE NEGATIVE (NEGATIVE); COCAINE METABOLITE URINE NEGATIVE (NEGATIVE); METHADONE URINE NEGATIVE (NEGATIVE); OPIATES URINE NEGATIVE (NEGATIVE); PHENCYCLIDINE URINE NEGATIVE (NEGATIVE)
[2023-05-09 18:05] LABS: CANNABINOIDS URINE POSITIVE (NEGATIVE)
[2023-05-09 18:45] VITALS: BP 130/60; TEMP 99.5; O2SAT 97
== END 2023-05-09 19:06 | disposition home or self-care (01) ==
LOC: EDBD 11:39 → M ED 11:39
DX: E86.0 Dehydration (principal); R06.4 Hyperventilation; E66.9 Obesity, unspecified; E11.9 Type 2 diabetes mellitus without complications; J45.909 Unspecified asthma, uncomplicated; R56.9 Unspecified convulsions; Z87.19 Personal history of other diseases of the digestive system; Z87.442 Personal history of urinary calculi; F17.200 Nicotine dependence, unspecified, uncomplicated; Z82.49 Family history of ischemic heart disease and other diseases of the circulatory system; Z79.4 Long term (current) use of insulin; Z79.899 Other long term (current) drug therapy; Z88.0 Allergy status to penicillin; Z88.1 Allergy status to other antibiotic agents
CPT/HCPCS: 71275; 74177; 80048; 80076; 80143; 80307; 81001; 82077; 82140; 82550; 82553; 82803; 83605; 83690; 83735; 83930; 83970; 84439; 84443; 84703; 85025; 85610; 85730; 87631; 93005; 96360; 99284; Q9967

== ENCOUNTER → 2023-05-29 | Outpatient (CLI) | payer OTHER ==
[~2023-05-29] MED LIST changes: +ATOR1TAB21 PO; +FLUO20CA22 PO
[2023-05-29 12:14] LABS: HEMOGLOBIN A1c 6.3 % (4.0-6.0)
[2023-05-29 12:34] LABS: ALKALINE PHOSPHATASE 115 U/L (46-116); ALT/SGPT 20 U/L (7.0-40); AST/SGOT 15 U/L (<34); BILIRUBIN,TOTAL 0.9 MG/DL (0.3-1.2); BLOOD UREA NITROGEN 12 MG/DL (9-23); CALCIUM LEVEL 9.7 MG/DL (8.5-10.1); CARBON DIOXIDE LEVEL 36 MMOL/L (20-31); CHLORIDE LEVEL 93 MMOL/L (98-107); CHOLESTEROL LEVEL 149 MG/DL (<200); CHOLESTEROL RISK RATIO 4.48 (<5); GLOMERULAR FILTRATION RATE > 60.0 (>58); GLUCOSE, FASTING 93 MG/DL (60-100); HDL CHOLESTEROL 33.2 MG/DL (>40); LDL CHOLESTEROL 80.4 MG/DL (<100); NON-HDL-C 115.8 MG/DL; POTASSIUM SERUM 3.6 MMOL/L (3.5-5.1); SODIUM LEVEL 136 MMOL/L (136-145); TOTAL PROTEIN 7.5 G/DL (5.7-8.2); TRIGLYCERIDES LEVEL 177 MG/DL (<150)
== END ==
LOC: M LAB 11:31
PROVIDERS: ATTEND Nurse Practitioner Family
DX: E11.69 Type 2 diabetes mellitus with other specified complication (principal)

== ENCOUNTER → 2023-05-30 | Outpatient (REF) | payer OTHER ==
[2023-05-30 13:41] LABS: CREATININE, URINE 15.7 MG/DL
[2023-05-30 13:42] LABS: MALB URINE SIEMENS < 3.0 MG/L; MAU/CREAT RATIO 19.1 MCG/MG (0.0-30.0)
== END ==
LOC: M LAB REF 12:13
PROVIDERS: ATTEND Nurse Practitioner Family
DX: E87.6 Hypokalemia (principal); E11.69 Type 2 diabetes mellitus with other specified complication

== ENCOUNTER → 2023-07-06 | Outpatient (CLI) | payer OTHER | LOC: M PLAIMG 12:22 | PROVIDERS: ATTEND Nurse Practitioner Family | DX: M25.551 Pain in right hip (principal) ==

== ENCOUNTER 2023-07-17 11:30 | Emergency (ER) | payer OTHER ==
[~2023-07-17] VITALS: Ht 154.9 cm; Wt 80.9 kg
[2023-07-17 13:49] LABS: BASO # 0.1 10^3/uL (0.0-0.2); BASO % 0.3 % (0.0-1.0); EOS # 0.1 10^3/uL (0.0-0.5); EOS % 0.6 % (0.0-3.0); HEMATOCRIT 51.8 % (36.0-47.0); HEMOGLOBIN 17.2 g/dl (12.0-15.5); LYMPH # 3.2 10^3/uL (1.5-5.0); LYMPH % 16.4 % (24.0-44.0); MEAN CORPUSCULAR HEMOGLOBIN 31.9 pg (27.0-33.0); MEAN CORPUSCULAR HGB CONC 33.2 g/dl (32.0-36.5); MEAN CORPUSCULAR VOLUME 96.1 fl (80.0-96.0); MONO # 1.3 10^3/uL (0.0-0.8); MONO % 6.6 % (2.0-8.0); NEUTROPHILS # 14.6 10^3/uL (1.5-8.5); NEUTROPHILS % 75.6 % (36.0-66.0); PLATELET COUNT, AUTOMATED 275 10^3/uL (150-450); RED BLOOD COUNT 5.39 10^6/uL (4.00-5.40); WHITE BLOOD COUNT 19.3 10^3/uL (4.0-10.0)
[2023-07-17 14:18] LABS: LIPASE 19 U/L (12-53)
[2023-07-17 14:20] LABS: ALBUMIN 3.9 G/DL (3.2-5.2); ALKALINE PHOSPHATASE 111 U/L (46-116); ALT/SGPT 17 U/L (7.0-40); AST/SGOT 17 U/L (<34); BILIRUBIN,DIRECT 0.2 MG/DL (<0.4); BILIRUBIN,TOTAL 0.7 MG/DL (0.3-1.2); BLOOD UREA NITROGEN 10 MG/DL (9-23); CALCIUM LEVEL 9.9 MG/DL (8.5-10.1); CARBON DIOXIDE LEVEL 30 MMOL/L (20-31); CHLORIDE LEVEL 101 MMOL/L (98-107); CREATININE FOR GFR 0.73 MG/DL (0.55-1.30); GLOMERULAR FILTRATION RATE > 60.0 (>58); GLUCOSE, FASTING 103 MG/DL (60-100); POTASSIUM SERUM 4.1 MMOL/L (3.5-5.1); SODIUM LEVEL 138 MMOL/L (136-145); TOTAL PROTEIN 7.6 G/DL (5.7-8.2)
[2023-07-17] MEDS: PROMETHAZINE 25MG/ML 1ML VIAL IV ONE (15:26)
[2023-07-17] MEDS: NS 1,000 ML IV ONE (15:26)
[2023-07-17 15:29] LABS: PHOSPHORUS LEVEL 3.2 MG/DL (2.5-4.9)
[2023-07-17 15:48] LABS: ACETONE/KETONE 0.09 MMOL/L (0.02-0.27)
[2023-07-17 16:19] LABS: RSV AMPLIFICATION NEGATIVE (NEGATIVE)
[2023-07-17] MEDS ORDERED: ISOVUE-370 76% 100ML VIAL As Ordered ONE (16:39)
[2023-07-17 19:45] VITALS: BP 99/71; TEMP 98; O2SAT 96
== END 2023-07-17 19:49 | disposition home or self-care (01) ==
LOC: M ED 11:30
DX: E86.0 Dehydration (principal); R11.2 Nausea with vomiting, unspecified; E16.2 Hypoglycemia, unspecified; D72.829 Elevated white blood cell count, unspecified; G40.909 Epilepsy, unspecified, not intractable, without status epilepticus; Z87.19 Personal history of other diseases of the digestive system; J45.909 Unspecified asthma, uncomplicated; Z87.891 Personal history of nicotine dependence; Z79.4 Long term (current) use of insulin; Z79.899 Other long term (current) drug therapy; Z88.0 Allergy status to penicillin; Z88.1 Allergy status to other antibiotic agents
CPT/HCPCS: 71045; 74177; 80048; 80076; 81001; 82010; 83036; 83690; 83735; 83930; 84100; 85025; 87631; 93005; 96361; 96374; 99284; J2550; Q9967

== ENCOUNTER 2023-07-23 08:03 | Emergency (ER) | payer MEDICAID, OTHER, SELFPAY ==
[~2023-07-23] VITALS: Ht 157.5 cm; Wt 81.5 kg
[2023-07-23 08:37] LABS: BASO # 0.1 10^3/uL (0.0-0.2); BASO % 0.4 % (0.0-1.0); EOS # 0.1 10^3/uL (0.0-0.5); EOS % 0.5 % (0.0-3.0); HEMATOCRIT 50.5 % (36.0-47.0); HEMOGLOBIN 16.7 g/dl (12.0-15.5); LYMPH # 1.6 10^3/uL (1.5-5.0); LYMPH % 9.4 % (24.0-44.0); MEAN CORPUSCULAR HEMOGLOBIN 32.1 pg (27.0-33.0); MEAN CORPUSCULAR HGB CONC 33.1 g/dl (32.0-36.5); MEAN CORPUSCULAR VOLUME 96.9 fl (80.0-96.0); MONO # 0.7 10^3/uL (0.0-0.8); MONO % 4.2 % (2.0-8.0); NEUTROPHILS # 14.4 10^3/uL (1.5-8.5); NEUTROPHILS % 84.7 % (36.0-66.0); PLATELET COUNT, AUTOMATED 290 10^3/uL (150-450); RED BLOOD COUNT 5.21 10^6/uL (4.00-5.40)
[2023-07-23 08:39] LABS: VENOUS BASE EXCESS -2.5 (-2.0-2.0); VENOUS HCO3 21.5 MMOL/L (23.0-27.0); VENOUS O2 SATURATION 93.1 % (60.0-80.0); VENOUS PARTIAL PRESSURE CO2 35.3 mmHg (38.0-50.0); VENOUS PARTIAL PRESSURE O2 65.6 mmHg (30.0-50.0); VENOUS PH 7.402 UNITS (7.330-7.430); VENOUS STANDARD HCO3 22.3 MMOL/L; VENOUS TOTAL CO2 22.6 MMOL/L (24.0-28.0)
[2023-07-23] MEDS: ONDANSETRON 4MG 2ML VIAL IV ONE (08:54)
[2023-07-23] MEDS: levETIRAcetam INJection 1,000 MG in D5W 100 ML IV ONE (08:54)
[2023-07-23] MEDS: NS 1,000 ML IV ONE (08:55)
[2023-07-23 09:09] LABS: ETHYL ALCOHOL (ETHANOL) < 0.003 % (0.000-0.010)
[2023-07-23 09:11] LABS: ALBUMIN 3.8 G/DL (3.2-5.2); ALKALINE PHOSPHATASE 103 U/L (46-116); ALT/SGPT 21 U/L (7.0-40); AST/SGOT 13 U/L (<34); BILIRUBIN,DIRECT 0.1 MG/DL (<0.4); BILIRUBIN,TOTAL 0.4 MG/DL (0.3-1.2); BLOOD UREA NITROGEN 9 MG/DL (9-23); CALCIUM LEVEL 9.2 MG/DL (8.5-10.1); CARBON DIOXIDE LEVEL 25 MMOL/L (20-31); CHLORIDE LEVEL 106 MMOL/L (98-107); CREATININE FOR GFR 0.85 MG/DL (0.55-1.30); GLOMERULAR FILTRATION RATE > 60.0 (>58); GLUCOSE, FASTING 150 MG/DL (60-100); MAGNESIUM LEVEL 2.4 MG/DL (1.8-2.4); PHOSPHORUS LEVEL 1.9 MG/DL (2.5-4.9); POTASSIUM SERUM 4.4 MMOL/L (3.5-5.1); SODIUM LEVEL 140 MMOL/L (136-145); TOTAL PROTEIN 7.3 G/DL (5.7-8.2)
[2023-07-23 09:32] LABS: AMPHETAMINES LEVEL URINE NEGATIVE (NEGATIVE); BARBITURATES URINE NEGATIVE (NEGATIVE); BENZODIAZEPINES URINE NEGATIVE (NEGATIVE); COCAINE METABOLITE URINE NEGATIVE (NEGATIVE); METHADONE URINE NEGATIVE (NEGATIVE); OPIATES URINE NEGATIVE (NEGATIVE); PHENCYCLIDINE URINE NEGATIVE (NEGATIVE)
[2023-07-23 09:39] LABS: CANNABINOIDS URINE POSITIVE (NEGATIVE)
[2023-07-23 10:46] VITALS: BP 111/70
[2023-07-23] MEDS ORDERED: FLUO40CA (10:47)
[2023-07-23] MEDS ORDERED: PANT40TA29 (10:47)
[2023-07-23 10:48] VITALS: TEMP 98.7; O2SAT 98
[2023-07-23] MEDS ORDERED: KEPP10002 PO (10:52)
== END 2023-07-23 11:04 | disposition home or self-care (01) ==
LOC: EDBD 08:03 → M ED 09:31
DX: G40.909 Epilepsy, unspecified, not intractable, without status epilepticus (principal); F12.20 Cannabis dependence, uncomplicated; Z91.148 Patient's other noncompliance with medication regimen for other reason; E11.9 Type 2 diabetes mellitus without complications; Z88.1 Allergy status to other antibiotic agents; Z79.52 Long term (current) use of systemic steroids; Z79.4 Long term (current) use of insulin; Z79.899 Other long term (current) drug therapy
CPT/HCPCS: 80048; 80076; 80180; 80307; 81001; 82077; 82140; 82330; 82803; 83605; 83735; 84100; 85025; 93041; 94760; 96365; 96366; 96375; 99285; J1953; J2405

== ENCOUNTER → 2023-08-25 | Outpatient (CLI) | payer OTHER ==
[~2023-08-25] MED LIST changes: +ABIL1TAB13 PO; +FLUO40CA; +ISOVUE-370 76% 100ML VIAL As Ordered ONE; +PANT40TA29
== END ==
LOC: M RAD 07:36
PROVIDERS: ATTEND Internal Medicine Hematology & Oncology
DX: D72.829 Elevated white blood cell count, unspecified (principal)
CPT/HCPCS: 71260; Q9967

== ENCOUNTER → 2024-02-16 | Outpatient (CLI) | payer OTHER ==
[~2024-02-16] MED LIST changes: +FLUO-365 PO; -FLUO20CA22 PO; -ISOVUE-370 76% 100ML VIAL As Ordered ONE; +ONDA-282 PO; -ONDA4TAB6 PO
== END ==
LOC: M WHC 13:26
PROVIDERS: ATTEND Nurse Practitioner Family
DX: Z12.31 Encounter for screening mammogram for malignant neoplasm of breast (principal)

== ENCOUNTER 2024-04-04 06:09 | Emergency (ER) | payer OTHER ==
[~2024-04-04] VITALS: Ht 160 cm; Wt 101.4 kg
[2024-04-04 06:52] LABS: HEMATOCRIT 50.2 % (36.0-47.0); MEAN CORPUSCULAR HEMOGLOBIN 32.2 pg (27.0-33.0); MEAN CORPUSCULAR HGB CONC 33.9 g/dl (32.0-36.5); MEAN CORPUSCULAR VOLUME 95.1 fl (80.0-96.0); PLATELET COUNT, AUTOMATED 286 10^3/uL (150-450); RED BLOOD COUNT 5.28 10^6/uL (4.00-5.40); WHITE BLOOD COUNT 16.6 10^3/uL (4.0-10.0)
[2024-04-04 07:14] LABS: BLOOD UREA NITROGEN 16 MG/DL (9-23); CALCIUM LEVEL 10.3 MG/DL (8.5-10.1); CARBON DIOXIDE LEVEL 26 MMOL/L (20-31); CHLORIDE LEVEL 101 MMOL/L (98-107); CREATININE FOR GFR 0.98 MG/DL (0.55-1.30); GLOMERULAR FILTRATION RATE > 60.0 (>58); GLUCOSE, FASTING 126 MG/DL (60-100); POTASSIUM SERUM 3.8 MMOL/L (3.5-5.1); SODIUM LEVEL 139 MMOL/L (136-145)
[2024-04-04] MEDS: levETIRAcetam INJection 1,500 MG in D5W 100 ML IV ONE (09:10)
[2024-04-04] MEDS: ACETAMINOPHEN 325 MG TAB PO ONE (10:39)
[2024-04-04 12:30] VITALS: BP 107/66; TEMP 99.8; O2SAT 96
== END 2024-04-04 12:41 | disposition home or self-care (01) ==
LOC: M ED 06:09
DX: G40.909 Epilepsy, unspecified, not intractable, without status epilepticus (principal); Z91.199 Patient's noncompliance with other medical treatment and regimen due to unspecified reason; E11.9 Type 2 diabetes mellitus without complications; E78.5 Hyperlipidemia, unspecified; F12.10 Cannabis abuse, uncomplicated; Z79.4 Long term (current) use of insulin; Z79.899 Other long term (current) drug therapy; Z88.0 Allergy status to penicillin; Z88.1 Allergy status to other antibiotic agents
CPT/HCPCS: 70450; 72125; 80047; 80048; 80177; 83605; 85027; 87040; 87486; 87581; 87633; 87798; 96374; 99285; J1953

== ENCOUNTER → 2024-09-04 | Outpatient (CLI) | payer OTHER ==
[~2024-09-04] MED LIST changes: +BRIV75TA; +FREM225A; +METF-838; +SERT50TA29; +VITA100T14
== END ==
LOC: M RAD 08:56
PROVIDERS: ATTEND Specialist
DX: D45 Polycythemia vera (principal); K76.0 Fatty (change of) liver, not elsewhere classified

== ENCOUNTER 2025-01-01 10:30 | Observation (INO) | payer OTHER ==
[~2025-01-01 10:30] MED LIST changes: -BRIV75TA; +BRIV75TA PO; -FREM225A; +FREM225A INJ; -METF-838; +METF-838 PO; -PANT40TA29; -VITA100T14; +VITA100T14 PO
[2025-01-01 11:37] LABS: BASO # 0.1 10^3/uL (0.0-0.2); BASO % 0.7 % (0.0-1.0); EOS # 0.2 10^3/uL (0.0-0.5); EOS % 0.8 % (0.0-3.0); LYMPH # 3.9 10^3/uL (1.5-5.0); LYMPH % 20.0 % (24.0-44.0); MONO # 1.0 10^3/uL (0.0-0.8); MONO % 5.3 % (2.0-8.0); NEUTROPHILS # 13.7 10^3/uL (1.5-8.5); NEUTROPHILS % 71.0 % (36.0-66.0); PLATELET COUNT, AUTOMATED 302 10^3/uL (150-450)
[2025-01-01 12:02] LABS: ETHYL ALCOHOL (ETHANOL) < 0.003 % (0.000-0.010)
[2025-01-01 12:04] LABS: ALT/SGPT 37 U/L (7.0-40); AST/SGOT 31 U/L (<34); CALCIUM LEVEL 9.4 MG/DL (8.5-10.1); CARBON DIOXIDE LEVEL 13 MMOL/L (20-31); CHLORIDE LEVEL 104 MMOL/L (98-107); CREATININE FOR GFR 0.82 MG/DL (0.55-1.30); GLOMERULAR FILTRATION RATE > 90.0 (>58); MAGNESIUM LEVEL 2.0 MG/DL (1.8-2.4); PHOSPHORUS LEVEL 3.1 MG/DL (2.5-4.9); POTASSIUM SERUM 3.7 MMOL/L (3.5-5.1); SODIUM LEVEL 144 MMOL/L (136-145)
[2025-01-01] MEDS: NS (Normal Saline) 0.9% 1,000 ML IV ONE ×2 (12:37→18:53)
[2025-01-01] MEDS: levETIRAcetam INJection 1,000 MG in IV 1 EA IV ONE (12:38)
[2025-01-01 16:09] LABS: AMPHETAMINES LEVEL URINE NEGATIVE (NEGATIVE); BARBITURATES URINE NEGATIVE (NEGATIVE); BENZODIAZEPINES URINE NEGATIVE (NEGATIVE); COCAINE METABOLITE URINE NEGATIVE (NEGATIVE); METHADONE URINE NEGATIVE (NEGATIVE); OPIATES URINE NEGATIVE (NEGATIVE); PHENCYCLIDINE URINE NEGATIVE (NEGATIVE)
[2025-01-01 16:13] LABS: CANNABINOIDS URINE POSITIVE (NEGATIVE)
[2025-01-01] MEDS ORDERED: ZOLO100T PO (16:14)
[2025-01-01] MEDS ORDERED: HOME MED LIST COMPLETE! XX SCH (16:15)
[2025-01-01] MEDS ORDERED: ENTER DRUG NAME HERE (PATIENT'S OWN MED) PO ONE (18:40)
[2025-01-01] MEDS: BRIVARACETAM PO ONE (19:54)
[2025-01-01] MEDS ORDERED: GLUCAGON INJ 1 MG VIAL SC PRN (20:20)
[2025-01-01] MEDS ORDERED: DEXTROSE 50% 50 ML SYRINGE IV PRN (20:20)
[2025-01-01] MEDS ORDERED: MOM 30 ML SUSPENSION UDC PO PRN (20:20)
[2025-01-01] MEDS ORDERED: GLUCOSE 4 GM CHEW PO PRN (20:20)
[2025-01-01] MEDS ORDERED: ACETAMINOPHEN 325 MG TAB PO PRN (20:20)
[2025-01-01] MEDS ORDERED: ALBUTEROL 90 MCG/ACT 8 GM HFA INHALER INH PRN (20:20)
[2025-01-01] MEDS ORDERED: ENTER DRUG NAME HERE (PATIENT'S OWN MED) PO SCH (20:20)
[2025-01-01] MEDS ORDERED: MAALOX 30 ML SUSP *UDC PO PRN (20:20)
[2025-01-01] MEDS: INSULIN LISPRO (NovoLOG) PER UNIT SC SCH (21:29)
[2025-01-01] MEDS: PANTOPRAZOLE 40MG TAB PO SCH (21:39)
[2025-01-01] MEDS: DOCUSATE SODIUM 100 MG CAPSULE PO SCH (21:39)
[2025-01-02] MEDS: METOCLOPRAMIDE 10 MG TAB PO PRN (01:02)
[2025-01-02 03:40] VITALS: BP 134/87; TEMP 98.2; O2SAT 97
[2025-01-02 07:19] LABS: PLATELET COUNT, AUTOMATED 295 10^3/uL (150-450)
[2025-01-02] MEDS: INSULIN LISPRO (NovoLOG) PER UNIT SC SCH (07:30)
[2025-01-02 07:41] LABS: ALT/SGPT 35 U/L (7.0-40); AST/SGOT 32 U/L (<34); CALCIUM LEVEL 8.8 MG/DL (8.5-10.1); CARBON DIOXIDE LEVEL 23 MMOL/L (20-31); CHLORIDE LEVEL 109 MMOL/L (98-107); CREATININE FOR GFR 0.68 MG/DL (0.55-1.30); GLOMERULAR FILTRATION RATE > 90.0 (>58); MAGNESIUM LEVEL 2.1 MG/DL (1.8-2.4); POTASSIUM SERUM 3.9 MMOL/L (3.5-5.1); SODIUM LEVEL 144 MMOL/L (136-145)
[2025-01-02] MEDS ORDERED: BRIVIACT 75 MG PO SCH (09:00)
[2025-01-02] MEDS: PYRIDOXINE 50 MG TAB PO SCH (09:00)
[2025-01-02] MEDS: SERTRALINE 100 MG TAB PO SCH (09:10)
[2025-01-02] MEDS: SCOPOLAMINE 1MG TRANSDERMAL PATCH TOP ONE (09:23)
[2025-01-02 12:00] VITALS: BP 105/65; TEMP 98.5; O2SAT 97
[2025-01-02] MEDS ORDERED: BRIVIACT PO ONE (14:35)
[2025-01-02] MEDS ORDERED: BRIV75TA PO (14:35)
== END 2025-01-02 15:51 | disposition home or self-care (01) ==
LOC: EDBD 10:30 → M ED 10:30 → M ED INP 10:31 → M MS4PR 01-02 03:38
PROVIDERS: ADMIT Internal Medicine; ATTEND Internal Medicine
DX: G40.109 Localization-related (focal) (partial) symptomatic epilepsy and epileptic syndromes with simple partial seizures, not intractable, without status epilepticus (principal); E87.29 Other acidosis; D72.829 Elevated white blood cell count, unspecified; E11.9 Type 2 diabetes mellitus without complications; J45.909 Unspecified asthma, uncomplicated; N18.2 Chronic kidney disease, stage 2 (mild); R05.3 Chronic cough; Z79.899 Other long term (current) drug therapy
CPT/HCPCS: 36415; 70450; 71045; 80047; 80048; 80053; 80076; 80307; 82077; 82140; 82330; 83605; 83735; 84100; 84145; 85025; 85027; 93041; 94760; 96365; 96375; 97161; 97530; 99285; J1953; J2765

== ENCOUNTER → 2025-01-23 | Outpatient (CLI) | payer OTHER ==
[~2025-01-23] MED LIST changes: -VITA100T14 PO; +VITA100T69 PO; +ZOLO100T PO
[2025-01-23 11:09] LABS: ALT/SGPT 28 U/L (7.0-40); AST/SGOT 29 U/L (<34); CALCIUM LEVEL 9.1 MG/DL (8.5-10.1); CARBON DIOXIDE LEVEL 30 MMOL/L (20-31); CHLORIDE LEVEL 104 MMOL/L (98-107); CHOLESTEROL LEVEL 223 MG/DL (<200); CHOLESTEROL RISK RATIO 6.81 (<5); CREATININE FOR GFR 0.74 MG/DL (0.55-1.30); CREATININE, URINE 35.7 MG/DL; GLOMERULAR FILTRATION RATE > 90.0 (>58); LDL CHOLESTEROL 165.3 MG/DL (<100); MALB URINE SIEMENS < 3.0 MG/L; NON-HDL-C 190.3 MG/DL; POTASSIUM SERUM 4.1 MMOL/L (3.5-5.1); SODIUM LEVEL 144 MMOL/L (136-145); TRIGLYCERIDES LEVEL 125 MG/DL (<150)
== END ==
LOC: M LAB 09:40
PROVIDERS: ATTEND Nurse Practitioner Family
DX: E11.69 Type 2 diabetes mellitus with other specified complication (principal); G40.909 Epilepsy, unspecified, not intractable, without status epilepticus

== ENCOUNTER → 2025-01-23 | Outpatient (CLI) | payer OTHER | LOC: M LAB 09:44 | PROVIDERS: ATTEND Psychiatry & Neurology Neurology | DX: G40.909 Epilepsy, unspecified, not intractable, without status epilepticus (principal) ==

== ENCOUNTER → 2025-03-17 | Outpatient (CLI) | payer OTHER ==
[2025-03-17 11:18] LABS: CREATININE, URINE 68.5 MG/DL; MALB URINE SIEMENS 5.0 MG/L; MAU/CREAT RATIO 7.2 MCG/MG (0.0-30.0)
[2025-03-17 11:29] LABS: ALT/SGPT 123 U/L (7.0-40); AST/SGOT 97 U/L (<34); CALCIUM LEVEL 9.6 MG/DL (8.5-10.1); CARBON DIOXIDE LEVEL 30 MMOL/L (20-31); CHLORIDE LEVEL 107 MMOL/L (98-107); CHOLESTEROL LEVEL 175 MG/DL (<200); CHOLESTEROL RISK RATIO 7.91 (<5); CREATININE FOR GFR 0.69 MG/DL (0.55-1.30); GLOMERULAR FILTRATION RATE > 90.0 (>58); LDL CHOLESTEROL 118.5 MG/DL (<100); NON-HDL-C 152.9 MG/DL; POTASSIUM SERUM 4.0 MMOL/L (3.5-5.1); SODIUM LEVEL 149 MMOL/L (136-145); TRIGLYCERIDES LEVEL 172 MG/DL (<150)
== END ==
LOC: M LAB 09:56
PROVIDERS: ATTEND Nurse Practitioner Family
DX: E11.69 Type 2 diabetes mellitus with other specified complication (principal)

== ENCOUNTER → 2025-03-18 | Outpatient (CLI) | payer OTHER | LOC: M WHC 13:23 | PROVIDERS: ATTEND Nurse Practitioner Family | DX: M89.9 Disorder of bone, unspecified (principal) ==

== ENCOUNTER → 2025-04-10 | Outpatient (CLI) | payer OTHER ==
[2025-04-10 12:22] VITALS: TEMP 97.2
[2025-04-10] MEDS: LIDOCAINE 1% MDV 20 ML VIAL SC SCH (13:06)
[2025-04-10 13:14] LABS: BASO # 0.1 10^3/uL (0.0-0.2); BASO % 0.6 % (0.0-1.0); EOS # 0.4 10^3/uL (0.0-0.5); EOS % 2.8 % (0.0-3.0); LYMPH # 2.6 10^3/uL (1.5-5.0); LYMPH % 19.5 % (24.0-44.0); MONO # 1.0 10^3/uL (0.0-0.8); MONO % 7.6 % (2.0-8.0); NEUTROPHILS # 9.2 10^3/uL (1.5-8.5); NEUTROPHILS % 68.3 % (36.0-66.0); PLATELET COUNT, AUTOMATED 319 10^3/uL (150-450)
[2025-04-10 13:24] VITALS: BP 106/75; O2SAT 95
== END ==
LOC: M IRPRO 11:58
PROVIDERS: ATTEND Internal Medicine Medical Oncology
DX: D45 Polycythemia vera (principal)